=== PATIENT | female | born 1945 | race Caucasian/White ===

== ENCOUNTER → 2018-01-29 09:25 | Outpatient (CLI) | payer MEDICARE, OTHER, SELFPAY ==
[2018-01-29 12:38] LABS: Absolute Lymphocyte Count 1.58 X10^3/ul (0.83-4.51); Basophil# 0.04 X10^3/uL; Basophil% 1.3 % (0-1); Eosinophil# 0.19 X10^3/uL; Hematocrit 37.2 % (37-47); Hemoglobin 12.1 g/dl (12.0-15.0); Lymphocyte # 1.58 X10^3/ul (4.0); Mean Corp Hgb Conc 32.5 g/gl (32-36); Mean Corpuscular Hgb 30.9 pg (27.0-32.0); Mean Corpuscular Volume 94.9 fL (81-99); Mean Platelet Vol. 10.7 fl (6.2-12.0); Monocyte# 0.34 X10^3/uL; Monocyte% 10.8 % (0-10); Neutrophil % 31.6 % (47-70); Platelet Count 220 K/mm3 (150-450); RBC Distribution Width SD 43.9 fl (35.1-43.9); Red Blood Count 3.92 M/mm3 (4.2-5.4); White Blood Count 3.2 K/mm3 (4.4-11.0)
[2018-01-29 12:39] LABS: Differential Indicated SCAN CRITERIA MET; POSITIVE COUNT NO; POSITIVE DIFFERENTIAL YES; POSITIVE MORPHOLOGY NO
[2018-01-29 13:00] LABS: Anion Gap 5 (5-15); BUN 28 mg/dL (7-18); BUN/Creat Ratio 21.7 RATIO (10-20); Chloride 108 mmol/L (98-107); Creatinine, Serum 1.29 mg/dL (0.55-1.02); EST Glomerular Filtration Rate 43 mL/min (>60); Est Glom Filt Rate - Afr Amer 52 mL/min (>60); Glucose 93 mg/dL (74-106); Potassium 3.9 mmol/L (3.5-5.1); Sodium Level 142 mmol/L (136-145)
== END ==
PROVIDERS: Family Provider Family Medicine; PCP Family Medicine; Visit Provider Family Medicine
DX: I10 Essential (primary) hypertension (principal); R73.01 Impaired fasting glucose
CPT/HCPCS: 36415; 80048; 85025

== ENCOUNTER 2018-05-13 11:44 | Observation (INO) | payer MEDICARE, OTHER, SELFPAY ==
[2018-05-13] VITALS (7 sets, daily range): BP systolic 123–151; BP diastolic 64–90; PULSE 70–82; RESP 15–18; TEMP 36.8–37.2; O2SAT 98–99; BMI 27.3; BMI 27.4
--- NOTE | 2018-05-13 12:37 | CT_ITS ---
STUDY: CT BRAIN WITHOUT CONTRAST REASON FOR EXAM: Female, 73 years old. Vertigo. Anxiety. RADIATION DOSAGE (If Supplied By Facility): CTDIvol = ( 60.81 ) mGy, DLP = ( 1044.28 ) mGycm TECHNIQUE: Transaxial CT imaging of the brain was performed without administration of intravenous contrast material. Individualized dose optimization techniques were used for this CT. COMPARISON: None. FINDINGS: Normal soft tissue structures. Normal calvarium. Normal size ventricles and extra-axial spaces for the patient's age. Normal white matter tracts of the cerebral hemispheres. There are small punctate calcifications of the basal ganglia which are seen in the aging brain as a normal variant. Normal brainstem. Normal cerebellum. There is no intracranial hemorrhage. There are no findings of an acute ischemic infarction. Normal visualized paranasal sinuses. CT/Brain/Head without Contrast IMPRESSION: No acute abnormality is seen. Electronically Signed: Demond Muller MD at 13:33 EDT Tel [phone], Service support ,
[2018-05-13 12:49] LABS: Absolute Lymphocyte Count 1.34 X10^3/ul (0.83-4.51); Absolute Neutrophil Count 1.9 X10^3/uL (2.0-7.7); Basophil# 0.02 X10^3/uL; Basophil% 0.6 % (0-1); Eosinophil# 0.05 X10^3/uL; Eosinophils% 1.4 % (0-5); Hematocrit 38.4 % (37-47); Lymphocyte # 1.34 X10^3/ul (4.0); Lymphocyte % 37.4 % (19-41); Mean Corp Hgb Conc 33.9 g/gl (32-36); Mean Corpuscular Volume 91.4 fL (81-99); Mean Platelet Vol. 10.8 fl (6.2-12.0); Monocyte# 0.31 X10^3/uL; Monocyte% 8.7 % (0-10); Neutrophil # 1.86 X10^3/uL (2.7-7.7); Neutrophil % 51.9 % (47-70); Platelet Count 208 K/mm3 (150-450); RBC Distribution Width SD 39.6 fl (35.1-43.9); White Blood Count 3.6 K/mm3 (4.4-11.0)
[2018-05-13 12:51] LABS: POSITIVE COUNT NO; POSITIVE DIFFERENTIAL NO; POSITIVE MORPHOLOGY NO
[2018-05-13] MEDS: Metoclopramide 10 MG/2 ML Vial 5 MG IV (12:59)
[2018-05-13] MEDS: Ondansetron 4 MG/2 ML Vial IV (12:59)
[2018-05-13 13:04] LABS: Anion Gap 11 (5-15); BUN 17 mg/dL (7-18); BUN/Creat Ratio 13.7 RATIO (10-20); Calcium,Total 9.1 mg/dL (8.5-10.1); Chloride 108 mmol/L (98-107); Creatinine, Serum 1.24 mg/dL (0.55-1.02); EST Glomerular Filtration Rate 45 mL/min (>60); Est Glom Filt Rate - Afr Amer 54 mL/min (>60); Estimated Creatinine Clearance 28.16 ml/min; Glucose 150 mg/dL (74-106); Potassium 3.8 mmol/L (3.5-5.1); Sodium Level 143 mmol/L (136-145)
[2018-05-13 13:05] LABS: Bacteria 0 SEEN /hpf (None Seen); Mucous, Urine 0 SEEN /hpf (<or=2+); Red Blood Cells-Urine 0 SEEN /hpf (0-5); Squamous Epithelial Cells - UA 0 SEEN /hpf (5-10); White Blood Cells 0 SEEN /hpf (0-5)
[2018-05-13 13:07] LABS: Color, Urine Straw (Yellow); Glucose, Dipstick Normal (Normal); Ketone-Dipstick Negative (Negative); Leukocyte Esterase-Dipstick Negative /ul (Negative); Nitrite-Dipstick Negative (Negative); Occult Blood-Urine Negative /ul (Negative); Protein-Dipstick Negative (Negative); Urine Bilirubin Dipstick Negative (Negative); Urine Clarity Clear (Clear); Urine Urobilinogen Normal (Normal)
--- NOTE | 2018-05-13 14:17 | ED.VIS.GEN ---
History of Present Illness Chief Complaint: Dizziness Informant: Patient Onset: Today - 299, about 9-10 hrs [employer]EMPL[employer]MENT [employer]IST Context: Sudden Onset - while upright, after she was up out of bed Quality: off-balance Location: n/a Current Severity: - - mild-mod Maximum Severity: - - mild-mod Associated Symptoms: nausea Narrative: Her had this before. No ear pain or tinnitus or headache or vomiting. No focal neurologic symptoms peripherally. No confusion. No injury to her head. No recent falls.. Feels like she is going to, no lightheadedness or presyncopal episodes. No chest pain or palpitations. She states she usually takes melatonin every night but she stopped 2 nights ago, and could not sleep last night, took some Benadryl, which was why she was getting up out of bed at 3 in the morning, before she took the Benadryl she started having these symptoms. She took no other medications. Of note, patient has tympanic membrane perforation and occasional issues, but none now. - Past Medical History (1) Diabetes mellitus Status: Chronic (2) Meralgia paraesthetica Status: Chronic Past Medical History - Allergies and Home Meds Allergies/Adverse Reactions: Allergies azithromycin [From Zithromax] Allergy (Verified 05/13/18 12:06) Anaphylaxis Penicillins Allergy (Verified 05/13/18 12:06) Anaphylaxis Primary Care Physician: Otf Granado MD [Primary Care Provider] - Smoking Status: Never smoker Review of Systems All systems negative except as indicated Gastrointestinal: Reports: Nausea. Denies: Vomiting Neurological: Reports: - - dizziness. Denies: Headache, Weakness, Numbness Physical Exam Vital Signs/Narrative: Vital Signs Temp Pulse Resp BP Pulse Ox 05/13/18 11:45 98.3 F 78 15 151/90 H 99 Inital Vital Signs reviewed: Yes General: Well nourished, Well developed Head: Normocephalic, Atraumatic Eyes: Perrl, EOMI - horiz nystagmus bilat. ENT: Moist mucous membranes, No rhinorrhea, TM's clear - except for chronic-appearing perforation left TM; no discharge or erythema. nml EAC bilat. Neck: Supple, Nontender Cardiovascular: Regular rate, Regular rhythm, No murmurs Respiratory: No distress, CTA bilaterally, Chest nontender Abdomen: Soft, Nontender, Nondistended, Normal bowel sounds Back: Nontender, Normal Inspection Extremities: Nontender, No edema Skin: Normal color, No rash Neurological: Alert, Oriented x3, Cranial nerves II-XII grossly intact, Normal Strength, Normal Sensation, Normal DTR, - - normal FTN and HTS bilat Psychological: Normal affect Diagnostic/Tx/Re-eval Impressions Brain CT 05/13/18 12:37 IMPRESSION: No acute abnormality is seen. Electronically Signed: Demond Muller MD at 13:33 EDT Tel [phone], Service support , 05/13/18 12:37 Brain/Head without Contrast [CT] Stat Laboratory Results 05/13/18 05/13/18 05/13/18 Range/Units 12:05 12:05 12:54 WBC 3.6 L (4.4-11.0) K/mm3 RBC 4.20 (4.2-5.4) M/mm3 Hgb 13.0 (12.0-15.0) g/dl Hct 38.4 (37-47) % MCV 91.4 (81-99) fL MCH 31.0 (27.0-32.0) pg MCHC 33.9 (32-36) g/gl RDW 12.0 (11.6-14.6) % RDW Differential 39.6 (35.1-43.9) fl Plt Count 208 (150-450) K/mm3 MPV 10.8 (6.2-12.0) fl Immature Gran % (Auto) 0.000 (0.0-0.9) % Neut % (Auto) 51.9 (47-70) % Lymph % (Auto) 37.4 (19-41) % Edmonson % (Auto) 8.7 (0-10) % Eos % (Auto) 1.4 (0-5) % Baso % (Auto) 0.6 (0-1) % Absolute Neuts (auto) 1.9 L (2.0-7.7) X10^3/uL Absolute Lymphs (auto) 1.34 (0.83-4.51) X10^3/ul Total Counted Not Reportable Sodium 143 (136-145) mmol/L Potassium 3.8 (3.5-5.1) mmol/L Chloride 108 H (98-107) mmol/L Carbon Dioxide 24.0 (21.0-32.0) mmol/L Anion Gap 11 (5-15) BUN 17 (7-18) mg/dL Creatinine 1.24 H (0.55-1.02) mg/dL Estim Creat Clear Calc 28.16 ml/min Est GFR (MDRD) Af Amer 54 L (>60) mL/min Est GFR (MDRD) Non-Af 45 L (>60) mL/min BUN/Creatinine Ratio 13.7 (10-20) RATIO Glucose 150 H (74-106) mg/dL Calcium 9.1 (8.5-10.1) mg/dL Troponin I < 0.015 (<0.045) ng/mL Urine Color Straw (Yellow) Urine Clarity Clear (Clear) Urine pH 8.0 (5.0 - 8.0) Ur Specific Deweese 1.010 (1.002-1.030) Urine Protein Negative (Negative) mg/dl Urine Glucose (UA) Normal (Normal) mg/dl Urine Ketones Negative (Negative) mg/dl Urine Occult Blood Negative (Negative) /ul Urine Nitrite Negative (Negative) Urine Bilirubin Negative (Negative) mg/dL Urine Urobilinogen Normal (Normal) mg/dl Ur Leukocyte Esterase Negative (Negative) /ul Urine RBC 0 SEEN (0-5) /hpf Urine WBC 0 SEEN (0-5) /hpf Ur Squamous Epith Cells 0 SEEN (5-10) /hpf Urine Bacteria 0 SEEN (None Seen) /hpf Urine Mucus 0 SEEN (<or=2+) /hpf - Rhythm Strip Rhythm Strip: Sinus Rhythm Rate: 65 Ectopy: None - EKG Initial EKG Interpretation: Sinus Rhythm, No Acute Injury Pattern, - - normal ekg - Medical Decision Making Patient does have some horizontal nystagmus, no vertical or rotatory, but other than that, symptoms are concerning for possible central origin. Since I am not able to rule that out, we will admit her to the hospital for further workup. She does feel better after Reglan and Zofran. If MRI is negative, this may be related to her suddenly discontinuing melatonin, but that is not a classic symptom of that. ED Disposition - Plan for ED Patient: Disposition: Acute Care Hospital [facility] Chief Complaint: Dizziness Diagnosis: Vertigo
--- NOTE | 2018-05-13 15:07 | NURSING ---
CALLED JAC[facility] TO SEND.
--- NOTE | 2018-05-13 15:45 | HP.PCM_ITS ---
Problem List (1) Vertigo Status: Acute (2) Meralgia paraesthetica Status: Chronic (3) Diabetes mellitus Status: Chronic History of Present Illness Date of Admission: 05/13/18 Chief Complaint: Vertigo The patient is a 73 year old F with a h/o diet contolled DM2, HLD presents with vertigo after taking benadryl last night. She states that she was in her usual health yesterday except she could not fall asleep. She took one benadryl at midnight which usually helps and then she took another at 3 am. At around 5 this morning she started to feel dizzy/Unsteady. That has improved some since she has been in the ER. She has not had a reaction like this prior. She denies any blurry vision, weakness, numbness or tingling. She did not have any palpitations during this episode. No recent URI, tinnitus or hearing loss. 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 In the ER a CT head was normal as was her lab work, she did have an elevated BP. Past Medical History Past Medical History (Chronic Problems): Chronic Problems Meralgia paraesthetica (Chronic) Diabetes mellitus (Chronic) Allergies azithromycin [From Zithromax] Allergy (Verified 05/13/18 12:06) Anaphylaxis Penicillins Allergy (Verified 05/13/18 12:06) Anaphylaxis Home Medications: Ambulatory Orders Medication Instructions Recorded Fenofibrate Nanocrystallized 160 mg PO DAILY 05/13/18 [Triglide] Lorazepam [Ativan] 1 mg PO DAILY PRN 05/13/18 Melatonin/Pyridoxine HCl (B6) 3 mg PO QHS 05/13/18 [Melatonin 3 mg Tablet] Multivitamin [Daily Multiple 1 tab PO DAILY 05/13/18 Vitamin] Quinapril HCl [Accupril] 10 mg PO DAILY 05/13/18 Surgical History: - - Wrist fracture repair Lives: Spouse/ Significant Other Smoking Status: Never smoker Tobacco Use: Non-smoker Alcohol: None Drugs: None - *Family History Paternal History Items: Heart Disease, Stroke Review of Systems Constitutional: Denies: Chills, Fever, Weight Change Eyes: Denies: Blurred vision HEENT: Denies: Dysphasia, Head Aches, Sinus Congestion, Sinus Drainage Cardiovascular: Denies: Chest Pain, Palpitations Respiratory: Denies: Cough, Shortness of breath at rest, Sputum production Gastrointestinal: Denies: Abdominal Pain, Nausea, Vomiting Genitourinary: Denies: Dysuria, Frequency Musculoskeletal: Denies: Joint Pain, Joint Tenderness Skin: Denies: Rash, Wounds Neurological: Reports: Balance problems. Denies: Blurred vision, Slurred speech , Confusion, Focal weakness, Numbness, Tingling, Seizures Psychiatric: Denies: Anxiety, Depression Hematologic/ Lymphatic: Denies: Easy Bruising, Easy Bleeding VTE Information - Inpt Only VTE Present on Admission: No Patient Problems: Active and Suspected Problems Vertigo (Acute) - Physical Exam General: Alert, Oriented x3, Cooperative, No apparent distress HEENT: Atraumatic, PERRLA, EOMI, Normocephalic Oral: Moist Mucosa Neck: Supple, No JVD Lungs: Clear to auscultation, Normal air movement, No rhonchi, No wheeze, No rales Cardiovascular: Regular rate, Regular Rhythm, Normal S1, Normal S2, No murmurs Abdomen: Soft, Non Tender, Non-Distended, No Hepato-splenomegaly Extremities: No edema, Capillary Refill Less than 3 Seconds Skin: No rashes, No breakdown Neurological: Cranial nerves II-XII grossly intact, Deep Tendon Reflexes 2+/4 and Symmetrical, Motor Exam 5/5 strength throughout, Muscle tone normal, Sensory exam intact to light touch and pain, Coordination normal Psych/Mental Status: Normal Affect, Appropriate Vital Signs Temp Pulse Resp BP Pulse Ox 98.3 F 78 15 151/90 H 99 05/13/18 11:45 05/13/18 11:45 05/13/18 11:45 05/13/18 11:45 05/13/18 11:45 Assessment/Plan All Active Problems Vertigo (Acute) 1. Dizziness/Lightheadedness - This is likely secondary to the benadryl she took last night into this morning - She does have a h/o DM and a family h/o heart disease and stroke so I believe it is reasonable to start her onb a statin and aspirin 81 - Will allow her BP to stay elevated in case this is a stroke - Given the lack of tinnitus, pain, or recent h/o URI, menieres or vestibulitis or an acoustic neuroma are unlikely - Modified katie-halpike did not induce vertigo or nystagmus - Echo and MRI pending to r/o CVA - PT/OT 2. Diet controlled DM2/HLD/HTN - BG is 150 and her A1c was 6.6% - Will obtain lipids and A1c - Start statin and monitor glucose - She is on an JAMI-I DVT: Heparin Diet: Cardiac Code Visit Inpatient E&M: 56932 Init Hosp L3
[2018-05-13] MEDS: 0.9% Normal Saline 1,000 ML 100 ML IV (16:17)
[2018-05-13 16:29] LABS: Absolute Lymphocyte Count 2.06 X10^3/ul (0.83-4.51); Absolute Neutrophil Count 2.3 X10^3/uL (2.0-7.7); Basophil# 0.01 X10^3/uL; Basophil% 0.2 % (0-1); Eosinophil# 0.04 X10^3/uL; Eosinophils% 0.9 % (0-5); Hematocrit 39.2 % (37-47); Lymphocyte # 2.06 X10^3/ul (4.0); Lymphocyte % 43.9 % (19-41); Mean Corp Hgb Conc 33.2 g/gl (32-36); Mean Corpuscular Hgb 30.4 pg (27.0-32.0); Mean Corpuscular Volume 91.6 fL (81-99); Mean Platelet Vol. 10.2 fl (6.2-12.0); Monocyte% 6.4 % (0-10); Neutrophil # 2.28 X10^3/uL (2.7-7.7); Neutrophil % 48.6 % (47-70); Platelet Count 211 K/mm3 (150-450); RBC Distribution Width CV 12.5 % (11.6-14.6); RBC Distribution Width SD 41.6 fl (35.1-43.9); Red Blood Count 4.28 M/mm3 (4.2-5.4); White Blood Count 4.7 K/mm3 (4.4-11.0)
[2018-05-13 16:30] LABS: POSITIVE COUNT NO; POSITIVE DIFFERENTIAL NO; POSITIVE MORPHOLOGY NO
[2018-05-13 16:59] LABS: Cholesterol 204 mg/dL (200); High Density Lipoprotein 61 mg/dL; Triglycerides 167 mg/dL; Very Low Density Lipoprotein 33 mg/dL (5-40)
[2018-05-13] MEDS: MELATONIN 3 MG TABLET PO (21:44)
[2018-05-13] MEDS: Heparin Injection (Vial) 5,000 UNIT/ML VIAL 5000 UNIT SC (21:44)
[2018-05-13] MEDS: Atorvastatin Calcium 40 MG Tablet PO (21:44)
[2018-05-14] VITALS (8 sets, daily range): BP systolic 142–187; BP diastolic 72–83; PULSE 61–80; RESP 18; TEMP 36.4–36.9; O2SAT 95–100; BMI 27.4
[2018-05-14] MEDS: 0.9% Normal Saline 1,000 ML 100 ML IV (03:35)
[2018-05-14 06:20] LABS: Anion Gap 11 (5-15); BUN 17 mg/dL (7-18); Calcium,Total 8.4 mg/dL (8.5-10.1); Chloride 112 mmol/L (98-107); Creatinine, Serum 1.13 mg/dL (0.55-1.02); EST Glomerular Filtration Rate 50 mL/min (>60); Est Glom Filt Rate - Afr Amer 60 mL/min (>60); Glucose 98 mg/dL (74-106); Potassium 3.9 mmol/L (3.5-5.1); Sodium Level 147 mmol/L (136-145)
[2018-05-14] MEDS: Aspirin 81 MG TAB.CHEW PO (07:54)
[2018-05-14] MEDS: Multivitamins,Therapeutic Tablet 1 TABLET PO (07:54)
[2018-05-14] MEDS: Heparin Injection (Vial) 5,000 UNIT/ML VIAL 5000 UNIT SC (09:25)
[2018-05-14] MEDS: Lisinopril 10 MG Tablet PO (09:25)
--- NOTE | 2018-05-14 11:31 | PCM.DC ---
- Discharge Diagnoses Current Active Problems: Current Active and Chronic Problems Vertigo (Acute) Reason(s) for Visit for Discharge Instructions: drug induced vertigo You will use the following diet at home:: No restrictions, Calorie/Carbohydrate Controlled (specify 1200, 1400, etc) Discharge Activity: Return to Normal Activity, No Restrictions Allergies/Adverse Reactions: Allergies azithromycin [From Zithromax] Allergy (Verified 05/13/18 12:06) Anaphylaxis Penicillins Allergy (Verified 05/13/18 12:06) Anaphylaxis Medications to take at Discharge Lorazepam [Ativan] 1 mg PO DAILY PRN 05/13/18 Multivitamin [Daily Multiple Vitamin] 1 tab PO DAILY 05/13/18 Quinapril HCl [Accupril] 10 mg PO DAILY 05/13/18 Aspirin [Aspirin, Baby] 81 mg PO DAILY@0800 #30 tab.chew 05/14/18 Atorvastatin Calcium [Lipitor] 40 mg PO DAILY #30 tab 05/14/18 Melatonin 10 mg PO QHS #30 tab 05/14/18 The following prescriptions were given: Aspirin [Aspirin, Baby] 81 mg PO DAILY@0800 #30 tab.chew Atorvastatin Calcium [Lipitor] 40 mg PO DAILY #30 tab Melatonin 10 mg PO QHS #30 tab Please follow up with your Primary Care Physician in: 1-2 weeks Test Results: Test results from this visit will be discussed in further detail at your follow-up appointment, if applicable.
--- NOTE | 2018-05-14 11:33 | PCM.DC.SUM ---
Discharge Date and Diagnosis - Problem List Patient Problems: Active and Suspected Problems Vertigo (Acute) Date of Admission: 05/13/18 Date of Discharge: 05/14/18 - Primary Discharge Diagnosis Active and Suspected Problems Vertigo (Acute) - Secondary Discharge Diagnosis Chronic Problems Meralgia paraesthetica (Chronic) Diabetes mellitus (Chronic) Hospital Course and Treatment Imaging Results: negative MRI negative head CT Operations: None Procedures: None, 2-D Echocardiogram, Transthoracic echo - results pending Summary of Care Provided: The patient is a 73 year old F admitted on account of vertigo after taking two doses of Benadryl just a few hours apart in a bid to treat her severe insomnia. Presented to the ED and CT head was negative. Today had MRI of the brain done and this was negative for any acute stroke as well. Today symptoms have pretty much completely resolved and she is feeling better. Extensively counselled on indications and proper use of antihistamines. Also counselled and educated on sleep hygiene and other lifestyle modifications that may be helpful for her insomnia. She was prescribed melatonin at a higher dose of 10mg daily. Hopefully this helps. [] Discharge Activity: Return to Normal Activity, No Restrictions Home Medications: Medications to take at Discharge Lorazepam [Ativan] 1 mg PO DAILY PRN 05/13/18 Multivitamin [Daily Multiple Vitamin] 1 tab PO DAILY 05/13/18 Quinapril HCl [Accupril] 10 mg PO DAILY 05/13/18 Aspirin [Aspirin, Baby] 81 mg PO DAILY@0800 #30 tab.chew 05/14/18 Atorvastatin Calcium [Lipitor] 40 mg PO DAILY #30 tab 05/14/18 Melatonin 10 mg PO QHS #30 tab 05/14/18 Following Prescrptions Were Given to Patient: Aspirin [Aspirin, Baby] 81 mg PO DAILY@0800 #30 tab.chew Atorvastatin Calcium [Lipitor] 40 mg PO DAILY #30 tab Melatonin 10 mg PO QHS #30 tab Primary Care Physician: Otf Granado MD [Primary Care Provider] - Please follow up with your Primary Care Physician in: 1-2 weeks Medical Necessity - Tobacco Use Smoking Status: Never smoker Tobacco Use: Non-smoker Meaningful Use Info Meaningful Use Diagnoses (Choose all that apply): None applicable Code Visit OBSV E&M: 78930 Observation care discharge
== END 2018-05-14 11:32 | disposition home or self-care (01) ==
LOC: ED 14:34 → PCU 15:09
PROVIDERS: Admitting Provider Family Medicine; Emergency Provider Emergency Medicine; Family Provider Family Medicine; PCP Family Medicine; Visit Provider Internal Medicine
DX: R42 Dizziness and giddiness (principal); G57.10 Meralgia paresthetica, unspecified lower limb; E11.9 Type 2 diabetes mellitus without complications; Z79.899 Other long term (current) drug therapy; E78.5 Hyperlipidemia, unspecified; I10 Essential (primary) hypertension
CPT/HCPCS: 36415; 70450; 70551; 80048; 80061; 81001; 84484; 85025; 93005; 93306; 96361; 96372; 96374; 96375; 97802; 99218; 99284; J7030; J7040; A4216; G0378; J2405

== ENCOUNTER → 2019-03-16 09:22 | Outpatient (CLI) | payer MEDICARE, OTHER, SELFPAY ==
--- NOTE | 2019-03-16 09:31 | RAD_ITS ---
STUDY: X-RAY - LEFT FOOT CLINICAL: Female, 74 years old. Bilateral foot pain. No known injury. TECHNIQUE: 3 view(s) of the foot. COMPARISON: None. FINDINGS: Generalized osteopenia. There is a plantar calcaneal spur. Normal talus and tarsal bones. Mild arthrosis of the visualized subtalar, talonavicular, calcaneocuboid, tarsal and tarsometatarsal articulations. Normal metatarsi. Normal metatarsophalangeal joint of the great toe. Normal tibial and fibular sesamoid bones. Normal interphalangeal joint of the great toe. Normal phalanges of the great toe. Normal second through fifth metatarsophalangeal joints. There is slight irregularity about the head of the fifth proximal phalanx with mild narrowing of the proximal interphalangeal joint. This appears chronic. Otherwise normal interphalangeal joints and phalanges of the lesser toes. The soft tissue structures are unremarkable. RAD/Foot min 3 Views IMPRESSION: Generative changes left foot. There is no evidence for acute fracture or dislocation. Electronically Signed: Hayder Galeas DO at 19:29 EDT Tel [phone], Service support ,
== END ==
PROVIDERS: Family Provider Family Medicine; PCP Family Medicine; Referring Provider Family Medicine; Visit Provider Family Medicine
DX: M79.672 Pain in left foot (principal)
CPT/HCPCS: 73630

== ENCOUNTER → 2019-06-28 13:45 | Outpatient (CLI) | payer MEDICARE, OTHER, SELFPAY ==
[2018-05-14 08:02] VITALS: BMI 27.4
[2019-06-28 15:34] LABS: Absolute Neutrophil Count 1.5 X10^3/uL (2.0-7.7); Basophil# 0.02 X10^3/uL; Basophil% 0.6 % (0-1); Eosinophil# 0.11 X10^3/uL; Eosinophils% 3.4 % (0-5); Hemoglobin 10.9 g/dL (12.0-15.0); Lymphocyte % 37.6 % (19-41); Mean Corp Hgb Conc 31.1 g/dL (32-36); Mean Corpuscular Hgb 29.8 pg (27.0-32.0); Mean Corpuscular Volume 95.6 fL (81-99); Mean Platelet Vol. 10.6 fl (6.2-12.0); Monocyte# 0.36 X10^3/uL; Monocyte% 11.3 % (0-10); NRBC Flagged by Analyzer 0 % (0-5); Neutrophil # 1.49 X10^3/uL (2.7-7.7); Neutrophil % 46.8 % (47-70); Platelet Count 238 K/mm3 (150-450); RBC Distribution Width CV 13.7 % (11.6-14.6); RBC Distribution Width SD 48.6 fl (35.1-43.9); Red Blood Count 3.66 M/mm3 (4.2-5.4); White Blood Count 3.2 K/mm3 (4.4-11.0)
[2019-06-28 16:00] LABS: Anion Gap 6 (5-15); BUN 29 mg/dL (7-18); BUN/Creat Ratio 16.9 RATIO (10-20); Calcium,Total 8.9 mg/dL (8.5-10.1); Chloride 109 mmol/L (98-107); Creatinine, Serum 1.72 mg/dL (0.55-1.02); EST Glomerular Filtration Rate 31 mL/min (>60); Est Glom Filt Rate - Afr Amer 37 mL/min (>60); Glucose 141 mg/dL (74-106); Magnesium 2.2 mg/dL (1.6-2.6); Potassium 4.4 mmol/L (3.5-5.1); Sodium Level 143 mmol/L (136-145); Thyroid Stim Hormone (TSH) 1.34 uIU/mL (0.358-3.74)
[2019-06-29 11:37] LABS: Ferritin 41 ng/mL (8-252); Iron 71 ug/dL (50-170)
== END ==
PROVIDERS: Family Provider Family Medicine; PCP Family Medicine; Visit Provider Family Medicine
DX: I10 Essential (primary) hypertension (principal); R73.01 Impaired fasting glucose; E78.5 Hyperlipidemia, unspecified; R25.2 Cramp and spasm; N17.9 Acute kidney failure, unspecified
CPT/HCPCS: 36415; 80048; 82728; 83036; 83540; 83735; 84443; 85025

== ENCOUNTER → 2019-07-07 15:14 | Outpatient (CLI) | payer MEDICARE, OTHER, SELFPAY ==
[2018-05-14 08:02] VITALS: BMI 27.4
[2019-07-07 17:12] LABS: Absolute Lymphocyte Count 1.41 X10^3/uL (0.83-4.51); Absolute Neutrophil Count 1.6 X10^3/uL (2.0-7.7); Basophil# 0.02 X10^3/uL; Basophil% 0.6 % (0-1); Eosinophil# 0.07 X10^3/uL; Hematocrit 35.4 % (37-47); Hemoglobin 11.1 g/dL (12.0-15.0); Lymphocyte # 1.41 X10^3/ul (4.0); Lymphocyte % 41.1 % (19-41); Mean Corp Hgb Conc 31.4 g/dL (32-36); Mean Corpuscular Hgb 30.1 pg (27.0-32.0); Mean Corpuscular Volume 95.9 fL (81-99); Monocyte% 8.7 % (0-10); NRBC Flagged by Analyzer 0 % (0-5); Neutrophil # 1.62 X10^3/uL (2.7-7.7); Neutrophil % 47.3 % (47-70); Platelet Count 222 K/mm3 (150-450); RBC Distribution Width CV 13.8 % (11.6-14.6); RBC Distribution Width SD 49.1 fl (35.1-43.9); Red Blood Count 3.69 M/mm3 (4.2-5.4); White Blood Count 3.4 K/mm3 (4.4-11.0)
== END ==
PROVIDERS: Family Provider Family Medicine; PCP Family Medicine; Visit Provider Family Medicine
DX: I10 Essential (primary) hypertension (principal)
CPT/HCPCS: 36415; 85025

== ENCOUNTER 2019-07-08 15:46 | Outpatient (RCR) | payer MEDICARE, OTHER, SELFPAY ==
[2018-05-14 08:02] VITALS: BMI 27.4
--- NOTE | 2019-07-08 16:57 | HP.PTEVAL ---
Patient's Visit Information MAGDY LOZANO is a 74 year old F referred to Physical Therapy by Otf Granado MD with a diagnosis of . Date of Evaluation: Physical Therapist: Latesha Lancaster PT, Cert MDT - Anticipated Interventions Thank you for the opportunity to evaluate your patient. For Medicare and Medicare HMO plans, please review the plan of care and approve it. It will need to be FAXED BACK to us at [phone] for Medicare purposes. For Medicare only, by signing this I certify the plan of care. Please let me know if there are questions or concerns regarding this plan of care. Physician Signature: Date:
--- NOTE | 2019-07-08 16:58 | HP.PTEVAL_ITS ---
Patient's Visit Information MAGDY LOZANO is a 74 year old F referred to Physical Therapy by Otf Granado MD with a diagnosis of LEFT SIDED SCIATICA. Date of Evaluation: 07/08/19 Physical Therapist: Latesha Lancaster, PT, Cert MDT - Visit Plan Frequency: 2-3x /Week Duration: 4-6 Weeks Plan: AQUATIC THERAPY FOR PAIN RELEIF, POSTURE CORRECTION/STRENGTHENING, INSTRUCTION IN APPROPRIATE BODY MECHANICS AND ACTIVITY MODIFICATIONS. DLS STARTING WITH A NEUTRAL SPINE PROGRESSING ROM TOLERATED. IAN LE ROM, STRETCHING AND STRENGTHENING. HEP INSTRUCTION. - Subjective Findings: Work/Leisure: RETIRED. Disability: NO. Present symptoms: LEFT LOW BACK PAIN, LEFT THIGH, LEFT LEG AND FOOT PAIN. LEFT LE GETS STIFF TOO. SOME CHRONIC LEFT KNEE PAIN MONY BEHIND KNEE SINCE TKR ABOUT A YEAR AGO. DR. TORRES CHECKED IT IN NOVEMBER AND SAID IT IS OK. Present since: ON AND OFF FOR ABOUT A YEAR. WORSENED OVER ABOUT THE LAST 3 MONTHS. Pain Scale: WORST 6/10, LEAST 1/10. Currently: /10. Commenced as a result of: NO APPARENT REASON. Symptoms at onset: LEFT BACK. Worse: WALKING UP STAIRS, INITIATING GAIT THEN BETTER WITH DISTANCE LONG NOT TOO FAR. Better: HEAT. Disturbed sleep: YES. Previous history/Previous treatment: UNREMARKABLE. NO BACK SURGERY. NO JOY'S. NO PT EXCEPT MAYBE ONCE - DIDN'T HELP. NO CHIROPRACTOR. Coughing/sneezing/straining: NEGATIVE. Gait: NORMAL. DISTANCE LIMITED. Difficulty initiating urinatin: NO. Accidents: NO. Unexplained weight loss: NO. Imaging: BACK X-RAY BY DR. TORRES - DDD. PMH: HTN, NIDDM, HIGH CHOL. Recent major surgery: LEFT TKR AUG 2018. RIGHT TKR 2004 - Objective Sitting/Standing Posture: POOR. Lordosis: REDUCED. Lateral shift: NO. Relevant shift: N/A. Active Correction of posture: BETTER. Other Obse rvations: INDEP GAIT AND TRANSFERS. Motor deficit: RIGHT LE STRENGTH GROSSLY 5/5 WITH MMT'ING EXCEPT HIP 4/5. LLE: HIP 3+/5, KNEE EXT 4-/5, KNEE FLEX 4-/5, ANKLE 5/5. Sensory deficit: DECREASED LEFT THIGH AND KNEE LIGHT TOUCH SENSATION COMPARED TO RIGHT. ROM deficit: MILD GASTROC SOLEUS AND HS TIGHTNESS IAN LEFT HS > RIGHT. Reflexes: NT. Dural Signs: POSITIVE LLE. Lumbar mvmt loss: flex - NIL. ext - SHASHI. R SG - MOD. L SG - SHASHI - INCREASES LEFT BACK AND LE SX'S. Core strength: POOR. Palpation: TENDERNESS WITH PALPATION OF LEFT LOW BACK AND ILIAC CREST REGIONS.PATIENT DENIES ANY FALLS. - Goals Goal 1:: DECREASE C/O LOW BACK AND LEFT LE SX'S. Goal Time Frame: 4-6 Weeks Goal 2:: IMPROVE PERSONAL CARE, LIFTING, WALKING, SITTING, STANDING, SLEEP, TRAVEL AND HOMEMAKING FUNCTION Goal Time Frame: 4-6 Weeks Goal 3:: INSTRUCT IN PROPHYLAXIS. Goal Time Frame: 4-6 Weeks - Rehabilitation Potential Rehabilitation Potential: Fair - Anticipated Interventions Patient/Client Instruction: Educate patient on: Condition, Plan of Care, Risk Factors, Benefits of Fitness Program For the Purpose of:: To improve self management Therapeutic Exercise to Include: Strength training, Body mechanics, Postural training, Flexibilty training, In an aquatic setting, Dynamic Lumbar Stabilization For the Purpose of:: To decrease pain, To increase ROM, To improve muscle performance and motor function, To increase tolerance to activity/condition/position, To improve ability of physical actions for home/community/work/leisure, To improve gait and locomotor functions Thank you for the opportunity to evaluate your patient. For Medicare and Medicare HMO plans, please review the plan of care and approve it. It will need to be FAXED BACK to us at [phone] for Medicare purposes. For Medicare only, by signing this I certify the plan of care. Please let me know if there are questions or concerns regarding this plan of care. Physician Signature: Date:
--- NOTE | 2019-08-16 13:41 | HP.PTDCNRP_ITS ---
HP - Discharge Summary (1) - Patient Information MAGDY LOZANO was seen in my office for initial evaluation on 07/08/19. The following Plan of Care was established for this patient: Initial Frequency: 2-3x /Week Initial Duration: 4-6 Weeks - Anticipated Interventions Patient/Client Instruction: Educate patient on: Condition, Plan of Care, Risk Factors, Benefits of Fitness Program For the Purpose of:: To improve self management Therapeutic Exercise to Include: Strength training, Body mechanics, Postural training, Flexibilty training, In an aquatic setting, Dynamic Lumbar Stabiliza tion For the Purpose of:: To decrease pain, To increase ROM, To improve muscle performance and motor function, To increase tolerance to activity/condition/position, To improve ability of physical actions for home/community/work/leisure, To improve gait and locomotor functions This patient was last seen in our office . Pertinent comments regarding their Physical therapy will appear below: This patient has not returned to Physical Therapy and is appropriate to return to MD for further follow-up as needed. At this point I will be discontinuing this patient from physical therapy. I would be happy to see this patient again in the future if found appropriate by the physician. Thank you! Latesha Lancaster, PT, Cert MDT
== END 2019-07-08 19:00 | disposition home or self-care (01) ==
LOC: PT 15:46
PROVIDERS: Family Provider Family Medicine; PCP Family Medicine; Referring Provider Family Medicine; Visit Provider Family Medicine
DX: M54.32 Sciatica, left side (principal)
CPT/HCPCS: 97113; 97162; 97530

== ENCOUNTER → 2019-07-27 15:48 | Outpatient (CLI) | payer MEDICARE, OTHER, SELFPAY ==
[2018-05-14 08:02] VITALS: BMI 27.4
[2019-07-27 17:26] LABS: Microalbumin,Random Urine 14.4 mg/L (NO RANGE EST.); Microalbumin:Creatinine Ratio 10.1 mg/g CRE (<30 mg/g CRE)
== END ==
PROVIDERS: Family Provider Family Medicine; PCP Family Medicine; Visit Provider Internal Medicine Nephrology
DX: E11.22 Type 2 diabetes mellitus with diabetic chronic kidney disease (principal)
CPT/HCPCS: 82043; 82570

== ENCOUNTER 2021-05-08 19:20 | Emergency (ER) | payer MEDICARE, OTHER, SELFPAY ==
[2021-05-08 19:21] VITALS: BP 179/92; PULSE 87; RESP 19; TEMP 36.9; O2SAT 95; BMI 31.6
--- NOTE | 2021-05-08 20:23 | EKG12_ITS ---
Test Reason : CP Blood Pressure : / mmHG Vent. Rate : 079 BPM Atrial Rate : 079 BPM P-R Int : 136 ms QRS Dur : 080 ms QT Int : 374 ms P-R-T Axes : 021 -02 028 degrees QTc Int : 428 ms Normal sinus rhythm Nonspecific ST abnormality Abnormal ECG Confirmed by NAKIA MANLEY, SIMÓN ([id number]), managing editor LAUREN DE LUNA ([id number]) on 05/13/2021 10:40:58 AM Referred By: TONE Confirmed By:SIMÓN YEE MD
--- NOTE | 2021-05-08 20:23 | ED.VIS.CHEST ---
HPI History of Present Illness Chief Complaint: Chest Pain Informant: patient and EMS Onset/Context/Timing Onset: Hours (3, prior to evaluation) Activity at onset: gradual, onset and light activity Timing: Intermittent (One episode which was continuous 1 present) and Lasts (1.5 hours) Quality: Positive for Burning Location: Substernal (Lower chest, no radiation) Current Severity: Gone Maximum Severity: Moderate Worsened By: Nothing; Not Worsened By Breathing Relieved By: - (Time. Resolved on its own the colon getting to the hospital. She denies taking any medications, just some milk) Associated Symptoms: Negative for Nausea, Vomiting, Diaphoresis, Dyspnea, Cough, Lightheadedness and Palpitations Narrative Narrative: Patient presents with chest discomfort that felt like acid reflux but worse than usual and her blood pressure was 190. She states upon arrival to the hospital the discomfort went away without specific treatment. She had a stress test long ago that was negative no history of heart disease. She does not take anything for reflux but gets it periodically. CVD Risk Factors: Negative for Hypertension, Diabetes, Hypercholesterolemia, Family History 1' </=55 and Smoking PE Risk Factors: Negative for Recent Travel/Surgery, Recent Immobilization, Prior DVT or PE, Cancer and OCP + Smoking + >/=35 PFSH [facility] [place] Medical History (Updated 05/08/21 @ 21:[address] Juan Tracey MD) Diabetes mellitus Meralgia paraesthetica Stage III chronic kidney disease Vertigo Home Medications quinapril [Accupril] 10 mg PO DAILY 05/13/18 [History Last Taken 05/12/18] cholecalciferol (vitamin D3) [Vitamin D3] 1,000 unit PO DAILY 05/08/21 [History Last Taken Unknown] coenzyme Q10 [CoQ-10] 30 mg PO DAILY 05/08/21 [History Last Taken Unknown] pantoprazole 40 mg PO DAILY #30 tab 05/08/21 [Rx Last Taken Unknown] vit C,D-Bq-hdayf-lutein-zeaxan [PreserVision AREDS-2] 1 tab PO BID 05/08/21 [History Last Taken Unknown] Allergy/AdvReac Type Severity Reaction Status Date / Time azithromycin [From Zithromax] Allergy Anaphylaxis Verified 05/08/21 19:27 cephalexin [From Keflex] Allergy Anaphylaxis Verified 05/08/21 19:27 Penicillins Allergy Anaphylaxis Verified 05/08/21 19:27 Surgical History History of bladder suspension procedure History of mandibular surgery History of total knee replacement (TKR) Social History Smoking Status: Never smoker ROS ROS ED Constitutional Constitutional ED: Denies chills or fever(s) Eyes Eyes: Denies change in vision or diplopia ENT ENT ED: Denies rhinorrhea or sore throat Cardiovascular Cardiovascular: Reports as per HPI and chest pain; Denies palpitations Respiratory/Chest Respiratory/Chest: Denies cough or dyspnea Gastrointestinal Gastrointestinal: Denies abdominal pain, diarrhea, nausea or vomiting Genitourinary Genitourinary ED: Denies dysuria or hematuria Musculoskeletal Musculoskeletal: Denies back pain or neck pain Integumentary Denies abscess or rash Neurologic Neurologic: Denies headache(s), paresthesias or weakness Psychiatric Psychiatric: Denies anxiety or suicidal thoughts EXAM Physical Exam Const Vital Signs: 05/08/21 19:21 05/08/21 19:32 05/08/21 20:39 Temperature 98.5 F Temperature Source Oral Pulse Rate 87 72 Respiratory Rate 19 H 18 Respiratory Pattern Normal Blood Pressure 179/92 H 146/76 H Blood Pressure Mean 121 99 Pulse Ox 95 94 Oxygen Delivery Method Room Air Room Air Positive well nourished and well developed General Appearance ED: well developed and NAD HEENT Reports moist mucous membranes normocephalic and atraumatic Eyes PERRL and EOMs intact bilaterally Neck full ROM and supple Resp normal respiratory effort and clear to auscultation bilaterally Cardio regular rate, regular rhythm and no murmurs GI non-distended GI Narrative: Mild epigastric tenderness, otherwise benign Auscultation: normoactive bowel sounds Palpation: soft; Negative for guarding or rebound tenderness present Back/Spine no CVA tenderness General Back: other FROM Extremity normal to inspection General Extremety ED: Negative for edema, pulses abnormal or tenderness General Extremity: Negative for edema or pulses abnormal Neuro oriented x3, CN's II-XII intact bilaterally and no sensory deficits noted Sensorium / Orientation: awake and alert Motor Exam: strength 5/5 throughout Skin no rashes or lesions noted and no wounds Heart Score History: Slightly/Non-Suspicious ECG: Normal Age: >/= 65 years Risk Factors: 1 or 2 Risk Factors Troponin: </= Normal Limit Score: 3 MDM MDM MDM Narrative Medical decision making narrative: Reviewed patient's history, she did have a negative stress test November 2016. Her EKG is normal here, she did not have any recurrent chest discomfort, and her troponin is negative. Do not think she needs further studies at this time, she wants to go home and does not want to be admitted. I will put her on Protonix and advised to follow-up with her doctor. She is comfortable with that plan. Lab Data Attestation: I reviewed the patient's lab results. Labs: Laboratory Results - last 24 hr 05/08/21 05/08/21 19:00 19:00 WBC 5.6 RBC 4.35 Hgb 13.5 Hct 41.7 MCV 95.9 MCH 31.0 MCHC 32.4 RDW Std Deviation 45.7 H RDW Coeff of Jah 12.7 Plt Count 227 MPV 10.4 Immature Gran % (Auto) 0.400 Neut % (Auto) 40.6 L Lymph % (Auto) 45.5 H Daw[place] % (Auto) 9.7 Eos % (Auto) 2.9 Baso % (Auto) 0.9 Absolute Neuts (auto) 2.3 Absolute Lymphs (auto) 2.53 Sodium 140 Potassium 3.8 Chloride 106 Carbon Dioxide 30.0 Anion Gap 4 L BUN 25 H Creatinine 1.15 H Estim Creat Clear Calc 28.96 Est GFR (MDRD) Af Amer 59 L Est GFR (MDRD) Non-Af 49 L BUN/Creatinine Ratio 21.7 H Glucose 126 H Calcium 9.9 Troponin I High Sens 7 Radiography Chest X-Ray - ED: 1 View, Read by ED Physician and No Acute Disease EKG Initial EKG: Attestation: I personally reviewed and interpreted this EKG as follows: Interpretation: Sinus Rhythm and No Acute Injury Pattern Comments: Normal EKG Prior EKG tracings: available for review Prior: Unchanged Discharge Plan Triage Chief Complaint: Chest Pain ED Provider: Juan Tracey Dx/Rx/DC Orders Clinical Impression: Chest pain, unspecified Instructions: ED Chest Pain, Uncertain Cause Prescriptions: New pantoprazole 40 mg tablet,delayed release (DR/EC) 40 mg PO DAILY Qty: 30 RF: 0 No Action quinapril [Accupril] 10 MG tablet 10 mg PO DAILY RF: 0 coenzyme Q10 [CoQ-10] 30 mg Capsule 30 mg PO DAILY RF: 0 cholecalciferol (vitamin D3) [Vitamin D3] 25 mcg (1,000 unit) Tablet 1,000 unit PO DAILY RF: 0 PreserVision AREDS-2 250-90-40-1 mg Capsule 1 tab PO BID RF: 0 Primary Care Provider: Farhat Henry Referrals: Farhat Henry DO [Primary Care Provider] - (Call for appointment to be seen within the next week or so) Disposition Disposition: Home, Self Care
[2021-05-08 20:39] VITALS: BP 146/76; PULSE 72; RESP 18; O2SAT 94
--- NOTE | 2021-05-08 20:54 | RAD_ITS ---
STUDY: X-RAY CHEST REASON FOR EXAM: Female, 76 years old. chest pain TECHNIQUE: Single frontal view of the chest. COMPARISON: 07/28/2016. FINDINGS: The lungs are clear and expanded. There is no demonstrated pleural abnormality. Normal size heart. Normal mediastinum and ramsey. Normal visualized pulmonary arteries. Normal visualized aortic arch and descending thoracic aorta. Normal visualized thoracic spine. Normal visualized ribs, clavicles, and shoulders. There is no demonstrated abnormality of the visualized soft tissue structures of the upper abdomen. RAD/Chest 1 View (Portable) IMPRESSION: Normal x-ray examination of the chest. Electronically Signed: Hussein Briceno MD at 21:33 EDT , Service support ,
[2021-05-08 21:04] LABS: Hematocrit 41.7 % (37-47); Hemoglobin 13.5 g/dL (12.0-15.0); Mean Corp Hgb Conc 32.4 g/dL (32-36); Mean Corpuscular Volume 95.9 fL (81-99); RBC Distribution Width CV 12.7 % (11.6-14.6); RBC Distribution Width SD 45.7 fl (35.1-43.9); Red Blood Count 4.35 M/mm3 (4.2-5.4); White Blood Count 5.6 K/mm3 (4.4-11.0)
[2021-05-08 21:05] LABS: Basophil% 0.9 % (0-1); Eosinophils% 2.9 % (0-5); Lymphocyte % 45.5 % (19-41); Mean Platelet Vol. 10.4 fl (6.2-12.0); Monocyte% 9.7 % (0-10); Neutrophil # 2.26 X10^3/uL (2.7-7.7); Neutrophil % 40.6 % (47-70); Platelet Count 227 K/mm3 (150-450)
[2021-05-08 21:06] LABS: Absolute Lymphocyte Count 2.53 X10^3/uL (0.83-4.51); Absolute Neutrophil Count 2.3 X10^3/uL (2.0-7.7); Eosinophil# 0.16 X10^3/uL; Lymphocyte # 2.53 X10^3/ul (0.83-4.51); Monocyte# 0.54 X10^3/uL
[2021-05-08 21:07] LABS: Basophil# 0.05 X10^3/uL
[2021-05-08 21:25] LABS: Anion Gap 4 (5-15); BUN 25 mg/dL (7-18); BUN/Creat Ratio 21.7 RATIO (10-20); Calcium,Total 9.9 mg/dL (8.5-10.1); Chloride 106 mmol/L (98-107); Creatinine, Serum 1.15 mg/dL (0.55-1.02); EST Glomerular Filtration Rate 49 mL/min (>60); Est Glom Filt Rate - Afr Amer 59 mL/min (>60); Estimated Creatinine Clearance 28.96 ml/min; Glucose 126 mg/dL (74-106); Potassium 3.8 mmol/L (3.5-5.1); Sodium Level 140 mmol/L (136-145); Troponin-I HS 7 pg/mL (3.0-54.0)
[2021-05-08 22:11] VITALS: BP 147/78; PULSE 79; RESP 15; O2SAT 98
[2021-05-08] MEDS: Pantoprazole Sodium 40 MG Tablet PO (22:11)
== END 2021-05-08 22:12 | disposition home or self-care (01) ==
PROVIDERS: Emergency Provider Emergency Medicine; PCP Student in an Organized Health Care Education/Training Program
DX: R07.9 Chest pain, unspecified (principal); N18.30 Chronic kidney disease, stage 3 unspecified; E11.22 Type 2 diabetes mellitus with diabetic chronic kidney disease
CPT/HCPCS: 71045; 80048; 84484; 85025; 93005; 99285

== ENCOUNTER 2021-07-14 21:23 | Emergency (ER) | payer MEDICARE, OTHER, SELFPAY ==
[2021-07-14 21:24] VITALS: BP 160/105; PULSE 99; RESP 16; TEMP 36.6; O2SAT 96; BMI 25.2
[2021-07-14 21:42] VITALS: BP 176/91; PULSE 99; RESP 16; TEMP 36.6; O2SAT 96
--- NOTE | 2021-07-14 21:54 | EKG12_ITS ---
Test Reason : CP Blood Pressure : / mmHG Vent. Rate : 090 BPM Atrial Rate : 090 BPM P-R Int : 138 ms QRS Dur : 082 ms QT Int : 332 ms P-R-T Axes : 030 -04 023 degrees QTc Int : 406 ms Normal sinus rhythm Left ventricular hypertrophy Nonspecific ST abnormality Abnormal ECG Confirmed by NAKIA MANLEY, SIMÓN ([id number]), book editor LAUREN DE LUNA ([id number]) on 07/16/2021 9:46:32 AM Referred By: MARTHA Confirmed By:SIMÓN YEE MD
--- NOTE | 2021-07-14 22:00 | RAD_ITS ---
INDICATION: pain EXAMINATION/TECHNIQUE: X-RAY - XR Chest 1 View COMPARISON: 05/08/2021. FINDINGS: The lungs are clear. The cardiomediastinal silhouette is unremarkable. No pleural effusion or pneumothorax. Degenerative changes of the thoracic spine. RAD/Chest 1 View (Portable) IMPRESSION: No acute radiographic abnormalities. Electronically Signed: Gautam Bolaños MD at 22:32 EDT Tel , Service support ,
[2021-07-14 22:13] LABS: Absolute Lymphocyte Count 0.91 X10^3/uL (0.83-4.51); Absolute Neutrophil Count 2.6 X10^3/uL (2.0-7.7); Basophil# 0.02 X10^3/uL; Basophil% 0.5 % (0-1); Eosinophil# 0.06 X10^3/uL; Eosinophils% 1.4 % (0-5); Hematocrit 41.6 % (37-47); Hemoglobin 13.7 g/dL (12.0-15.0); Lymphocyte # 0.91 X10^3/ul (0.83-4.51); Lymphocyte % 21.7 % (19-41); Mean Corp Hgb Conc 32.9 g/dL (32-36); Mean Corpuscular Hgb 31.1 pg (27.0-32.0); Mean Corpuscular Volume 94.5 fL (81-99); Mean Platelet Vol. 10.1 fl (6.2-12.0); Monocyte# 0.58 X10^3/uL; Monocyte% 13.8 % (0-10); NRBC Flagged by Analyzer 0 % (0-5); Neutrophil # 2.61 X10^3/uL (2.7-7.7); Neutrophil % 62.4 % (47-70); Platelet Count 165 K/mm3 (150-450); RBC Distribution Width CV 12.2 % (11.6-14.6); RBC Distribution Width SD 42.7 fl (35.1-43.9); White Blood Count 4.2 K/mm3 (4.4-11.0)
[2021-07-14 22:31] LABS: AST(SGOT) 16 U/L (15-37); Alanine Aminotransfer ALT/SGPT 27 U/L (13-56); Albumin, Serum 3.5 g/dL (3.2-5.0); Alkaline Phosphatase 70 U/L (45-117); Anion Gap 8 (5-15); BUN 17 mg/dL (7-18); BUN/Creat Ratio 14.7 RATIO (10-20); Bilirubin, Direct 0.17 mg/dL (0.00-0.30); Calcium,Total 9.2 mg/dL (8.5-10.1); Chloride 104 mmol/L (98-107); Creatinine, Serum 1.16 mg/dL (0.55-1.02); EST Glomerular Filtration Rate 48 mL/min (>60); Est Glom Filt Rate - Afr Amer 58 mL/min (>60); Estimated Creatinine Clearance 35.97 ml/min; Globulin 4.2 g/dL (2.2-4.2); Glucose 150 mg/dL (74-106); Lipase 472 U/L (73-393); Potassium 3.6 mmol/L (3.5-5.1); Protein, Total 7.7 g/dL (6.4-8.2); Sodium Level 138 mmol/L (136-145); Troponin-I HS 7 pg/mL (3.0-54.0)
[2021-07-14] MEDS: Mag Hydrox/Al Hydrox/Simeth 30 ML UDC PO (22:31)
[2021-07-14] MEDS: Ondansetron 4 MG/2 ML Vial IV (23:30)
[2021-07-14] MEDS: Morphine 4 MG/ML Syringe IV (23:30)
[2021-07-14 23:35] VITALS: BP 181/95; PULSE 95; RESP 15; O2SAT 94
--- NOTE | 2021-07-14 23:57 | EX.ED.DYSGE1 ---
HPI History of Present Illness Chief Complaint: Chest Pain Informant: patient Onset/Context/Timing Onset: Today Context: Gradual Onset Current Severity: Mild Maximum Severity: Moderate Narrative Narrative: Patient presents secondary to chest and epigastric pain. Yesterday she received the Covid booster shot. She states has been laying in bed for the almost 24 hours with body aches and subjective fevers. She only ate some cereal this morning stating that she did not feel hungry. Now she feels like she has horrible heartburn and is burping frequently. Patient denies known cardiac history. [facility] Medical History Diabetes mellitus Meralgia paraesthetica Stage III chronic kidney disease Vertigo Home Medications quinapril [Accupril] 10 mg PO DAILY 05/13/18 [History Last Taken 05/12/18] cholecalciferol (vitamin D3) [Vitamin D3] 1,000 unit PO DAILY 05/08/21 [History Last Taken Unknown] coenzyme Q10 [CoQ-10] 30 mg PO DAILY 05/08/21 [History Last Taken Unknown] vit C,N-Cw-ngztk-lutein-zeaxan [PreserVision AREDS-2] 1 tab PO BID 05/08/21 [History Last Taken Unknown] omeprazole magnesium [Prilosec] 20 mg PO DAILY #28 ea 07/15/21 [Rx Last Taken Unknown] Allergy/AdvReac Type Severity Reaction Status Date / Time azithromycin [From Zithromax] Allergy Anaphylaxis Verified 05/08/21 19:27 cephalexin [From Keflex] Allergy Anaphylaxis Verified 05/08/21 19:27 Penicillins Allergy Anaphylaxis Verified 05/08/21 19:27 Surgical History History of bladder suspension procedure History of mandibular surgery History of total knee replacement (TKR) Social History Smoking Status: Never smoker ROS ROS ED Constitutional Constitutional ED: Denies chills or fever(s) Eyes Eyes: Denies change in vision ENT ENT ED: Denies sore throat Cardiovascular Cardiovascular: Reports chest pain Respiratory/Chest Respiratory/Chest: Denies cough or dyspnea Gastrointestinal Gastrointestinal: Reports abdominal pain; Denies diarrhea, nausea or vomiting Genitourinary Genitourinary ED: Denies dysuria Musculoskeletal Musculoskeletal: Denies back pain Integumentary Denies rash Neurologic Neurologic: Reports weakness; Denies headache(s) Allergic/Immunologic Allergic/Immunologic ED: Denies urticaria EXAM Physical Exam Const Vital Signs: 07/14/21 21:24 07/14/21 21:42 07/14/21 23:35 Temperature 97.8 F 97.8 F Temperature Source Temporal Temporal Pulse Rate 99 99 95 Respiratory Rate 16 16 15 Respiratory Effort Normal Respiratory Pattern Normal Blood Pressure 160/105 H 176/91 H 181/95 H Blood Pressure Mean 123 119 123 Pulse Ox 96 96 94 Oxygen Delivery Method Room Air Room Air Room Air Positive well nourished and well developed General Appearance ED: well developed Eyes PERRL and EOMs intact bilaterally Neck supple Chest Wall inspection of chest normal and palpation of chest normal Resp normal respiratory effort and clear to auscultation bilaterally Cardio regular rate and regular rhythm GI Palpation: soft and tender epigastric Extremity normal to inspection Neuro oriented x3 Sensorium / Orientation: alert Psych mental status grossly normal Skin no rashes or lesions noted MDM MDM MDM Narrative Medical decision making narrative: EKG, chest x-ray, lab work obtained. Patient initially given GI cocktail and a dose of IV Protonix. Lab Data Attestation: I reviewed the patient's lab results. Labs: Laboratory Results - last 24 hr 07/14/21 07/14/21 21:45 21:45 WBC 4.2 L RBC 4.40 Hgb 13.7 Hct 41.6 MCV 94.5 MCH 31.1 MCHC 32.9 RDW Std Deviation 42.7 RDW Coeff of Jah 12.2 Plt Count 165 MPV 10.1 Immature Gran % (Auto) 0.200 Neut % (Auto) 62.4 Lymph % (Auto) 21.7 [place] % (Auto) 13.8 H Eos % (Auto) 1.4 Baso % (Auto) 0.5 Absolute Neuts (auto) 2.6 Absolute Lymphs (auto) 0.91 Nucleated RBC % 0 Sodium 138 Potassium 3.6 Chloride 104 Carbon Dioxide 26.0 Anion Gap 8 BUN 17 Creatinine 1.16 H Estim Creat Clear Calc 35.97 Est GFR (MDRD) Af Amer 58 L Est GFR (MDRD) Non-Af 48 L BUN/Creatinine Ratio 14.7 Glucose 150 H Calcium 9.2 Total Bilirubin 0.60 Direct Bilirubin 0.17 AST 16 ALT 27 Alkaline Phosphatase 70 Troponin I High Sens 7 Total Protein 7.7 Albumin 3.5 Globulin 4.2 Lipase 472 H Radiography Chest X-Ray - ED: 1 View, 2 View and Chronic Changes Diagnostic Testing: Clinical Impression(s) from Imaging Studies Chest X-Ray 07/14/21 22:00 IMPRESSION: No acute radiographic abnormalities. Electronically Signed: Gautam Bolaños MD at 22:32 EDT Tel , Service support , EKG Initial EKG: Attestation: I personally reviewed and interpreted this EKG as follows: Interpretation: Sinus Rhythm (Sinus at 90 with no acute ischemia.) Treatment and Re-Evaluation Comments:: On repeat evaluation patient reports continued pain. Blood pressure is elevated secondary to pain. She is given dose of morphine and Zofran. Lab work reviewed with her. White count is low. Chemistry studies unremarkable. Lipase is 472. On review of prior records lipase has been checked twice in the past it is always elevated about this number. It is not meet criteria for acute pancreatitis. Chest x-ray is unremarkable. EKG reveals no ischemia. Troponin is negative with greater than 6 hours of pain. At this time patient's pain is significantly improved. She is able to get up and ambulate to the restroom and back without difficulty. She is comfortable discharge to home and continue to monitor her symptoms. I will write her for a 2-week course of Prilosec. Return instructions are provided. Discharge Plan Triage Chief Complaint: Chest Pain ED Provider: Rosita Augustine Dx/Rx/DC Orders Clinical Impression: Abdominal pain, epigastric Instructions: ED Epigastric Pain Uncertain Cause Prescriptions: New Prilosec 10 mg susp,delayed release for recon 20 mg PO DAILY Qty: 28 RF: 0 No Action quinapril [Accupril] 10 MG tablet 10 mg PO DAILY RF: 0 coenzyme Q10 [CoQ-10] 30 mg Capsule 30 mg PO DAILY RF: 0 cholecalciferol (vitamin D3) [Vitamin D3] 25 mcg (1,000 unit) Tablet 1,000 unit PO DAILY RF: 0 PreserVision AREDS-2 250-90-40-1 mg Capsule 1 tab PO BID RF: 0 Primary Care Provider: Farhat Henry Referrals: Farhat Henry DO [Primary Care Provider] - 3-5 Days if not improving Disposition Disposition: Home, Self Care
[2021-07-15 00:42] VITALS: BP 181/85; PULSE 76; RESP 18; O2SAT 97
== END 2021-07-15 00:42 | disposition home or self-care (01) ==
PROVIDERS: Emergency Provider Emergency Medicine; PCP Student in an Organized Health Care Education/Training Program
DX: R10.13 Epigastric pain (principal); R07.9 Chest pain, unspecified; N18.30 Chronic kidney disease, stage 3 unspecified; E11.22 Type 2 diabetes mellitus with diabetic chronic kidney disease
CPT/HCPCS: 71045; 80048; 80076; 83690; 84484; 85025; 93005; 99285; A4216; J2405

== ENCOUNTER 2022-02-07 22:54 | Emergency (ER) | payer MEDICARE, OTHER, SELFPAY ==
[2022-02-07 22:55] VITALS: BP 139/89; PULSE 82; RESP 18; TEMP 36.8; O2SAT 95; BMI 32.1
--- NOTE | 2022-02-07 23:05 | EDS_ITS ---
HPI History of Present Illness Chief Complaint: Hyperglycemia Narrative Narrative: 76-year-old female presenting with hyperglycemia. She states her blood sugar was about 350 at home. Currently has diet-controlled diabetes and states she eats salads, fish, and generally low-carb diet. This week she was working in the [employer] and come across [employer]. She currently has poison guillermina dermatitis which is actually improving after 2 days of a Medrol Dosepak, but her blood sugars have been elevated. The patient states that tonight she had a very mild headache and called the emergency room to see if she was allowed to take Tylenol and they told her she could take Tylenol but if her blood sugars continue to go up she should come to the emergency room. Since her blood sugars did go up to 350 she arrived here. She took Tylenol prior to arrival her headache is improving. She states that her poison guillermina dermatitis is actually improved significantly and she is not very itchy. Her rash is drying up. [facility] Medical History Diabetes mellitus Meralgia paraesthetica Stage III chronic kidney disease Vertigo Home Medications quinapril [Accupril] 10 mg PO DAILY 05/13/18 [History Last Taken 05/12/18] cholecalciferol (vitamin D3) [Vitamin D3] 1,000 unit PO DAILY 05/08/21 [History Last Taken Unknown] coenzyme Q10 [CoQ-10] 30 mg PO DAILY 05/08/21 [History Last Taken Unknown] vit C,Q-Ik-xemyq-lutein-zeaxan [PreserVision AREDS-2] 1 tab PO BID 05/08/21 [History Last Taken Unknown] omeprazole magnesium [Prilosec] 20 mg PO DAILY #28 ea 07/15/21 [Rx Last Taken Unknown] Allergy/AdvReac Type Severity Reaction Status Date / Time azithromycin [From Zithromax] Allergy Anaphylaxis Verified 02/07/22 22:57 cephalexin [From Keflex] Allergy Anaphylaxis Verified 02/07/22 22:57 Penicillins Allergy Anaphylaxis Verified 02/07/22 22:57 Surgical History History of bladder suspension procedure History of mandibular surgery History of total knee replacement (TKR) Social History Smoking Status: Never smoker ROS ROS ED Constitutional Constitutional ED: Denies chills or fever(s) Eyes Eyes: Denies blurry vision or diplopia ENT ENT ED: Denies rhinorrhea or sore throat Cardiovascular Cardiovascular: Denies chest pain or palpitations Respiratory/Chest Respiratory/Chest: Denies cough or dyspnea Gastrointestinal Gastrointestinal: Denies abdominal pain, nausea or vomiting Genitourinary Genitourinary ED: Denies dysuria or hematuria Musculoskeletal Musculoskeletal: Denies arthralgias or myalgias Integumentary Reports rash Neurologic Neurologic: Reports headache(s); Denies paresthesias or weakness EXAM Physical Exam Const Vital Signs: 02/07/22 22:55 Temperature 98.3 F Temperature Source Oral Pulse Rate 82 Respiratory Rate 18 Blood Pressure 139/89 H Blood Pressure Mean 105 Pulse Ox 95 Oxygen Delivery Method Room Air Positive well nourished General Appearance ED: NAD HEENT Reports moist mucous membranes Negative for trauma Eyes PERRL and EOMs intact bilaterally Chest Wall inspection of chest normal and palpation of chest normal Resp normal respiratory effort and clear to auscultation bilaterally Cardio regular rate and regular rhythm Neuro oriented x3 and CN's II-XII intact bilaterally Sensorium / Orientation: alert Skin Skin Narrative: Faint areas of linear streaks of erythema on the bilateral upper extremities. There is some in the axilla and on the left upper and right upper chest wall. There are no vesicles noted. Minimally pruritic. No tenderness to palpation. No cellulitic change. MDM MDM MDM Narrative Medical decision making narrative: Patient presenting with hyperglycemia. She states her blood sugar was 350 at home but is now down to 292 in the emergency room. She took Tylenol prior to arrival and states her headache is improving. Patient states that her diabetes is diet controlled and typically she does not have a problem with her blood sugars but after 2 days of the Medrol Dosepak her blood sugars have come under control. She has no medication for this. Patient states that she does typically keep a low-carb diet. She has not had anything out of the ordinary. On examination she does have some areas of erythema on her extremities and in the axilla/upper chest wall bilaterally. He do not have vesi cles and are not weeping however the patient states that it did have this presentation before she started the steroids. This has dramatically improved. She describes minimal itching currently. Patient will be given a liter of IV fluids. BMP shows that her renal function is about at baseline. Electrolytes are normal. Blood sugar is 310 on her BMP however there is no anion gap. I will check her blood sugar again after her IV fluids. Repeat blood sugar 222. She was reevaluated at 1140 and feels well. I believe the patient will be stable for discharge home after this. Patient will discontinue her steroids and use Benadryl and calamine lotion as needed. Impression: 1. Headache 2. Hyperglycemia 3. Medication side effect Lab Data Attestation: I reviewed the patient's lab results. Labs: Laboratory Results - last 24 hr 02/07/22 02/07/22 23:00 23:02 Sodium 136 Potassium 4.6 Chloride 103 Carbon Dioxide 27.0 Anion Gap 6 BUN 28 H Creatinine 1.27 H Estim Creat Clear Calc 26.22 Est GFR (MDRD) Af Amer 52 L Est GFR (MDRD) Non-Af 43 L BUN/Creatinine Ratio 22.0 H Glucose 310 H Calcium 8.9 POC Glucose 292 H Discharge Plan Triage Chief Complaint: Hyperglycemia Other Complaint: Headache ED Provider: Alejandro Rolle Dx/Rx/DC Orders Instructions: ED Diabetic Hyperglycemia, ED Drug Reaction, Other Prescriptions: No Action quinapril [Accupril] 10 MG tablet 10 mg PO DAILY RF: 0 coenzyme Q10 [CoQ-10] 30 mg Capsule 30 mg PO DAILY RF: 0 cholecalciferol (vitamin D3) [Vitamin D3] 25 mcg (1,000 unit) Tablet 1,000 unit PO DAILY RF: 0 PreserVision AREDS-2 250-90-40-1 mg Capsule 1 tab PO BID RF: 0 Prilosec 10 mg susp,delayed release for recon 20 mg PO DAILY Qty: 28 RF: 0 Primary Care Provider: Farhat Henry Referrals: Farhat Henry DO [Primary Care Provider] - Disposition Disposition: Home, Self Care
[2022-02-07 23:06] LABS: Bedside Glucose 292 mg/dL (74-106)
[2022-02-07] MEDS: 0.9% Normal Saline 1,000 ML 999 ML IV (23:08)
[2022-02-07 23:27] LABS: Anion Gap 6 (5-15); BUN 28 mg/dL (7-18); Calcium,Total 8.9 mg/dL (8.5-10.1); Chloride 103 mmol/L (98-107); Creatinine, Serum 1.27 mg/dL (0.55-1.02); EST Glomerular Filtration Rate 43 mL/min (>60); Est Glom Filt Rate - Afr Amer 52 mL/min (>60); Estimated Creatinine Clearance 26.22 ml/min; Glucose 310 mg/dL (74-106); Potassium 4.6 mmol/L (3.5-5.1); Sodium Level 136 mmol/L (136-145)
[2022-02-08 00:15] LABS: Bedside Glucose 227 mg/dL (74-106)
== END 2022-02-08 00:21 | disposition home or self-care (01) ==
PROVIDERS: Emergency Provider Student in an Organized Health Care Education/Training Program; PCP Student in an Organized Health Care Education/Training Program; Visit Provider Student in an Organized Health Care Education/Training Program
DX: E11.65 Type 2 diabetes mellitus with hyperglycemia (principal); E11.22 Type 2 diabetes mellitus with diabetic chronic kidney disease; N18.30 Chronic kidney disease, stage 3 unspecified; R51.9 Headache, unspecified; T50.905A Adverse effect of unspecified drugs, medicaments and biological substances, initial encounter
CPT/HCPCS: 80048; 82962; 96360; 99284; J7030; A4216

== ENCOUNTER 2023-07-22 21:31 | Emergency (ER) | payer MEDICARE, OTHER, SELFPAY ==
[2023-07-22 21:33] VITALS: BP 154/89; PULSE 102; RESP 18; TEMP 36.7; O2SAT 99; BMI 30.7
--- NOTE | 2023-07-22 22:42 | EDS_ITS ---
HPI History of Present Illness Chief Complaint: Hyperglycemia Informant: patient Narrative Narrative: Patient states she is a type II diabetic that is diet controlled and on no diabetes medications, she checks her blood sugar every morning and every night. She usually is in the 115 range. Tonight she was feeling a little shaky and she checked it and it was in the 250 range which is what brought her to the ER. It was checked in triage prior to my evaluation, and she is 177. She is asymptomatic now. She states she has chronic urinary frequency because I have chronic kidney disease and there is no difference there. She denies any recent illness, cough, congestion, fevers, GI symptoms. She states the last thing she ate was about 4 hours ago and it was a corn beef sandwich and a couple of pickles. She did not have any sugary drinks with this or anything after that. She did not eat lunch today. [facility] Medical History Diabetes mellitus Meralgia paraesthetica Stage III chronic kidney disease Vertigo Home Medications quinapril 10 mg tablet (Accupril) 10 mg PO DAILY blood pressure 05/13/18 [History Last Taken 05/12/18] cholecalciferol (vitamin D3) 25 mcg (1,000 unit) tablet (Vitamin D3) 1,000 unit PO DAILY 05/08/21 [History Last Taken Unknown] coenzyme Q10 30 mg capsule (CoQ-10) 30 mg PO DAILY 05/08/21 [History Last Taken Unknown] vit C 250 mg-vit E 90 mg-zinc 40 mg-copper 1 [id number] capsule (PreserVision AREDS-2) 1 tab PO BID 05/08/21 [History Last Taken Unknown] Allergy/AdvReac Type Severity Reaction Status Date / Time azithromycin [From Zithromax] Allergy Anaphylaxis Verified 07/22/23 21:35 cephalexin [From Keflex] Allergy Anaphylaxis Verified 07/22/23 21:35 Penicillins Allergy Anaphylaxis Verified 07/22/23 21:35 Surgical History History of bladder suspension procedure History of mandibular surgery History of total knee replacement (TKR) Social History Smoking Status: Never smoker ROS ROS ED Constitutional Constitutional ED: Reports other Details: [place] shaky earlier, currently resolved ; Denies chills or fever(s) Eyes Eyes: Denies change in vision or diplopia ENT ENT ED: Denies rhinorrhea or sore throat Cardiovascular Cardiovascular: Denies chest pain or palpitations Respiratory/Chest Respiratory/Chest: Denies cough or dyspnea Gastrointestinal Gastrointestinal: Denies abdominal pain, diarrhea, nausea or vomiting Genitourinary Genitourinary ED: Reports urinary frequency; Denies dysuria or hematuria Musculoskeletal Musculoskeletal: Denies back pain or neck pain Integumentary Denies abscess or rash Neurologic Neurologic: Denies headache(s), paresthesias or weakness Psychiatric Psychiatric: Denies anxiety or suicidal thoughts EXAM Physical Exam Const Vital Signs: 07/22/23 21:33 07/22/23 22:25 Temperature 98.1 F Temperature Source Temporal Pulse Rate 102 H Respiratory Rate 18 Respiratory Effort Normal Non-Labored Respiratory Pattern Normal Blood Pressure 154/89 H Blood Pressure Mean 110 Pulse Ox 99 Oxygen Delivery Method Room Air Positive well nourished and well developed General Appearance ED: well developed and NAD HEENT Reports moist mucous membranes normocephalic and atraumatic Eyes PERRL and EOMs intact bilaterally Neck full ROM and supple Resp normal respiratory effort and clear to auscultation bilaterally Cardio regular rate, regular rhythm and no murmurs GI non-tender and non-distended Auscultation: normoactive bowel sounds Palpation: soft Back/Spine no CVA tenderness General Back: other FROM Extremity normal to inspection General Extremety ED: Negative for edema, pulses abnormal or tenderness General Extremity: Negative for edema or pulses abnormal Neuro oriented x3, CN's II-XII intact bilaterally and no sensory deficits noted Sensorium / Orientation: awake and alert Motor Exam: strength 5/5 throughout Skin no rashes or lesions noted and no wounds MDM MDM MDM Narrative Medical decision making narrative: Since she has a history of kidney disease, that it would be reasonable to recheck and make sure that she does not have significant MINA/renal failure. Her creatinine is little higher than the 1 she had several months ago, but this is not necessarily acute and it is not very high, she has been higher than this in the past. Her blood counts are good. She has chronic urinary frequency, no other acute urinary symptoms but undetermined if the frequency is related to infection so I thought reasonable to check a urinalysis at the same time, while we were keeping an eye on her blood sugar. Her urinalysis is normal and does not show glycosuria, nor infection. On reevaluation of her blood sugar is 113. She is asymptomatic. I am comfortable letting her go home and follow-up closely as an outpatient with her doctor she is as well. Lab Data Attestation: I reviewed the patient's lab results. Labs: Laboratory Results - last 24 hr 07/22/23 07/22/23 07/23/23 22:06 22:23 00:01 WBC 5.1 RBC 4.13 L Hgb 12.9 Hct 40.4 MCV 97.8 MCH 31.2 MCHC 31.9 L RDW Std Deviation 45.1 H RDW Coeff of Jah 12.7 Plt Count 225 MPV 10.2 Immature Gran % (Auto) 0.200 Neut % (Auto) 39.9 L Lymph % (Auto) 47.[address] [place] % (Auto) 9.3 Eos % (Auto) 2.4 Baso % (Auto) 0.8 Absolute Neuts (auto) 2.0 Absolute Lymphs (auto) 2.41 Nucleated RBC % 0 Sodium 142 Potassium 4.1 Chloride 110 H Carbon Dioxide 29.0 Anion Gap 3 L BUN 24 H Creatinine 1.44 H Estim Creat Clear Calc 22.38 Est GFR (MDRD) Af Amer 45 L Est GFR (MDRD) Non-Af 37 L BUN/Creatinine Ratio 16.7 Glucose 206 H Calcium 8.8 Urine Color Urine Clarity Urine pH Ur Specific [place] Urine Protein Urine Glucose (UA) Urine Ketones Urine Occult Blood Urine Nitrite Urine Bilirubin Urine Urobilinogen Ur Leukocyte Esterase POC Glucose 177 H 113 H 07/23/23 00:25 WBC RBC Hgb Hct MCV MCH MCHC RDW Std Deviation RDW Coeff of Jah Plt Count MPV Immature Gran % (Auto) Neut % (Auto) Lymph % (Auto) [place] % (Auto) Eos % (Auto) Baso % (Auto) Absolute Neuts (auto) Absolute Lymphs (auto) Nucleated RBC % Sodium Potassium Chloride Carbon Dioxide Anion Gap BUN Creatinine Estim Creat Clear Calc Est GFR (MDRD) Af Amer Est GFR (MDRD) Non-Af BUN/Creatinine Ratio Glucose Calcium Urine Color Yellow Urine Clarity Clear Urine pH 8.0 Ur Specific [place] 1.010 Urine Protein Negative Urine Glucose (UA) Normal Urine Ketones Negative Urine Occult Blood Negative Urine Nitrite Negative Urine Bilirubin Negative Urine Urobilinogen Normal Ur Leukocyte Esterase 25 H POC Glucose Discharge Plan Triage Chief Complaint: Hyperglycemia ED Provider: Juan Tracey Dx/Rx/DC Orders Clinical Impression: Hyperglycemia due to type 2 diabetes mellitus, Chronic kidney disease (CKD) Instructions: ED Diabetic Hyperglycemia Prescriptions: No Action quinapril [Accupril] 10 MG tablet 10 mg PO DAILY coenzyme Q10 [CoQ-10] 30 mg Capsule 30 mg PO DAILY cholecalciferol (vitamin D3) [Vitamin D3] 25 mcg (1,000 unit) Tablet 1,000 unit PO DAILY PreserVision AREDS-2 250-90-40-1 mg Capsule 1 tab PO BID Primary Care Provider: Farhat Henry Referrals: Farhat Henry DO [Primary Care Provider] - 3-5 Days if not improving Disposition Disposition: Home, Self Care
[2023-07-22 22:43] LABS: Bedside Glucose 177 mg/dL (74-106)
[2023-07-22 22:53] LABS: Absolute Lymphocyte Count 2.41 X10^3/uL (0.83-4.51); Basophil# 0.04 X10^3/uL; Basophil% 0.8 % (0-1); Eosinophil# 0.12 X10^3/uL; Eosinophils% 2.4 % (0-5); Hematocrit 40.4 % (37-47); Hemoglobin 12.9 g/dL (12.0-15.0); Lymphocyte # 2.41 X10^3/ul (0.83-4.51); Lymphocyte % 47.4 % (19-41); Mean Corp Hgb Conc 31.9 g/dL (32-36); Mean Corpuscular Hgb 31.2 pg (27.0-32.0); Mean Corpuscular Volume 97.8 fL (81-99); Mean Platelet Vol. 10.2 fl (6.2-12.0); Monocyte# 0.47 X10^3/uL; Monocyte% 9.3 % (0-10); NRBC Flagged by Analyzer 0 % (0-5); Neutrophil # 2.03 X10^3/uL (2.7-7.7); Neutrophil % 39.9 % (47-70); Platelet Count 225 K/mm3 (150-450); RBC Distribution Width CV 12.7 % (11.6-14.6); RBC Distribution Width SD 45.1 fl (35.1-43.9); Red Blood Count 4.13 M/mm3 (4.2-5.4); White Blood Count 5.1 K/mm3 (4.4-11.0)
[2023-07-22 23:07] LABS: Anion Gap 3 (5-15); BUN 24 mg/dL (7-18); BUN/Creat Ratio 16.7 RATIO (10-20); Calcium,Total 8.8 mg/dL (8.5-10.1); Chloride 110 mmol/L (98-107); Creatinine, Serum 1.44 mg/dL (0.55-1.02); EST Glomerular Filtration Rate 37 mL/min (>60); Est Glom Filt Rate - Afr Amer 45 mL/min (>60); Estimated Creatinine Clearance 22.38 ml/min; Glucose 206 mg/dL (74-106); Potassium 4.1 mmol/L (3.5-5.1); Sodium Level 142 mmol/L (136-145)
[2023-07-23 00:19] LABS: Bedside Glucose 113 mg/dL (74-106)
[2023-07-23 00:36] LABS: Bacteria 0 SEEN /hpf (None Seen); Mucous, Urine 0 SEEN /hpf (<or=2+)
[2023-07-23 00:38] LABS: Color, Urine Yellow (Yellow); Glucose, Dipstick Normal (Normal); Ketone-Dipstick Negative (Negative); Leukocyte Esterase-Dipstick 25 /ul (Negative); Nitrite-Dipstick Negative (Negative); Occult Blood-Urine Negative /ul (Negative); Protein-Dipstick Negative (Negative); Urine Bilirubin Dipstick Negative (Negative); Urine Clarity Clear (Clear); Urine Urobilinogen Normal (Normal)
[2023-07-23 00:46] LABS: Red Blood Cells-Urine 0-5 SEEN /hpf (0-5); Squamous Epithelial Cells - UA 0-5 SEEN /hpf (5-10); White Blood Cells 0-5 SEEN /hpf (0-5)
== END 2023-07-23 00:52 | disposition home or self-care (01) ==
PROVIDERS: Emergency Provider Emergency Medicine; PCP Student in an Organized Health Care Education/Training Program; Visit Provider Emergency Medicine
DX: E11.65 Type 2 diabetes mellitus with hyperglycemia (principal); E11.22 Type 2 diabetes mellitus with diabetic chronic kidney disease; N18.30 Chronic kidney disease, stage 3 unspecified; Z96.659 Presence of unspecified artificial knee joint
CPT/HCPCS: 80048; 81001; 82962; 85025; 99283; A4216

== ENCOUNTER 2023-09-16 09:51 | Outpatient (RCR) | payer MEDICARE, OTHER, SELFPAY | END 2023-09-16 19:00 | disposition home or self-care (01) | LOC: PT 09:51 | PROVIDERS: PCP Student in an Organized Health Care Education/Training Program; Referring Provider Student in an Organized Health Care Education/Training Program; Visit Provider Student in an Organized Health Care Education/Training Program | DX: M25.551 Pain in right hip (principal); M79.18 Myalgia, other site ==

== ENCOUNTER 2023-11-10 09:48 | Emergency (ER) | payer MEDICARE, OTHER, SELFPAY ==
[2023-11-10 09:49] VITALS: BP 197/91; PULSE 70; RESP 18; TEMP 36; O2SAT 98; BMI 30.7
--- NOTE | 2023-11-10 10:05 | EKG12_ITS ---
Test Reason : GENERAL Blood Pressure : / mmHG Vent. Rate : 061 BPM Atrial Rate : 061 BPM P-R Int : 128 ms QRS Dur : 076 ms QT Int : 400 ms P-R-T Axes : -06 -03 020 degrees QTc Int : 402 ms Normal sinus rhythm Normal ECG Confirmed by CHEMO MANLEY, KATHIA ([id number]), script editor RANJAN NUNES ([id number]) on 11/16/2023 10:08:20 AM Referred By: Confirmed By:SHAD MCLAIN MD
--- NOTE | 2023-11-10 10:06 | EX.ED.DYSGE1 ---
HPI History of Present Illness Chief Complaint: Hypertension Detail of Chief Complaint: High blood pressure Informant: patient Narrative Narrative: Patient presents to the emergency department complaint of elevated blood pressure this morning. Patient states that she tries to take her blood pressure every day. Normally she takes lisinopril 10 mg daily. She states that when she first woke up she had an pain in her left arm and thought maybe she slept wrong. She subsequently currently took her blood pressure and noted that the systolic was 185. She does not remember the diastolic. Patient also describes some faint discomfort in her chest that she thinks is anxiety possibly. Patient has subsequently taken her lisinopril. She denies dyspnea. Denies recent illness. Denies urinary symptoms other than she urinates frequently which is not unusual for her. Patient tells me that normally her blood pressure is in the 120 systolic range. The discomfort in her left arm is now resolved and she states he got better after walking around. [facility] Medical History Diabetes mellitus Meralgia paraesthetica Stage III chronic kidney disease Vertigo Home Medications cholecalciferol (vitamin D3) 25 mcg (1,000 unit) tablet (Vitamin D3) 1,000 unit PO DAILY 05/08/21 [History Last Taken Unknown] coenzyme Q10 30 mg capsule (CoQ-10) 30 mg PO DAILY 05/08/21 [History Last Taken Unknown] vit C 250 mg-vit E 90 mg-zinc 40 mg-copper 1 [id number] capsule (PreserVision AREDS-2) 1 tab PO BID 05/08/21 [History Last Taken Unknown] lisinopril 10 mg tablet 10 mg PO DAILY 11/10/23 [History Last Taken Unknown] lorazepam 0.5 mg tablet 0.5 mg PO DAILY PRN anxiety 11/10/23 [History Last Taken Unknown] triamcinolone acetonide 0.025 % topical cream 1 applic topical DAILY PRN rash 11/10/23 [History Last Taken Unknown] Allergy/AdvReac Type Severity Reaction Status Date / Time azithromycin [From Zithromax] Allergy Anaphylaxis Verified 11/10/23 09:50 cephalexin [From Keflex] Allergy Anaphylaxis Verified 11/10/23 09:50 Penicillins Allergy Anaphylaxis Verified 11/10/23 09:50 Surgical History History of bladder suspension procedure History of mandibular surgery History of total knee replacement (TKR) Social History Smoking Status: Never smoker ROS ROS ED ROS Narrative Hypertension Review of Systems ROS Unobtainable: other Constitutional Constitutional ED: Reports lethargy; Denies chills, fever(s), sweats or weight loss Eyes Eyes: Denies blurry vision, change in vision or diplopia ENT ENT ED: Denies rhinorrhea or sore throat Cardiovascular Cardiovascular: Reports chest pain; Denies orthopnea or racing heartbeat Respiratory/Chest Respiratory/Chest: Denies cough, dyspnea, dyspnea on exertion, orthopnea or sputum Gastrointestinal Gastrointestinal: Denies abdominal pain, diarrhea, nausea or vomiting Genitourinary Genitourinary ED: Denies dysuria, hematuria or urinary frequency Musculoskeletal Musculoskeletal: Denies arthralgias, back pain, myalgias or neck pain Integumentary Denies abscess, Abrasions or rash Neurologic Neurologic: Denies headache(s) or weakness Psychiatric Psychiatric: Denies anxiety, depression or suicidal thoughts Endocrine Endocrinology: Denies polydipsia, polyphagia or polyuria Hematologic/Lymphatic Hematologic/Lymphatic: Denies easy bleeding, easy bruising or lymphadenopathy Allergic/Immunologic Allergic/Immunologic ED: Denies mouth swelling, tongue swelling or urticaria EXAM Physical Exam Const Vital Signs: 11/10/23 09:49 11/10/23 11:11 11/10/23 12:24 Temperature 96.8 F L Temperature Source Temporal Pulse Rate 70 82 Respiratory Rate 18 16 Respiratory Effort Normal Respiratory Pattern Normal Blood Pressure 197/91 H 193/84 H Blood Pressure Mean 126 120 Pulse Ox 98 97 Oxygen Delivery Method Room Air Room Air 11/10/23 13:44 Temperature 97.4 F L Temperature Source Pulse Rate 87 Respiratory Rate 16 Respiratory Effort Respiratory Pattern Blood Pressure 146/74 H Blood Pressure Mean 98 Pulse Ox 97 Oxygen Delivery Method Positive well nourished and well developed General Appearance ED: well developed and NAD HEENT Reports TM's clear and moist mucous membranes normocephalic and atraumatic; Negative for trauma or tenderness Tympanic Membrane ED: Yes TM's clear Eyes PERRL and EOMs intact bilaterally General Eye ED: Negative for pale conjunctiva or scleral icterus Neck no lymphadenopathy, supple and no JVD General: Negative for tenderness Chest Wall inspection of chest normal and palpation of chest normal Chest: Negative for tenderness Resp normal respiratory effort and clear to auscultation bilaterally Effort and Inspection: Negative for respiratory distress or pain with movement Auscultation: Negative for rhonchi, wheezes or diminished lung sounds Cardio regular rate, regular rhythm, S1 normal heart sound, S2 normal heart sound and no murmurs Peripheral Pulses: pulses 2+ throughout GI normal to inspection, nondistended, normoactive bowel sounds, soft to palpation, non-tender, non-distended and no masses Back/Spine no CVA tenderness and no thoracic nor lumbar tenderness Extremity normal to inspection General Extremety ED: Negative for edema General Extremity: Negative for edema Neuro oriented x3, CN's II-XII intact bilaterally, no sensory deficits noted and gait normal Sensorium / Orientation: awake, alert, oriented to person, oriented to place and oriented to time Motor Exam: strength 5/5 throughout and strength abnormal Psych mental status grossly normal Skin no rashes or lesions noted and no wounds MDM MDM MDM Narrative Medical decision making narrative: Patient presents to the emergency room with complaint of hypertension. She does have history of hypertension. I did obtain an EKG on arrival that showed a sinus rhythm with a rate of 61 bpm with no acute ST segment changes. CBC with differential was unremarkable. Chemistries unremarkable. Urinalysis was negative for infection. Her blood pressure ranged from the 180s to 200s systolic. After having a discussion with her she relates that she is having some increased stressors at home and that her late and her anniversaries are coming up. Today she had a vision of being in the same spot in the house where he had initially fallen when he got sick and then went down and that triggered some memories today that may have upset her. She does take as needed Ativan. I did give her a milligram of Ativan here and blood pressure went to 151 systolic. She is feeling improved. I also discussed her case with her niece on the phone who called in and wanted to have an update. We discussed increasing her lisinopril however I am unable to get a hold of her primary care physician. Also discussed just following her blood pressure over the next 5 to 7 days and following up with her primary care physician which is what she would prefer to do. I did tell her that she needs to return if elevated blood pressures with chest pain or shortness of breath or severe headache or if condition should worsen anyway. She can also double up on her lisinopril and go to 20 mg a day. Lab Data Attestation: I reviewed the patient's lab results. Labs: Laboratory Results - last 24 hr 11/10/23 11/10/23 10:25 10:50 WBC 3.6 L RBC 4.07 L Hgb 12.7 Hct 38.4 MCV 94.3 MCH 31.2 MCHC 33.1 RDW Std Deviation 44.1 H RDW Coeff of Jah 12.8 Plt Count 198 MPV 9.5 Sodium 140 Potassium 4.0 Chloride 109 H Carbon Dioxide 25.0 Anion Gap 6 BUN 18 Creatinine 1.09 H Estim Creat Clear Calc 36.31 Est GFR (MDRD) Af Amer 62 Est GFR (MDRD) Non-Af 51 L BUN/Creatinine Ratio 16.5 Glucose 106 Calcium 9.2 Troponin I High Sens 8 Urine Color Straw Urine Clarity Clear Urine pH 7.0 Ur Specific [place] 1.010 Urine Protein Negative Urine Glucose (UA) Normal Urine Ketones Negative Urine Occult Blood Negative Urine Nitrite Negative Urine Bilirubin Negative Urine Urobilinogen Normal Ur Leukocyte Esterase 100 H Urine RBC 0 SEEN Urine WBC 0-5 SEEN Ur Squamous Epith Cells 0-5 SEEN Urine Bacteria 0 SEEN Urine Mucus 0 SEEN EKG Initial EKG: Attestation: I personally reviewed and interpreted this EKG as follows: Comments: Sinus rhythm with rate of 61 bpm with no acute ST segment changes Discharge Plan Triage Chief Complaint: Hypertension ED Provider: Melita Leslie Dx/Rx/DC Orders Clinical Impression: Anxiety, Hypertension Instructions: ED Anxiety Reaction, ED Hypertension, Established Prescriptions: No Action coenzyme Q10 [CoQ-10] 30 mg Capsule 30 mg PO DAILY cholecalciferol (vitamin D3) [Vitamin D3] 25 mcg (1,000 unit) Tablet 1,000 unit PO DAILY PreserVision AREDS-2 250-90-40-1 mg Capsule 1 tab PO BID lisinopril 10 mg tablet 10 mg PO DAILY Patient Comments: Take 1 tablet by mouth once daily. triamcinolone acetonide 0.025 % cream 1 applic TOPICAL DAILY PRN (Reason: rash) Patient Comments: Apply to affected area two times a day. As needed for rash lorazepam 0.5 mg tablet 0.5 mg PO DAILY PRN (Reason: anxiety) Patient Comments: Take 1 tablet by mouth once daily as needed for up to 90 days. Primary Care Provider: Farhat Henry Referrals: Farhat Henry DO [Primary Care Provider] - 5-7 Days Disposition Disposition: Home, Self Care Discharge Date/Time: 11/10/23 13:45
[2023-11-10 10:32] LABS: Hematocrit 38.4 % (37-47); Hemoglobin 12.7 g/dL (12.0-15.0); Mean Corp Hgb Conc 33.1 g/dL (32-36); Mean Corpuscular Hgb 31.2 pg (27.0-32.0); Mean Corpuscular Volume 94.3 fL (81-99); Mean Platelet Vol. 9.5 fl (6.2-12.0); Platelet Count 198 K/mm3 (150-450); RBC Distribution Width CV 12.8 % (11.6-14.6); RBC Distribution Width SD 44.1 fl (35.1-43.9); Red Blood Count 4.07 M/mm3 (4.2-5.4); White Blood Count 3.6 K/mm3 (4.4-11.0)
[2023-11-10 10:52] LABS: Anion Gap 6 (5-15); BUN 18 mg/dL (7-18); BUN/Creat Ratio 16.5 RATIO (10-20); Calcium,Total 9.2 mg/dL (8.5-10.1); Chloride 109 mmol/L (98-107); Creatinine, Serum 1.09 mg/dL (0.55-1.02); EST Glomerular Filtration Rate 51 mL/min (>60); Est Glom Filt Rate - Afr Amer 62 mL/min (>60); Estimated Creatinine Clearance 36.31 ml/min; Glucose 106 mg/dL (74-106); Sodium Level 140 mmol/L (136-145); Troponin-I HS 8 pg/mL (3.0-54.0)
[2023-11-10 11:05] LABS: Bacteria 0 SEEN /hpf (None Seen); Mucous, Urine 0 SEEN /hpf (<or=2+); Red Blood Cells-Urine 0 SEEN /hpf (0-5)
[2023-11-10 11:08] LABS: Color, Urine Straw (Yellow); Glucose, Dipstick Normal (Normal); Ketone-Dipstick Negative (Negative); Leukocyte Esterase-Dipstick 100 /ul (Negative); Nitrite-Dipstick Negative (Negative); Occult Blood-Urine Negative /ul (Negative); Protein-Dipstick Negative (Negative); Urine Bilirubin Dipstick Negative (Negative); Urine Clarity Clear (Clear); Urine Urobilinogen Normal (Normal)
[2023-11-10 11:24] LABS: Squamous Epithelial Cells - UA 0-5 SEEN /hpf (5-10); White Blood Cells 0-5 SEEN /hpf (0-5)
[2023-11-10 12:24] VITALS: BP 193/84; PULSE 82; RESP 16; O2SAT 97
[2023-11-10] MEDS: Lorazepam 2 MG/ML WCH Syringe 1 MG IV (12:41)
--- NOTE | 2023-11-10 13:37 | NURSING ---
[id number] DR BATES PAGED [id number] CALLED OFFICE, SHE TOOK INFO AND WAS GOING TO TELL DR BATES [id number] CALLED OFFICE, PAGED DR BATES
[2023-11-10 13:44] VITALS: BP 146/74; PULSE 87; RESP 16; TEMP 36.3; O2SAT 97
== END 2023-11-10 13:45 | disposition home or self-care (01) ==
PROVIDERS: Emergency Provider Emergency Medicine; PCP Student in an Organized Health Care Education/Training Program; Visit Provider Emergency Medicine
DX: N18.30 Chronic kidney disease, stage 3 unspecified (principal); E11.22 Type 2 diabetes mellitus with diabetic chronic kidney disease; F41.9 Anxiety disorder, unspecified; I12.9 Hypertensive chronic kidney disease with stage 1 through stage 4 chronic kidney disease, or unspecified chronic kidney disease; Z79.899 Other long term (current) drug therapy; Z96.659 Presence of unspecified artificial knee joint
CPT/HCPCS: 80048; 81001; 84484; 85027; 93005; 99283; A4216

== ENCOUNTER 2023-11-22 15:08 | Emergency (ER) | payer MEDICARE, OTHER, SELFPAY ==
[2023-11-22 15:10] VITALS: BP 137/73; PULSE 81; RESP 18; TEMP 36.1; O2SAT 96
--- NOTE | 2023-11-22 15:34 | CT_ITS ---
STUDY: CT BRAIN WITHOUT CONTRAST REASON FOR EXAM: Female, 78 years old. headache, htn RADIATION DOSAGE (If Supplied By Facility): CTDIvol = ( 44.99 ) mGy, DLP = ( 745.49 ) mGycm TECHNIQUE: Transaxial CT imaging of the brain was performed without administration of intravenous contrast material. Individualized dose optimization techniques were used for this CT. COMPARISON: No relevant priors. FINDINGS: Normal soft tissue structures. Normal calvarium. 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 Normal basal ganglia and thalami. Normal brainstem. Normal cerebellum. Partial empty sella deformity likely of no significance There is no intracranial hemorrhage. There are no findings of an acute ischemic infarction. Normal visualized paranasal sinuses. Postsurgical changes of the orbits No significant change since prior exam CT/Brain/Head without Contrast IMPRESSION: Mild atrophy and periventricular white matter ischemic change. No acute bleed. If concern for acute infarct MRI recommended Electronically Signed: Sunny Quintero MD at 16:30 EDT ,
--- OUTSIDE RECORDS SUMMARY | 2023-11-22 15:34 | XMS RPT_ITS | CCD ---
Author Name Unknown Address [id number] [place] [address] Organization [facility] Care Team Providers Care Assistant Boiler Operator Name Role Phone Regan, Ai Brenkusova Unavailable Unava ilable Regan, Ai Brenkusova Unavailable Unava ilable UNKNOWN, PCP Unavailable Unavailable Riley Michael Unavailable Unavailab le Regan, Ai Brenkusova Unavailable Unava ilable Regan, Ai Brenkusova Unavailable Unava ilable Riley Michael Unavailable Unavailab le Regan, Ai Brenkusova Unavailable Unava ilable Regan, Ai Brenkusova Unavailable Unava ilable Riley Michael Unavailable Unavailab le Farhat Henry DO Primary Care Provider Farhat Henry DO Primary Care Provider Farhat Henry DO Primary Care Provider FARHAT HENRY Primary Care Unavailable POLI YEH Attending Unavailable FARHAT HENRY Primary Care Unavailable REYES BAÑUELOS Attending Unavailable BAHMAN MENDEZ Attending Unavailable FARHAT HENRY Primary Care Unavailable CHRISTINA LATIF Attending Unavailable FARHAT HENRY Primary Care Unavailable FARHAT HENRY Primary Care Unavailable FARHAT HENRY Attending Unavailable FARHAT HENRY Primary Care Unavailable SAMEER ANDRADE Attending Unavailable FARHAT HENRY Primary Care Unavailable FARHAT HENRY Referring Unavailable FARHAT HENRY Primary Care Unavailable FARHAT HENRY Attending Unavailable CONNIE JOSUE Attending Unavailable FARHAT HENRY Primary Care Unavailable FARHAT HENRY Primary Care Unavailable OPAL PENG Attending Unavailab le HENRY, FARHAT L Primary Care Unavailable LUPE, SAMEER M Referring Unavailable HENRY, FARHAT L Primary Care Unavailable EPNG CAGE Attending Unavailable LUPE, SAMEER M Referring Unavailable HENRY, FARHAT L Primary Care Unavailable FAUZIA, PENG Attending Unavailable HENRY, FARHAT L Primary Care Unavailable LUPE, SAMEER M Referring Unavailable FAUZIA, PENG Attending Unavailable HENRY, FARHAT L Primary Care Unavailable HENRY, FARHAT L Referring Unavailable HENRY, FARHAT L Primary Care Unavailable HENRY, FARHAT L Attending Unavailable FAUZIA, PENG Attending Unavailable HENRY, FARHAT L Primary Care Unavailable LUPE, SAMEER M Referring Unavailable LUPE, SAMEER M Referring Unavailable FAUZIA, PENG Attending Unavailable HENRY, FARHAT L Primary Care Unavailable HENRY, FARHAT L Primary Care Unavailable LUPE, SAMEER M Referring Unavailable FAUZIA, PENG Attending Unavailable HENRY, FARHAT L Primary Care Unavailable FAUZIA, PENG Attending Unavailable LUPE, SAMEER M Referring Unavailable HENRY, FARHAT L Primary Care Unavailable FAUZIA, PENG Attending Unavailable LUPE, SAMEER M Referring Unavailable HENRY, FARHAT L Primary Care Unavailable DOMINIC HARKINS Attending Unavailable CONNIE JOSUE Attending Unavailable HENRY, FARHAT L Primary Care Unavailable HENRY, FARHAT L Primary Care Unavailable NOA VARGHESE Attending Unavailable HENRY, FARHAT L Primary Care Unavailable HENRY, FARHAT L Primary Care Unavailable HENRY, FARHAT L Referring Unavailable HENRY, FARHAT L Primary Care Unavailable HENRY, FARHAT L Attending Unavailable HENRY, FARHAT L Primary Care Unavailable EM FIGUEROA Attending Unavailable HENRY, FARHAT L Primary Care Unavailable OPAL PENG Referring Unavailab le HENRY, FARHAT L Primary Care Unavailable Allergies Allergy Classification Reported Allergen(s) Allergy Type Date of Onset Reaction(s) Facility (20 sources) atorvastatin; Translations: [ATORVASTATIN] Drug Allergy 10-31-19 20 Myalgia [facility] Work Phone: (20 sources) Azithromycin; Translations: [AZITHROMYCIN] Drug Allergy 09-03-[address] [place] [address] Work Phone: (20 sources) Cefaclor; Translations: [CEFACLOR] Drug Allergy 09-03-20 05 [facility] Work Phone: (20 sources) Cephalexin; Translations: [CEPHALEXIN] Drug Allergy 09-03-20 05 [facility] Work Phone: (20 sources) Ciprofloxacin Drug Allergy 03-27-20 06 [facility] Work Phone: (11 sources) Penicillins; Translations: [PENICILLINS] Propensity to adverse reactions 09-03-20 05 [facility] Work Phone: (20 sources) Sulfamethoxazole / Trimethoprim; Translations: [SULFAMETHOXAZOLE-TR IMETHOPRIM] Drug Allergy 01-07-20 16 [facility] Work Phone: (20 sources) Propoxyphene N-Acetaminophen; Translations: [PROPOXYPHENE N-ACETAMINOPHEN] Propensity to adverse reactions 09-03-20 05 GI Upset [facility] Work Phone: (20 sources) Penicillins Propensity to adverse reactions 09-03-20 05 [facility] Work Phone: (3 sources) OTHER; Translations: [OTHER] Propensity to adverse reactions (disorder) 03-27-20 06 [facility] Other [facility] (8 sources) Ciprofloxacin; Translations: [CIPROFLOXACIN] Drug Allergy 11-06-19 24 [facility] Work Phone: Medications Current Medications Medication Drug Class(es) Dates Sig (Normalized) Sig (Original) ALPRAZolam 0.5 mg disintegrating oral tablet (6 sources) Benzodiazepine Start: 11-06-2023 End: 12-04-2023 ALPRAZolam 0.5 mg dissolvable tablet Indications: Anxiety due to invasive procedure Bring to office for procedure. Do not take until instructed by clinical staff 2 tablet 0 11/06/2023 12/04/2023 Active Completed/Discontinued Medications Medication Drug Class(es) Dates Sig (Normalized) Sig (Original) ascorbic acid 113 mg / beta carotene 7160 mg / cuprous oxide 0.4 mg / dl-alpha tocopheryl acetate 100 unt / zinc oxide 17.4 mg oral tablet (20 sources) Vitamin C take 2 tablets by [facility] once daily vit A,C,V-Nknb-Oetvhi (PRESERVISION AREDS) 2,148 mcg-113 mg-45 mg-17.4mg tab Take 2 tablets by mouth once daily. 0 Active Problems Active Problems Problem Classification Problem Date Documented Date Episodic/Chronic Anxiety disorders (20 sources) Anxiety; Translations: [Other specified anxiety disorders] Onset: 2 Chronic Chronic kidney disease (20 sources) Chronic kidney disease stage 3A ; Translations: [Stage 3a chronic kidney disease (HCC)] Onset: 9 Chronic Chronic kidney disease (1 source) Chronic kidney disease; Translations: [Stage 3a chronic kidney disease (HCC)] Onset: 1 Coronary atherosclerosis and other heart disease (1 source) Coronary atherosclerosis and other heart disease Onset: 7 Diabetes mellitus with complications (20 sources) Type 2 diabetes mellitus; Translations: [Type 2 diabetes mellitus with diabetic chronic kidney disease] Onset: 3 05-20-2023 Chronic Diabetes mellitus without complication (20 sources) Type 2 diabetes mellitus without complication; Translations: [Type 2 diabetes mellitus without complications] Onset: 0 Chronic Diabetes mellitus without complication (2 sources) Diabetes mellitus without complication; Translations: [Type 2 diabetes mellitus with stage 3a chronic kidney disease, without long-term current use of insulin (HCC)] Onset: 7 Disorders of lipid metabolism (20 sources) Pure hypercholesterolemia; Translations: [Pure hypercholesterolemia, unspecified] Onset: 5 Chronic Esophageal disorders (1 source) Esophageal disorders Onset: 7 Essential hypertension (20 sources) Essential hypertension; Translations: [Essential (primary) hypertension] Onset: 9 05-28-2021 Chronic Essential hypertension (1 source) Essential hypertension Onset: 7 Hypertension with complications and secondary hypertension (20 sources) Hypertensive renal disease; Translations: [Hypertensive chronic kidney disease with stage 1 through stage 4 chronic kidney disease, or unspecified chronic kidney disease] Onset: 1 05-17-2021 Chronic Immunizations and screening for infectious disease (5 sources) Patient encounter status; Translations: [Encounter for screening for other viral diseases] Episodic Nutritional deficiencies (20 sources) Vitamin D deficiency; Translations: [Vitamin D deficiency, unspecified] Onset: 3 Chronic Other aftercare (1 source) Encounter for follow-up examination after completed treatment for conditions other than malignant neoplasm; Translations: [Encounter for follow-up examination after completed treatment for conditions other than malignant neoplasm] Onset: 4 Episodic Other connective tissue disease (1 source) Increased muscle tone; Translations: [Other specified disorders of muscle] 08-12-2023 Episodic Other connective tissue disease (1 source) Other specified disorders of muscle; Translations: [Muscle tightness] Onset: 3 Episodic Other connective tissue disease (2 sources) Myalgia, other site; Translations: [Gluteal pain] Onset: 3 Episodic Other diseases of kidney and ureters (13 sources) Hyperparathyroidism due to renal insufficiency; Translations: [Secondary hyperparathyroidism of renal origin] Onset: 3 08-22-2023 Chronic Other diseases of kidney and ureters (1 source) Secondary hyperparathyroidism of renal origin; Translations: [Secondary renal hyperparathyroidism (HCC)] Onset: 3 Chronic Other gastrointestinal disorders (1 source) Constipation; Translations: [Constipation, unspecified] Episodic Other gastrointestinal disorders (1 source) Acute constipation; Translations: [Constipation, unspecified] Episodic Other inflammatory condition of skin (20 sources) Psoriasis; Translations: [Other psoriasis] 09-04-2005 Chronic Other nervous system disorders (1 source) Other disturbances of skin sensation; Translations: [Decreased sensation of foot] Onset: 4 Episodic Other non-traumatic joint disorders (20 sources) Arthropathy of multiple joints; Translations: [Arthropathy, unspecified] Onset: 0 12-28-2019 Chronic Other non-traumatic joint disorders (1 source) Chronic pain of left upper limb; Translations: [Pain in left shoulder] Episodic Other non-traumatic joint disorders (1 source) Pain in right hip joint; Translations: [Pain in right hip] 08-22-2023 Episodic Other non-traumatic joint disorders (1 source) Pain in right hip; Translations: [Right hip pain] Onset: 3 Episodic Other skin disorders (1 source) Papule of skin; Translations: [Other skin changes] Episodic Residual codes; unclassified (1 source) Pain; Translations: [Pain, unspecified] 07-27-2023 Episodic Spondylosis; intervertebral disc disorders; other back problems (20 sources) Disorder of lumbar disc; 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, lumbar region] Onset: 2 Chronic Unclassified (3 sources) Dysphagia, unspecified / R13.10(ICD-10) Onset: 7 Unclassified (1 source) Allergy status to penicillin / Z88.0(ICD-10) Onset: 7 Urinary tract infections (1 source) Acute cystitis; Translations: [Acute cystitis with hematuria] Episodic Past or Other Problems Problem Classification Problem Date Documented Da te Episodic/Chronic Allergic reactions (7 sources) Contact dermatitis due to poison jayna; Translations: [Allergic contact dermatitis due to plants, except food] Onset: 02-04-2023 Episodic Cardiac dysrhythmias (20 sources) Palpitations; Translations: [Palpitations] Onset: 01-29-2022 Episodic Chronic obstructive pulmonary disease and bronchiectasis (2 sources) Bronchitis; Translations: [Bronchitis, not specified as acute or chronic] Onset: 05-07-2023 05-07-2023 Episodic Hemorrhoids (20 sources) Internal hemorrhoids; Translations: [Other hemorrhoids] Onset: 11-12-2005 11-12-2005 Episodic Other and unspecified benign neoplasm (20 sources) Benign neoplasm of colon; Translations: [Benign neoplasm of colon, unspecified] Onset: 11-12-2005 11-12-2005 Episodic Other and unspecified benign neoplasm (20 sources) History of polyp of colon; Translations: [Personal history of colonic polyps] Onset: 11-09-2009 11-09-2009 Episodic Other connective tissue disease (20 sources) Cramp in lower limb; Translations: [Cramp and spasm] Onset: 12-28-2019 12-28-2019 Episodic Other connective tissue disease (20 sources) Muscle pain; Translations: [Myalgia, unspecified site] Onset: 12-10-2022 Episodic Other connective tissue disease (20 sources) Pain in buttock; Translations: [Myalgia, other site] Onset: 01-22-2023 Episodic Other connective tissue disease (1 source) Myalgia, unspecified site; Translations: [Myalgia] Onset: 12-10-2022 Episodic Other gastrointestinal disorders (1 source) Dysphagia, unspecified; Translations: [Dysphagia, unspecified] Onset: 06-16-2017 Episodic Other gastrointestinal disorders (20 sources) Chronic constipation; Translations: [Other constipation] Onset: 07-16-2022 07-16-2022 Episodic Other lower respiratory disease (20 sources) Dyspnea; Translations: [Shortness of breath] Onset: 01-29-2022 Episodic Spondylosis; intervertebral disc disorders; other back problems (20 sources) Acute back pain with sciatica; Translations: [Lumbago with sciatica, left side] Onset: 01-29-2022 Episodic Results Test Name Value Interpretation Reference Range Facil ity Vital Signs Date Time Vital Sign Value Performing Clinician Faci lity 11-18-2023 15:12-0500 Body temperature 97 [degF] Farhat Henry DO Work Phone: [facility] 11-18-2023 15:12-0500 Body weight 70.76 kg Farhat Henry DO Work Phone: [facility] 11-18-2023 15:12-0500 Diastolic blood pressure 80 mm[Hg] Farhat Henry DO Work Phone: [facility] 11-18-2023 15:12-0500 Heart rate 80 /min Farhat Henry DO Work Phone: [facility] 11-18-2023 15:12-0500 Respiratory rate 16 /min Farhat Henry DO Work Phone: [facility] 11-18-2023 15:12-0500 Systolic blood pressure 138 mm[Hg] Farhat Henry DO Work Phone: [facility] 11-06-2023 14:41-0500 Heart rate 75 /min Christina Prebish DIGITAL IMAGING TECHNICIAN.NEWSPAPER VENDOR Work Phone: [facility] 11-06-2023 14:41-0500 Respiratory rate 16 /min Christina Prebish DIGITAL IMAGING TECHNICIAN.NEWSPAPER VENDOR Work Phone: [facility] 11-06-2023 14:41-0500 SaO2% (BldA) [Mass fraction] 98 % Christina Prebish DIGITAL IMAGING TECHNICIAN.NEWSPAPER VENDOR Work Phone: [facility] 11-05-2023 10:12-0500 Heart rate 72 /min Bahman Mendez MD Work Phone: [facility] 11-05-2023 10:12-0500 Respiratory rate 16 /min Bahman Mendez MD Work Phone: [facility] 11-05-2023 10:12-0500 SaO2% (BldA) [Mass fraction] 97 % Bahman Mendez MD Work Phone: [facility] 08-21-2023 14:37-0500 Body temperature 99 [degF] Farhat Henry DO Work Phone: [facility] 08-21-2023 14:37-0500 Body weight 70.31 kg Farhat Henry DO Work Phone: [facility] 08-21-2023 14:37-0500 Diastolic blood pressure 80 mm[Hg] Farhat Henry DO Work Phone: [facility] 08-21-2023 14:37-0500 Heart rate 76 /min Farhat Henry DO Work Phone: [facility] 08-21-2023 14:37-0500 Respiratory rate 20 /min Farhat Henry DO Work Phone: [facility] 08-21-2023 14:37-0500 Systolic blood pressure 120 mm[Hg] Farhat Henry DO Work Phone: [facility] 05-20-2023 14:58-0400 Body temperature 97.7 [degF] Farhat Henry DO Work Phone: [facility] 05-20-2023 14:58-0400 Body weight 69.4 kg Farhat Henry DO Work Phone: [facility] 05-20-2023 14:58-0400 Diastolic blood pressure 80 mm[Hg] Farhat Henry DO Work Phone: [facility] 05-20-2023 14:58-0400 Heart rate 64 /min Farhat Henry DO Work Phone: [facility] 05-20-2023 14:58-0400 Respiratory rate 16 /min Farhat Henry DO Work Phone: [facility] 05-20-2023 14:58-0400 Systolic blood pressure 120 mm[Hg] Farhat Henry DO Work Phone: [facility] 05-07-2023 15:30-0400 Body temperature 98.6 [degF] Dominic Harkins APRN.NEWSPAPER VENDOR Work Phone: [facility] 05-07-2023 15:30-0400 Body weight 69.85 kg Dominic Harkins APRN.NEWSPAPER VENDOR Work Phone: [facility] 05-07-2023 15:30-0400 Diastolic blood pressure 72 mm[Hg] Dominic Harkins DIGITAL IMAGING TECHNICIAN.NEWSPAPER VENDOR Work Phone: [facility] 05-07-2023 15:30-0400 Heart rate 90 /min Dominic Harkins APRN.NEWSPAPER VENDOR Work Phone: [facility] 05-07-2023 15:30-0400 Respiratory rate 16 /min Dominic Harkins APRN.NEWSPAPER VENDOR Work Phone: [facility] 05-07-2023 15:30-0400 SaO2% (BldA) [Mass fraction] 98 % Dominic Harkins APRN.NEWSPAPER VENDOR Work Phone: [facility] 05-07-2023 15:30-0400 Systolic blood pressure 118 mm[Hg] Dominic Harkins APRN.NEWSPAPER VENDOR Work Phone: [facility] 02-09-2023 08:15-0400 Body temperature 98.2 [degF] Armida Slabaugh PA-C Work Phone: [facility] 02-09-2023 08:15-0400 Diastolic blood pressure 80 mm[Hg] Armida Slabaugh PA-C Work Phone: [facility] 02-09-2023 08:15-0400 Heart rate 68 /min Armida Slabaugh PA-C Work Phone: [facility] 02-09-2023 08:15-0400 Respiratory rate 16 /min Armida Slabaugh PA-C Work Phone: [facility] 02-09-2023 08:15-0400 SaO2% (BldA) [Mass fraction] 98 % Armida Wade PA-C Work Phone: [facility] 02-09-2023 08:15-0400 Systolic blood pressure 126 mm[Hg] Armida Wade PA-C Work Phone: [facility] 01-28-2023 12:22-0400 Diastolic blood pressure 88 mm[Hg] Gilberto Hernandez MD Work Phone: [facility] 01-28-2023 12:22-0400 Systolic blood pressure 152 mm[Hg] Gilberto Hernandez MD Work Phone: [facility] 01-28-2023 11:50-0400 Body temperature 97.7 [degF] Gilberto Hernandez MD Work Phone: [facility] 01-28-2023 11:50-0400 Body weight 70.49 kg Gilberto Hernandez MD Work Phone: [facility] 01-28-2023 11:50-0400 Heart rate 72 /min Gilberto Hernandez MD Work Phone: [facility] 01-28-2023 11:50-0400 Respiratory rate 21 /min Gilberto Hernandez MD Work Phone: [facility] 01-28-2023 11:50-0400 SaO2% (BldA) [Mass fraction] 99 % Gilberto Hernandez MD Work Phone: [facility] 01-09-2023 13:37-0400 Body height 152.4 cm Sameer Andrade DO Work Phone: [facility] 01-09-2023 13:37-0400 Body weight 70.31 kg Sameer Andrade DO Work Phone: [facility] 01-09-2023 13:37-0400 Respiratory rate 16 /min Sameer Davisry DO Work Phone: [facility] 12-10-2022 12:12-0400 Body temperature 97.11 [degF] Farhat Henry DO Work Phone: [facility] 12-10-2022 12:12-0400 Body weight 69.4 kg Farhat Henry DO Work Phone: [facility] 12-10-2022 12:12-0400 Diastolic blood pressure 80 mm[Hg] Farhat Henry DO Work Phone: [facility] 12-10-2022 12:12-0400 Heart rate 64 /min Farhat Henry DO Work Phone: [facility] 12-10-2022 12:12-0400 Respiratory rate 16 /min Farhat Henry DO Work Phone: [facility] 12-10-2022 12:12-0400 Systolic blood pressure 120 mm[Hg] Farhat Henry DO Work Phone: [facility] 09-16-2022 13:31-0500 Body weight 68.49 kg Dominic Harkins DIGITAL IMAGING TECHNICIAN.NEWSPAPER VENDOR Work Phone: [facility] 09-16-2022 13:31-0500 Diastolic blood pressure 76 mm[Hg] Dominic Harkins DIGITAL IMAGING TECHNICIAN.NEWSPAPER VENDOR Work Phone: [facility] 09-16-2022 13:31-0500 Heart rate 93 /min Dominic Jenna DIGITAL IMAGING TECHNICIAN.NEWSPAPER VENDOR Work Phone: [facility] 09-16-2022 13:31-0500 Respiratory rate 16 /min Dominic Pattioble DIGITAL IMAGING TECHNICIAN.NEWSPAPER VENDOR Work Phone: [facility] 09-16-2022 13:31-0500 Systolic blood pressure 130 mm[Hg] Dominic Harkins DIGITAL IMAGING TECHNICIAN.NEWSPAPER VENDOR Work Phone: [facility] 09-15-2022 15:46-0500 Body temperature 97.9 [degF] Shannon Stark DIGITAL IMAGING TECHNICIAN.NEWSPAPER VENDOR Work Phone: [facility] 09-15-2022 15:46-0500 Body weight 68.95 kg Shannon Stark DIGITAL IMAGING TECHNICIAN.NEWSPAPER VENDOR Work Phone: [facility] 09-15-2022 15:46-0500 Diastolic blood pressure 84 mm[Hg] Shannon Stark DIGITAL IMAGING TECHNICIAN.NEWSPAPER VENDOR Work Phone: [facility] 09-15-2022 15:46-0500 Heart rate 110 /min Shannon Stark DIGITAL IMAGING TECHNICIAN.NEWSPAPER VENDOR Work Phone: [facility] 09-15-2022 15:46-0500 Respiratory rate 16 /min Shannon Stark DIGITAL IMAGING TECHNICIAN.NEWSPAPER VENDOR Work Phone: [facility] 09-15-2022 15:46-0500 SaO2% (BldA) [Mass fraction] 96 % Shannon Stark DIGITAL IMAGING TECHNICIAN.NEWSPAPER VENDOR Work Phone: [facility] 09-15-2022 15:46-0500 Systolic blood pressure 136 mm[Hg] Shannon Stark DIGITAL IMAGING TECHNICIAN.NEWSPAPER VENDOR Work Phone: [facility] 07-16-2022 16:16-0400 Body temperature 97.81 [degF] Farhat Henry DO Work Phone: [facility] 07-16-2022 16:16-0400 Body weight 69.85 kg Farhat Henry DO Work Phone: [facility] 07-16-2022 16:16-0400 Diastolic blood pressure 80 mm[Hg] Farhat Henry DO Work Phone: [facility] 07-16-2022 16:16-0400 Heart rate 80 /min Farhat Henry DO Work Phone: [facility] 07-16-2022 16:16-0400 Respiratory rate 16 /min Farhat Henry DO Work Phone: [facility] 07-16-2022 16:16-0400 Systolic blood pressure 130 mm[Hg] Farhat Henry DO Work Phone: [facility] 07-11-2022 14:25-0400 Body weight 69.58 kg Noa Silvia DIGITAL IMAGING TECHNICIAN.NEWSPAPER VENDOR Work Phone: [facility] 07-11-2022 14:25-0400 Diastolic blood pressure 78 mm[Hg] Noa Silvia DIGITAL IMAGING TECHNICIAN.NEWSPAPER VENDOR Work Phone: [facility] 07-11-2022 14:25-0400 Heart rate 72 /min Noa Silvia DIGITAL IMAGING TECHNICIAN.NEWSPAPER VENDOR Work Phone: [facility] 07-11-2022 14:25-0400 Respiratory rate 16 /min Noabrittany Olmsteadman DIGITAL IMAGING TECHNICIAN.NEWSPAPER VENDOR Work Phone: [facility] 07-11-2022 14:25-0400 SaO2% (BldA) [Mass fraction] 97 % Noabrittany Olmsteadman DIGITAL IMAGING TECHNICIAN.NEWSPAPER VENDOR Work Phone: [facility] 07-11-2022 14:25-0400 Systolic blood pressure 138 mm[Hg] Noa Silvia DIGITAL IMAGING TECHNICIAN.NEWSPAPER VENDOR Work Phone: [facility] 06-21-2022 10:20-0400 Body weight 69.85 kg Opal Peng MD Work Phone: [facility] 06-21-2022 10:20-0400 Diastolic blood pressure 72 mm[Hg] Opal Peng MD Work Phone: [facility] 06-21-2022 10:20-0400 Heart rate 73 /min Opal Peng MD Work Phone: [facility] 06-21-2022 10:20-0400 Respiratory rate 16 /min Opal Peng MD Work Phone: [facility] 06-21-2022 10:20-0400 SaO2% (BldA) [Mass fraction] 95 % Opal Peng MD Work Phone: [facility] 06-21-2022 10:20-0400 Systolic blood pressure 126 mm[Hg] Opal Peng MD Work Phone: [facility] 01-29-2022 13:13-0400 Body temperature 97 [degF] Farhat Henry DO Work Phone: [facility] 01-29-2022 13:13-0400 Body weight 72.12 kg Farhat Henry DO Work Phone: [facility] 01-29-2022 13:13-0400 Diastolic blood pressure 80 mm[Hg] Farhat Henry DO Work Phone: [facility] 01-29-2022 13:13-0400 Heart rate 64 /min Farhat Henry DO Work Phone: [facility] 01-29-2022 13:13-0400 Respiratory rate 16 /min Farhat Henry DO Work Phone: [facility] 01-29-2022 13:13-0400 Systolic blood pressure 124 mm[Hg] Farhat Henry DO Work Phone: [facility] Encounters Encounter Date Encounter Type Care Provider Facility Start: 11-18-2023 ambulatory FARHAT Bonilla ALVARADOHENRY Facil ity:[facility] Start: 11-18-2023 End: 11-18-2023 Patient encounter procedure Farhat Alvaradorison DO Work Phone: [facility] Procedures Date Procedure Procedure Detail Performing Clinician Start: 07-11-2022 INFLUENZA SEASONAL QUADRIVALENT HIGH DOSE AGE 65+ Dora Sutherland DIGITAL IMAGING TECHNICIAN.NEWSPAPER VENDOR Work Phone: Start: 01-26-2022 Adult depression scr eening assessment Farhat Henry DO Work Phone: Start: 01-12-2021 Adult depression scr eening assessment Farhat Henry DO Work Phone: Start: 06-16-2017 Anesth, upper gi visualize Ai Regan Start: 06-16-2017 Egd transoral biopsy single/multiple Ai Regan Plan of Treatment Date Care Activity Detail Author Start: 06-18-2025 Urine microalbumin profile [facility] Start: 11-17-2024 Annual PCP Team Chronic Disease Visit Annual PCP Team Chronic Disease Visit [facility] Start: 10-22-2024 Annual PCP Team Chronic Disease Visit Annual PCP Team Chronic Disease Visit [facility] Start: 10-22-2024 BP Controlled (<130/80) BP Controlled (<130/80) [facility] Start: 09-23-2024 Glaucoma screening Dilated Retinal Exam [facility] Start: 08-21-2024 Annual PCP Team Chronic Disease Visit Annual PCP Team Chronic Disease Visit [facility] Start: 08-13-2024 Complete blood count Hemoglobin/Hematocrit [facility] Start: 08-13-2024 Creatinine measurement Serum Creatinine [facility] Start: 08-13-2024 Hemoglobin/Hematocrit Hemoglobin/Hematocrit [facility] Start: 08-13-2024 Hepatitis B screening Urine Albumin:Creatinine Ratio [facility] Start: 08-13-2024 Hepatitis B surface antibody level LDL Cholesterol [facility] Start: 08-13-2024 Serum Creatinine Serum Creatinine [facility] Start: 05-20-2024 3 comp foot exam completed DIABETIC FOOT EXAM [facility] Start: 05-20-2024 ANNUAL PCP TEAM CHRONIC DISEASE VISIT ANNUAL PCP TEAM CHRONIC DISEASE VISIT [facility] Start: 05-20-2024 BP CONTROLLED (<130/80) BP CONTROLLED (<130/80) [facility] Start: 05-20-2024 Diabetic foot examination Diabetic Foot Exam [facility] Start: 05-07-2024 ANNUAL PCP TEAM CHRONIC DISEASE VISIT ANNUAL PCP TEAM CHRONIC DISEASE VISIT [facility] Start: 05-07-2024 BP CONTROLLED (<130/80) BP CONTROLLED (<130/80) [facility] Start: 03-18-2024 ANNUAL PCP TEAM CHRONIC DISEASE VISIT ANNUAL PCP TEAM CHRONIC DISEASE VISIT [facility] Start: 03-18-2024 BP CONTROLLED (<130/80) BP CONTROLLED (<130/80) [facility] Start: 02-21-2024 End: 05-22-2024 25-hydroxyvitamin D3 [Mass/volume] in Serum or Plasma VITAMIN D 25 HYDROXY Lab Routine Vitamin D deficiency Expected: 02/21/2024, Expires: 05/22/2024 [facility] Work Phone: Immunizations Immunization Date Immunization Notes Care Provider Fa cili 09-13-2023 zoster vaccine recombinant Christina Kyle ABELN.NEWSPAPER VENDOR Work Phone: [facility] 08-28-2023 respiratory syncytia l virus (RSV) vaccine, adjuvanted (AREXVY) Christina Latif APRN.NEWSPAPER VENDOR Work Phone: [facility] 07-30-2023 influenza (HD-IIV4) vaccine, age 65+ yr, high dose, quadrivalent, PF (FLUZONE HIGH-DOSE) Christina Kyle DIGITAL IMAGING TECHNICIAN.NEWSPAPER VENDOR Work Phone: [facility] 05-26-2023 zoster vaccine recombinant Christina Kyle DIGITAL IMAGING TECHNICIAN.NEWSPAPER VENDOR Work Phone: [facility] 05-20-2023 zoster RZV vaccine, PF, (SHINGRIX, PF,) 50 mcg/0.5 mL injection Farhat Henry DO Work Phone: [facility] Work Phone: Payers Date Payer Category Payer Medicare [id number] 2020 Unknown [employer] SUPPLEMENT [id number] 2020-Present [phone] [id number] [employer] [address] Indemnity [id number] 2020 Unknown [employer]IC[employer] SUPPLEMENT [id number] 2020-Present [phone] [address] [place] [address] Indemnity [id number] 2008 Medicare MEDICARE MEDICAR E A AND B [id number] 2008-Present [phone] [place] [address] Medicare [id number] 2008 Medicare MEDICARE MEDICAR E A AND B [id number] 2008-Present [phone] [place] [address] Medicare [id number] 2008 Medicare [id number] Medicare [id number] Social History Date Type Detail Facility Start: 03-03-2014 End: 06-21-2022 Tobacco smoking status NHIS Ex-smoker [facility] Work Phone: End: 01-24-1971 History of tobacco use Current smoker [facility] Work Phone: End: 01-24-1971 History of tobacco use Cigarette Smoker [facility] Work Phone: Start: 08-02-2021 End: 11-17-2023 Alcohol intake Current drinker of alcohol (finding) [facility] Start: 05-19-2021 End: 12-08-2022 History SDOH Alcohol Frequency 1 [facility] Start: 05-19-2021 End: 12-08-2022 History SDOH Social Connections Phone 5 [facility] Start: 05-19-2021 End: 12-08-2022 History SDOH Social Connections Get Together 2 [facility] Start: 05-19-2021 End: 12-08-2022 History SDOH Social Connections Living 98 [facility] Start: 05-19-2021 End: 12-08-2022 History SDOH Stress 3 [facility] Start: 05-19-2021 End: 12-08-2022 History SDOH Financial 4 [facility] Start: 08-08-2019 Education 12 [facility] Start: 01-24-2010 End: 06-21-2022 Tobacco Comment Pt smoked one pack a week x 4 years [facility] Start: 1945 Sex Assigned At Not on file [facility] Start: 11-24-2021 End: 07-21-2022 Exposure to SARS-CoV-2 (event) Not sure [facility] Work Phone: Start: 01-19-2022 End: 01-29-2022 Exposure to SARS-CoV-2 (event) Yes [facility] Work Phone: Start: 03-03-2014 End: 06-21-2022 Tobacco use and exposure Smokeless tobacco non-user [facility] Start: 12-07-2022 End: 01-22-2023 [facility] Start: 12-07-2022 End: 01-22-2023 Social connection and isolation panel [facility] Do you belong to any clubs or organizations such as restoration groups, unions, fraternal or athletic groups, or school groups? No [facility] How often do you att end meetings of the clubs or organizations you belong to? Patient refused [facility] Are you now , , , , never or living with a partner? Refused [facility] How often to you hav e a drink containing alcohol? Monthly or less [facility] How many standard dr inks containing alcohol do you have on a typical day? 1 or 2 [facility] How often do you hav e 6 or more drinks on 1 occasion? Never [facility] How hard is it for y ou to pay for the very basics like food, housing, medical care, and heating Not very hard [facility] Do you feel stress - tense, restless, nervous, or anxious, or unable to sleep at night because your mind is troubled all the time - these days [OSQ] Only a little [facility] (I/We) worried wheth er (my/our) food would run out before (I/we) got money to buy more. Never true [facility] Medical Equipment Procedure Code Equipment Code Equipment Origin al Text Equipment Identifier Dates Start: 10-26-2021 Clinical Notes 07-16-2020 to 11-19-2023 Note Date & Type Note Facility documented as of this encounter (statuses as of 11/19/2023) [facility]03-06-2024 Miscellaneous Notes* Telephone Encounter - Farhat Henry DO - 11/18/2023 8:45 PM EST The following approved medication requests have been transmitted electronically. Requested Prescriptions Signed Prescriptions Disp Refills lisinopril (ZESTRIL) 5 mg tablet 180 tablet 1 Sig: Take 1 tablet by mouth two times a day. Take with 10 mg tablet to total 15 mg PO twice a day Authorizing Provider: FARHAT HENRY lisinopril (ZESTRIL) 10 mg tablet 180 tablet 1 Sig: Take 1 tablet by mouth two times a day. Authorizing Provider: FARHAT HENRY DO * Telephone Encounter - Elio Kidd LPN - 11/18/2023 5:53 PM EST Pharmacy asking for clarification of sig. 2 rx(s) for lisinopril sent to pharmacy today- [id number] with instructions to take by mouth two times a day. Take with 10mg tablet to total 15mg twice aday. AND lisinopril 10mg take 2 tablets two times a day. What is the correct dosing for lisinopril? Please send new rx to pharmacy with correct sig. Elio Kidd LPN documented in this encounterFair[facility] Center03-[facility]24 NoteHNO ID: [id number] Author: FARHAT HENRY, DO Service: ? Author Type: Physician Type: Progress Notes Filed: 11/18/2023 22:34 Note Text: Was seen by Dr. Andrea luke on 11/05 for an opinion regarding injection for spinal arthritis. After that, on 11/10/23 her BLOOD PRESSURE started to elevate and feels she was stressed out after this visit. Was seen by Dr. Horacio luke in the past CC: Vivi Werner is a 78 year old female who presents to the office for EMERGENCY DEPARTMENT follow up HPI: Patient contacted office yesterday due to concerns for High BP at home. She was seen by Em HAMILTON as below She was in ER last week due to High BP. Her lisinopril was increased to 20mg. Patient has been monitoring BP at home. Has still been around 140-150s/80-90 the past couple days. She was told to follow up with PCP in the office when she came in today Currently She brings BLOOD PRESSURE readings into the office today with most readings 140-150s/80-90s by her records. She also did bring in her OMRON upper arm automatic bp cuff to have assessed in our office to make sure this is accurate. She is completely asymptomatic with her slightly elevated BLOOD PRESSURE but this isn't her normal readings. She is taking lisinopril 10 mg AM and 10 mg PM at this time x 1 week. She is willing to have adjustments of medication. She does admit to stress and being emotional- lost her 8 years ago and his anniversary is coming up / at this time and causes her to miss him as well. She denies depressed mood Chronic low back pain, Was seen by Dr. Andrea luke on 11/05 for an opinion regarding injection for spinal arthritis. After that, on 11/10/23 her BLOOD PRESSURE started to elevate and feels she was stressed out after this visit. Was seen by Dr. Horacio luke in the past and feels that she would like a second opinion. Was told by Dr Mendez per patient that she would have to have the lumbar injections without sedation and she isn't willing to do this. PAST MEDICAL HISTORY Diagnosis Date Advance care planning 01/29/2022 rich Rosa Benign neoplasm of colon 11/12/2005 Bulging lumbar disc Diabetes (HCC) Diverticulosis of colon (without mention of hemorrhage) Internal hemorrhoids without mention of complication 11/12/2005 Other disorder of muscle, ligament, and fascia left leg Other psoriasis Personal history of colonic polyps Pure hypercholesterolemia Sciatica Spinal stenosis of lumbar region Unspecified essential hypertension PAST SURGICAL HISTORY Procedure Laterality Date ARTHROSCOPY KNEE DIAGNOSTIC W/WO SYNOVIAL BX SPX 2002 Arthroscopy, knee, right ARTHRP KNE CONDYLEANDPLATU MEDIALANDLAT COMPARTMENTS 12-18-04 Knee replacement, total right COLONOSCOPY 12/2014 COLONOSCOPY FLX DX W/COLLJ SPEC WHEN PFRMD 01/01/10 COLSC FLX W/RMVL OF TUMOR POLYP LESION SNARE TQ 11/12/05 EGD 2017 EGD at [facility]- negative, stopped omeprazole PAST SURGICAL HISTORY OF 1994 BLADDER SUSPENSION PAST SURGICAL HISTORY OF 1991 JAW SURGERY PAST SURGICAL HISTORY OF carpal tunnel, bilateral Current Outpatient Medications Medication Sig ALPRAZolam 0.5 mg dissolvable tablet Bring to office for procedure. Do not take until instructed by clinical staff blood sugar diagnostic (BLOOD GLUCOSE TEST) test strip Test blood sugar(s) 2 times daily. Dx: Type 2 DM - Controlled E11.9 Insulin: No Lancets lancets Test blood sugar(s) 2 times daily. Dx: Type 2 DM - Controlled E11.9 Insulin: No betamethasone dipropionate (DIPROSONE) 0.05 % cream Apply to affected area twice daily as needed. Use 2 weeks on, 1 week off. Not for face, armpits, or groin Cholecalciferol, Vitamin D3, 50 mcg (2,000 unit) cap Take 1 capsule by mouth once daily. vit A,C,C-Fuxv-Qyxmyk (PRESERVISION AREDS) 2,148 mcg-113 mg-45 mg-17.4mg tab Take 2 tablets by mouth once daily. blood sugar diagnostic (ONETOUCH ULTRA TEST) test strip TEST BLOOD SUGAR 2 (TWO) TIMES DAILY LORazepam (ATIVAN) 0.5 mg Take 1 tablet by mouth two times a day as needed (anxiety) for up to 30 days. lisinopril (ZESTRIL) 5 mg tablet Take 1 tablet by mouth two times a day. Take with 10 mg tablet to total 15 mg PO twice a day lisinopril (ZESTRIL) 10 mg tablet Take 1 tablet by mouth two times a day. triamcinolone (KENALOG) 0.025 % cream Apply to affected area two times a day. As needed for rash No current facility-administered medications for this visit. Facility-Administered Medications Ordered in Other Visits Medication Dose Route Frequency lidocaine (PF) 10 mg/mL (1 %) 1-2 mg injection (XYLOCAINE) 0.1-0.2 mL INTRADERMAL PRN NaCl 0.9% iv infusion 30 mL/hr INTRAVENOUS CONTINUOUS ALLERGIES Allergen Reactions Bactrim [Sulfametho* Hives Ceclor [Cefaclor] Hives Ciprofloxacin Hives Darvocet-N 100 [Pro* GI Upset Keflex [Cephalexin] Lipitor [Atorvastat* Myalgia Leg cramps/discomfort Penicillins Zithromax [Azithrom* (more content not included)...[facility] 11-18-2023 Instructions* Patient Instructions* Farhat Henry DO - 11/18/2023 4:03 PM EST Pain management Dr. Sorto [address] [place], [place] [id number] documented in this encounterFair[facility] Center03-[facility]24 History of Present illness Narrative* Farhat Henry DO - 11/18/2023 3:55 PM EST Was seen by Dr. Andrea luke on 11/05 for an opinion regarding injection for spinal arthritis. After that, on 11/10/23 her BLOOD PRESSURE started to elevate and feels she was stressed out after this visit. Was seen by Dr. Horacio luke in the past CC: Vivi Werner is a 78 year old female who presents to the office for EMERGENCY DEPARTMENT follow up HPI: Patient contacted office yesterday due to concerns for High BP at home. She was seen by Em HAMILTON as below She was in ER last week due to High BP. Her lisinopril was increased to 20mg. Patient has been monitoring BP at home. Has still been around 140-150s/80-90 the past couple days. She was told to follow up with PCP in the office when she came in today Currently She brings BLOOD PRESSURE readings into the office today with most readings 140-150s/80-90s by her records. She also did bring in her OMRON upper arm automatic bp cuff to have assessed in our office to make sure this is accurate. She is completely asymptomatic with her slightly elevated BLOOD PRESSURE but this isn't her normal readings. She is taking lisinopril 10 mg AM and 10 mg PM at this time x 1 week. She is willing to have adjustments of medication. She does admit to stress and being emotional- lost her 8 years ago and his anniversary is coming up / at this time and causes her to miss him as well. She denies depressed mood Chronic low back pain, Was seen by Dr. Andrea luke on 11/05 for an opinion regarding injection forspinal arthritis. After that, on 11/10/23 her BLOOD PRESSURE started to elevate and feels she was stressed out after this visit. Was seen by Dr. Horacio luke in the past and feels that she would like a second opinion. Was told by Dr Mendez per patient that she would have to have the lumbar injections without sedation and she isn't willing to do this. PAST MEDICAL HISTORY Diagnosis Date Advance care planning 01/29/2022 daughter Shelley Benign neoplasm of colon 11/12/2005 Bulging lumbar disc Diabetes (HCC) Diverticulosis of colon (without mention of hemorrhage) Internal hemorrhoids without mention of complication 11/12/2005 Other disorder of muscle, ligament, and fascia left leg Other psoriasis Personal history of colonic polyps Pure hypercholesterolemia Sciatica Spinal stenosis of lumbar region Unspecified essential hypertension PAST SURGICAL HISTORY Procedure Laterality Date ARTHROSCOPY KNEE DIAGNOSTIC W/WO SYNOVIAL BX SPX 2002 Arthroscopy, knee, right ARTHRP KNE CONDYLE&PLATU MEDIAL&LAT COMPARTMENTS 12-18-04 Knee replacement, total right COLONOSCOPY 12/2014 COLONOSCOPY FLX DX W/COLLJ SPEC WHEN PFRMD 01/01/10 COLSC FLX W/RMVL OF TUMOR POLYP LESION SNARE TQ 11/12/05 EGD 2017 EGD at [facility]- negative, stopped omeprazole PAST SURGICAL HISTORY OF 1994 BLADDER SUSPENSION PAST SURGICAL HISTORY OF 1991 JAW SURGERY PAST SURGICAL HISTORY OF carpal tunnel, bilateral Current Outpatient Medications Medication Sig ALPRAZolam 0.5 mg dissolvable tablet Bring to office for procedure. Do not take until instructed byclinical staff blood sugar diagnostic (BLOOD GLUCOSE TEST) test strip Test blood sugar(s) 2 times daily. Dx: Type 2 DM - Controlled E11.9 Insulin: No Lancets lancets Test blood sugar(s) 2 times daily. Dx: Type 2 DM - Controlled E11.9 Insulin: No betamethasone dipropionate (DIPROSONE) 0.05 % cream Apply to affected area twice daily as needed. Use 2 weeks on, 1 week off. Not for face, armpits, or groin Cholecalciferol, Vitamin D3, 50 mcg (2,000 unit) cap Take 1 capsule by mouth once daily. vit A,C,M-Gleg-Leqveb (PRESERVISION AREDS) 2,148 mcg-113 mg-45 mg-17.4mg tab Take 2 tablets by mouth once daily. blood sugar diagnostic (ONETOUCH ULTRA TEST) test strip TEST BLOOD SUGAR 2 (TWO) TIMES DAILY LORazepam (ATIVAN) 0.5 mg Take 1 tablet by mouth two times a day as needed (anxiety) for up to 30 days. lisinopril (ZESTRIL) 5 mg tablet Take 1 tablet by mouth two times a day. Take with 10 mg tablet to total 15 mg PO twice a day lisinopril (ZESTRIL) 10 mg tablet Take 1 tablet by mouth two times a day. triamcinolone (KENALOG) 0.025 % cream Apply to affected area two times a day. As needed for rash No current facility-administered medications for this visit. Facility-Administered Medications Ordered in Other Visits Medication Dose Route Frequency lidocaine (PF) 10 mg/mL (1 %) 1-2 mg injection (XYLOCAINE) 0.1-0.2 mL INTRADERMAL PRN NaCl 0.9% iv infusion 30 mL/hr INTRAVENOUS CONTINUOUS ALLERGIES Allergen Reactions Bactrim [Sulfametho* Hives Ceclor [Cefaclor] Hives Ciprofloxacin Hives Darvocet-N 100 [Pro* GI Upset Keflex [Cephalexin] Lipitor [Atorvastat* Myalgia Leg cramps/discomfort Penicillins Zithromax [Azithrom* Social History Tobacco Use Smoking status: Former Years: 4 Types: Cigarettes Quit date: 01/24/1971 Years since quittin.8 Smokeless tobacco: Never Tobacco comments: Pt smoked one pack a week x 4 years Vaping Use Vaping Use: Never used Substance Use Topics Alcohol use: Yes Comment: Occassional Drug use: No ROS: See HPI PE: BP 138/80 Pulse 80 Temp (Src) 97 (Right Tympanic) Resp 16 Wt 156 lb (70.8kg) Gen: A&OX3, NAD, tearful in office today, appears fatigued HEENT: PERRLA, EOMs intact b/l, nares without drainage, pharynx without erythema, exudate, lesions,or drainage. Uvula midline. MMM, wearing glasses Neck: No LAD, no thyromegaly, no meningismus. CV: RRR, no murmur Lungs: CTA b/l, no wheezing Skin: No rashes, lesions, or wounds on exposed skin. Reduced lumbar ROM PDMP website checked and validated. All prescriptions have been APPROPRIATELY filled. No suspiciousactivity was identified. 11/18/2023 by Farhat Henry DO ASSESSMENT/PLAN: 1. Hypertension, essential - ICD9: 401.9, ICD10: I10 (primary diagnosis) - Uncontrolled - Increase lisinopril to 15 mg AM and PM, f/u with labs in 2 weeks and with Matrix Inspector at end of the month. - Recommend home blood pressure monitoring, to bring results to next visit - Encouraged sodium restriction, DASH or Mediterranean diet - Recommend regular aerobic exercise - LISINOPRIL 5 MG TABLET - LISINOPRIL 10 MG TABLET - COMP METABOLIC PANEL - CBC + DIFF 2. Spinal stenosis of lumbar region with neurogenic claudication - ICD9: 724.03, ICD10: M48.062 Chronic symptoms, she is wanting 2nd opinion and wants sedation for procedure. - CONSULT TO PAIN MGT 3. Lumbosacral neuritis - ICD9: 724.4, ICD10: M54.17 - CONSULT TO PAIN MGT 4. Chronic bilateral low back pain with left-sided sciatica - ICD9: 724.2, 724.3, 338.29, ICD10: M54.42, G89.29 - CONSULT TO PAIN MGT 5. Situational anxiety - ICD9: 300.09, ICD10: F41.8 rx prn use. Has a lot of stressors currently which is contributing to elevated BP - LORAZEPAM 0.5 MG TABLET 6. Secondary renal hyperparathyroidism (HCC) - ICD9: 588.81, ICD10: N25.81 7. Type 2 diabetes mellitus with stage 3a chronic kidney disease, without long- term current use of insulin (HCC) - ICD9: 250.40, 585.3, ICD10: E11.22, N18.31 - Controlled - Continue current medications - Blood glucose monitoring on a once daily schedule - Counseled on healthy diet and regular exercise - eGFR: 52 Stable - Counseled on avoiding NSAIDs, adequate hydration - Counseled on low sodium diet - recheck labs in 2-3 weeks after increasing BLOOD PRESSURE medication- labs ordered. 8. Stage 3a chronic kidney disease (HCC) - ICD9: 585.3, ICD10: N18.31 - eGFR: 52 Stable - Counseled on avoiding NSAIDs, adequate hydration - Counseled on low sodium diet - recheck labs in 2-3 weeks after increasing BLOOD PRESSURE medication- labs ordered. Farhta Henry DO Return if no improvement. Follow up with Farhat Henry DO. To ER if develops chest pain, shortness of breath. Discussed risks, benefits, alternatives, and potential side effects of medications. Patient/Guardian expressed understanding and agreed with the plan. See patient instructions. Farhat Henry DO [address] [place] [address] documented in this encounterFair[facility] History of Past illness Narrative* Problem Noted Date Diagnosed Date Resolved Date Type 2 diabetes mellitus wit h stage 3a chronic kidney disease, without long-term current use of insulin 07/16/2020 05/17/2021 Unspecified essential hypertension 07/12/2020 documented as of this encounter (statuses as of 11/18/2023) [facility]03-05-2024 NoteHNO ID: [id number] Author: EM FIGUEROA PA-C Service: ? Author Type: Physician Picking Tech Type: Progress Notes Filed: 11/17/2023 11:40 Note Text: Chief Complaint Patient presents with: Hypertension: Blood pressure has been running high HPI Vivi Werner is a 78 year old female who presents here today for Above Complaints.. Patient contacted office today due to concerns for High BP at home. She was in ER last week due to High BP. Her lisinopril was increased to 20mg. Patient has been monitoring BP at home. Has still been around 140-150s/80-90 the past couple days. Past medical history, appointments, medications, allergies reviewed. Previous Medical History PAST MEDICAL HISTORY Diagnosis Date Advance care planning 01/29/2022 daughter Shelley Benign neoplasm of colon 11/12/2005 Bulging lumbar disc Diabetes (HCC) Diverticulosis of colon (without mention of hemorrhage) Internal hemorrhoids without mention of complication 11/12/2005 Other disorder of muscle, ligament, and fascia left leg Other psoriasis Personal history of colonic polyps Pure hypercholesterolemia Sciatica Spinal stenosis of lumbar region Unspecified essential hypertension Previous Surgical History PAST SURGICAL HISTORY Procedure Laterality Date ARTHROSCOPY KNEE DIAGNOSTIC W/WO SYNOVIAL BX SPX 2002 Arthroscopy, knee, right ARTHRP KNE CONDYLEANDPLATU MEDIALANDLAT COMPARTMENTS -02-16 Knee replacement, total right COLONOSCOPY 12/2014 COLONOSCOPY FLX DX W/COLLJ SPEC WHEN PFRMD 01/01/10 COLSC FLX W/RMVL OF TUMOR POLYP LESION SNARE TQ 11/12/05 EGD 2017 EGD at [facility]- negative, stopped omeprazole PAST SURGICAL HISTORY OF 1994 BLADDER SUSPENSION PAST SURGICAL HISTORY OF 1991 JAW SURGERY PAST SURGICAL HISTORY OF carpal tunnel, bilateral Family History FAMILY HISTORY Problem Relation Age of Onset Diabetes Father Patient Allergies ALLERGIES Allergen Reactions Bactrim [Sulfametho* Hives Ceclor [Cefaclor] Hives Ciprofloxacin Hives Darvocet-N 100 [Pro* GI Upset Keflex [Cephalexin] Lipitor [Atorvastat* Myalgia Leg cramps/discomfort Penicillins Zithromax [Azithrom* Current Medications Current Outpatient Medications on File Prior to Visit Medication Sig ALPRAZolam 0.5 mg dissolvable tablet Bring to office for procedure. Do not take until instructed by clinical staff lisinopril (ZESTRIL) 10 mg tablet Take 1 tablet by mouth once daily. blood sugar diagnostic (BLOOD GLUCOSE TEST) test strip Test blood sugar(s) 2 times daily. Dx: Type 2 DM - Controlled E11.9 Insulin: No Lancets lancets Test blood sugar(s) 2 times daily. Dx: Type 2 DM - Controlled E11.9 Insulin: No triamcinolone (KENALOG) 0.025 % cream Apply to affected area two times a day. As needed for rash betamethasone dipropionate (DIPROSONE) 0.05 % cream Apply to affected area twice daily as needed. Use 2 weeks on, 1 week off. Not for face, armpits, or groin Cholecalciferol, Vitamin D3, 50 mcg (2,000 unit) cap Take 1 capsule by mouth once daily. vit A,C,Y-Dnvb-Wlhgiu (PRESERVISION AREDS) 2,148 mcg-113 mg-45 mg-17.4mg tab Take 2 tablets by mouth once daily. blood sugar diagnostic (ONETOUCH ULTRA TEST) test strip TEST BLOOD SUGAR 2 (TWO) TIMES DAILY Current Facility-Administered Medications on File Prior to Visit Medication lidocaine (PF) 10 mg/mL (1 %) 1-2 mg injection (XYLOCAINE) NaCl 0.9% iv infusion Social History Social History Tobacco Use Smoking status: Former Years: 4 Types: Cigarettes Quit date: 01/24/1971 Years since quittin.8 Smokeless tobacco: Never Tobacco comments: Pt smoked one pack a week x 4 years Vaping Use Vaping Use: Never used Substance Use Topics Alcohol use: Yes Comment: Occassional Drug use: No Review of Symptoms REVIEW OF SYSTEMS See hpi EXAM: BP 128/71 (BP Site: Left Arm, BP Position: Sitting, BP Cuff Size: Regular Adult) Pulse 88 Temp 36.7 ?C (98 ?F) Resp 18 Wt 69.9 kg (154 lb) BMI 30.08 kg/m? General Appearance: Well appearing, alert, in no acute distress, well-hydrated, well nourished.. Lungs: Lungs clear to auscultation. No wheezing, rhonchi, rales.. Heart: RRR without murmur, gallop, or rubs. No ectopy. Health Maintenance List Bone Density Screening Never done Depression Assessment due on 09/14/2023 Dilated Retinal Exam due on 10/10/2023 HbA1C due on 02/11/2024 Diabetic Foot Exam due on 05/20/2024 Urine Albumin:Creatinine Ratio due on 08/13/2024 LDL Cholesterol due on 08/13/2024 Serum Creatinine due on 08/13/2024 Hemoglobin/Hematocrit due on 08/13/2024 Annual PCP Team Chronic Disease Visit due on 10/22/2024 BP Controlled (<130/80) due on 10/22/2024 DTaP,Tdap,Td Vaccine(2 - Td or Tdap) due on 06/18/2025 Influenza Vaccine Completed RSV Vaccine Completed Shingrix Vaccine Completed Covid-19 Vaccine Completed Pneumococcal Vaccine: 65+ Completed Colorectal Cancer Screening Discontinued Ad (more content not included)...[facility]03-04-2024 Miscellaneous Notes* Telephone Encounter - Latisha Valladares - 11/16/2023 3:02 PM EST I spoke with Allyssa, and she is rescheduled for the soonest available appointment and also added to the waiting list. Latisha Valladares [facility] History of Past illness Narrative* Problem Noted Date Diagnosed Date Resolved Date Type 2 diabetes mellitus wit h stage 3a chronic kidney disease, without long-term current use of insulin 07/16/2020 05/17/2021 Unspecified essential hypertension 07/12/2020 documented as of this encounter (statuses as of 11/16/2023) [facility]02-28-[facility] Miscellaneous Notes* Telephone Encounter - Antoinette Castaneda LPN - 11/11/2023 9:18 AM EST Pt. informed Appt. made. She will keep track of Bp's and let us know how she is doing. * Telephone Encounter - Farhat Henry DO - 11/11/2023 8:56 AM EST Please inform patient that I reviewed her EMERGENCY DEPARTMENT records and that I agree with need to increase her lisinopril to 20 mg a day and see her in the office next wed on 11/17 at 320 pm or 11/19 at 320 pm if this appt slot is still available. Farhat Henry DO * Telephone Encounter - Antoinette Vergara LPN - 11/11/2023 8:55 AM EST ER notes on your desk to review. * Telephone Encounter - Farhat Henry DO - 11/10/2023 5:32 PM EST Please get lab results for me to review. I tried to call EMERGENCY DEPARTMENT back and not able to get ahold of the doc to speak to at that time. I can review these labs and she can be made an EMERGENCY DEPARTMENT follow up with a provider to further review Farhat Henry DO * Telephone Encounter - Marlene Rasheed LPN - 11/10/2023 2:00 PM EST A 2nd call was received Latha from ED asking for pcp to call back. Provider's nurse aware & message also put on provider's desk stating Dr Leslie would like her to call him. This nurse asked Latha if there was a message I could pass along to pcp, was told just that Dr Leslie wanted to speak her regarding lab results. Marlene Rasheed LPN * Telephone Encounter - Marlene Rasheed LPN - 11/10/2023 1:52 PM EST Latha from [facility] ER states pt is in the ED & they have lab results, Dr Leslie asking for pcp to call him regarding these results. Please call [phone] Marlene Rasheed LPN documented in this encounter[facility]02-[facility]-2024 NoteHNO ID: [id number] Author: CHRISTINA LATIF APRN.NEWSPAPER VENDOR Service: ? Author Type: Nurse Practitioner Type: Progress Notes Filed: 11/08/2023 14:32 Note Text: [facility] Today's Date: 11/06/2023 Name: Vivi Werner : 1945 Purpose: New Patient Consultation Chief complaint: Decreased sensation of foot, Lumbosacral neuritis, Spinal stenosis of lumbar region with neurogenic claudication Referring Clinician: Noa Varghese APRN.NEWSPAPER VENDOR Pertinent Past Medical History: Myalgia, Lumbosacral neuritis, HTN, CKD stage 3a, DM type 2, Arthritis, multiple joint involvement, Bulging lumbar disc, LBP with left-sided sciatica, Spinal stenosis of lumbar region, Pertinent Past Surgeries: TKR (Right), Bilateral carpal tunnel Interval History: Overall pain and functional disability since last visit: Unchanged New Complaints since last visit: No Patient came in today with questions regarding the injections that were ordered yesterday. Patient states that she wanted to understand why she was having another epidural injection when she had [address] Andrade. Patient stating that she continues to have pain after that injection states that that only worked for 2 weeks. Patient states that she is afraid of needles and she is not sure if that is why the doctor did not go right to the RFA. Patient is here to discuss the injection as she is concerned about what she signed up to do. Current Pain Medications:NONE Neuropathics: NSAIDS: Muscle Relaxants: Topicals: Other Prescription or OTC Pain Medications: Opioids (when applicable): No question data found. Anti-depressants or Mood-Stabilizers: None Anti-Coagulants: None Therapies Attended (Current or Most Recent): PT, MT - ongoing, 2 courses since last summer; current course is active [facility] 11/05/2023 Questionnaire GREENLIGHT Completed Date 11/05/2023 Questionnaire Opiod Risk Tool Completed Date 11/05/2023 Comments 0 No question data found. (All drug screens are appropriate unless indicated otherwise) Notable Events During Course of Treatment: 10/30/2023 - Initial HPI (Obtained by Bahman Mendez M.D.). DURATION AND ONSET: The pain complaint has been present for approximately 1 year. The pain had a gradual onset. The mechanism of injury is unknown. Pain gradually worsening over time. RED FLAG SYMPTOMS: denies red flags. PAIN DESCRIPTION: Timing: Constant Character: Aching, Sharp Primary Location: axial low back Radiation: left > right posterior thigh and calves Exacerbating factors: Standing, Walking Relieving factors: Sitting, Heat Interferes with: physical activity Treatment History: PAIN PROCEDURES: DATE PROCEDURE IMPROVEMENT 07/21/2022 TFESI Lt. S1 (Sameer Andrade, DO) MEDICATIONS Taken TO DATE (for the chief complaint(s)): Neuropathics: Neurontin (Gabapentin) NSAIDS: Mobic (Meloxicam), Relafen (Nabumetone) - holding due to kidney disease Muscle Relaxants: None Topicals: Voltaren (Gel) Other Prescription or OTC Pain Medications: Tylenol; Ativan Opioids: Tramadol Data Reviewed Today: Allergies: ALLERGIES Allergen Reactions Bactrim [Sulfametho* Hives Ceclor [Cefaclor] Hives Ciprofloxacin Hives Darvocet-N 100 [Pro* GI Upset Keflex [Cephalexin] Lipitor [Atorvastat* Myalgia Leg cramps/discomfort Penicillins Zithromax [Azithrom* Social History Tobacco Use Smoking status: Former Years: 4 Types: Cigarettes Quit date: 01/24/1971 Years since quittin.8 Smokeless tobacco: Never Tobacco comments: Pt smoked one pack a week x 4 years Vaping Use Vaping Use: Never used Substance Use Topics Alcohol use: Yes Comment: Occassional Drug use: No INTAKE PAIN ASSESSMENT 10/30/2023 11/06/2023 Are you having pain associated with your visit today? Yes, Provider notified Yes, Provider notified Pain Scales Verbal (Numeric Rating or Visual Analog Scale) Verbal (Numeric Rating or Visual Analog Scale) Pain Level 9 8 Pain Location Back-Lower Back-Lower Description Aching;Sore;Sharp;Stabbing Sharp;Sore Duration Amount of Time - - Duration Units Years Years Frequency Continuous Continuous Intervention/Comfort measure Reposition;Relaxation;Positioning Reposition;Relaxation;Positioning Comments - - Pain Assessment - - Compliance: PDMP website checked and validated on 11/06/2023 by Christina Latif APRN.NEWSPAPER VENDOR All prescriptions have been APPROPRIATELY filled. No suspicious activity was identified. Lorazepam 0.5mg, #90, 4-5 times per year (most recently 05/2023) [facility] 11/05/2023 Questionnaire GREENLIGHT Completed Date (more content not included)...[facility] 11-06-2023 NoteHNO ID: [id number] Author: MARLENE TORRES MA Service: ? Author Type: Bottom Bleacher Type: Progress Notes Filed: 11/08/2023 14:32 Note Text: Review of Systems Constitutional: Negative for activity change, chills, fever and unexpected weight change. Gastrointestinal: Negative for bowel retention or incontinence Genitourinary: Negative for difficulty urinating. Negative for bladder retention or incontinence Musculoskeletal: Positive for arthralgias, back pain, gait problem and myalgias. Negative for joint swelling, neck pain and neck stiffness. Neurological: Positive for weakness. Negative for numbness and headaches. Psychiatric/Behavioral: Negative for dysphoric mood, sleep disturbance and suicidal ideas. The patient is not nervous/anxious.[facility] 11-06-2023 History of Present illness Narrative* Christina Latif APRN.CNP - 11/06/2023 2:45 PM EST Images from the original note were not included. [facility] Today's Date: 11/06/2023 Name: Vivi Werner : 1945 Purpose: New Patient Consultation Chief complaint: Decreased sensation of foot, Lumbosacral neuritis, Spinal stenosis of lumbar region with neurogenic claudication Referring Clinician: Noa Varghese APRN.NEWSPAPER VENDOR Pertinent Past Medical History: Myalgia, Lumbosacral neuritis, HTN, CKD stage 3a, DM type 2, Arthritis, multiple joint involvement, Bulging lumbar disc, LBP with left-sided sciatica, Spinal stenosis of lumbar region, Pertinent Past Surgeries: TKR (Right), Bilateral carpal tunnel Interv al History: Overall pain and functional disability since last visit: Unchanged New Complaints since last visit: No Patient came in today with questions regarding the injections that were ordered yesterday. Patient states that she wanted to understand why she was having another epidural injection when she had [address] Andrade. Patient stating that she continues to have pain after that injection states that that only worked for 2 weeks. Patient states that she is afraid of needles and she is not sure if that is why the doctor did not go right to the RFA. Patient is here to discuss the injection as she is concerned about what she signed up to do. Current Pain Medications:NONE Neuropathics: NSAIDS: Muscle Relaxants: Topicals: Other Prescription or OTC Pain Medications: Opioids (when applicable): No question data found. Anti-depressants or Mood-Stabilizers: None Anti-Coagulants: None Therapies Attended (Current or Most Recent): PT, MT - ongoing, 2 courses since last summer; current course is active [facility] 11/05/2023 Questionnaire GREENLIGHT Completed Date 11/05/2023 Questionnaire Opiod Risk Tool Completed Date 11/05/2023 Comments 0 No question data found. (All drug screens are appropriate unless indicated otherwise) Notabl e Events During Course of Treatment: 10/30/2023 - Initial HPI (Obtained by Bahman Mendez M.D.). DURATION AND ONSET: The pain complaint has been present for approximately 1 year. The pain had a gradual onset. The mechanism of injury is unknown. Pain gradually worsening over time. RED FLAG SYMPTOMS: denies red flags. PAIN DESCRIPTION: Timing: Constant Character: Aching, Sharp Primary Location: axial low back Radiation: left > right posterior thigh and calves Exacerbating factors: Standing, Walking Relieving factors: Sitting, Heat Interferes with: physical activity Treatment History: PAIN PROCEDURES: DATE PROCEDURE IMPROVEMENT 07/21/2022 TFESI Lt. S1 (Sameer Andrade, DO) MEDICATIONS Taken TO DATE (for the chief complaint(s)): Neuropathics: Neurontin (Gabapentin) NSAIDS: Mobic (Meloxicam), Relafen (Nabumetone) - holding due to kidney disease Muscle Relaxants: None Topicals: Voltaren (Gel) Other Prescription or OTC Pain Medications: Tylenol; Ativan Opioids: Tramadol Data Reviewed Today: Allergies: ALLERGIES Allergen Reactions Bactrim [Sulfametho* Hives Ceclor [Cefaclor] Hives Ciprofloxacin Hives Darvocet-N 100 [Pro* GI Upset Keflex [Cephalexin] Lipitor [Atorvastat* Myalgia Leg cramps/discomfort Penicillins Zithromax [Azithrom* Social History Tobacco Use Smoking status: Former Years: 4 Types: Cigarettes Quit date: 01/24/1971 Years since quittin.8 Smokeless tobacco: Never Tobacco comments: Pt smoked one pack a week x 4 years Vaping Use Vaping Use: Never used Substance Use Topics Alcohol use: Yes Comment: Occassional Drug use: No INTAKE PAIN ASSESSMENT 10/30/2023 11/06/2023 Are you having pain associated with your visit today? Yes, Provider notified Yes, Provider notified Pain Scales Verbal (Numeric Rating or Visual Analog Scale) Verbal (Numeric Rating or Visual Analog Scale) Pain Level 9 8 Pain Location Back-Lower Back-Lower Description Aching;Sore;Sharp;Stabbing Sharp;Sore Duration Amount of Time - - Duration Units Years Years Frequency Continuous Continuous Intervention/Comfort measure Reposition;Relaxation;Positioning Reposition;Relaxation;Positioning Comments - - Pain Assessment - - Compliance: PDMP website checked and validated on 11/06/2023 by Christina Latif APRN.NEWSPAPER VENDOR All prescriptions have been APPROPRIATELY filled. No suspicious activity was identified. Lorazepam 0.5mg, #90, 4-5 times per year (most recently 05/2023) [facility] 11/05/2023 Questionnaire GREENLIGHT Completed Date 11/05/2023 Questionnaire Opiod Risk Tool Completed Date 11/05/2023 Comments 0 (All drug screens are appropriate unless indicated otherwise) Risk Assessment: SILVIA-7: SILVIA - 7 SCORES 11/05/2023 SILVIA-7 Score 0 (0-4) minimal anxiety, (5-9) mild anxiety, (10-14) moderate anxiety, (15-21) severe anxiety PHQ-9: PHQ-9 06/30/2022 01/08/2023 11/05/2023 Score 1 2 0 (0-4) minimal depression, (5-9) mild depression, (10-14) moderate depression, (15-19) moderately severe depression, (20-27) severe depression Opioid Risk Tool: Family History of Substance Abuse: 0 - No Personal History of Substance Abuse: 0 - No Age between 16-45: 0 - No History of Pre-Adolescence Sexual Abuse: 0 - No Psychological Disease: 0 - No Risk Total: 0 Total Score Risk Category: Low Risk 0-3 (0-3, low risk or no risk; 4-7, moderate risk, 8+, high risk) Diagnostic Studies: Relevant Imaging: MRI Spine Report MRI LUMBAR SPINE WO IVCON Collected: 05/07/2022 (Final result) Narrative: PERFORMED AT [facility] [place] [place] Information: Patient complains of pain in back and legs post on 2 years. Study Technique: MRI lumbar spine was performed with Sagittal T1, T2 and STIR images. Axial T1 and T2 images were obtained. Comparisons: None. Findings: For purposes of numbering lumbar vertebral bodies on this study the most inferior normal diameter disc space will be considered L5-S1. No transitional vertebral body segments. Plain film radiographs would be required to confirm nomenclature used in this report, particularly prior to any spine intervention. Vertebral body height: Hemangioma at L5 vertebra. Disc height and Disc signal: Disc space narrowing at L2-3 and L3-4. Disc desiccation at all levels. Alignment: Mild anterior listhesis of L4 over L5 vertebra. Straightening is noted. Bone marrow signal: Modic endplate changes at L3 and L4 vertebra. Conus medullaris:Ends at L1-2, no abnormal finding seen. Paraspinal soft tissues: Paraspinal muscle atrophy is seen. Other findings: No evidence of any focal lesion noted. Axial Imaging: L1-2: Circumferential bulge with 3 mm broad based posterior protrusion is seen indenting the thecal sac. There is severe bilateral neural foraminal and central canal stenosis with minimum AP diameter of the canal measuring 6 mm. Facet joint arthropathy and ligamentum flavum hypertrophy is noted. L2-3: Circumferential bulge with 4 mm broad based posterior protrusion and cranial migration is seen compressing the thecal sac. High T2 signal in the posterocentral high intensity zone of the disc. There is severe bilateral neural foraminal and central canal stenosis with minimum AP diameter of the canal measuring 8 mm. Facet joint arthropathy and ligamentum flavum hypertrophy is noted. L3-4: Circumferential bulge with 2 mm broad based posterior protrusion is seen indenting the thecal sac. There is severe bilateral neural foraminal and central canal stenosis with minimum AP diameter of the canal measuring 8.2 mm. Facet joint arthropathy and ligamentum flavum hypertrophy is noted. L4-5: Circumferential bulge with 2.5 mm broad based posterior protrusion is seen indenting the thecal sac. There is severe bilateral neural foraminal and central canal stenosis with minimum AP diameter of the canal measuring 8.3 mm. Facet joint arthropathy and ligamentum flavum hypertrophy is noted. L5-S1: Circumferential bulge with 2.8 mm broad based posterior protrusion is seen indenting the thecal sac. There is severe bilateral neural foraminal and central canal stenosis with minimum AP diameter of the canal measuring 7.4 mm. Facet joint arthropathy and ligamentum flavum hypertrophy is noted. Impressions: 1. Circumferential bulge with broad based posterior herniation at L1-2, L3-4, L4-5 and L5-S1 causing severe bilateral neural foraminal and central canal stenosis. 2. Circumferential bulge with broad based posterior herniation and cranial migration an acute annular tear at L2-3 causing severe bilateral neural foraminal and central canal stenosis. 0513 X-ray lumbar 03/2023 FINDINGS: There are five [id number] lumbar vertebrae. No acute fracture seen. There is grade 1 L4 on L5 anterolisthesis. Left-sided curvature/levoscoliosis is noted. There is generalized disc space narrowing involving L1-L5 levels. At least moderate osteophyte formation is present, with facet arthrosis IMPRESSION: Lumbar spine degenerative changes with multilevel disc space narrowing. MRI Lumbar 04/2022 Electrodiagnostic Study (EMG): 10/22/2023 - Not obtained as of 10/30/2023 Recent Labs: Creatinine Date Value Ref Range Status 08/13/2023 1.08 (H) 0.58 - 0.96 mg/dL Final No results found for: EGFR Glucose, Point of Care Date Value Ref Range Status 07/21/2022 115 (A) 74 - 99 mg/dL Final Comment: Location:[facility], [address] [place] [address], [facility] The Accu-Chek Inform II glucose meter has not been approved for testing on patients receiving intensive medical intervention or therapy and results from this point of care glucose test should not be used for patient management decisions in these cases. Inaccurate results may also occur from other interfering factors, such as N-acetylcysteine (blood concentrations of greater than 5mg/dL), galactose, extremes of hematocrit (<10 or >65), or high doses of ascorbic acid (vitamin C) greater than 3mg/dL. Consider alternate testing mechanisms (e.g. core lab, blood gas instrument) in the above situations. Current Medications, Past Medical History, Past Surgical History, Family History, Social History and Review of Systems: On today's date, noted above, I have confirmed and edited as necessary, the PFSH and ROS obtained by others. Physical Exam: 11/06/23 1441 Pulse: 75 Resp: 16 SpO2: 98% Physical Exam Vitals reviewed. Constitutional: General: She is not in acute distress. Appearance: She is not ill-appearing. HENT: Head: Normocephalic and atraumatic. Eyes: Conjunctiva/sclera: Conjunctivae normal. Cardiovascular: Pulses: Normal pulses. Pulmonary: Effort: Pulmonary effort is normal. No respiratory distress. Musculoskeletal: Lumbar back: Spasms and tenderness present. Positive right straight leg raise test and positive left straight leg raise test. Comments: Positive facet loading bilaterally. Skin: General: Skin is warm and dry. Neurological: Mental Status: She is alert and oriented to person, place, and time. Psychiatric: Mood and Affect: Mood and affect normal. Behavior: Behavior normal. Behavior is cooperative. IMPRESSION: 78 year old female presents with complaint(s) Low back pain with radicular pain at times. Patient is really here with questions regarding the injection. I reviewed the difference between the JOY and RFA including the medial branch nerve blocks series prior to the RFA. Patient is complaining of some radicular symptoms. Will attempt with to see if we can help her with both her axial andradicular symptoms within the JOY first and if no relief may consider doing an medial branch nerve block series. Patient is aware that nothing will make her 100% pain-free and this injection is beingdone in a different location than her original injection was done at Dr. Andrade's office. Patient is also aware that if this does not help with the low back we can consider the medial branch nerve blocks for her low back pain. Patient is aware of all that is indicated in order to do theseinjections. Patient states understanding and wants to proceed with the JOY as ordered. I had this conversation with the daughter on speaker phone as the patient and the daughter had questions regarding the injection. 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 Do not take until instructed by clinical staff Tylenol 1000mg TID PRN - continue Interventional Procedures: (Pt was scheduled 11/05/2023) Epidural Steroid Injection - Interlaminar Approach (ILESI) under fluoroscopic guidance LEFT-BIAS atL5-S1 Customer Development Representative Needed: Epidural - YES Anticoagulants: None Relevant Allergies: None Additional Info: None Studies: None Functional [facility]: Physical Therapy Consultation (Land-Based) - continued Referrals: No additional considerations at present Follow-up: 2 months Depending on response to the above plan, consider: MBB/RFA - discussed today, she will consider Compliance and Clinic Policies Reviewed and/or Discussed Today: None Attribution: In addition to reviewing the information noted above, some elements copied from my most recent clinical note(s), including the physical exam (completed in entirety today), and the impression and plan sections, have been updated where appropriate. All reflect current medical decision making from today's date. Christina Latif APRN.[facility] [place] * Marlene Torres MA - 11/06/2023 2:40 PM EST Review of Systems Constitutional: Negative for activity change, chills, fever and unexpected weight change. Gastrointestinal: Negative for bowel retention or incontinence Genitourinary: Negative for difficulty urinating. Negative for bladder retention or incontinence Musculoskeletal: Positive for arthralgias, back pain, gait problem and myalgias. Negative for jointswelling, neck pain and neck stiffness. Neurological: Positive for weakness. Negative for numbness and headaches. Psychiatric/Behavioral: Negative for dysphoric mood, sleep disturbance and suicidal ideas. The patient is not nervous/anxious. [facility] NoteHNO ID: [id number] Author: MARLENE TORRES MA Service: ? Author Type: Bottom Bleacher Type: Progress Notes Filed: 11/05/2023 10:48 Note Text: Review of Systems Constitutional: Negative for activity change, chills, fever and unexpected weight change. Gastrointestinal: Negative for bowel retention or incontinence Genitourinary: Negative for difficulty urinating. Negative for bladder retention or incontinence Musculoskeletal: Positive for arthralgias, back pain, gait problem, joint swelling and myalgias. Negative for neck pain and neck stiffness. Neurological: Positive for weakness and numbness. Negative for headaches. Psychiatric/Behavioral: Negative for dysphoric mood, sleep disturbance and suicidal ideas. The patient is not nervous/anxious.[facility] 11-05-2023 Miscellaneous Notes* Telephone Encounter - Elise Witt - 11/05/2023 10:53 AM EST Procedure(s) being scheduled: 1.Are you diabetic Yes. Please list the current medications being prescribed diet controlled. 2. Are you on any blood thinners? No If yes, does it require a hold? No If yes, was approval letter sent? No 3. Are you taking any aspirin? No 4. Are you currently taking any antibiotics? No If yes, is it prophylactic or for treatment of an infection? N/A 5. Do you have any allergies to latex? Yes 6. Do you have any allergies to seafood or shellfish? No 7. Do you have any allergies to x-ray dye? No 8. Did the physician instruct you to take any medication prior to your procedure? No 9. Does this procedure require a food mobile driver? Yes If yes, has patient been notified that a food mobile driver is needed and must be present at check in? Yes 10. Were the pre-procedure instructions explained and provided to the patient? Yes 11. Do you have a pacemaker? No 12. Do you have an internal stimulator of any kind? No If yes, please bring the remote with you to your procedure visit. 13. Have you received the COVID-19 Vaccine? No. If yes, date(s) received: N/A (Patient should not receive a procedure including steroids 14 days prior to their first dose of theCOVID vaccine. They should not receive any procedure containing steroids in the time frame between their 1st and 2nd doses of the COVID vaccine. They should not receive a procedure containing steroids 14 days after their 2nd dose of the COVID vaccine.) Elise Witt [facility] Miscellaneous Notes* Telephone Encounter - Chon Heard Ma - 11/05/2023 10:07 AM EST Patient notified, verbalized understanding. * Telephone Encounter - Farhat Henry DO - 11/05/2023 9:39 AM EST Please inform patient that her arterial flow of her legs with her TUYET/PVR testing is normal Farhat Henry DO documented in this encounterFair[facility]02-22-2024 History of Present illness Narrative* Marlene Torres MA - 11/05/2023 9:54 AM EST Review of Systems Constitutional: Negative for activity change, chills, fever and unexpected weight change. Gastrointestinal: Negative for bowel retention or incontinence Genitourinary: Negative for difficulty urinating. Negative for bladder retention or incontinence Musculoskeletal: Positive for arthralgias, back pain, gait problem, joint swelling and myalgias. Negative for neck pain and neck stiffness. Neurological: Positive for weakness and numbness. Negative for headaches. Psychiatric/Behavioral: Negative for dysphoric mood, sleep disturbance and suicidal ideas. The patient is not nervous/anxious. * Bahman Mendez MD - 10/30/2023 1:42 PM EST Images from the original note were not included. [facility] Today's Date: 11/05/2023 Name: Vivi Werner : 1945 Purpose: New Patient Consultation Chief complaint: Decreased sensation of foot, Lumbosacral neuritis, Spinal stenosis of lumbar region with neurogenic claudication Referring Clinician: Noa Varghese APRN.NEWSPAPER VENDOR Pertinent Past Medical History: Myalgia, Lumbosacral neuritis, HTN, CKD stage 3a, DM type 2, Arthritis, multiple joint involvement, Bulging lumbar disc, LBP with left-sided sciatica, Spinal stenosis of lumbar region, Pertinent Past Surgeries: TKR (Right), Bilateral carpal tunnel History of Present Illness (HPI): 10/30/2023 - Initial HPI (Obtained by Bahman Mendez M.D.). DURATION AND ONSET: The pain complaint has been present for approximately 1 year. The pain had a gradual onset. The mechanism of injury is unknown. Pain gradually worsening over time. RED FLAG SYMPTOMS: denies red flags. PAIN DESCRIPTION: Timing: Constant Character: Aching, Sharp Primary Location: axial low back Radiation: left > right posterior thigh and calves Exacerbating factors: Standing, Walking Relieving factors: Sitting, Heat Interferes with: physical activity Current Pain Medications:NONE Neuropathics: NSAIDS: Muscle Relaxants: Topicals: Other Prescription or OTC Pain Medications: Opioids (when applicable): Greenlight Questionnaire GREENLIGHT Completed Date 11/05/2023 Opioid Risk Tool Opiod Risk Tool Date Completed 11/05/2023 Comments 0 SILVIA-7 Anxiety Score 0 Completed Date 11/05/2023 PHQ9P Score 0 Completed Date 11/05/2023 Anti-depressants or Mood-Stabilizers: None Anti-Coagulants: None Therapies Attended (Current or Most Recent): PT, MT - ongoing, 2 courses since last summer; current course is active Treatment History: PAIN PROCEDURES: DATE PROCEDURE IMPROVEMENT 07/21/2022 TFESI Lt. S1 (Sameer Andrade, DO) MEDICATIONS Taken TO DATE (for the chief complaint(s)): Neuropathics: Neurontin (Gabapentin) NSAIDS: Mobic (Meloxicam), Relafen (Nabumetone) - holding due to kidney disease Muscle Relaxants: None Topicals: Voltaren (Gel) Other Prescription or OTC Pain Medications: Tylenol; Ativan Opioids: Tramadol Data Reviewed Today: Allergies: ALLERGIES Allergen Reactions Bactrim [Sulfametho* Hives Ceclor [Cefaclor] Hives Cipro [Other] Hives Darvocet-N 100 [Pro* GI Upset Keflex [Cephalexin] Lipitor [Atorvastat* Myalgia Leg cramps/discomfort Penicillins Zithromax [Azithrom* Social History Tobacco Use Smoking status: Former Years: 4 Types: Cigarettes Quit date: 01/24/1971 Years since quittin.8 Smokeless tobacco: Never Tobacco comments: Pt smoked one pack a week x 4 years Vaping Use Vaping Use: Never used Substance Use Topics Alcohol use: Yes Comment: Occassional Drug use: No INTAKE PAIN ASSESSMENT 10/22/2023 10/30/2023 Are you having pain associated with your visit today? Yes, Provider notified Yes, Provider notified Pain Scales Verbal (Numeric Rating or Visual Analog Scale) Verbal (Numeric Rating or Visual Analog Scale) Pain Level 5 9 Pain Location Leg-Right Back-Lower Description Sharp;Aching;Tingling;Numbness Aching;Sore;Sharp;Stabbing Duration Amount of Time - - Duration Units Months Years Frequency Continuous Continuous Intervention/Comfort measure - Reposition;Relaxation;Positioning Comments - - Pain Assessment - - Compliance: PDMP website checked and validated on 11/05/2023 by Bahman Mendez MD All prescriptions have been APPROPRIATELY filled. No suspicious activity was identified. Lorazepam 0.5mg, #90, 4-5 times per year (most recently 05/2023) [facility] 11/05/2023 Questionnaire GREENLIGHT Completed Date 11/05/2023 Questionnaire Opiod Risk Tool Completed Date 11/05/2023 Comments 0 (All drug screens are appropriate unless indicated otherwise) Risk Assessment: SILVIA-7: SILVIA - 7 SCORES 11/05/2023 SILVIA-7 Score 0 (0-4) minimal anxiety, (5-9) mild anxiety, (10-14) moderate anxiety, (15-21) severe anxiety PHQ-9: PHQ-9 06/30/2022 01/08/2023 11/05/2023 Score 1 2 0 (0-4) minimal depression, (5-9) mild depression, (10-14) moderate depression, (15-19) moderately severe depression, (20-27) severe depression Opioid Risk Tool: Family History of Substance Abuse: 0 - No Personal History of Substance Abuse: 0 - No Age between 16-45: 0 - No History of Pre-Adolescence Sexual Abuse: 0 - No Psychological Disease: 0 - No Risk Total: 0 Total Score Risk Category: Low Risk 0-3 (0-3, low risk or no risk; 4-7, moderate risk, 8+, high risk) Diagnostic Studies: Relevant Imaging: MRI Spine Report MRI LUMBAR SPINE WO IVCON Collected: 05/07/2022 (Final result) Narrative: PERFORMED AT [facility] LOCATION[place] [place]: Patient complains of pain in back and legs post on 2 years. Study Technique: MRI lumbar spine was performed with Sagittal T1, T2 and STIR images. Axial T1 and T2 images were obtained. Comparisons: None. Findings: For purposes of numbering lumbar vertebral bodies on this study the most inferior normal diameter disc space will be considered L5-S1. No transitional vertebral body segments. Plain film radiographs would be required to confirm nomenclature used in this report, particularly prior to any spine intervention. Vertebral body height: Hemangioma at L5 vertebra. Disc height and Disc signal: Disc space narrowing at L2-3 and L3-4. Disc desiccation at all levels. Alignment: Mild anterior listhesis of L4 over L5 vertebra. Straightening is noted. Bone marrow signal: Modic endplate changes at L3 and L4 vertebra. Conus medullaris:Ends at L1-2, no abnormal finding seen. Paraspinal soft tissues: Paraspinal muscle atrophy is seen. Other findings: No evidence of any focal lesion noted. Axial Imaging: L1-2: Circumferential bulge with 3 mm broad based posterior protrusion is seen indenting the thecal sac. There is severe bilateral neural foraminal and central canal stenosis with minimum AP diameter of the canal measuring 6 mm. Facet joint arthropathy and ligamentum flavum hypertrophy is noted. L2-3: Circumferential bulge with 4 mm broad based posterior protrusion and cranial migration is seen compressing the thecal sac. High T2 signal in the posterocentral high intensity zone of the disc. There is severe bilateral neural foraminal and central canal stenosis with minimum AP diameter of the canal measuring 8 mm. Facet joint arthropathy and ligamentum flavum hypertrophy is noted. L3-4: Circumferential bulge with 2 mm broad based posterior protrusion is seen indenting the thecal sac. There is severe bilateral neural foraminal and central canal stenosis with minimum AP diameter of the canal measuring 8.2 mm. Facet joint arthropathy and ligamentum flavum hypertrophy is noted. L4-5: Circumferential bulge with 2.5 mm broad based posterior protrusion is seen indenting the thecal sac. There is severe bilateral neural foraminal and central canal stenosis with minimum AP diameter of the canal measuring 8.3 mm. Facet joint arthropathy and ligamentum flavum hypertrophy is noted. L5-S1: Circumferential bulge with 2.8 mm broad based posterior protrusion is seen indenting the thecal sac. There is severe bilateral neural foraminal and central canal stenosis with minimum AP diameter of the canal measuring 7.4 mm. Facet joint arthropathy and ligamentum flavum hypertrophy is noted. Impressions: 1. Circumferential bulge with broad based posterior herniation at L1-2, L3-4, L4-5 and L5-S1 causing severe bilateral neural foraminal and central canal stenosis. 2. Circumferential bulge with broad based posterior herniation and cranial migration an acute annular tear at L2-3 causing severe bilateral neural foraminal and central canal stenosis. 0513 X-ray lumbar 03/2023 FINDINGS: There are five [id number] lumbar vertebrae. No acute fracture seen. There is grade 1 L4 on L5 anterolisthesis. Left-sided curvature/levoscoliosis is noted. There is generalized disc space narrowing involving L1-L5 levels. At least moderate osteophyte formation is present, with facet arthrosis IMPRESSION: Lumbar spine degenerative changes with multilevel disc space narrowing. MRI Lumbar 04/2022 Electrodiagnostic Study (EMG): 10/22/2023 - Not obtained as of 10/30/2023 Recent Labs: Creatinine Date Value Ref Range Status 08/13/2023 1.08 (H) 0.58 - 0.96 mg/dL Final No results found for: EGFR Glucose, Point of Care Date Value Ref Range Status 07/21/2022 115 (A) 74 - 99 mg/dL Final Comment: Location:[facility], [address] [place] [address], [id number] The Accu-Chek Inform II glucose meter has not been approved for testing on patients receiving intensive medical intervention or therapy and results from this point of care glucose test should not be used for patient management decisions in these cases. Inaccurate results may also occur from other interfering factors, such as N-acetylcysteine (blood concentrations of greater than 5mg/dL), galactose, extremes of hematocrit (<10 or >65), or high doses of ascorbic acid (vitamin C) greater than 3mg/dL. Consider alternate testing mechanisms (e.g. core lab, blood gas instrument) in the above situations. Current Medications, Past Medical History, Past Surgical History, Family History, Social History and Review of Systems: On today's date, noted above, I have confirmed and edited as necessary, the PFSH and ROS obtained by others. Physical Exam: 11/05/23 1012 Pulse: 72 Resp: 16 SpO2: 97% Neuro-Lower: Neural Tension Signs: Negative slump in Bilateral lower limbs Sensation: intact to light touch in the L2-S2 Bilateral lower limb dermatomes Muscle Tone: Normal and symmetric throughout without clonus Strength: Iliopsoas (L2): 5 Left, 5 Right Quadriceps (L3) 5 Left, 5 Right Anterior Tibialis (L4): 5 Left, 5 Right Extensor Hallucis Longus (L5): 5 Left, 5 Right Gastrocnemius (S1): 5 Left, 5 Right Reflexes: Normal 2+ and symmetric Patellar, Achilles Musculoskeletal-Lower: Inspection: Symmetric without atrophy Palpation: Lumbar Paraspinal Tenderness: Concordant on Bilateral side(s) Paraspinal Spasms: None PSIS Tenderness: Concordant on Bilateral side(s) Greater Trochanter Tenderness: None on Bilateral side(s) Spine Range of Motion: Flexion: Decreased 25% Without end range pain Extension: Decreased 50% With end range pain Combination extension and rotation pain: Concordant Hip Range of Motion: Right Hip: Internal Rotation: Normal; Pain at end range: None External Rotation: Normal; Pain at end range: None Left Hip: Internal Rotation: Normal; Pain at end range: None External Rotation: Normal; Pain at end range: None Sacroiliac Maneuvers: Deferred IMPRESSION: 78 year old female presents with complaint(s) of axial low back pain, facet-mediated, with central canal stenosis at L4-5. She has been through PT several times, without meaningful improvement. She would prefer to minimize medications. Diagnoses: (M47.816) Lumbar spondylosis (primary encounter diagnosis) (M48.061) Spinal stenosis, lumbar region, without neurogenic claudication (M54.16) Lumbar radiculopathy PLAN: Vivi Werner would benefit from the following to reach personal goals for decreasing pain, improving function and work participation, and/or improving quality of life: Medications: Requested Prescriptions No prescriptions requested or ordered in this encounter Tylenol 1000mg TID PRN - continue Interventional Procedures: Epidural Steroid Injection - Interlaminar Approach (ILESI) under fluoroscopic guidance LEFT-BIAS atL5-S1 Customer Development Representative Needed: Epidural - YES Anticoagulants: None Relevant Allergies: None Additional Info: None Studies: None Functional [facility]: Physical Therapy Consultation (Land-Based) - continued Referrals: No additional considerations at present Follow-up: 2 months Depending on response to the above plan, consider: [facility] - discussed today, she will consider Compliance and Clinic Policies Reviewed and/or Discussed Today: None Attribution: In addition to reviewing the information noted above, some elements copied from my most recent clinical note(s), including the physical exam (completed in entirety today), and the impression and plan sections, have been updated where appropriate. All reflect current medical decision making from today's date. Bahman Mendez MD Pain Management [facility] documented in this encounterFairfield [facility] Center02-[facility]24 NoteHNO ID: [id number] Author: BAHMAN MENDEZ MD Service: ? Author Type: Physician Type: Progress Notes Filed: 11/05/2023 10:48 Note Text: [facility] Today's Date: 11/05/2023 Name: Vivi Werner : 1945 Purpose: New Patient Consultation Chief complaint: Decreased sensation of foot, Lumbosacral neuritis, Spinal stenosis of lumbar region with neurogenic claudication Referring Clinician: Noa Varghese APRN.NEWSPAPER VENDOR Pertinent Past Medical History: Myalgia, Lumbosacral neuritis, HTN, CKD stage 3a, DM type 2, Arthritis, multiple joint involvement, Bulging lumbar disc, LBP with left-sided sciatica, Spinal stenosis of lumbar region, Pertinent Past Surgeries: TKR (Right), Bilateral carpal tunnel History of Present Illness (HPI): 10/30/2023 - Initial HPI (Obtained by Bahman Mendez M.D.). DURATION AND ONSET: The pain complaint has been present for approximately 1 year. The pain had a gradual onset. The mechanism of injury is unknown. Pain gradually worsening over time. RED FLAG SYMPTOMS: denies red flags. PAIN DESCRIPTION: Timing: Constant Character: Aching, Sharp Primary Location: axial low back Radiation: left > right posterior thigh and calves Exacerbating factors: Standing, Walking Relieving factors: Sitting, Heat Interferes with: physical activity Current Pain Medications:NONE Neuropathics: NSAIDS: Muscle Relaxants: Topicals: Other Prescription or OTC Pain Medications: Opioids (when applicable): Greenlight Questionnaire GREENLIGHT Completed Date 11/05/2023 Opioid Risk Tool Opiod Risk Tool Date Completed 11/05/2023 Comments 0 SILVIA-7 Anxiety Score 0 Completed Date 11/05/2023 PHQ9P Score 0 Completed Date 11/05/2023 Anti-depressants or Mood-Stabilizers: None Anti-Coagulants: None Therapies Attended (Current or Most Recent): PT, MT - ongoing, 2 courses since last summer; current course is active Treatment History: PAIN PROCEDURES: DATE PROCEDURE IMPROVEMENT 07/21/2022 TFESI Lt. S1 (Sameer Andrade, ) MEDICATIONS Taken TO DATE (for the chief complaint(s)): Neuropathics: Neurontin (Gabapentin) NSAIDS: Mobic (Meloxicam), Relafen (Nabumetone) - holding due to kidney disease Muscle Relaxants: None Topicals: Voltaren (Gel) Other Prescription or OTC Pain Medications: Tylenol; Ativan Opioids: Tramadol Data Reviewed Today: Allergies: ALLERGIES Allergen Reactions Bactrim [Sulfametho* Hives Ceclor [Cefaclor] Hives Cipro [Other] Hives Darvocet-N 100 [Pro* GI Upset Keflex [Cephalexin] Lipitor [Atorvastat* Myalgia Leg cramps/discomfort Penicillins Zithromax [Azithrom* Social History Tobacco Use Smoking status: Former Years: 4 Types: Cigarettes Quit date: 01/24/1971 Years since quittin.8 Smokeless tobacco: Never Tobacco comments: Pt smoked one pack a week x 4 years Vaping Use Vaping Use: Never used Substance Use Topics Alcohol use: Yes Comment: Occassional Drug use: No INTAKE PAIN ASSESSMENT 10/22/2023 10/30/2023 Are you having pain associated with your visit today? Yes, Provider notified Yes, Provider notified Pain Scales Verbal (Numeric Rating or Visual Analog Scale) Verbal (Numeric Rating or Visual Analog Scale) Pain Level 5 9 Pain Location Leg-Right Back-Lower Description Sharp;Aching;Tingling;Numbness Aching;Sore;Sharp;Stabbing Duration Amount of Time - - Duration Units Months Years Frequency Continuous Continuous Intervention/Comfort measure - Reposition;Relaxation;Positioning Comments - - Pain Assessment - - Compliance: PDMP website checked and validated on 11/05/2023 by Bahman Mendez MD All prescriptions have been APPROPRIATELY filled. No suspicious activity was identified. Lorazepam 0.5mg, #90, 4-5 times per year (most recently 05/2023) [facility] 11/05/2023 Questionnaire GREENLIGHT Completed Date 11/05/2023 Questionnaire Opiod Risk Tool Completed Date 11/05/2023 Comments 0 (All drug screens are appropriate unless indicated otherwise) Risk Assessment: SILVIA-7: SILVIA - 7 SCORES 11/05/2023 SILVIA-7 Score 0 (0-4) minimal anxiety, (5-9) mild anxiety, (10-14) moderate anxiety, (15-21) severe anxiety PHQ-9: PHQ-9 06/30/2022 01/08/2023 11/05/2023 Score 1 2 0 (0-4) minimal depression, (5-9) mild depression, (10-14) moderate depression, (15-19) moderately severe depression, (20-27) severe depression Opioid Risk Tool: Family History of Substance Abuse: 0 - No Personal History of Substance Abuse: 0 - No Age between 16-45: 0 - No History of Pre-Adolescence Sexual Abuse: 0 - No Psychological Disease: 0 - No Risk Total: 0 Total Score Risk Category: Low Risk 0-3 (0-3, low risk or no risk; 4-7, moderate risk, 8+, high risk) Diagnostic Stud (more content not included)...[facility] 10-26-2023 History of Past illness Narrative* Problem Noted Date Diagnosed Date Resolved Date Type 2 diabetes mellitus wit h stage 3a chronic kidney disease, without long-term current use of insulin 07/16/2020 05/17/2021 Unspecified essential hypertension 07/12/2020 documented as of this encounter (statuses as of 10/26/2023) [facility] NoteHNO ID: [id number] Author: NOA VARGHESE APRN.NEWSPAPER VENDOR Service: ? Author Type: Nurse Practitioner Type: Progress Notes Filed: 10/22/2023 15:25 Note Text: Chief Complaint Patient presents with: Sciatica: Right leg numbness and tingling pt is having trouble walking HPI Vivi Werner is a 78 year old female who presents here today for Above Complaints. Currently: Chronic pain to right leg with numbness and tingling. Takes Tylenol every 6 hours for this, and does help taking about 90% of her pain. For the past week has had bilateral sciatica. Has seen pain management and saw Dr. Andrade and was told he couldn't treat her anymore because she is so old. About a week ago was driving and had terrible pain over the top of her foot and numbness and tingling in her toes. Had to get out of the car and walk around, this didn't help much. Past medical history, appointments, medications, allergies reviewed. Previous Medical History PAST MEDICAL HISTORY Diagnosis Date Advance care planning 01/29/2022 daughter Shelley Benign neoplasm of colon 11/12/2005 Bulging lumbar disc Diabetes (HCC) Diverticulosis of colon (without mention of hemorrhage) Internal hemorrhoids without mention of complication 11/12/2005 Other disorder of muscle, ligament, and fascia left leg Other psoriasis Personal history of colonic polyps Pure hypercholesterolemia Sciatica Spinal stenosis of lumbar region Unspecified essential hypertension Previous Surgical History PAST SURGICAL HISTORY Procedure Laterality Date ARTHROSCOPY KNEE DIAGNOSTIC W/WO SYNOVIAL BX SPX 2002 Arthroscopy, knee, right ARTHRP KNE CONDYLEANDPLATU MEDIALANDLAT COMPARTMENTS 12-18-04 Knee replacement, total right COLONOSCOPY 12/2014 COLONOSCOPY FLX DX W/COLLJ SPEC WHEN PFRMD 01/01/10 COLSC FLX W/RMVL OF TUMOR POLYP LESION SNARE TQ 11/12/05 EGD 2017 EGD at [facility]- negative, stopped omeprazole PAST SURGICAL HISTORY OF 1994 BLADDER SUSPENSION PAST SURGICAL HISTORY OF 1991 JAW SURGERY PAST SURGICAL HISTORY OF carpal tunnel, bilateral Family History FAMILY HISTORY Problem Relation Age of Onset Diabetes Father Patient Allergies ALLERGIES Allergen Reactions Bactrim [Sulfametho* Hives Ceclor [Cefaclor] Hives Cipro [Other] Hives Darvocet-N 100 [Pro* GI Upset Keflex [Cephalexin] Lipitor [Atorvastat* Myalgia Leg cramps/discomfort Penicillins Zithromax [Azithrom* Current Medications Current Outpatient Medications on File Prior to Visit Medication Sig lisinopril (ZESTRIL) 10 mg tablet Take 1 tablet by mouth once daily. blood sugar diagnostic (BLOOD GLUCOSE TEST) test strip Test blood sugar(s) 2 times daily. Dx: Type 2 DM - Controlled E11.9 Insulin: No Lancets lancets Test blood sugar(s) 2 times daily. Dx: Type 2 DM - Controlled E11.9 Insulin: No triamcinolone (KENALOG) 0.025 % cream Apply to affected area two times a day. As needed for rash betamethasone dipropionate (DIPROSONE) 0.05 % cream Apply to affected area twice daily as needed. Use 2 weeks on, 1 week off. Not for face, armpits, or groin Cholecalciferol, Vitamin D3, 50 mcg (2,000 unit) cap Take 1 capsule by mouth once daily. vit A,C,Y-Ytxu-Fpzvhz (PRESERVISION AREDS) 2,148 mcg-113 mg-45 mg-17.4mg tab Take 2 tablets by mouth once daily. blood sugar diagnostic (ONETOUCH ULTRA TEST) test strip TEST BLOOD SUGAR 2 (TWO) TIMES DAILY Current Facility-Administered Medications on File Prior to Visit Medication lidocaine (PF) 10 mg/mL (1 %) 1-2 mg injection (XYLOCAINE) NaCl 0.9% iv infusion Social History Social History Tobacco Use Smoking status: Former Years: 4 Types: Cigarettes Quit date: 01/24/1971 Years since quittin.7 Smokeless tobacco: Never Tobacco comments: Pt smoked one pack a week x 4 years Substance Use Topics Alcohol use: Yes Comment: Occassional Drug use: No Review of Symptoms REVIEW OF SYSTEMS Previous records, office notes EXAM: BP 120/78 (BP Site: Left Arm, BP Position: Sitting, BP Cuff Size: Regular Adult) Pulse 73 Resp 16 Wt 68.5 kg (151 lb) BMI 29.49 kg/m? General Appearance: Well appearing, alert, in no acute distress, well-hydrated, well nourished.. Lungs: Lungs clear to auscultation. No wheezing, rhonchi, rales.. Heart: RRR without murmur, gallop, or rubs. No ectopy. Peripheral Pulses: Normal. Neurologic: significantly decreased sensation to bilateral planar surfaces of her feet. Psychiatric: pleasant, cooperative. Health Maintenance List Bone Density Screening Never done Depression Assessment due on 09/14/2023 Dilated Retinal Exam due on 10/10/2023 HbA1C due on 02/11/2024 Diabetic Foot Exam due on 05/20/2024 BP Controlled (<130/80) due on 05/20/2024 Urine Albumin:Creatinine Ratio due on 08/13/2024 LDL Cholesterol due on 08/13/2024 Serum Creatinine due on 08/13/2024 Hemoglobin/Hematocrit due on 08/13/2024 Annual PCP Team Chronic Disease Visit (more content not included)...[facility]01-10-2024 NoteHNO ID: [id number] Author: REYES BAÑUELOS DC Service: ? Author Type: Chiropractor Type: Progress Notes Filed: 09/23/2023 13:11 Note Text: Patient arrived early, but when presented with [facility] for Chiropractic Services she declined to proceed with evaluation and treatment. Patient declined patient financial support contact information as offered and proceeded directly to the Ombudsman's office. Reyes Bañuelos DC September 23, 2023 1:00 PMTri[id number] History of Past illness Narrative* Problem Noted Date Diagnosed Date Resolved Date Type 2 diabetes mellitus wit h stage 3a chronic kidney disease, without long-term current use of insulin 07/16/2020 05/17/2021 Unspecified essential hypertension 07/12/2020 documented as of this encounter (statuses as of 08/22/2023) [facility]12-08-2023 NoteHNO ID: [id number] Author: Farhat Henry, DO Service: ? Author Type: Physician Type: Progress Notes Filed: 08/22/2023 7:10 AM Note Text: Patient presents with: F/U 3 Month HPI: Vivi Werner is a 78 year old female who presents to the office today for review of health conditions. Concerns today: Right upper thigh/leg pain, struggling with feeling of aching and stiffness. Use of heating pad with some benefit. Got a medical massage Poli LMT and going to see Reyes Bañuelos chiropractor upcoming. Right low back / buttock discomfort that she has been experiencing - has had right lumbar injection in the past. Has recently seen Orthopedics Dr. Arrington for opinion recently- had MRI in [place] and had follow up with specialist- has a trochanteric muscle tear- has therapy set up at [facility] to start end of next week. She denies any falls or injuries. No fevers or chills. Does feel like she can still complete her ADLs and IADLs Avoids NSAIDs due to CKD stage 3 Glucose (mg/dL) Date Value 08/13/2023 109 05/22/2021 111 Potassium (mmol/L) Date Value 08/13/2023 4.5 05/22/2021 4.3 Sodium (mmol/L) Date Value 08/13/2023 142 05/22/2021 140 Chloride (mmol/L) Date Value 08/13/2023 106 05/22/2021 105 CO2 (mmol/L) Date Value 08/13/2023 26 05/22/2021 25 Creatinine (mg/dL) Date Value 08/13/2023 1.08 05/22/2021 1.17 BUN (mg/dL) Date Value 08/13/2023 20 05/22/2021 19 Anion Gap (mmol/L) Date Value 08/13/2023 10 05/22/2021 10 Calcium (mg/dL) Date Value 05/22/2021 10.0 Calcium, Total (mg/dL) Date Value 08/13/2023 9.6 Protein, Total (g/dL) Date Value 08/13/2023 7.1 05/22/2021 7.1 Albumin (g/dL) Date Value 08/13/2023 4.2 05/22/2021 4.3 Bilirubin, Total (mg/dL) Date Value 08/13/2023 0.5 05/22/2021 0.5 Alkaline Phosphatase (U/L) Date Value 08/13/2023 48 05/22/2021 65 AST (U/L) Date Value 08/13/2023 21 05/22/2021 20 ALT (U/L) Date Value 08/13/2023 19 05/22/2021 19 Ms. Werner has past history of diabetes. Since our last visit she denies excessive thirst or increased frequency of urination, chest pain or dyspnea , new or unusual visual symptoms, and low sugar/hypoglycemic reactions. Depression- no. Follows a diabetic diet some of the time. She is compliant with medication(s) and is tolerating med(s) without any side effects. She reports checking her glucose on a once a day schedule with sugars in the <150 range. Patient's last HgA1C was Hemoglobin A1C (%) Date Value 08/13/2023 6.5 01/15/2023 6.4 05/22/2021 6.6 01/10/2021 6.4 ) Last Ophthalmology exam was within the past 12 months Ms. Werner reports history of hyperlipidemia. Current therapy includes diet and exercise. Denies side effects of muscle weakness or achiness. Her most recent lipid panels are reviewed. Cholesterol, Total (mg/dL) Date Value 08/13/2023 261 05/22/2021 282 HDL Cholesterol (mg/dL) Date Value 08/13/2023 60 05/22/2021 60 LDL Cholesterol (mg/dL) Date Value 08/13/2023 167 05/22/2021 194 Triglyceride (mg/dL) Date Value 08/13/2023 170 05/22/2021 142 Ms. Werner indicates a history of hypertension and states that she is feeling well and denies any symptoms referable to elevated blood pressure. Specifically denies headache, chest pain, palpitations, dyspnea, and peripheral edema. Patient denies any side effects of her medication(s) and is compliant with their regimen. Last 3 Encounter BP Readings: Date: BP: 08/21/2023 120/80 05/20/2023 120/80 05/07/2023 118/72 She watches her diet for sodium, low fat and low cholesterol some of the time. She does not check BP's generally. Vivi gets minimal exercise. PAST MEDICAL HISTORY Diagnosis Date Advance care planning 01/29/2022 daughter Shelley Benign neoplasm of colon 11/12/2005 Bulging lumbar disc Diabetes (HCC) Diverticulosis of colon (without mention of hemorrhage) Internal hemorrhoids without mention of complication 11/12/2005 Other disorder of muscle, ligament, and fascia left leg Other psoriasis Personal history of colonic polyps Pure hypercholesterolemia Sciatica Spinal stenosis of lumbar region Unspecified essential hypertension PAST SURGICAL HISTORY Procedure Laterality Date ARTHROSCOPY KNEE DIAGNOSTIC W/WO SYNOVIAL BX SPX 2002 Arthroscopy, knee, right ARTHRP KNE CONDYLEANDPLATU MEDIALANDLAT COMPARTMENTS 12-18-04 Knee replacement, total right COLONOSCOPY 12/2014 COLONOSCOPY FLX DX W/COLLJ SPEC WHEN PFRMD 01/01/10 COLSC FLX W/RMVL OF TUMOR POLYP LESION SNARE TQ 11/12/05 EGD 2017 EGD at [facility]- negative, stopped omeprazole PAST SURGICAL HISTORY OF 1994 BLADDER SUSPENSION PAST SURGICAL HISTORY OF 1991 JAW SURGERY PAST SURGICAL HISTORY OF carpal tunnel, bilateral Social History Tobacco Use Smoking status: Former Years: 4 Types: Cigarettes Quit date: 01/24/1971 Years since quittin.6 (more content not included)...[facility]12-08-2023 Instructions * Patient Instructions* Farhat Henry DO - 08/21/2023 3:11 PM EST Okay to dose RSV vaccine 08/29 or after documented in this encounterFairfield [facility] Center12-08-2023 History of Present illness Narrative* Farhat Henry DO - 08/21/2023 2:55 PM EST Patient presents with: F/U 3 Month HPI: Vivi Werner is a 78 year old female who presents to the office today for review of health conditions. Concerns today: Right upper thigh/leg pain, struggling with feeling of aching and stiffness. Use of heating pad with some benefit. Got a medical massage Poli LMT and going to see Reyes Bañuelos chiropractor upcoming.Right low back / buttock discomfort that she has been experiencing - has had right lumbar injectionin the past. Has recently seen Orthopedics Dr. Arrington for opinion recently- had MRI in [place] and had follow up with specialist- has a trochanteric muscle tear- has [facility] to[facility] end of next week. She denies any falls or injuries. No fevers or chills. Does feel like she can still complete her ADLs and IADLs Avoids NSAIDs due to CKD stage 3 Glucose (mg/dL) Date Value 08/13/2023 109 05/22/2021 111 Potassium (mmol/L) Date Value 08/13/2023 4.5 05/22/2021 4.3 Sodium (mmol/L) Date Value 08/13/2023 142 05/22/2021 140 Chloride (mmol/L) Date Value 08/13/2023 106 05/22/2021 105 CO2 (mmol/L) Date Value 08/13/2023 26 05/22/2021 25 Creatinine (mg/dL) Date Value 08/13/2023 1.08 05/22/2021 1.17 BUN (mg/dL) Date Value 08/13/2023 20 05/22/2021 19 Anion Gap (mmol/L) Date Value 08/13/2023 10 05/22/2021 10 Calcium (mg/dL) Date Value 05/22/2021 10.0 Calcium, Total (mg/dL) Date Value 08/13/2023 9.6 Protein, Total (g/dL) Date Value 08/13/2023 7.1 05/22/2021 7.1 Albumin (g/dL) Date Value 08/13/2023 4.2 05/22/2021 4.3 Bilirubin, Total (mg/dL) Date Value 08/13/2023 0.5 05/22/2021 0.5 Alkaline Phosphatase (U/L) Date Value 08/13/2023 48 05/22/2021 65 AST (U/L) Date Value 08/13/2023 21 05/22/2021 20 ALT (U/L) Date Value 08/13/2023 19 05/22/2021 19 Ms. Werner has past history of diabetes. Since our last visit she denies excessive thirst or increased frequency of urination, chest pain or dyspnea , new or unusual visual symptoms, and low sugar/hypoglycemic reactions. Depression- no. Follows a diabetic diet some of the time. She is compliant with medication(s) and is tolerating med(s) without any side effects. She reports checking her glucose on a once a day schedule with sugars in the <150 range. Patient's last HgA1C was Hemoglobin A1C (%) Date Value 08/13/2023 6.5 01/15/2023 6.4 05/22/2021 6.6 01/10/2021 6.4 ) Last Ophthalmology exam was within the past 12 months Ms. Werner reports history of hyperlipidemia. Current therapy includes diet and exercise. Denies side effects of muscle weakness or achiness. Her most recent lipid panels are reviewed. Cholesterol, Total (mg/dL) Date Value 08/13/2023 261 05/22/2021 282 HDL Cholesterol (mg/dL) Date Value 08/13/2023 60 05/22/2021 60 LDL Cholesterol (mg/dL) Date Value 08/13/2023 167 05/22/2021 194 Triglyceride (mg/dL) Date Value 08/13/2023 170 05/22/2021 142 Ms. Werner indicates a history of hypertension and states that she is feeling well and denies any symptoms referable to elevated blood pressure. Specifically denies headache, chest pain, palpitations, dyspnea, and peripheral edema. Patient denies any side effects of her medication(s) and is compliant with their regimen. Last 3 Encounter BP Readings: Date: BP: 08/21/2023 120/80 05/20/2023 120/80 05/07/2023 118/72 She watches her diet for sodium, low fat and low cholesterol some of the time. She does not check BP's generally. Vivi gets minimal exercise. PAST MEDICAL HISTORY Diagnosis Date Advance care planning 01/29/2022 daughter Shelley Benign neoplasm of colon 11/12/2005 Bulging lumbar disc Diabetes (HCC) Diverticulosis of colon (without mention of hemorrhage) Internal hemorrhoids without mention of complication 11/12/2005 Other disorder of muscle, ligament, and fascia left leg Other psoriasis Personal history of colonic polyps Pure hypercholesterolemia Sciatica Spinal stenosis of lumbar region Unspecified essential hypertension PAST SURGICAL HISTORY Procedure Laterality Date ARTHROSCOPY KNEE DIAGNOSTIC W/WO SYNOVIAL BX SPX 2003 Arthroscopy, knee, right ARTHRP KNE CONDYLE&PLATU MEDIAL&LAT COMPARTMENTS 12-18-04 Knee replacement, total right COLONOSCOPY 12/2014 COLONOSCOPY FLX DX W/COLLJ SPEC WHEN PFRMD 01/01/10 COLSC FLX W/RMVL OF TUMOR POLYP LESION SNARE TQ 11/12/05 EGD 2017 EGD at [facility]- negative, stopped omeprazole PAST SURGICAL HISTORY OF 1994 BLADDER SUSPENSION PAST SURGICAL HISTORY OF 1991 JAW SURGERY PAST SURGICAL HISTORY OF carpal tunnel, bilateral Social History Tobacco Use Smoking status: Former Years: 4 Types: Cigarettes Quit date: 01/24/1971 Years since quittin.6 Smokeless tobacco: Never Tobacco comments: Pt smoked one pack a week x 4 years Substance Use Topics Alcohol use: Yes Comment: Occassional Drug use: No FAMILY HISTORY Problem Relation Age of Onset Diabetes Father Allergies: ALLERGIES Allergen Reactions Bactrim [Sulfametho* Hives Ceclor [Cefaclor] Hives Cipro [Other] Hives Darvocet-N 100 [Pro* GI Upset Keflex [Cephalexin] Lipitor [Atorvastat* Myalgia Leg cramps/discomfort Penicillins Zithromax [Azithrom* Current Meds: blood sugar diagnostic (BLOOD GLUCOSE TEST) test strip^Test blood sugar(s) 2 times daily. Dx: Type 2 DM - Controlled E11.9 Insulin: No^Disp: 50 Strip^Rfl: 11 Lancets lancets^Test blood sugar(s) 2 times daily. Dx: Type 2 DM - Controlled E11.9 Insulin: No^Disp: 100 Each^Rfl: 11 lisinopril (ZESTRIL) 10 mg tablet^Take 1 tablet by mouth once daily.^Disp: 90 tablet^Rfl: 0 betamethasone dipropionate (DIPROSONE) 0.05 % cream^Apply to affected area twice daily as needed. Use 2 weeks on, 1 week off. Not for face, armpits, or groin^Disp: 60 g^Rfl: 1 Cholecalciferol, Vitamin D3, 50 mcg (2,000 unit) cap^Take 1 capsule by mouth once daily.^Disp: ^Rfl: vit A,C,T-Kxuf-Qwlyif (PRESERVISION AREDS) 2,148 mcg-113 mg-45 mg-17.4mg tab^Take 2 tablets by mouth once daily.^Disp: ^Rfl: blood sugar diagnostic (ONETOUCH ULTRA TEST) test strip^TEST BLOOD SUGAR 2 (TWO) TIMES DAILY^Disp: 200 Strip^Rfl: 3 triamcinolone (KENALOG) 0.025 % cream^Apply to affected area two times a day. As needed for rash^Disp: 60 g^Rfl: 1 Review of Systems: The remainder of the review of systems is negative. PE: 08/21/23 1437 BP: 120/80 Pulse: 76 Resp: 20 Temp: 37.2 C (99 F) TempSrc: Left Tympanic Weight: 70.3 kg (155 lb) Gen: A&O, NAD, non-toxic appearing, Pleasant, cooperative HEENT: NT/AC, wearing glasses, PERRLA, EOMs intact b/l, nares clear and patent b/l, pharynx withouterythema, exudate or lesions. Uvula midline. MMM Neck: supple, No cervical LAD, no thyromegaly, no carotid bruits CV: RRR, normal S1 and S2, no murmurs, no gallops, no rubs, Pulses 2+ and symmetric in UE and LE b/l Lungs: normal respiratory effort, CTA b/l, no wheezing or rhonchi or rales Abd: soft, NT, ND, +BS, no hepatosplenomegaly MS: FROM all 4 extremities Neuro: CN II-XII intact b/l, gait is stable yet slightly slowed Skin: warm, dry, intact, No rashes or lesions on exposed skin. Foot exam: Monofilament wnl on right and left feet. No edema, normal pulses ASSESSMENT/PLAN: 1. Controlled type 2 diabetes mellitus without complication, without long-term current use of insulin (HCC) - ICD9: 250.00, ICD10: E11.9 (primary diagnosis) - Controlled - Continue current medications - Blood glucose monitoring on a once daily schedule - Counseled on healthy diet and regular exercise - Discussed need for and benefit of weight loss. BMI 30.27 kg/(m^2) 2. Right hip pain - ICD9: 719.45, ICD10: M25.551 F/u with Orthopedics and PHYSICAL THERAPY as scheduled. - CONSULT TO PHYSICAL THERAPY 3. Gluteal pain - ICD9: 729.1, ICD10: M79.18 F/u with Orthopedics and PHYSICAL THERAPY as scheduled. - CONSULT TO PHYSICAL THERAPY 4. Secondary renal hyperparathyroidism (HCC) - ICD9: 588.81, ICD10: N25.81 Stable, secondary to CKD 5. Pure hypercholesterolemia - ICD9: 272.0, ICD10: E78.00 Stable, she isn't interested in statin therapy 6. Spinal stenosis of lumbar region with neurogenic claudication - ICD9: 724.03, ICD10: M48.062 F/u with Orthopedics and PHYSICAL THERAPY as scheduled. 7. Hypertension, essential - ICD9: 401.9, ICD10: I10 - Controlled - Continue current medications - Recommend home blood pressure monitoring, to bring results to next visit - Encouraged sodium restriction, DASH or Mediterranean diet - Recommend regular aerobic exercise - Discussed need for and benefit of weight loss. BMI 30.27 kg/(m^2) 8. Vitamin D deficiency - ICD9: 268.9, ICD10: E55.9 Continue supplement 9. Dyslipidemia - ICD9: 272.4, ICD10: E78.5 - Uncontrolled - Improving control - Counseled on healthy diet and regular exercise 10. Stage 3a chronic kidney disease (HCC) - ICD9: 585.3, ICD10: N18.31 - eGFR: 52 Stable - Counseled on avoiding NSAIDs, adequate hydration - Counseled on low sodium diet Farhat Henry DO To ER if develops chest pain, shortness of breath, or severe worsening of symptoms. Discussed risks, benefits, alternatives, and potential side effects of medications. Patient expressed understanding and agreed with the plan. Farhat Henry DO [address] [place] [address] documented in this encounterFairfield Medical Center11-29-2023 NoteHNO ID: [id number] Author: Poli Yeh LMT Service: ? Author Type: Therapist Type: Progress Notes Filed: 08/12/2023 2:50 PM Note Text: Summary: manual therapy C/o sciatica pain R>L sided. Tightness in low back/hips, sciatica symptoms down IAN back of legs. Back and LE focus today. Kneading and myofascial release thoracic-sacrolumbar region, with circular friction along SI and glute attachments. R>L restriction along paraspinals/QL/multfifdi and slightly swollen. Increased tissue mobility post no complications. Reviewed fig 4 stretch seated and supine, thoracic rotation sidelying for [facility]11-29-2023 Instructions* Patient Instructions* Poli Yeh LMT - 08/12/2023 3:03 PM EST Images from the original note were not included. Doing daily FIG 4 stretch seated and laying on back With a strap around thigh for support to pull to chest Do x3 each side hold 15-10sec Rotation stretch laying on side Do x10 each side, hold 20-30seconds Hamstring stretch standing (Keep leg straight toe pointed up, gentle lean forward) X3 each leg hold 30 sec documented in this encounterFairfield Medical Center11-29-2023 History of Present illness Narrative* Poli Yeh LMT - 08/12/2023 1:38 PM ESTSummary: manual therapy C/o sciatica pain R>L sided. Tightness in low back/hips, sciatica symptoms down IAN back of legs. Back and LE focus today. Kneading and myofascial release thoracic-sacrolumbar region, with circularfriction along SI and glute attachments. R>L restriction along paraspinals/QL/multfifdi and slightly swollen. Increased tissue mobility post no complications. Reviewed fig 4 stretch seated and supine, thoracic rotation sidelying for [facility] documented in this encounterFairfield Medical Center11-29-2023 History of Past illness Narrative* Problem Noted Date Diagnosed Date Resolved Date Type 2 diabetes mellitus wit h stage 3a chronic kidney disease, without long-term current use of insulin 07/16/2020 05/17/2021 Unspecified essential hypertension 07/12/2020 documented as of this encounter (statuses as of 08/13/2023) [facility] of Past illness Narrative* Problem Noted Date Diagnosed Date Resolved Date Type 2 diabetes mellitus wit h stage 3a chronic kidney disease, without long-term current use of insulin 07/16/2020 05/17/2021 Unspecified essential hypertension 07/12/2020 documented as of this encounter (statuses as of 08/13/2023) [facility] Miscellaneous Notes* Telephone Encounter - Erika Parkinson Ma - 08/11/2023 7:38 AM EST Patient aware consult can be placed during office visit, did submit outside referral Erika Parkinson Ma documented in this encounterFairfield Medical Center11-28-2023 History of Past illness Narrative* Problem Noted Date Diagnosed Date Resolved Date Type 2 diabetes mellitus wit h stage 3a chronic kidney disease, without long-term current use of insulin 07/16/2020 05/17/2021 Unspecified essential hypertension 07/12/2020 documented as of this encounter (statuses as of 08/11/2023) [facility] Miscellaneous Notes* Telephone Encounter - Kenisha García RN - 07/30/2023 9:52 AM EST TC patient, left detailed message on identified voice mail with provider recommendations. Advised patient to call back with any questions. Kenisha García RN * Telephone Encounter - Farhat Henry DO - 07/29/2023 10:12 PM EST Yes would recommend both the covid 19 vaccine and RSV vaccine, to be given at least 2 weeks apart Farhat Henry DO * Telephone Encounter - Erica Davidson LPN - 07/29/2023 10:07 AM EST Patient calling, would like to know if PCP would recommend her to get a covid booster. Please advise. documented in this encounterFairfield Medical Center11-16-2023 History of Past illness Narrative* Problem Noted Date Diagnosed Date Resolved Date Type 2 diabetes mellitus wit h stage 3a chronic kidney disease, without long-term current use of insulin 07/16/2020 05/17/2021 Unspecified essential hypertension 07/12/2020 documented as of this encounter (statuses as of 07/30/2023) [facility] Miscellaneous Notes* Telephone Encounter - Cleopatra Morrison LPN - 07/28/2023 9:40 AM EST Faxed order for Glucose Monitor to [facility]. Cleopatra Morrison LPN * Telephone Encounter - Farhat Henry DO - 07/27/2023 4:48 PM EST The following approved medication requests have been transmitted electronically. Requested Prescriptions Signed Prescriptions Disp Refills blood sugar diagnostic (BLOOD GLUCOSE TEST) test strip 50 Strip 11 Sig: Test blood sugar(s) 2 times daily. Dx: Type 2 DM - Controlled E11.9 Insulin: No Authorizing Provider: FARHAT HENRY Lancets lancets 100 Each 11 Sig: Test blood sugar(s) 2 times daily. Dx: Type 2 DM - Controlled E11.9 Insulin: No Authorizing Provider: FARHAT HENRY DO * Telephone Encounter - Cleopatra Morrison LPN - 07/27/2023 12:03 PM EST Pt called and her meter is not work properly. Requesting a new meter, test strips and lancets to [facility]ent to [facility]. CALLI: 05/20/23 NOV: 08-21-23 Cleopatra Morrison LPN documented in this encounterFairfield Medical Center11-14-2023 History of Past illness Narrative* Problem Noted Date Diagnosed Date Resolved Date Type 2 diabetes mellitus wit h stage 3a chronic kidney disease, without long-term current use of insulin 07/16/2020 05/17/2021 Unspecified essential hypertension 07/12/2020 documented as of this encounter (statuses as of 07/28/2023) [facility] NoteHNO ID: [id number] Author: Brianne Vidales DO Service: ? Author Type: Physician Type: Progress Notes Filed: 07/27/2023 11:22 AM Note Text: Patient double booked at my 1:00PM slot tomorrow - needs rescheduled. I did not OK this to double book. Brianne Vidales, [facility]11-13-2023 History of Present illness Narrative* Brianne Vidales DO - 07/27/2023 11:21 AM EST Patient double booked at my 1:00PM slot tomorrow - needs rescheduled. I did not OK this to double book. Brianne Vidales DO documented in this encounterFairfield Medical Center11-13-2023 History of Past illness Narrative* Problem Noted Date Diagnosed Date Resolved Date Type 2 diabetes mellitus wit h stage 3a chronic kidney disease, without long-term current use of insulin 07/16/2020 05/17/2021 Unspecified essential hypertension 07/12/2020 documented as of this encounter (statuses as of 07/27/2023) [facility] of Past illness Narrative* Problem Noted Date Diagnosed Date Resolved Date Type 2 diabetes mellitus wit h stage 3a chronic kidney disease, without long-term current use of insulin 07/16/2020 05/17/2021 Unspecified essential hypertension 07/12/2020 documented as of this encounter (statuses as of 07/22/2023) [facility] NoteHNO ID: [id number] Author: Peng Cage PT Service: ? Author Type: Physical Therapist Type: Progress Notes Filed: 06/18/2023 11:49 AM Note Text: 06/18/2023 [facility] PHYSICAL THERAPY DISCONTINUANCE OF CARE Plan of Care Period: Start of Care Date: 01/22/23 Last Visit Date: 05/07/2023 Therapy Program: The following is a summary of the interventions provided for this episode of care; Therapeutic exercise and Manual therapy Assessment: The following is the goal status: Goals updated 05/01/2023 Goals for Episode of Care: created on 01/22/23 through 03/05/23 [place] in home exercise program. - Met Perform sitting without pain. - MET Increased strength of R ER to 5/5 via MMT for improved piriformis strength and decreased pain - Progressing, will continue Improve flexibility of the R piriformis for decreased pain- Progressing, will continue Pt will demo AROM of L spine without symptoms in 8 weeks or less - Progressing, will continue Pt will demo normal flexibility of the quadriceps and hip flexors bilat to decrease compression of facet joints and reduce pain in 4 weeks or less (NEW) Patient Goals: Get rid of the pain Based on the most recent progress report, patient was progressing as expected toward functional goals based on home exercise program compliance, pain levels, and documented subjective information on progress. Reason for Discontinuation of Care: Patient has not returned to therapy or scheduled additional follow-up appointments. Peng Cage, [facility]09-07-2023 Miscellaneous Notes* Telephone Encounter - Cleopatra Morrison LPN - 05/21/2023 8:02 AM EDT Spoke with pt and information listed below given. Pt verbalizes understanding. Cleopatra Morrison LPN * Telephone Encounter - Farhat Henry DO - 05/20/2023 7:56 PM EDT Please call patient and let her know that she can use the Voltaren 1% topical on up to 3-4 joints, a pea or dime sized amount rubbed into the joint, up to 2-3 times a day as needed for pain Farhat Henry DO * Telephone Encounter - Cleopatra Morrison LPN - 05/20/2023 4:10 PM EDT Pt calling and was just seen in the office. She looked at her after visit summary and it did not mention the Voltaren you talked about to her. Asking what she should get and how to use it. Please advise pt. Okay to send a [employer] message to her. Cleopatra Morrison LPN documented [facility] History of Past illness Narrative* Problem Noted Date Diagnosed Date Resolved Date Type 2 diabetes mellitus wit h stage 3a chronic kidney disease, without long-term current use of insulin 07/16/2020 05/17/2021 Unspecified essential hypertension 07/12/2020 documented as of this encounter (statuses as of 05/21/2023) [facility]09[facility] History of Past illness Narrative* Problem Noted Date Diagnosed Date Resolved Date Type 2 diabetes mellitus wit h stage 3a chronic kidney disease, without long-term current use of insulin 07/16/2020 05/17/2021 Unspecified essential hypertension 07/12/2020 documented as of this encounter (statuses as of 05/21/2023) [facility] NoteHNO ID: [id number] Author: Farhat Henry, DO Service: ? Author Type: Physician Type: Progress Notes Filed: 05/20/2023 10:10 PM Note Text: Patient presents with: Follow Up HPI: Vivi Werner is a 78 year old female who presents to the office today for review of health conditions. Concerns today: Overall she is doing well Chronic low back pain, DJD and scoliosis present lumbar spine. Was seen by PHYSICAL THERAPY but doesn't feel that the exercises were beneficial. She has gotten better tennis shoes and already feels this has been helpful for her low back pain and has gotten a donut shaped cushion to sit on with benefit as well. Denies any injuries. Trying to modify how she works to stay active. Ms. Werner has past history of diabetes. Since our last visit she denies excessive thirst or increased frequency of urination, chest pain or dyspnea , new or unusual visual symptoms, and low sugar/hypoglycemic reactions. Depression- no. Follows a diabetic diet most of the time. She is compliant with medication(s) and is tolerating med(s) without any side effects. She reports checking her glucose on a once a day schedule with sugars in the <120 range. Patient's last HgA1C was Hemoglobin A1C (%) Date Value 01/15/2023 6.4 07/15/2022 6.2 05/22/2021 6.6 01/10/2021 6.4 ) Last Ophthalmology exam was within the past 12 months Ms. Werner reports history of hyperlipidemia. Current therapy includes ezetimibe (Zetia) 10 mg. Denies side effects of muscle weakness or achiness. Her most recent lipid panels are reviewed. Cholesterol, Total (mg/dL) Date Value 01/15/2023 293 05/22/2021 282 HDL Cholesterol (mg/dL) Date Value 01/15/2023 59 05/22/2021 60 LDL Cholesterol (mg/dL) Date Value 01/15/2023 194 05/22/2021 194 Triglyceride (mg/dL) Date Value 01/15/2023 201 05/22/2021 142 Ms. Werner indicates a history of hypertension and states that she is feeling well and denies any symptoms referable to elevated blood pressure. Specifically denies headache, chest pain, palpitations, dyspnea, and peripheral edema. Patient denies any side effects of her medication(s) and is compliant with their regimen. Last 3 Encounter BP Readings: Date: BP: 05/20/2023 120/80 05/07/2023 118/72 03/18/2023 122/68 She watches her diet for sodium, low fat and low cholesterol most of the time. She does not check BP's generally. Vivi gets minimal exercise. PAST MEDICAL HISTORY Diagnosis Date Advance care planning 01/29/2022 rich Rosa Benign neoplasm of colon 11/12/2005 Bulging lumbar disc Diabetes (HCC) Diverticulosis of colon (without mention of hemorrhage) Internal hemorrhoids without mention of complication 11/12/2005 Other disorder of muscle, ligament, and fascia left leg Other psoriasis Personal history of colonic polyps Pure hypercholesterolemia Sciatica Spinal stenosis of lumbar region Unspecified essential hypertension PAST SURGICAL HISTORY Procedure Laterality Date ARTHROSCOPY KNEE DIAGNOSTIC W/WO SYNOVIAL BX SPX 2002 Arthroscopy, knee, right ARTHRP KNE CONDYLEANDPLATU MEDIALANDLAT COMPARTMENTS 12-18-04 Knee replacement, total right COLONOSCOPY 12/2014 COLONOSCOPY FLX DX W/COLLJ SPEC WHEN PFRMD 01/01/10 COLSC FLX W/RMVL OF TUMOR POLYP LESION SNARE TQ 11/12/05 EGD 2017 EGD at [facility]- negative, stopped omeprazole PAST SURGICAL HISTORY OF 1994 BLADDER SUSPENSION PAST SURGICAL HISTORY OF 1991 JAW SURGERY PAST SURGICAL HISTORY OF carpal tunnel, bilateral Social History Tobacco Use Smoking status: Former Years: 4 Types: Cigarettes Quit date: 01/24/1971 Years since quittin.3 Smokeless tobacco: Never Tobacco comments: Pt smoked one pack a week x 4 years Substance Use Topics Alcohol use: Yes Comment: Occassional Drug use: No FAMILY HISTORY Problem Relation Age of Onset Diabetes Father Allergies: ALLERGIES Allergen Reactions Bactrim [Sulfametho* Hives Ceclor [Cefaclor] Hives Cipro [Other] Hives Darvocet-N 100 [Pro* GI Upset Keflex [Cephalexin] Lipitor [Atorvastat* Myalgia Leg cramps/discomfort Penicillins Zithromax [Azithrom* Current Meds: betamethasone dipropionate (DIPROSONE) 0.05 % creamApply to affected area twice daily as needed. Use 2 weeks on, 1 week off. Not for face, armpits, or groinDisp: 60 gRfl: 1 Cholecalciferol, Vitamin D3, 50 mcg (2,000 unit) capTake 1 capsule by mouth once daily.Disp: Rfl: vit A,C,X-Tkre-Yenwuf (PRESERVISION AREDS) 2,148 mcg-113 mg-45 mg-17.4mg tabTake 2 tablets by mouth once daily.Disp: Rfl: blood sugar diagnostic (ONETOUCH ULTRA TEST) test stripTEST BLOOD SUGAR 2 (TWO) TIMES DAILYDisp: 200 StripRfl: 3 lisinopril (ZESTRIL) 10 mg tabletTake 1 tablet by mouth once daily.Disp: 90 tabletRfl: 0 triamcinolone acetonide (KENALOG) 0.1 % creamApply 1 application to affected area twice daily for 14 days. Apply to affected area. Location:area unde (more content not included)...[facility] 05-20-2023 History of Present illness Narrative* Farhat Henry, - 05/20/2023 10:04 PM EDT Patient presents with: Follow Up HPI: Vivi Werner is a 78 year old female who presents to the office today for review of health conditions. Concerns today: Overall she is doing well Chronic low back pain, DJD and scoliosis present lumbar spine. Was seen by PHYSICAL THERAPY but doesn't feel that the exercises were beneficial. She has gotten better tennis shoes and already feels this has been helpful for her low back pain and has gotten a donut shaped cushion to sit on with benefit as well. Denies any injuries. Trying to modify how she works to stay active. Ms. Werner has past history of diabetes. Since our last visit she denies excessive thirst or increased frequency of urination, chest pain or dyspnea , new or unusual visual symptoms, and low sugar/hypoglycemic reactions. Depression- no. Follows a diabetic diet most of the time. She is compliant with medication(s) and is tolerating med(s) without any side effects. She reports checking her glucose on a once a day schedule with sugars in the <120 range. Patient's last HgA1C was Hemoglobin A1C (%) Date Value 01/15/2023 6.4 07/15/2022 6.2 05/22/2021 6.6 01/10/2021 6.4 ) Last Ophthalmology exam was within the past 12 months Ms. Werner reports history of hyperlipidemia. Current therapy includes ezetimibe (Zetia) 10 mg. Denies side effects of muscle weakness or achiness. Her most recent lipid panels are reviewed. Cholesterol, Total (mg/dL) Date Value 01/15/2023 293 05/22/2021 282 HDL Cholesterol (mg/dL) Date Value 01/15/2023 59 05/22/2021 60 LDL Cholesterol (mg/dL) Date Value 01/15/2023 194 05/22/2021 194 Triglyceride (mg/dL) Date Value 01/15/2023 201 05/22/2021 142 Ms. Werner indicates a history of hypertension and states that she is feeling well and denies any symptoms referable to elevated blood pressure. Specifically denies headache, chest pain, palpitations, dyspnea, and peripheral edema. Patient denies any side effects of her medication(s) and is compliant with their regimen. Last 3 Encounter BP Readings: Date: BP: 05/20/2023 120/80 05/07/2023 118/72 03/18/2023 122/68 She watches her diet for sodium, low fat and low cholesterol most of the time. She does not check BP's generally. Vivi gets minimal exercise. PAST MEDICAL HISTORY Diagnosis Date Advance care planning 01/29/2022 rich Rosa Benign neoplasm of colon 11/12/2005 Bulging lumbar disc Diabetes (HCC) Diverticulosis of colon (without mention of hemorrhage) Internal hemorrhoids without mention of complication 11/12/2005 Other disorder of muscle, ligament, and fascia left leg Other psoriasis Personal history of colonic polyps Pure hypercholesterolemia Sciatica Spinal stenosis of lumbar region Unspecified essential hypertension PAST SURGICAL HISTORY Procedure Laterality Date ARTHROSCOPY KNEE DIAGNOSTIC W/WO SYNOVIAL BX SPX 2002 Arthroscopy, knee, right ARTHRP KNE CONDYLE&PLATU MEDIAL&LAT COMPARTMENTS 12-18-04 Knee replacement, total right COLONOSCOPY 12/2014 COLONOSCOPY FLX DX W/COLLJ SPEC WHEN PFRMD 01/01/10 COLSC FLX W/RMVL OF TUMOR POLYP LESION SNARE TQ 11/12/05 EGD 2017 EGD at [facility]- negative, stopped omeprazole PAST SURGICAL HISTORY OF 1994 BLADDER SUSPENSION PAST SURGICAL HISTORY OF 1991 JAW SURGERY PAST SURGICAL HISTORY OF carpal tunnel, bilateral Social History Tobacco Use Smoking status: Former Years: 4 Types: Cigarettes Quit date: 01/24/1971 Years since quittin.3 Smokeless tobacco: Never Tobacco comments: Pt smoked one pack a week x 4 years Substance Use Topics Alcohol use: Yes Comment: Occassional Drug use: No FAMILY HISTORY Problem Relation Age of Onset Diabetes Father Allergies: ALLERGIES Allergen Reactions Bactrim [Sulfametho* Hives Ceclor [Cefaclor] Hives Cipro [Other] Hives Darvocet-N 100 [Pro* GI Upset Keflex [Cephalexin] Lipitor [Atorvastat* Myalgia Leg cramps/discomfort Penicillins Zithromax [Azithrom* Current Meds: betamethasone dipropionate (DIPROSONE) 0.05 % cream^Apply to affected area twice daily as needed. Use 2 weeks on, 1 week off. Not for face, armpits, or groin^Disp: 60 g^Rfl: 1 Cholecalciferol, Vitamin D3, 50 mcg (2,000 unit) cap^Take 1 capsule by mouth once daily.^Disp: ^Rfl: vit A,C,D-Okxr-Ucrvpo (PRESERVISION AREDS) 2,148 mcg-113 mg-45 mg-17.4mg tab^Take 2 tablets by mouth once daily.^Disp: ^Rfl: blood sugar diagnostic (VortalTOUCH ULTRA TEST) test strip^TEST BLOOD SUGAR 2 (TWO) TIMES DAILY^Disp: 200 Strip^Rfl: 3 lisinopril (ZESTRIL) 10 mg tablet^Take 1 tablet by mouth once daily.^Disp: 90 tablet^Rfl: 0 triamcinolone acetonide (KENALOG) 0.1 % cream^Apply 1 application to affected area twice daily for 14 days. Apply to affected area. Location:area under breasts^Disp: 15 g^Rfl: 0 LORazepam (ATIVAN) 0.5 mg^Take 1 tablet by mouth once daily as needed for up to 30 days.^Disp: 30 tablet^Rfl: 2 zoster RZV vaccine, PF, (SHINGRIX, PF,) 50 mcg/0.5 mL injection^Inject 0.5 mL intramuscularly one time only for 1 dose. Repeat 2nd dose in 2-6 months.^Disp: 1 Each^Rfl: 1 ezetimibe (ZETIA) 10 mg tablet^Take 1 tablet by mouth once daily.^Disp: 30 tablet^Rfl: 5 Review of Systems: The remainder of the review of systems is negative. PE: 05/20/23 1458 BP: 120/80 Pulse: 64 Resp: 16 Temp: 36.5 C (97.7 F) TempSrc: Right Tympanic Weight: 69.4 kg (153 lb) Gen: A&O, NAD, non-toxic appearing, Pleasant, cooperative HEENT: NT/AC, wearing glasses, PERRLA, EOMs intact b/l, nares clear and patent b/l, pharynx withouterythema, exudate or lesions. Uvula midline. MMM, EACs without erythema or debris. TMs pearly dobbs with intact landmarks b/l. Neck: supple, No cervical LAD, no thyromegaly, no carotid bruits CV: RRR, normal S1 and S2, no murmurs, no gallops, no rubs, Pulses 2+ and symmetric in UE and LE b/l Lungs: normal respiratory effort, CTA b/l, no wheezing or rhonchi or rales Abd: soft, NT, ND, +BS, no hepatosplenomegaly MS: arthritis changes in her ankles, feet, spine, hips Neuro: CN II-XII intact b/l, strength 5/5 b/l UE and LE, DTRs 2/4 UE and LE, sensation intact. Gait is stable Skin: warm, dry, intact, No rashes or lesions on exposed skin. Foot exam: Monofilament wnl on right and left feet. She is not currently interested in bone density testing She is going to consider shingles vaccine, rx printed for her to obtain at the pharmacy ASSESSMENT/PLAN: 1. Hypertension, essential - ICD9: 401.9, ICD10: I10 (primary diagnosis) - Controlled - Continue current medications - Recommend home blood pressure monitoring, to bring results to next visit - Encouraged sodium restriction, DASH or Mediterranean diet - Recommend regular aerobic exercise 2. Contact dermatitis due to plant - ICD9: 692.6, ICD10: L25.5 - discussed skin care of rash - follow up if symptoms persist or worsen. - TRIAMCINOLONE ACETONIDE 0.1 % TOPICAL CREAM 3. Situational anxiety - ICD9: 300.09, ICD10: F41.8 rx refilled, stable. - LORAZEPAM 0.5 MG TABLET 4. Need for shingles vaccine - ICD9: V04.89, ICD10: Z23 - SHINGRIX (PF) 50 MCG/0.5 ML INTRAMUSCULAR SUSPENSION, KIT 5. Type 2 diabetes mellitus with stage 3a chronic kidney disease, without long- term current use of insulin (HCC) - ICD9: 250.40, 585.3, ICD10: E11.22, N18.31 - Controlled - Blood glucose monitoring on a once daily schedule - Counseled on healthy diet and regular exercise - Discussed diabetic education issues of diabetes complications and monitoring required - eGFR: 54 Stable - Counseled on avoiding NSAIDs, adequate hydration - Counseled on low sodium diet 6. Spinal stenosis of lumbar region with neurogenic claudication - ICD9: 724.03, ICD10: M48.062 Stable, continue stretches and exercises at home. She isn't interested in injections in spine at this time. 7. Pure hypercholesterolemia - ICD9: 272.0, ICD10: E78.00 - stable Farhat Henry DO Recheck labs in 3 months and prn To ER if develops chest pain, shortness of breath, or severe worsening of symptoms. Discussed risks, benefits, alternatives, and potential side effects of medications. Patient expressed understanding and agreed with the plan. Farhat Henry DO [address] [place] [address] documented in this encounterFair[facility]23 NoteHNO ID: [id number] Author: Dominic Harkins APRN.NEWSP[employer]ER V[employer]OR Service: ? Author Type: Nurse Practitioner Type: Progress Notes Filed: 05/07/2023 3:37 PM Note Text: Chief Complaint Patient presents with: Chest Congestion: X 3 weeks HPI Vivi Werner is a 78 year old female who presents here today for Above Complaints.. Patient presents for congestion x3 weeks. Patient reports originally she was watching a friends cats and thought it was allergies however the nonproductive cough has continued. Patient reports small amount of nasal congestion. Past medical history, appointments, medications, allergies reviewed. Previous Medical History PAST MEDICAL HISTORY Diagnosis Date Advance care planning 01/29/2022 daughter Shelley Benign neoplasm of colon 11/12/2005 Bulging lumbar disc Diabetes (HCC) Diverticulosis of colon (without mention of hemorrhage) Internal hemorrhoids without mention of complication 11/12/2005 Other disorder of muscle, ligament, and fascia left leg Other psoriasis Personal history of colonic polyps Pure hypercholesterolemia Sciatica Spinal stenosis of lumbar region Unspecified essential hypertension Previous Surgical History PAST SURGICAL HISTORY Procedure Laterality Date ARTHROSCOPY KNEE DIAGNOSTIC W/WO SYNOVIAL BX SPX 2002 Arthroscopy, knee, right ARTHRP KNE CONDYLEANDPLATU MEDIALANDLAT COMPARTMENTS 4--05 Knee replacement, total right COLONOSCOPY 12/2014 COLONOSCOPY FLX DX W/COLLJ SPEC WHEN PFRMD 01/01/10 COLSC FLX W/RMVL OF TUMOR POLYP LESION SNARE TQ 11/12/05 EGD 2017 EGD at [facility]- negative, stopped omeprazole PAST SURGICAL HISTORY OF 1994 BLADDER SUSPENSION PAST SURGICAL HISTORY OF 1991 JAW SURGERY PAST SURGICAL HISTORY OF carpal tunnel, bilateral Family History FAMILY HISTORY Problem Relation Age of Onset Diabetes Father Patient Allergies ALLERGIES Allergen Reactions Bactrim [Sulfametho* Hives Ceclor [Cefaclor] Hives Cipro [Other] Hives Darvocet-N 100 [Pro* GI Upset Keflex [Cephalexin] Lipitor [Atorvastat* Myalgia Leg cramps/discomfort Penicillins Zithromax [Azithrom* Current Medications Current Outpatient Medications on File Prior to Visit Medication Sig betamethasone dipropionate (DIPROSONE) 0.05 % cream Apply to affected area twice daily as needed. Use 2 weeks on, 1 week off. Not for face, armpits, or groin ezetimibe (ZETIA) 10 mg tablet Take 1 tablet by mouth once daily. lisinopril (ZESTRIL) 10 mg tablet Take 1 tablet by mouth once daily. Cholecalciferol, Vitamin D3, 50 mcg (2,000 unit) cap Take 1 capsule by mouth once daily. vit A,C,R-Qhrl-Bxhubu (PRESERVISION AREDS) 2,148 mcg-113 mg-45 mg-17.4mg tab Take 2 tablets by mouth once daily. blood sugar diagnostic (VortalTOUCH ULTRA TEST) test strip TEST BLOOD SUGAR 2 (TWO) TIMES DAILY Current Facility-Administered Medications on File Prior to Visit Medication lidocaine (PF) 10 mg/mL (1 %) 1-2 mg injection (XYLOCAINE) NaCl 0.9% iv infusion Social History Social History Tobacco Use Smoking status: Former Years: 4 Types: Cigarettes Quit date: 01/24/1971 Years since quittin.3 Smokeless tobacco: Never Tobacco comments: Pt smoked one pack a week x 4 years Substance Use Topics Alcohol use: Yes Comment: Occassional Drug use: No Review of Symptoms REVIEW OF SYSTEMS SEE HPI EXAM: BP 118/72 Pulse 90 Temp 37 ?C (98.6 ?F) Resp 16 Wt 69.9 kg (154 lb) SpO2 98% BMI 30.08 kg/m? General Appearance: Well appearing, alert, in no acute distress, well-hydrated, well nourished.. Lungs: Lungs clear to auscultation. No wheezing, rhonchi, rales.. Heart: RRR without murmur, gallop, or rubs. No ectopy. Health Maintenance List SHINGRIX VACCINE(1 of 2) Never done BONE DENSITY Never done COVID-19 VACCINE(5 - Moderna series) due on 02/25/2022 DIABETIC FOOT EXAM due on 01/29/2023 INFLUENZA(1) due on 05/15/2023 URINE ALBUMIN:CREATININE RATIO due on 07/15/2023 HBA1C due on 07/18/2023 DILATED RETINAL EXAM due on 10/10/2023 LDL CHOLESTEROL due on 01/16/2024 SERUM CREATININE due on 01/16/2024 HEMOGLOBIN/HEMATOCRIT due on 01/16/2024 ANNUAL PCP TEAM CHRONIC DISEASE VISIT due on 03/18/2024 BP CONTROLLED (<130/80) due on 03/18/2024 DTAP,TDAP,TD(2 - Td or Tdap) due on 06/18/2025 DEPRESSION ASSESSMENT Completed PNEUMOCOCCAL: 65+ Completed COLORECTAL CANCER SCREENING Discontinued ADVANCE DIRECTIVE DISCUSSION Discontinued ASSESSMENT/PLAN: 1. Bronchitis - ICD9: 490, ICD10: J40 - PREDNISONE 20 MG TABLET Dmoinic Harkins APRN.[facility]08-24-2023 History of Present illness Narrative* Dominic Harkins APRN.NEWSPAPER VENDOR - 05/07/2023 3:33 PM EDT Chief Complaint Patient presents with: Chest Congestion: X 3 weeks HPI Vivi Werner is a 78 year old female who presents here today for Above Complaints.. Patient presents for congestion x3 weeks. Patient reports originally she was watching a friends cats and thought it was allergies however the nonproductive cough has continued. Patient reports small amount of nasal congestion. Past medical history, appointments, medications, allergies reviewed. Previous Medical History PAST MEDICAL HISTORY Diagnosis Date Advance care planning 01/29/2022 daughter Shelley Benign neoplasm of colon 11/12/2005 Bulging lumbar disc Diabetes (HCC) Diverticulosis of colon (without mention of hemorrhage) Internal hemorrhoids without mention of complication 11/12/2005 Other disorder of muscle, ligament, and fascia left leg Other psoriasis Personal history of colonic polyps Pure hypercholesterolemia Sciatica Spinal stenosis of lumbar region Unspecified essential hypertension Previous Surgical History PAST SURGICAL HISTORY Procedure Laterality Date ARTHROSCOPY KNEE DIAGNOSTIC W/WO SYNOVIAL BX SPX 2002 Arthroscopy, knee, right ARTHRP KNE CONDYLE&PLATU MEDIAL&LAT COMPARTMENTS 12-18-04 Knee replacement, total right COLONOSCOPY 12/2014 COLONOSCOPY FLX DX W/COLLJ SPEC WHEN PFRMD 4/20/10 COLSC FLX W/RMVL OF TUMOR POLYP LESION SNARE TQ 11/12/05 EGD 2017 EGD at [facility]- negative, stopped omeprazole PAST SURGICAL HISTORY OF 1994 BLADDER SUSPENSION PAST SURGICAL HISTORY OF 1991 JAW SURGERY PAST SURGICAL HISTORY OF carpal tunnel, bilateral Family History FAMILY HISTORY Problem Relation Age of Onset Diabetes Father Patient Allergies ALLERGIES Allergen Reactions Bactrim [Sulfametho* Hives Ceclor [Cefaclor] Hives Cipro [Other] Hives Darvocet-N 100 [Pro* GI Upset Keflex [Cephalexin] Lipitor [Atorvastat* Myalgia Leg cramps/discomfort Penicillins Zithromax [Azithrom* Current Medications Current Outpatient Medications on File Prior to Visit Medication Sig betamethasone dipropionate (DIPROSONE) 0.05 % cream Apply to affected area twice daily as needed. Use 2 weeks on, 1 week off. Not for face, armpits, or groin ezetimibe (ZETIA) 10 mg tablet Take 1 tablet by mouth once daily. lisinopril (ZESTRIL) 10 mg tablet Take 1 tablet by mouth once daily. Cholecalciferol, Vitamin D3, 50 mcg (2,000 unit) cap Take 1 capsule by mouth once daily. vit A,C,Z-Skho-Ehdxlq (PRESERVISION AREDS) 2,148 mcg-113 mg-45 mg-17.4mg tab Take 2 tablets by mouth once daily. blood sugar diagnostic (VortalTOUCH ULTRA TEST) test strip TEST BLOOD SUGAR 2 (TWO) TIMES DAILY Current Facility-Administered Medications on File Prior to Visit Medication lidocaine (PF) 10 mg/mL (1 %) 1-2 mg injection (XYLOCAINE) NaCl 0.9% iv infusion Social History Social History Tobacco Use Smoking status: Former Years: 4 Types: Cigarettes Quit date: 01/24/1971 Years since quittin.3 Smokeless tobacco: Never Tobacco comments: Pt smoked one pack a week x 4 years Substance Use Topics Alcohol use: Yes Comment: Occassional Drug use: No Review of Symptoms REVIEW OF SYSTEMS SEE HPI EXAM: BP 118/72 Pulse 90 Temp 37 C (98.6 F) Resp 16 Wt 69.9 kg (154 lb) SpO2 98% BMI 30.08 kg/m General Appearance: Well appearing, alert, in no acute distress, well-hydrated, well nourished.. Lungs: Lungs clear to auscultation. No wheezing, rhonchi, rales.. Heart: RRR without murmur, gallop, or rubs. No ectopy. Health Maintenance List SHINGRIX VACCINE(1 of 2) Never done BONE DENSITY Never done COVID-19 VACCINE(5 - Moderna series) due on 02/25/2022 DIABETIC FOOT EXAM due on 01/29/2023 INFLUENZA(1) due on 05/15/2023 URINE ALBUMIN:CREATININE RATIO due on 07/15/2023 HBA1C due on 07/18/2023 DILATED RETINAL EXAM due on 10/10/2023 LDL CHOLESTEROL due on 01/16/2024 SERUM CREATININE due on 01/16/2024 HEMOGLOBIN/HEMATOCRIT due on 01/16/2024 ANNUAL PCP TEAM CHRONIC DISEASE VISIT due on 03/18/2024 BP CONTROLLED (<130/80) due on 03/18/2024 DTAP,TDAP,TD(2 - Td or Tdap) due on 06/18/2025 DEPRESSION ASSESSMENT Completed PNEUMOCOCCAL: 65+ Completed COLORECTAL CANCER SCREENING Discontinued ADVANCE DIRECTIVE DISCUSSION Discontinued ASSESSMENT/PLAN: 1. Bronchitis - ICD9: 490, ICD10: J40 - PREDNISONE 20 MG TABLET Dominic Harkins APRN.NEWSPAPER VENDOR documented in this encounterFairfield [facility] Center08-24-2023 NoteHNO ID: [id number] Author: Peng Cage PT Service: ? Author Type: Physical Therapist Type: Progress Notes Filed: 05/07/2023 11:59 AM Note Text: Episode Visit Count: 8 Therapist That Will Accept/Oversee The Plan Of Care: Peng Cage Start of Care Date: 01/22/23 Onset Date: 10/25/22 Plan of Care Certification Date: 05/01/23 Next Certification Due Date: 06/05/23 Patient Identified by Name and Date of : Yes REHABILITATION AND SPORTS THERAPY PHYSICAL THERAPY TREATMENT NOTE ASSESSMENT: Vivi Werner tolerated the session with no issues. She demonstrated good tolerance to all MT techniques performed this session. The patient will continue to benefit from ongoing skilled physical therapy to progress toward set goals. PLAN FOR NEXT VISIT: D/C if pt follows up SUBJECTIVE: The pain only happens once in awhile. Feeling better, but dealing with some kind of infection around the head or neck Pain: Pain Pain Location: Buttocks - Right OBJECTIVE MEASURES WITH LEVEL OF FUNCTION: Taught bands at the thoracic paraspinals TREATMENT: Manual Therapy: 1: Gentle lumbar distraction and stretching of paraspinals with forearms in prone 2: Active release of hip ER in prone 3: SBostringing paraspinals 4: Prone quad stretch 2 x 30 sec each leg Skilled Intervention: Manual skills to improve joint mobility, ROM, and decrease pain. Utilized anatomy knowledge of the therapist, and assessment of patient's response to intervention. Billing Manual TherapyTreatment Minutes: 28 Total Treatment Time Minutes (timed/untimed): 28 Session Start Time : 1127 Session Stop Time : 1155 Peng Cage [facility]08-24-2023 History of Present illness Narrative* Peng Cage, PT - 05/07/2023 11:26 AM EDT Episode Visit Count: 8 Therapist That Will Accept/Oversee The Plan Of Care: Peng Cage Start of Care Date: 01/22/23 Onset Date: 10/25/22 Plan of Care Certification Date: 05/01/23 Next Certification Due Date: 06/05/23 Patient Identified by Name and Date of : Yes REHABILITATION AND SPORTS THERAPY PHYSICAL THERAPY TREATMENT NOTE ASSESSMENT: Vivi Botello Annabelladaniele tolerated the session with no issues. She demonstrated good tolerance to all MT techniques performed this session. The patient will continue to benefit from ongoing skilled physical therapy to progress toward set goals. PLAN FOR NEXT VISIT: D/C if pt follows up SUBJECTIVE: The pain only happens once in awhile. Feeling better, but dealing with some kind of infection around the head or neck Pain: Pain Pain Location: Buttocks - Right OBJECTIVE MEASURES WITH LEVEL OF FUNCTION: Taught bands at the thoracic paraspinals TREATMENT: Manual Therapy: 1: Gentle lumbar distraction and stretching of paraspinals with forearms in prone 2: Active release of hip ER in prone 3: SBostringing paraspinals 4: Prone quad stretch 2 x 30 sec each leg Skilled Intervention: Manual skills to improve joint mobility, ROM, and decrease pain. Utilized anatomy knowledge of the therapist, and assessment of patient's response to intervention. Billing Manual TherapyTreatment Minutes: 28 Total Treatment Time Minutes (timed/untimed): 28 Session Start Time : 1127 Session Stop Time : 1155 Peng Cage [facility] History of Past illness Narrative* Problem Noted Date Diagnosed Date Resolved Date Type 2 diabetes mellitus wit h stage 3a chronic kidney disease, without long-term current use of insulin 07/16/2020 05/17/2021 Unspecified essential hypertension 07/12/2020 documented as of this encounter (statuses as of 05/07/2023) [facility]08-24[facility] History of Past illness Narrative* Problem Noted Date Diagnosed Date Resolved Date Type 2 diabetes mellitus wit h stage 3a chronic kidney disease, without long-term current use of insulin 07/16/2020 05/17/2021 Unspecified essential hypertension 07/12/2020 documented as of this encounter (statuses as of 05/08/2023) [facility]08-18-[facility]23 NoteHNO ID: [id number] Author: Peng Cage PT Service: ? Author Type: Physical Therapist Type: Progress Notes Filed: 05/01/2023 12:55 PM Note Text: Episode Visit Count: 7 Therapist That Will Accept/Oversee The Plan Of Care: Peng Cage Start of Care Date: 01/22/23 Onset Date: 10/25/22 Plan of Care Certification Date: 05/01/23 Next Certification Due Date: 06/05/23 Patient Identified by Name and Date of : Yes REHABILITATION AND SPORTS THERAPY PHYSICAL THERAPY PROGRESS REPORT PLAN OF CARE UPDATE: Assessment: Vivi Werner demonstrates difficulty with standing and walking and improvements in overall pain intesnity and frequency. She has progressed toward goals. Patient continues to present with impairments in flexibility, independence in exercise, and symptom management that interfere with standing, walking . Current prognosis is Good due to: current objective clinical presentation . Most pertinent finding is TTP of R facet and SIJ. Tight hip flexors and quadriceps She will benefit from continued skilled therapy services to meet the updated goals for this plan of care as noted below. Goals updated 05/01/2023 Goals for Episode of Care: created on 01/22/23 through 03/05/23 [facility] in home exercise program. - Met Perform sitting without pain. - MET Increased strength of R ER to 5/5 via MMT for improved piriformis strength and decreased pain - Progressing, will continue Improve flexibility of the R piriformis for decreased pain- Progressing, will continue Pt will demo AROM of L spine without symptoms in 8 weeks or less - Progressing, will continue Pt will demo normal flexibility of the quadriceps and hip flexors bilat to decrease compression of facet joints and reduce pain in 4 weeks or less (NEW) Patient Goals: Get rid of the pain Patient Goals: Get rid of the pain Planned Interventions, Frequency, and Duration: 1x/week, 4 weeks Total Number of Visits Planned: 4 Patient to be seen for Therapeutic exercise (30918), Neuromuscular re-education (97517), Manual therapy (08996), Therapeutic activities (11997), Self-correction management (31484), Patient/Family/Caregiver Education PLAN FOR NEXT VISIT: Assess reaction to the HEP. January trial lumbar traction. Classification Low Back Pain Subgroup Classification: Spinal mobilization subgroup: recommended visits 6. Spinal Mobilization Subgroup Classification based on: facet like pain, endrange pain SUBJECTIVE: Still has pain on the R buttock and now it feels like the tailbone is pushing. Bought donut seat which helps. [place] the pain when walking on the R side. The R side is 80% improved so far. No more pain on the L side. Patient Goals: Get rid of the pain Functional Limitations: standing, walking Prior Level of Function: Independent without limitations Intake Information: Prescription present Previous Treatment: Ice , Heat Falls Interview: Fall without injury in the last year Pain: Pain Pain Level: 0 Pain Location: Buttocks - Right Post Treatment Pain Post Treatment Pain Location: Low Back/Lumbar Spine - Right PROMIS Scales Higher is Better 01/20/2023 01/08/2023 06/30/2022 Phys Func - Score - 43 (mild dysfunction) 43 (mild dysfunction) Phys Func - Percentile - 24 % 24 % Self-Eff Symptom - Score 55 (Average) - - Self-Eff Symptom - Percentile 69 % - - T-scores: mean of general population = 50. 5 points is clinically meaningfully difference Percentiles provide an indication of how the patient's score ranks in relation to the general population. Higher percentile rankings indicate better function/quality of life. 50th percentile is the average of the general population and indicates half of respondents had a worse score. OBJECTIVE MEASURES WITH LEVEL OF FUNCTION: Lumbar Spine AROM Lumbar Flexion: Normal (Pulling near R SIJ) Lumbar Extension: Normal (More of a stretch) Lumbar R Side-Bend: Normal, Increased pain Lumbar L Side-Bend: Minimal limitation Lumbar R Rotation: End range pain, Normal Lumbar L Rotation: Normal LE AROM R LE AROM: WNL L LE AROM: WNL LE Flexibility Flexibility: Quadriceps Flexibility, Hip Flexor Flexibility R Hip Flexor Flexibility: Tight L Hip Flexor Flexibility: Very tight R Quadriceps Flexibility: Very tight L Quadriceps Flexibility: Very tight Spine Joint Mobility Spine Joint Mobility : Lumbar/Thoracic Joint Mobility - L2: WNL Joint Mobility - L3: WNL Joint Mobility - L4: Hypomobile Joint Mobility - L5: Hypomobile (Familiar pain with R UPA) LE Strength R LE Strength: Grossly 5/5 L LE Strength: Grossly 5/5 Gait Gait Observation: WNL Foot structure is neutral bilat TREATMENT: Therapeutic Exercise: 1: All objective measures taken this session 2: Supine hip flexor stretch off table 2 x 30 sec each leg 3: Prone quad stretch with strap 2 x 30 sec each leg Skilled Intervention: Patient was educated in proper exercise techniq (more content not included)...[facility]08-18-2023 History of Present illness Narrative* Peng Cage, PT - 05/01/2023 10:59 AM EDT Episode Visit Count: 7 Therapist That Will Accept/Oversee The Plan Of Care: Peng Cage Start of Care Date: 01/22/23 Onset Date: 10/25/22 Plan of Care Certification Date: 05/01/23 Next Certification Due Date: 06/05/23 Patient Identified by Name and Date of : Yes REHABILITATION AND SPORTS THERAPY PHYSICAL THERAPY PROGRESS REPORT PLAN OF CARE UPDATE: Assessment: Vivi Werner demonstrates difficulty with standing and walking and improvements in overall pain intesnity and frequency. She has progressed toward goals. Patient continues to present with impairments in flexibility, independence in exercise, and symptom management that interfere with standing, walking . Current prognosis is Good due to: current objective clinical presentation . Most pertinent finding is TTP of R facet and SIJ. Tight hip flexors and quadriceps She will benefit from continued skilled therapy services to meet the updated goals for this plan of care as noted below. Goals updated 05/01/2023 Goals for Episode of Care: created on 01/22/23 through 03/05/23 [place] in home exercise program. - Met Perform sitting without pain. - MET Increased strength of R ER to 5/5 via MMT for improved piriformis strength and decreased pain - Progressing, will continue Improve flexibility of the R piriformis for decreased pain- Progressing, will continue Pt will demo AROM of L spine without symptoms in 8 weeks or less - Progressing, will continue Pt will demo normal flexibility of the quadriceps and hip flexors bilat to decrease compression of facet joints and reduce pain in 4 weeks or less (NEW) Patient Goals: Get rid of the pain Patient Goals: Get rid of the pain Planned Interventions, Frequency, and Duration: 1x/week, 4 weeks Total Number of Visits Planned: 4 Patient to be seen for Therapeutic exercise (74283), Neuromuscular re-education (25783), Manual therapy (19208), Therapeutic activities (53364), Self-correction management (95908), Patient/Family/Caregiver Education PLAN FOR NEXT VISIT: Assess reaction to the HEP. May trial lumbar traction. Classification Low Back Pain Subgroup Classification: Spinal mobilization subgroup: recommended visits 6. Spinal Mobilization Subgroup Classification based on: facet like pain, endrange pain SUBJECTIVE: Still has pain on the R buttock and now it feels like the tailbone is pushing. Bought donut seat which helps. [place] the pain when walking on the R side. The R side is 80% improved so far. No more pain on the L side. Patient Goals: Get rid of the pain Functional Limitations: standing, walking Prior Level of Function: Independent without limitations Intake Information: Prescription present Previous Treatment: Ice , Heat Falls Interview: Fall without injury in the last year Pain: Pain Pain Level: 0 Pain Location: Buttocks - Right Post Treatment Pain Post Treatment Pain Location: Low Back/Lumbar Spine - Right PROMIS Scales Higher is Better 01/20/2023 01/08/2023 06/30/2022 Phys Func - Score - 43 (mild dysfunction) 43 (mild dysfunction) Phys Func - Percentile - 24 % 24 % Self-Eff Symptom - Score 55 (Average) - - Self-Eff Symptom - Percentile 69 % - - T-scores: mean of general population = 50. 5 points is clinically meaningfully difference Percentiles provide an indication of how the patient's score ranks in relation to the general population. Higher percentile rankings indicate better function/quality of life. 50th percentile is the average of the general population and indicates half of respondents had a worse score. OBJECTIVE MEASURES WITH LEVEL OF FUNCTION: Lumbar Spine AROM Lumbar Flexion: Normal (Pulling near R SIJ) Lumbar Extension: Normal (More of a stretch) Lumbar R Side-Bend: Normal, Increased pain Lumbar L Side-Bend: Minimal limitation Lumbar R Rotation: End range pain, Normal Lumbar L Rotation: Normal LE AROM R LE AROM: WNL L LE AROM: WNL LE Flexibility Flexibility: Quadriceps Flexibility, Hip Flexor Flexibility R Hip Flexor Flexibility: Tight L Hip Flexor Flexibility: Very tight R Quadriceps Flexibility: Very tight L Quadriceps Flexibility: Very tight Spine Joint Mobility Spine Joint Mobility : Lumbar/Thoracic Joint Mobility - L2: WNL Joint Mobility - L3: WNL Joint Mobility - L4: Hypomobile Joint Mobility - L5: Hypomobile (Familiar pain with R UPA) LE Strength R LE Strength: Grossly 5/5 L LE Strength: Grossly 5/5 Gait Gait Observation: WNL Foot structure is neutral bilat TREATMENT: Therapeutic Exercise: 1: All objective measures taken this session 2: Supine hip flexor stretch off table 2 x 30 sec each leg 3: Prone quad stretch with strap 2 x 30 sec each leg Skilled Intervention: Patient was educated in proper exercise technique and purpose for exercises. Provided written instruction for home exercise program to facilitate proper performance and compliance. Correct performance of therapeutic exercises was facilitated with verbal and visual cuing. Billing Therapeutic Exercise Treatment Minutes: 41 Total Treatment Time Minutes (timed/untimed): 41 Session Start Time : 1059 Session Stop Time : 1140 Peng Cage PT [facility] History of Past illness Narrative* Problem Noted Date Diagnosed Date Resolved Date Type 2 diabetes mellitus wit h stage 3a chronic kidney disease, without long-term current use of insulin 07/16/2020 05/17/2021 Unspecified essential hypertension 07/12/2020 documented as of this encounter (statuses as of 05/01/2023) [facility]08-[facility] History of Past illness Narrative* Problem Noted Date Diagnosed Date Resolved Date Type 2 diabetes mellitus wit h stage 3a chronic kidney disease, without long-term current use of insulin 07/16/2020 05/17/2021 Unspecified essential hypertension 07/12/2020 documented as of this encounter (statuses as of 04/17/2023) [facility]08-03[facility] Miscellaneous Notes* Telephone Encounter - Erika Parkinson Ma - 04/16/2023 2:11 PM EDT Spoke to patient and went over multiple mychart messages patient is angry because she can never getin with pcp and seeing multiple other doctors and getting all different information. Patient advised appointment 08/05 pcp wrote on after visit summary no more than 4000 mg daily and should have beentold that was changed to 3000 mg. Patient frustrated because she is a patient of pcp and not patient job to know she can not take 4000 mg daily anymore. Advised no openings with pcp anytime soon booking months out which is why scheduled to see Noa. Erika Parkinson Ma documented in this encounter[facility]08-[facility]-2023 Miscellaneous Notes* Telephone Encounter - Celeste Reinoso - 04/16/2023 9:56 AM EDT Patient added to the waitlist Celeste * Telephone Encounter - Sofia Varner RN - 04/16/2023 9:10 AM EDT Patient calling back in to request to be added to Dr. Henry's wait list, if possible. Pt currently has appt with [employer] [employer] [facility] Noa for 04/29 but would like to be seen by Dr. Henry sooner if an opening becomes available. Thank you. * Telephone Encounter - Linda Varner LPN - 04/16/2023 8:53 AM EDT Phoned patient and went over notes below from Dr Henry with understanding. Scheduled appt with [employer] PR[employer] ARTIST for 04/29/2023 to discuss pain medication for back pain. * Telephone Encounter - Farhat Henry DO - 04/15/2023 8:43 PM EDT Please inform Vivi that she can take only up to 1000 mg of tylenol every 8 hours, max daily dose of 3000 mg a day. Farhat Henry DO * Telephone Encounter - Sofia Varner RN - 04/15/2023 4:43 PM EDT Patient calling and states she saw provider Dr. Andrade of [facility] for her back discomfort. Reports she received one shot from provider and then he informed patient that there was nothingmore he could do for her due to her age . Patient states she searched on the Internet and found that taking acetaminophen in higher doses, such as 650 mg-two tabs every 8 hours (or 1300mg every 8 hours) could be helpful for discomfort. Patient asking Dr. Henry if she feels this would be okay to take? Please advise patient. Thank you. documented in this encounterFair[facility] Center08-[facility]23 History of Past illness Narrative* Problem Noted Date Diagnosed Date Resolved Date Type 2 diabetes mellitus wit h stage 3a chronic kidney disease, without long-term current use of insulin 07/16/2020 05/17/2021 Unspecified essential hypertension 07/12/2020 documented as of this encounter (statuses as of 04/16/2023) [facility] History of Past illness Narrative* Problem Noted Date Diagnosed Date Resolved Date Type 2 diabetes mellitus wit h stage 3a chronic kidney disease, without long-term current use of insulin 07/16/2020 05/17/2021 Unspecified essential hypertension 07/12/2020 documented as of this encounter (statuses as of 04/16/2023) [facility] NotePatient Outreach (NETNAV) ANNABELLAVIVI GRUBER ([id number]) 1945 F Date Time Provider Department 04/06/23 ZOEY FLORES During your visit today, we recorded the following information about you: Zoey Flores MA 04/06/2023 2:09 PM Signed POPULATION HEALTH NAVIGATION OUTREACH Action/FYI mychart message sent Patient wants Mychart message sent instead of a call. ANNUAL MEDICARE WELLNESS EXAM Patient Identified by Name and : NO Outreach Outcome/Action MyChart message sent Did you use a PCP flex slot to schedule this appointment? N/A Reason for Outreach Care Gap or Scheduling/Wellness visits Payer: Payor: MEDICARE / Plan: MEDICARE A AND B / Product Type: Medicare / Care Gap Reviewed:: Annual Wellness visit Reminder: Reminder note to check Health Maintenance for items below Health Maintenance items due: SHINGRIX VACCINE(1 of 2) Never done BONE DENSITY Never done COVID-19 VACCINE(5 - Moderna series) due on 02/25/2022 DIABETIC FOOT EXAM due on 01/29/2023 Navigation Signature: Zoey Flores MA April 06, 2023 9:53 AM Allergies As of Date: 04/06/2023 Noted Allergy Reaction BACTRIM (SULFAMETHOXAZOLE-TRIMETH*01/07/2016 4 - Hives CECLOR (CEFACLOR) 09/03/2005 4 - Hives cipro [Other] 03/27/2006 4 - Hives DARVOCET-N 100 (PROPOXYPHENE N-AC*09/03/2005 8 - GI Upset KEFLEX (CEPHALEXIN) 09/03/2005 LIPITOR (ATORVASTATIN) 10/31/2019 17 - Myalgia Comments: Leg cramps/discomfort PENICILLINS 09/03/2005 ZITHROMAX (AZITHROMYCIN) 09/03/2005 Date Reviewed: 03/18/2023 Reviewed by: Patsy Eldrideg LPN - Fully Assessed Reason for Visit: Population Health Navigation Outreach [3910] Cmt: ACO RAMONA PCSA Prescriptions as of 04/06/2023 - betamethasone dipropionate (DIPROSONE) 0.05 % cream Apply to affected area twice daily as needed. Use 2 weeks on, 1 week off. Not for face, armpits, or groin - ezetimibe (ZETIA) 10 mg tablet Take 1 tablet by mouth once daily. - lisinopril (ZESTRIL) 10 mg tablet Take 1 tablet by mouth once daily. - Cholecalciferol, Vitamin D3, 50 mcg (2,000 unit) cap Take 1 capsule by mouth once daily. - vit A,C,H-Vtfq-Klwljk (PRESERVISION AREDS) 2,148 mcg-113 mg-45 mg-17.4mg tab Take 2 tablets by mouth once daily. - blood sugar diagnostic ([employer] ULTRA TEST) test strip TEST BLOOD SUGAR 2 (TWO) TIMES DAILY Facility-Administered Medications as of 04/06/2023 - lidocaine (PF) 10 mg/mL (1 %) 1-2 mg injection (XYLOCAINE) - NaCl 0.9% iv infusion - perflutren lipid microspheres 1.3 mL in NaCl (PF) 0.9% 10 mL injection (DEFINITY) - sodium chloride 0.9 % (flush) 10 mL (BD POSIFLUSH) Meds Comments as of 02/07/2022: 02/07/22 Patient no longer taking the hydroxyzine. Carol Hutton RN Problem List As Of Date 04/06/2023 Noted Resolved Unspecified essential hypertension [I10] 07/12/2020 PURE HYPERCHOLESTEROLEM [E78.00] OTHER PSORIASIS [L40.8] BENIGN NEOPLASM LG BOWEL [D12.6] 11/12/2005 INT HEMORRHOID W/O COMPL [K64.8] 11/12/2005 Personal History of Colonic Polyps [Z86.010] 11/09/2009 Stage 3a chronic kidney disease (HCC) [N18.31] 08/16/2019 Hypertension, essential [I10] 08/16/2019 Arthritis, multiple joint involvement [M12.9] 12/28/2019 Type 2 diabetes mellitus without complication, *12/28/2019 Leg cramping [R25.2] 12/28/2019 Type 2 diabetes mellitus with stage 3a chronic *07/16/2020 05/17/2021 Hypertensive kidney disease with stage 3a chron*05/17/2021 Chronic bilateral low back pain with left-sided*01/29/2022 Palpitations [R00.2] 01/29/2022 SOB (shortness of breath) [R06.02] 01/29/2022 Situational anxiety [F41.8] 01/29/2022 Bulging lumbar disc [M51.36] 06/21/2022 Spinal stenosis of lumbar region [M48.061] 06/21/2022 Chronic constipation [K59.09] 07/16/2022 Myalgia [M79.10] 12/10/2022 Vitamin D deficiency [E55.9] 12/10/2022 Lumbosacral neuritis [M54.17] 01/22/2023 Degeneration of lumbar or lumbosacral intervert*01/22/2023 Right buttock pain [M79.18] 01/22/2023 Encounter Status:Closed by ZOEY FLORES on 04/06/23[facility]07-24-2023 NoteHNO ID: [id number] Author: Zoey Flores MA Service: ? Author Type: Bottom Bleacher Type: Progress Notes Filed: 04/06/2023 2:09 PM Note Text: POPULATION HEALTH NAVIGATION OUTREACH Action/I mychart message sent Patient wants Mychart message sent instead of a call. ANNUAL MEDICARE WELLNESS EXAM Patient Identified by Name and : NO Outreach Outcome/Action MyChart message sent Did you use a PCP flex slot to schedule this appointment? N/A Reason for Outreach Care Gap or Scheduling/Wellness visits Payer: Payor: MEDICARE / Plan: MEDICARE A AND B / Product Type: Medicare / Care Gap Reviewed:: Annual Wellness visit Reminder: Reminder note to check Health Maintenance for items below Health Maintenance items due: SHINGRIX VACCINE(1 of 2) Never done BONE DENSITY Never done COVID-19 VACCINE(5 - Moderna series) due on 02/25/2022 DIABETIC FOOT EXAM due on 01/29/2023 Navigation Signature: Zoey Flores MA April 06, 2023 9:53 [facility]07-15-2023 History of Past illness Narrative* Problem Noted Date Diagnosed Date Resolved Date Type 2 diabetes mellitus wit h stage 3a chronic kidney disease, without long-term current use of insulin 07/16/2020 05/17/2021 Unspecified essential hypertension 07/12/2020 documented as of this encounter (statuses as of 03/28/2023) [facility] NoteHNO ID: [id number] Author: Peng Cage PT Service: ? Author Type: Physical Therapist Type: Progress Notes Filed: 03/23/2023 3:26 PM Note Text: Episode Visit Count: 6 Therapist That Will Accept/Oversee The Plan Of Care: Peng Cage Start of Care Date: 01/22/23 Onset Date: 10/25/22 Plan of Care Certification Date: 03/23/23 Next Certification Due Date: 04/27/23 Patient Identified by Name and Date of : Yes REHABILITATION AND SPORTS THERAPY PHYSICAL THERAPY PROGRESS REPORT PLAN OF CARE UPDATE: Assessment: Vivi Werner demonstrates difficulty with back and left leg pain with standing and walking. She has new goals added to address new neural issues . Patient continues to present with impairments in independence in exercise, overall function, and strength that interfere with standing, walking . Current prognosis is Good due to: current objective clinical presentation . Less pain into the LLE in supine when core is braced during L hip flexion and so core strengthening may be beneficial. She will benefit from continued skilled therapy services to meet the updated goals for this plan of care as noted below. Goals updated 03/23/2023 Goals for Episode of Care: created on 01/22/23 through 03/05/23 [facility] in home exercise program. - Met Perform sitting without pain. - MET Increased strength of R ER to 5/5 via MMT for improved piriformis strength and decreased pain - Progressing, will continue Improve flexibility of the R piriformis for decreased pain- Progressing, will continue Pt will demo AROM of L spine without symptoms in 8 weeks or less (NEW) Patient Goals: Get rid of the pain Patient Goals: Get rid of the pain Planned Interventions, Frequency, and Duration: 1x/week, 4 weeks Total Number of Visits Planned: 4 Patient to be seen for Therapeutic exercise (38344), Neuromuscular re-education (62905), Manual therapy (05776), Therapeutic activities (55810), Self-correction management (63225), Patient/Family/Caregiver Education PLAN FOR NEXT VISIT: Assess reaction to the HEP. May trial lumbar traction. Classification Low Back Pain Subgroup Classification: Specific exercise subgroup: recommended visits 8. Specific Exercies Subgroup Classification based on: peripheralization SUBJECTIVE: Patient Reason for Visit: Now the Left side is worse. The R side only sometimes. Notice this newer pain 1 week ago. Lost balance and just had a pain in the back and then felt weak. Walking creates pain and so does standing. The pain shoots down the L leg but stays above the knee. Patient Goals: Get rid of the pain Functional Limitations: standing, walking Prior Level of Function: Independent without limitations Intake Information: Prescription present Previous Treatment: Ice , Heat Falls Interview: Fall without injury in the last year Pain: Pain Pain Level: 7 Pain Location: Buttocks - Right Post Treatment Pain Post Treatment Pain Level: 5 Post Treatment Pain Location: Buttocks - Right PROMIS Scales Higher is Better 01/20/2023 01/08/2023 06/30/2022 Phys Func - Score - 43 (mild dysfunction) 43 (mild dysfunction) Phys Func - Percentile - 24 % 24 % Self-Eff Symptom - Score 55 (Average) - - Self-Eff Symptom - Percentile 69 % - - T-scores: mean of general population = 50. 5 points is clinically meaningfully difference Percentiles provide an indication of how the patient's score ranks in relation to the general population. Higher percentile rankings indicate better function/quality of life. 50th percentile is the average of the general population and indicates half of respondents had a worse score. OBJECTIVE MEASURES WITH LEVEL OF FUNCTION: Lumbar Spine AROM Lumbar Flexion: Normal Lumbar Extension: Minimal limitation, Increased pain Lumbar R Side-Bend: Normal Lumbar L Side-Bend: Minimal limitation Lumbar R Rotation: Normal Lumbar L Rotation: Normal LE AROM R LE AROM: WNL L LE AROM: WNL LE Strength L Hip Flexion (L2): 4/5 (Pain in the leg) L lumbar paraspinals are very sensitive to touch Gait Gait Observation: WNL TREATMENT: Therapeutic Exercise: 1: All objective measures taken this session 2: SKTC 2 x 10 3: Hooklying core bracing with alt marches 2 x 10 (an sometimes get pain shooting down LLE) 4: Discussed anatomy of the spine. Discussed how the HEP will provide increased space for the nerves. Skilled Intervention: Patient was educated in proper exercise technique and purpose for exercises. Correct performance of therapeutic exercises was facilitated with verbal and visual cuing. Billing Therapeutic Exercise Treatment Minutes: 42 Total Treatment Time Minutes (timed/untimed): 42 Peng Cage [facility]07-10-2023 History of Present illness Narrative* Peng Cage, PT - 03/23/2023 2:27 PM EDT Episode Visit Count: 6 Therapist That Will Accept/Oversee The Plan Of Care: Peng Cage Start of Care Date: 01/22/23 Onset Date: 10/25/22 Plan of Care Certification Date: 03/23/23 Next Certification Due Date: 04/27/23 Patient Identified by Name and Date of : Yes REHABILITATION AND SPORTS THERAPY PHYSICAL THERAPY PROGRESS REPORT PLAN OF CARE UPDATE: Assessment: Vivi Werner demonstrates difficulty with back and left leg pain with standing and walking. She has new goals added to address new neural issues . Patient continues to present with impairments in independence in exercise, overall function, and strength that interfere with standing, walking . Current prognosis is Good due to: current objective clinical presentation . Less pain into the LLE in supine when core is braced during L hip flexion and so core strengthening may be beneficial. She will benefit from continued skilled therapy services to meet the updated goals for this plan of care as noted below. Goals updated 03/23/2023 Goals for Episode of Care: created on 01/22/23 through 03/05/23 [facility] in home exercise program. - Met Perform sitting without pain. - MET Increased strength of R ER to 5/5 via MMT for improved piriformis strength and decreased pain - Progressing, will continue Improve flexibility of the R piriformis for decreased pain- Progressing, will continue Pt will demo AROM of L spine without symptoms in 8 weeks or less (NEW) Patient Goals: Get rid of the pain Patient Goals: Get rid of the pain Planned Interventions, Frequency, and Duration: 1x/week, 4 weeks Total Number of Visits Planned: 4 Patient to be seen for Therapeutic exercise (51564), Neuromuscular re-education (89947), Manual therapy (56087), Therapeutic activities (09153), Self-correction management (40583), Patient/Family/Caregiver Education PLAN FOR NEXT VISIT: Assess reaction to the HEP. May trial lumbar traction. Classification Low Back Pain Subgroup Classification: Specific exercise subgroup: recommended visits 8. Specific Exercies Subgroup Classification based on: peripheralization SUBJECTIVE: Patient Reason for Visit: Now the Left side is worse. The R side only sometimes. Noticethis newer pain 1 week ago. Lost balance and just had a pain in the back and then felt weak. Walking creates pain and so does standing. The pain shoots down the L leg but stays above the knee. Patient Goals: Get rid of the pain Functional Limitations: standing, walking Prior Level of Function: Independent without limitations Intake Information: Prescription present Previous Treatment: Ice , Heat Falls Interview: Fall without injury in the last year Pain: Pain Pain Level: 7 Pain Location: Buttocks - Right Post Treatment Pain Post Treatment Pain Level: 5 Post Treatment Pain Location: Buttocks - Right PROMIS Scales Higher is Better 01/20/2023 01/08/2023 06/30/2022 Phys Func - Score - 43 (mild dysfunction) 43 (mild dysfunction) Phys Func - Percentile - 24 % 24 % Self-Eff Symptom - Score 55 (Average) - - Self-Eff Symptom - Percentile 69 % - - T-scores: mean of general population = 50. 5 points is clinically meaningfully difference Percentiles provide an indication of how the patient's score ranks in relation to the general population. Higher percentile rankings indicate better function/quality of life. 50th percentile is the average of the general population and indicates half of respondents had a worse score. OBJECTIVE MEASURES WITH LEVEL OF FUNCTION: Lumbar Spine AROM Lumbar Flexion: Normal Lumbar Extension: Minimal limitation, Increased pain Lumbar R Side-Bend: Normal Lumbar L Side-Bend: Minimal limitation Lumbar R Rotation: Normal Lumbar L Rotation: Normal LE AROM R LE AROM: WNL L LE AROM: WNL LE Strength L Hip Flexion (L2): 4/5 (Pain in the leg) L lumbar paraspinals are very sensitive to touch Gait Gait Observation: WNL TREATMENT: Therapeutic Exercise: 1: All objective measures taken this session 2: SKTC 2 x 10 3: Hooklying core bracing with alt marches 2 x 10 (an sometimes get pain shooting down LLE) 4: Discussed anatomy of the spine. Discussed how the HEP will provide increased space for the nerves. Skilled Intervention: Patient was educated in proper exercise technique and purpose for exercises. Correct performance of therapeutic exercises was facilitated with verbal and visual cuing. Billing Therapeutic Exercise Treatment Minutes: 42 Total Treatment Time Minutes (timed/untimed): 42 Peng Cage PT [facility] Miscellaneous Notes* Telephone Encounter - Ayan Jensen RN - 03/20/2023 2:44 PM EDT Patient returned call and given provider's message below with verbalized understanding. * Telephone Encounter - RAE Ngo - 03/20/2023 12:01 PM EDT TC to patient with no answer. Left VM to return call to office. RAE Ngo * Telephone Encounter - RAE Ngo - 03/20/2023 11:56 AM EDT ----- Message from Opal Peng MD sent at 03/20/2023 9:34 AM EDT ----- Xray of the lower back shows moderate arthritis changes with degenerative disc disease. No fracturenoted. Recommend patient f/u with pain management as discussed in office for chronic pain. documented [facility] History of Past illness Narrative* Problem Noted Date Resolved Date Type 2 diabetes mellitus wit h stage 3a chronic kidney disease, without long-term current use of insulin 07/16/202011/2020 Unspecified essential hypertension 07/12/2020 documented as of this encounter (statuses as of 03/20/2023) [facility] NoteHNO ID: [id number] Author: RT Opal(R) Service: Nuclear Medicine Author Type: Technologist Type: Progress Notes Filed: 03/18/2023 3:20 PM Note Text: Radiology Service Progress Note PATIENT NAME: Vivi Werner DATE OF SERVICE: March 18, 2023 TIME: 3:12 PM PATIENT IDENTITY VERIFICATION COMPLETED USING TWO (2) IDENTIFIERS: Name and Date of confirmed by patient verbally. FALL SCREENING: Has the patient had 2 falls in the last year or 1 fall with injury or currently using an Ambulatory Assistive Device (Walker, Cane, Wheelchair, Crutches, etc.)? No PATIENT GENDER DATA: Female. status: : No status: NO. PATIENT RELEVANT IMPLANT DATA REVIEWED: Not Applicable RADIOLOGY DEPARTMENT: General X-ray: Exam(s) Completed: Spine X-Ray(s): Lumbar AP / LAT / L5-S1 PERIPHERAL IV DATA: Not applicable SIGNED BY: Rachael Waite RT(R) March 18, 2023 3:12 [facility]07-05-2023 NoteHNO ID: [id number] Author: Opal Peng MD Service: ? Author Type: Physician Type: Progress Notes Filed: 03/18/2023 3:03 PM Note Text: Chief Complaint Patient presents with: Numbness: And tingling to bilateral lower extremities x2-3 weeks. At times legs have been giving out on patient. When sitting patient does have discomfort at times in her tailbone. HPI Vivi Werner is a 78 year old female with PMH lumbar spinal stenosis and bulging disc who presents here today for Above Complaints. Accompanied today by her daughter. Patient states that over the last 2-3 weeks she has noticed that if she sits for prolonged period of time her legs will feel numb or weak. Seems like this is worse in the afternoon/evening. Gets aching pain from her thighs to her feet with ambulation in the afternoon/evening. Also notes numbness and tingling from mid thigh down to her toes bilaterally. Treating with ice and tylenol which does improve her pain. Denies fall/injury, loss of bowel/bladder control, saddle anesthesia. Treated at PT over the last month or so for difficulty with hip weakness and pain when transitioning from sitting to standing after prolonged periods of sitting. Has f/u appointment later this month. Doing home exercises as directed. Following up with Dr. Andrade for history of spinal stenosis with last injection in July. Not seeing ortho spine at this time. She states that she would not do surgery for her herniated disc. Reviewed MRI from April 2022 Circumferential bulge with broad based posterior herniation at L1-2, L3-4, L4-5, L5-S1 causing sever bilateral neural foraminal and central canal stenosis. Circumferential bulge with broad based posterior herniation and cranial migration and an accute annual lily at L2-3 causing sever bilateral neural foraminal central canal stenosis. Past medical history, appointments, medications, allergies reviewed. Previous Medical History PAST MEDICAL HISTORY Diagnosis Date Advance care planning 01/29/2022 daughter Shelley Benign neoplasm of colon 11/12/2005 Bulging lumbar disc Diabetes (HCC) Diverticulosis of colon (without mention of hemorrhage) Internal hemorrhoids without mention of complication 11/12/2005 Other disorder of muscle, ligament, and fascia left leg Other psoriasis Personal history of colonic polyps Pure hypercholesterolemia Sciatica Spinal stenosis of lumbar region Unspecified essential hypertension Previous Surgical History PAST SURGICAL HISTORY Procedure Laterality Date ARTHROSCOPY KNEE DIAGNOSTIC W/WO SYNOVIAL BX SPX 2002 Arthroscopy, knee, right ARTHRP KNE CONDYLEANDPLATU MEDIALANDLAT COMPARTMENTS 12-18-04 Knee replacement, total right COLONOSCOPY 12/2014 COLONOSCOPY FLX DX W/COLLJ SPEC WHEN PFRMD 01/01/10 COLSC FLX W/RMVL OF TUMOR POLYP LESION SNARE TQ 11/12/05 EGD 2017 EGD at [facility]- negative, stopped omeprazole PAST SURGICAL HISTORY OF 1994 BLADDER SUSPENSION PAST SURGICAL HISTORY OF 1991 JAW SURGERY PAST SURGICAL HISTORY OF carpal tunnel, bilateral Family History FAMILY HISTORY Problem Relation Age of Onset Diabetes Father Patient Allergies ALLERGIES Allergen Reactions Bactrim [Sulfametho* Hives Ceclor [Cefaclor] Hives Cipro [Other] Hives Darvocet-N 100 [Pro* GI Upset Keflex [Cephalexin] Lipitor [Atorvastat* Myalgia Leg cramps/discomfort Penicillins Zithromax [Azithrom* Current Medications Current Outpatient Medications on File Prior to Visit Medication Sig betamethasone dipropionate (DIPROSONE) 0.05 % cream Apply to affected area twice daily as needed. Use 2 weeks on, 1 week off. Not for face, armpits, or groin ezetimibe (ZETIA) 10 mg tablet Take 1 tablet by mouth once daily. lisinopril (ZESTRIL) 10 mg tablet Take 1 tablet by mouth once daily. Cholecalciferol, Vitamin D3, 50 mcg (2,000 unit) cap Take 1 capsule by mouth once daily. vit A,C,P-Wvpr-Ajjofh (PRESERVISION AREDS) 2,148 mcg-113 mg-45 mg-17.4mg tab Take 2 tablets by mouth once daily. blood sugar diagnostic (VortalTOUCH ULTRA TEST) test strip TEST BLOOD SUGAR 2 (TWO) TIMES DAILY Current Facility-Administered Medications on File Prior to Visit Medication lidocaine (PF) 10 mg/mL (1 %) 1-2 mg injection (XYLOCAINE) NaCl 0.9% iv infusion perflutren lipid microspheres 1.3 mL in NaCl (PF) 0.9% 10 mL injection (DEFINITY) sodium chloride 0.9 % (flush) 10 mL (BD POSIFLUSH) Social History Social History Tobacco Use Smoking status: Former Years: 4.00 Types: Cigarettes Quit date: 01/24/1971 Years since quittin.1 Smokeless tobacco: Never Tobacco comments: Pt smoked one pack a week x 4 years Substance Use Topics Alcohol use: Yes Comment: Occassional Drug use: No Review of Symptoms REVIEW OF SYSTEMS See HPI EXAM: BP 122/68 Pulse 74 Temp 36.8 ?C (98.2 ?F) Resp 16 Wt 70.5 kg (155 lb 6.4 oz) SpO2 96% BMI 30.35 kg/m? General Appeara (more content not included)...[facility] 03-18-2023 Miscellaneous Notes* Telephone Encounter - Opal Peng MD - 03/18/2023 11:46 AM EDT Reviewed. * Telephone Encounter - Kristyn Driscoll RN - 03/18/2023 10:57 AM EDT Protocol recommends see PCP within 24 hours. Care plan reviewed with patient. Patient voices understanding. Advised patient that if symptoms get worse to be evaluated in ER. Appt at 220 pm today withDr. Peng. Instructed to be sure pt has someone drive her. Reason for Disposition Numbness in a leg or foot (i.e., loss of sensation) Answer Assessment - Initial Assessment Questions 1. ONSET: 2-3 weeks ago, but is worsening. 2. LOCATION: States having numbness and tingling off and on in both legs from buttocks to bottom offeet. By around 3 pm everyday, she starts to get a constant pain in both legs and intermittent shooting pains down both legs. 3. PAIN: MILD (1-3): doesn't interfere with normal activities - MODERATE (4-7): interferes with normal activities (e.g., work or school) or awakens from sleep, limping - SEVERE (8-10): excruciating pain, unable to do any normal activities, unable to walk Pt currently is not having pain, but when the pain occurs it will be a 6/10. She states that she gets slight relief with either heat/cold and Tylenol use. When she has the numbness/tingling and feelslegs are weaker, she loses her balance. 4. WORK OR EXERCISE: State had a back injection in Jul [address] Andrade and has recently had PT due to sciatica pain which was mainly only in her buttocks. She states she can mow yard and seed cone picker sticks with no pain. 5. CAUSE: Pt is unsure what could be causing the pain. 6. OTHER SYMPTOMS: Denies chest pain, back pain, breathing difficulty, swelling, rash, fever, redness or blueness of extremities or feet. Denies any bowel or bladder issues or loss of control. 7. : N/A postmenopausal Protocols used: Leg [id number] documented [facility] History of Past illness Narrative* Problem Noted Date Resolved Date Type 2 diabetes mellitus wit h stage 3a chronic kidney disease, without long-term current use of insulin 07/16/202011/2020 Unspecified essential hypertension 07/12/2020 documented as of this encounter (statuses as of 03/18/2023) [facility] NoteHNO ID: [id number] Author: Shannon Stark APRN.MAKENZIE Service: ? Author Type: Nurse Practitioner Type: Progress Notes Filed: 03/09/2023 10:53 AM Note Text: Exam completed during down time. Please see scanned document.[facility]06[facility] History of Present illness Narrative* Shannonrodri Stark APRN.CNP - 03/09/2023 10:51 AM EDT Exam completed during down time. Please see scanned document. documented in this encounterFair[facility]06-[facility]23 History of Past illness Narrative* Problem Noted Date Resolved Date Type 2 diabetes mellitus wit h stage 3a chronic kidney disease, without long-term current use of insulin 07/16/202011/2020 Unspecified essential hypertension 07/12/2020 documented as of this encounter (statuses as of 03/09/2023) [facility] Miscellaneous Notes* Telephone Encounter - Belinda Rios APRN.CNP - 02/27/2023 12:41 PM EDT The following approved medication requests have been transmitted electronically. Requested Prescriptions Pending Prescriptions Disp Refills triamcinolone acetonide (KENALOG) 0.1 % cream 15 g 0 Sig: Apply 1 application to affected area twice daily for 14 days. Apply to affected area. Location:area under breasts Belinda Rios APRN.MAKENZIE * Telephone Encounter - Linda Varner LPN - 02/27/2023 12:35 PM EDT Patient has been identified by name and date of : Patient phones for refill(s): Requested Prescriptions Pending Prescriptions Disp Refills triamcinolone acetonide (KENALOG) 0.1 % cream 15 g 0 Sig: Apply 1 application to affected area twice daily for 14 days. Apply to affected area. Location:area under breasts Date of last office visit in primary care: 12/10/2022, no future appt scheduled Last 2 Encounter Wt Readings: Date: Wt: 02/04/2023 69.9 kg (154 lb) 01/28/2023 70.4 kg (155 lb 3.2 oz) Previous labs/tests for medication: Not applicable Please advise. Thank you. Linda Varner LPN Patient said she keeps getting rash under breasts after working out in the yard. documented in this [facility]06-[facility]-2023 Miscellaneous Notes* Telephone Encounter - Tomeka Arguelles RN - 02/26/2023 11:53 AM EDT Patient returns call and provider message reviewed. Patient verbalizes understanding. Tomeka Arguelles RN * Telephone Encounter - Edita Martinez Ma - 02/26/2023 11:29 AM EDT Called and left message on patients voicemail to return call to the office and ask to speak with a FM triage nurse. Edita Martinez Ma * Telephone Encounter - Wallace Laura MD - 02/26/2023 10:35 AM EDT She may just stop the Zetia, no need to taper Wallace Laura MD * Telephone Encounter - Cleopatra Morrison LPN - 02/26/2023 8:42 AM EDT Pt called to advise she has been on Zetia a little less than a month and now she can hardly walk her muscles in her legs are so painful. Pt wants is going to stop the Zetia and needs to know if she can just stop it or does she need to go off gradually. Pt had no problem walking before she started this. Please advise pt. Okay to leave a detailed message. Pt aware her provider is out of the office and this is being sent to the doctor store product demonstrator. Cleopatra Morrison LPN documented in this encounterFair[facility]06-[facility]-2023 History of Past illness Narrative* Problem Noted Date Resolved Date Type 2 diabetes mellitus wit h stage 3a chronic kidney disease, without long-term current use of insulin 07/16/202011/2020 Unspecified essential hypertension 07/12/2020 documented as of this encounter (statuses as of 02/26/2023) [facility] NoteHNO ID: [id number] Author: Peng Cage PT Service: ? Author Type: Physical Therapist Type: Progress Notes Filed: 02/19/2023 5:05 PM Note Text: Episode Visit Count: 5 Therapist That Will Accept/Oversee The Plan Of Care: Peng Cage Start of Care Date: 01/22/23 Onset Date: 10/25/22 Plan of Care Certification Date: 02/19/23 Next Certification Due Date: 03/26/23 Patient Identified by Name and Date of : Yes REHABILITATION AND SPORTS THERAPY PHYSICAL THERAPY PROGRESS REPORT PLAN OF CARE UPDATE: Assessment: Vivi Werner demonstrates difficulty with hip weakness and pain when transitioning from sitting to standing after prolonged periods of sitting still and improvements in and overall hip strength and sitting. She has progressed toward goals. Patient continues to present with impairments in independence in exercise and strength that interfere with sitting . Current prognosis is Good due to: current objective clinical presentation . She will benefit from continued skilled therapy services to meet the updated goals for this plan of care as noted below. Goals updated 02/19/2023 Goals for Episode of Care: created on 01/22/23 through 03/05/23 [facility] in home exercise program. - Met Perform sitting without pain. - MET Increased strength of R ER to 5/5 via MMT for improved piriformis strength and decreased pain - Progressing, will continue Improve flexibility of the R piriformis for decreased pain- Progressing, will continue Patient Goals: Get rid of the pain Patient Goals: Get rid of the pain Planned Interventions, Frequency, and Duration: 1x/month, One month Total Number of Visits Planned: 1 Patient to be seen for Therapeutic exercise (14216), Neuromuscular re-education (41924), Manual therapy (87420), Therapeutic activities (17009), Self-correction management (27648), Patient/Family/Caregiver Education PLAN FOR NEXT VISIT: Check up in 1 month to advance exercises as tolerated SUBJECTIVE: Patient Reason for Visit: Pt feels 75-80% overall improvement. Better with sitting. Some pain with transition from sitting to standing when sitting for prolonged periods of time. Doing the exercises 3 times a week. Patient Goals: Get rid of the pain Functional Limitations: sitting Prior Level of Function: Independent without limitations Intake Information: Prescription present Previous Treatment: Ice , Heat Falls Interview: Fall without injury in the last year Pain: Pain Pain Location: Buttocks - Right PROMIS Scales Higher is Better 01/20/2023 01/08/2023 06/30/2022 Phys Func - Score - 43 (mild dysfunction) 43 (mild dysfunction) Phys Func - Percentile - 24 % 24 % Self-Eff Symptom - Score 55 (Average) - - Self-Eff Symptom - Percentile 69 % - - T-scores: mean of general population = 50. 5 points is clinically meaningfully difference Percentiles provide an indication of how the patient's score ranks in relation to the general population. Higher percentile rankings indicate better function/quality of life. 50th percentile is the average of the general population and indicates half of respondents had a worse score. OBJECTIVE MEASURES WITH LEVEL OF FUNCTION: Lumbar Spine AROM Lumbar Flexion: Normal Lumbar Extension: Normal Lumbar R Side-Bend: Normal Lumbar L Side-Bend: Normal Lumbar R Rotation: Normal Lumbar L Rotation: Normal LE AROM Tested?: Yes LE AROM R LE AROM: WNL L LE AROM: WNL LE Flexibility Flexibility: Hamstring Flexibility R Hamstring Flexibility: WNL L Hamstring Flexibility: WNL R Piriformis Flexibility: Mild tightness L Piriformis Flexibility: WNL LE Strength R Hip Flexion (L2): 4+/5 R Hip ABduction: 4/5 R Hip External Rotation: 5/5 R Knee Extension (L3): 5/5 R Knee Flexion: 5/5 L Hip ABduction: 4/5 TREATMENT: Therapeutic Exercise: 1: All objective measures taken 2: Sidelying clamshell BTB 3 x 8-10 reps 3: Sidestepping GTB 12 feet x 3 x 2 sets Skilled Intervention: Patient was educated in proper exercise technique and purpose for exercises. Correct performance of therapeutic exercises was facilitated with verbal and visual cuing. Billing Therapeutic Exercise Treatment Minutes: 38 Total Treatment Time Minutes (timed/untimed): 38 Peng Cage [facility]05-30-2023 NoteHNO ID: [id number] Author: Peng Cage PT Service: ? Author Type: Physical Therapist Type: Progress Notes Filed: 2023 4:30 PM Note Text: Episode Visit Count: 4 Therapist That Will Accept/Oversee The Plan Of Care: Peng Cage Start of Care Date: 01/22/23 Onset Date: 10/25/22 Plan of Care Certification Date: 01/22/23 Next Certification Due Date: 02/26/23 Patient Identified by Name and Date of : Yes REHABILITATION AND SPORTS THERAPY PHYSICAL THERAPY TREATMENT NOTE ASSESSMENT: Vivi Werner tolerated the session with expected muscle soreness. She demonstrated difficulty with fatigue of the hip abd muscles. The patient will continue to benefit from ongoing skilled physical therapy to progress toward set goals. PLAN FOR NEXT VISIT: POC update SUBJECTIVE: Patient Reason for Visit: Sometimes she will get the pain (only a couple times) on the other side. Not enough to make it irritating. Pt feels she is about 50% improved so far. Pain: Pain Pain Location: Buttocks - Right OBJECTIVE MEASURES WITH LEVEL OF FUNCTION: Good form with side-stepping TREATMENT: Therapeutic Exercise: 1: Supine bridge 2 x 12 reps with strap 2: Supine SLR 2 x 12 reps 3: Side-stepping pink TB to fatigue x 3 sets 4: Sidelying clam GTB 2 x 12 reps each side 5: TA bracing in hooklying with alt marches x 5 Skilled Intervention: Patient was educated in proper exercise technique and purpose for exercises. Provided written instruction for home exercise program to facilitate proper performance and compliance. Correct performance of therapeutic exercises was facilitated with verbal cuing. Billing Therapeutic Exercise Treatment Minutes: 39 Total Treatment Time Minutes (timed/untimed): 39 Peng Cage, [facility]05-29-2023 NoteHNO ID: [id number] Author: Armida Wade PA-C Service: ? Author Type: Physician Picking Tech Type: Progress Notes Filed: 02/09/2023 8:31 AM Note Text: 02/09/2023 Patient presents with: Rash: X 8 days SUBJECTIVE: This is a 77 year old with DM II that is here today for ongoing poison jayna x 8 days. Was seen here 5 days ago treatment of poison jayna on the leg and abdomen, and due to DM II status, she as given Medrol pack. She is not getting more sites, but the previous sites are just still so itchy, it keeps me up at night. She would like her Betamethasone ointment changed to a cream. No other sick symptoms. No other URI symptoms. Denies fever, chills, wheezing or SOB. Patient denies shortness of breath, increased WOB, or chest pain. Pain on scale of 0-10 with 0 being no pain and 10 being greatest pain: 0 Nothing makes the symptoms better. Nothing makes them worse. Self-treatment:. See HPI Barriers to learning: none. Reviewed meds, OTCs, herbals or supplements. Reviewed allergies, medications, social history, and past medical history. PAST MEDICAL HISTORY Diagnosis Date Advance care planning 01/29/2022 daughter Shelley Benign neoplasm of colon 11/12/2005 Bulging lumbar disc Diabetes (HCC) Diverticulosis of colon (without mention of hemorrhage) Internal hemorrhoids without mention of complication 11/12/2005 Other disorder of muscle, ligament, and fascia left leg Other psoriasis Personal history of colonic polyps Pure hypercholesterolemia Sciatica Spinal stenosis of lumbar region Unspecified essential hypertension ALLERGIES Bactrim [Sulfamethoxazole-Trimethoprim], Ceclor [Cefaclor], Cipro [Other], Darvocet-N 100 [Propoxyphene N-Acetaminophen], Keflex [Cephalexin], Lipitor [Atorvastatin], Penicillins, and Zithromax [Azithromycin] MEDICATIONS Current Outpatient Medications Medication Sig ezetimibe (ZETIA) 10 mg tablet Take 1 tablet by mouth once daily. lisinopril (ZESTRIL) 10 mg tablet Take 1 tablet by mouth once daily. LORazepam (ATIVAN) 0.5 mg Take 1 tablet by mouth once daily as needed for up to 90 days. Cholecalciferol, Vitamin D3, 50 mcg (2,000 unit) cap Take 1 capsule by mouth once daily. vit A,C,M-Pzaa-Kptwbr (PRESERVISION AREDS) 2,148 mcg-113 mg-45 mg-17.4mg tab Take 2 tablets by mouth once daily. blood sugar diagnostic ([employer] ULTRA TEST) test strip TEST BLOOD SUGAR 2 (TWO) TIMES DAILY methylPREDNISolone (MEDROL, JONNY,) 4 mg Dose-Pack Follow dosing instructions, take with food. betamethasone dipropionate 0.05 % ointment Apply to more acute /severe or resistant psoriasis and/or eczematous dermatitis and then after clears adequately, try to taper to either bland emollient cream(eg. Cetaphil cream, Eucerin cream, etc.) or Rx Triamcinalone ointment as directed/tolerated Current Facility-Administered Medications Medication Dose Route Frequency perflutren lipid microspheres 1.3 mL in NaCl (PF) 0.9% 10 mL injection (DEFINITY) INTRAVENOUS DIRECTED PRN sodium chloride 0.9 % (flush) 10 mL (BD POSIFLUSH) 10 mL INTRAVENOUS DIRECTED PRN Facility-Administered Medications Ordered in Other Visits Medication Dose Route Frequency lidocaine (PF) 10 mg/mL (1 %) 1-2 mg injection (XYLOCAINE) 0.1-0.2 mL INTRADERMAL PRN NaCl 0.9% iv infusion 30 mL/hr INTRAVENOUS CONTINUOUS Medications and allergies reviewed by this provider. SOCIAL HISTORY Social History Tobacco Use Smoking status: Former Years: 4.00 Types: Cigarettes Quit date: 01/24/1971 Years since quittin.0 Smokeless tobacco: Never Tobacco comments: Pt smoked one pack a week x 4 years Substance Use Topics Alcohol use: Yes Comment: Occassional Drug use: No REVIEW OF SYSTEMS Review of Systems ROS: constitutional-neg, heent-neg, heart-neg, respiratory-neg, skin-rash; poison jayna, lymph-neg, - All systems neg except as noted above in HPI. OBJECTIVE: BP 126/80 Pulse 68 Temp 36.8 ?C (98.2 ?F) (Tympanic) Resp 16 SpO2 98% . Vital signs reviewed by this provider. Physical Exam Vitals reviewed. Constitutional: General: She is not in acute distress. Appearance: Normal appearance. She is well-developed and normal weight. She is not ill-appearing, toxic-appearing or diaphoretic. HENT: Head: Normocephalic and atraumatic. Musculoskeletal: Legs: Skin: General: Skin is warm. Capillary Refill: Capillary refill takes less than 2 seconds. Neurological: General: No focal deficit present. Mental Status: She is alert and oriented to person, place, and time. Psychiatric: Behavior: Behavior is cooperative. ASSESSMENT/PLAN: 1. Poison jayna dermatitis - ICD9: 692.6, ICD10: L23.7 - BETAMETHASONE DIPROPIONATE 0.05 % TOPICAL CREAM - Continue Claritin in Am - Can use Benadryl low dose at bedtime May use OTC benadryl as needed for itching Keep rash clean and dry. Allow to dry out. Do not scratch Monitor for signs of infection- more re (more content not included)...[facility]05-29-2023 Instructions* Patient Instructions* Armida Wade PA-C - 02/09/2023 8:26 AM EDT ASSESSMENT/PLAN: 1. Poison jayna dermatitis - - BETAMETHASONE DIPROPIONATE 0.05 % TOPICAL CREAM - Continue Claritin in Am - Can use Benadryl low dose at bedtime May use OTC benadryl as needed for itching Keep rash clean and dry. Allow to dry out. Do not scratch Monitor for signs of infection- more red, swollen, painful, hot, red streaking, fever, etc- seek further medical evaluation. Call PCP if symptoms worsen or no better. If symptoms worsen, or new symptoms develop go to ER. If you have worsening of breathing or breathing changes- go to ER. If you have persistent fever unrelieved by Tylenol/Motrin- go to the ER. Follow up as needed. Barriers to learning: none. The patient verbalizes understanding and is in agreement with plan of care. Armida Wade PA-C [facility] History of Present illness Narrative* Armida Wade PA-C - 02/09/2023 8:15 AM EDT Images from the original note were not included. 02/09/2023 Patient presents with: Rash: X 8 days SUBJECTIVE: This is a 77 year old with DM II that is here today for ongoing poison jayna x 8 days. Was seen here 5 days ago treatment of poison jayna on the leg and abdomen, and due to DM II status, she as given Medrol pack. She is not getting more sites, but the previous sites are just still so itchy, it keeps me up at night. She would like her Betamethasone ointment changed to a cream. No other sick symptoms. No other URI symptoms. Denies fever, chills, wheezing or SOB. Patient denies shortness of breath, increased WOB, or chest pain. Pain on scale of 0-10 with 0 being no pain and 10 being greatest pain: 0 Nothing makes the symptoms better. Nothing makes them worse. Self-treatment:. See HPI Barriers to learning: none. Reviewed meds, OTCs, herbals or supplements. Reviewed allergies, medications, social history, and past medical history. PAST MEDICAL HISTORY Diagnosis Date Advance care planning 01/29/2022 daughter Shelley Benign neoplasm of colon 11/12/2005 Bulging lumbar disc Diabetes (HCC) Diverticulosis of colon (without mention of hemorrhage) Internal hemorrhoids without mention of complication 11/12/2005 Other disorder of muscle, ligament, and fascia left leg Other psoriasis Personal history of colonic polyps Pure hypercholesterolemia Sciatica Spinal stenosis of lumbar region Unspecified essential hypertension ALLERGIES Bactrim [Sulfamethoxazole-Trimethoprim], Ceclor [Cefaclor], Cipro [Other], Darvocet-N 100[Propoxyphene N-Acetaminophen], Keflex [Cephalexin], Lipitor [Atorvastatin], Penicillins, and Zithromax [Azithromycin] MEDICATIONS Current Outpatient Medications Medication Sig ezetimibe (ZETIA) 10 mg tablet Take 1 tablet by mouth once daily. lisinopril (ZESTRIL) 10 mg tablet Take 1 tablet by mouth once daily. LORazepam (ATIVAN) 0.5 mg Take 1 tablet by mouth once daily as needed for up to 90 days. Cholecalciferol, Vitamin D3, 50 mcg (2,000 unit) cap Take 1 capsule by mouth once daily. vit A,C,K-Unvm-Wgvcnp (PRESERVISION AREDS) 2,148 mcg-113 mg-45 mg-17.4mg tab Take 2 tablets by mouth once daily. blood sugar diagnostic ([employer] ULTRA TEST) test strip TEST BLOOD SUGAR 2 (TWO) TIMES DAILY methylPREDNISolone (MEDROL, JONNY,) 4 mg Dose-Pack Follow dosing instructions, take with food. betamethasone dipropionate 0.05 % ointment Apply to more acute /severe or resistant psoriasis and/or eczematous dermatitis and then after clears adequately, try to taper to either bland emollient cream(eg. Cetaphil cream, Eucerin cream, etc.) or Rx Triamcinalone ointment as directed/tolerated Current Facility-Administered Medications Medication Dose Route Frequency perflutren lipid microspheres 1.3 mL in NaCl (PF) 0.9% 10 mL injection (DEFINITY) INTRAVENOUS DIRECTED PRN sodium chloride 0.9 % (flush) 10 mL (BD POSIFLUSH) 10 mL INTRAVENOUS DIRECTED PRN Facility-Administered Medications Ordered in Other Visits Medication Dose Route Frequency lidocaine (PF) 10 mg/mL (1 %) 1-2 mg injection (XYLOCAINE) 0.1-0.2 mL INTRADERMAL PRN NaCl 0.9% iv infusion 30 mL/hr INTRAVENOUS CONTINUOUS Medications and allergies reviewed by this provider. SOCIAL HISTORY Social History Tobacco Use Smoking status: Former Years: 4.00 Types: Cigarettes Quit date: 01/24/1971 Years since quittin.0 Smokeless tobacco: Never Tobacco comments: Pt smoked one pack a week x 4 years Substance Use Topics Alcohol use: Yes Comment: Occassional Drug use: No REVIEW OF SYSTEMS Review of Systems ROS: constitutional-neg, heent-neg, heart-neg, respiratory-neg, skin-rash; poison jayna, lymph-neg, -All systems neg except as noted above in HPI. OBJECTIVE: BP 126/80 Pulse 68 Temp 36.8 C (98.2 F) (Tympanic) Resp 16 SpO2 98% . Vital signs reviewed by this provider. Physical Exam Vitals reviewed. Constitutional: General: She is not in acute distress. Appearance: Normal appearance. She is well-developed and normal weight. She is not ill-appearing, toxic-appearing or diaphoretic. HENT: Head: Normocephalic and atraumatic. Musculoskeletal: Legs: Skin: General: Skin is warm. Capillary Refill: Capillary refill takes less than 2 seconds. Neurological: General: No focal deficit present. Mental Status: She is alert and oriented to person, place, and time. Psychiatric: Behavior: Behavior is cooperative. ASSESSMENT/PLAN: 1. Poison jayna dermatitis - ICD9: 692.6, ICD10: L23.7 - BETAMETHASONE DIPROPIONATE 0.05 % TOPICAL CREAM - Continue Claritin in Am - Can use Benadryl low dose at bedtime May use OTC benadryl as needed for itching Keep rash clean and dry. Allow to dry out. Do not scratch Monitor for signs of infection- more red, swollen, painful, hot, red streaking, fever, etc- seek further medical evaluation. Call PCP if symptoms worsen or no better. If symptoms worsen, or new symptoms develop go to ER. If you have worsening of breathing or breathing changes- go to ER. If you have persistent fever unrelieved by Tylenol/Motrin- go to the ER. Follow up as needed. Barriers to learning: none. The patient verbalizes understanding and is in agreement with plan of care. Armida Wade PA-C Medical Decision Making: Problems: Low: Acute, uncomplicated illness or injury Risk: Low: Low risk from testing/treatment Moderate: Drug management Medical Decision Making Level: 3 - Low I spent a total of 20 minutes on the date of the service which included preparing to see the patient, [id number] patient care, completing clinical documentation, performing a medically appropriate examination, counseling and educating the patient/family/caregiver, and ordering medications, tests,or procedures. [facility]23 NoteHNO ID: [id number] Author: Peng Cage PT Service: ? Author Type: Physical Therapist Type: Progress Notes Filed: 02/05/2023 6:24 PM Note Text: Episode Visit Count: 3 Therapist That Will Accept/Oversee The Plan Of Care: Peng Cage Start of Care Date: 01/22/23 Onset Date: 10/25/22 Plan of Care Certification Date: 01/22/23 Next Certification Due Date: 02/26/23 Patient Identified by Name and Date of : Yes REHABILITATION AND SPORTS THERAPY PHYSICAL THERAPY TREATMENT NOTE ASSESSMENT: Vivi Werner tolerated the session with no issues. She demonstrated good tolerance to all therapeutic exercises. The patient will continue to benefit from ongoing skilled physical therapy to progress toward set goals. PLAN FOR NEXT VISIT: Continue with hip strengthening adding increased weight SUBJECTIVE: Patient Reason for Visit: Feeling better. The pain is not as frequent. Pain: Pain Pain Level: 0 Pain Location: Buttocks - Right OBJECTIVE MEASURES WITH LEVEL OF FUNCTION: Corrected form with clamshells with tactile and VC's TREATMENT: Therapeutic Exercise: 1: Hooklying bridge with strap 2 x 10 reps 2: Supine SLR strap assist 2 x 10 reps 3: Sidelying clam GTB 2 x 10 reps 4: Side-stepping pink TB to fatigue x 2 rounds moving L and R Skilled Intervention: Patient was educated in proper exercise technique and purpose for exercises. Provided written instruction for home exercise program to facilitate proper performance and compliance. Correct performance of therapeutic exercises was facilitated with verbal and visual cuing. Billing Therapeutic Exercise Treatment Minutes: 38 Total Treatment Time Minutes (timed/untimed): 38 Peng Cage [facility]05-24-2023 NoteHNO ID: [id number] Author: Connie Josue APRN.NEWSPAPER VENDOR Service: ? Author Type: Nurse Practitioner Type: Progress Notes Filed: 02/04/2023 12:37 PM Note Text: 02/04/2023 Patient presents with: Rash: Poison jayna x1 week SUBJECTIVE: This is a 77 year old that is here today for Above Complaints.. Has had poison for the last week. Using [place] and Betamethasone cream without much relief. Reports still has new areas. PAST MEDICAL HISTORY Diagnosis Date Advance care planning 01/29/2022 daughter Shelley Benign neoplasm of colon 11/12/2005 Bulging lumbar disc Diabetes (HCC) Diverticulosis of colon (without mention of hemorrhage) Internal hemorrhoids without mention of complication 11/12/2005 Other disorder of muscle, ligament, and fascia left leg Other psoriasis Personal history of colonic polyps Pure hypercholesterolemia Sciatica Spinal stenosis of lumbar region Unspecified essential hypertension ALLERGIES Bactrim [Sulfamethoxazole-Trimethoprim], Ceclor [Cefaclor], Cipro [Other], Darvocet-N 100 [Propoxyphene N-Acetaminophen], Keflex [Cephalexin], Lipitor [Atorvastatin], Penicillins, and Zithromax [Azithromycin] MEDICATIONS Current Outpatient Medications Medication Sig betamethasone dipropionate 0.05 % ointment Apply to more acute /severe or resistant psoriasis and/or eczematous dermatitis and then after clears adequately, try to taper to either bland emollient cream(eg. Cetaphil cream, Eucerin cream, etc.) or Rx Triamcinalone ointment as directed/tolerated ezetimibe (ZETIA) 10 mg tablet Take 1 tablet by mouth once daily. lisinopril (ZESTRIL) 10 mg tablet Take 1 tablet by mouth once daily. LORazepam (ATIVAN) 0.5 mg Take 1 tablet by mouth once daily as needed for up to 90 days. Cholecalciferol, Vitamin D3, 50 mcg (2,000 unit) cap Take 1 capsule by mouth once daily. vit A,C,C-Eplg-Aliuut (PRESERVISION AREDS) 2,148 mcg-113 mg-45 mg-17.4mg tab Take 2 tablets by mouth once daily. blood sugar diagnostic ([employer] ULTRA TEST) test strip TEST BLOOD SUGAR 2 (TWO) TIMES DAILY Current Facility-Administered Medications Medication Dose Route Frequency perflutren lipid microspheres 1.3 mL in NaCl (PF) 0.9% 10 mL injection (DEFINITY) INTRAVENOUS DIRECTED PRN sodium chloride 0.9 % (flush) 10 mL (BD POSIFLUSH) 10 mL INTRAVENOUS DIRECTED PRN Facility-Administered Medications Ordered in Other Visits Medication Dose Route Frequency lidocaine (PF) 10 mg/mL (1 %) 1-2 mg injection (XYLOCAINE) 0.1-0.2 mL INTRADERMAL PRN NaCl 0.9% iv infusion 30 mL/hr INTRAVENOUS CONTINUOUS Medications and allergies reviewed by this provider. SOCIAL HISTORY Social History Tobacco Use Smoking status: Former Years: 4.00 Types: Cigarettes Quit date: 01/24/1971 Years since quittin.0 Smokeless tobacco: Never Tobacco comments: Pt smoked one pack a week x 4 years Substance Use Topics Alcohol use: Yes Comment: Occassional Drug use: No REVIEW OF SYSTEMS All other reviewed and negative other than HPI. OBJECTIVE: BP 122/70 Pulse 79 Resp 18 Wt 69.9 kg (154 lb) SpO2 96% BMI 30.08 kg/m? . Vital signs reviewed by this provider. APPEARANCE Well appearing, alert, in no acute distress, well-hydrated, well nourished. SKIN patch of papules to left an right lower leg, abdomen and right and left arms. No active drainage, surrounding erythema or excessive warmth SHINGRIX VACCINE(1 of 2) Never done BONE DENSITY Never done COVID-19 VACCINE(5 - Booster for Moderna series) due on 02/25/2022 DIABETIC FOOT EXAM due on 01/29/2023 URINE ALBUMIN:CREATININE RATIO due on 07/15/2023 HBA1C due on 07/18/2023 DILATED RETINAL EXAM due on 10/10/2023 LDL CHOLESTEROL due on 01/16/2024 SERUM CREATININE due on 01/16/2024 HEMOGLOBIN/HEMATOCRIT due on 01/16/2024 ANNUAL PCP TEAM CHRONIC DISEASE VISIT due on 02/05/2024 BP CONTROLLED (<130/80) due on 02/05/2024 DTAP,TDAP,TD(2 - Td or Tdap) due on 06/18/2025 INFLUENZA Completed DEPRESSION ASSESSMENT Completed PNEUMOCOCCAL: 65+ Completed ADVANCE DIRECTIVE DISCUSSION Discontinued ASSESSMENT/PLAN: 1. Poison jayna - ICD9: 692.6, ICD10: L23.7 (primary diagnosis) - Oral Steriod tx -Medrol dose pack - Anti itch therapy of Calomine lotion, Oatmeal baths, and Oral Benydryl recommended prn - discussed skin care of rash - follow up if symptoms persist or worsen. - METHYLPREDNISOLONE 4 MG TABLETS IN A DOSE PACK - follow-up if fails to improve Connie Josue APRN.NEWSPAPER VENDOR Prescription instructions reviewed with patient as applicable. Patient advised if symptoms do not improve or if symptoms worsen sooner, to contact their primary care physician. Potential red flag symptoms discussed with the patient. Reviewed appropriate action plan to take if red flag symptoms occur. Patient agreeable to treatment plan. I spent a total of 20 minutes on the date of the service which included preparing to see the patient, [id number] (more content not included)... [facility]05-17-2023 NoteHNO ID: [id number] Author: Connie Josue APRN.NEWSPAPER VENDOR Service: ? Author Type: Nurse Practitioner Type: Progress Notes Filed: 01/28/2023 1:39 PM Note Text: 01/28/2023 Patient presents with: Blood Pressure: Had an elevated BP at express care today SUBJECTIVE: This is a 77 year old that is here today for Above Complaints. Seen in Urgent Care today and BP noted to be elevated. Patient here for recheck. Patient reports she was worried about it since it is never elevated. She does take lisinopril 10 mg daily but normally takes later in the day as and has not had it today. Denies visual a changes, headaches, slurred speech, facial drooping, extremity numbness/tingling/weakness, SOB, dyspnea or chest pain PAST MEDICAL HISTORY Diagnosis Date Advance care planning 01/29/2022 daughter Shelley Benign neoplasm of colon 11/12/2005 Bulging lumbar disc Diabetes (HCC) Diverticulosis of colon (without mention of hemorrhage) Internal hemorrhoids without mention of complication 11/12/2005 Other disorder of muscle, ligament, and fascia left leg Other psoriasis Personal history of colonic polyps Pure hypercholesterolemia Sciatica Spinal stenosis of lumbar region Unspecified essential hypertension ALLERGIES Bactrim [Sulfamethoxazole-Trimethoprim], Ceclor [Cefaclor], Cipro [Other], Darvocet-N 100 [Propoxyphene N-Acetaminophen], Keflex [Cephalexin], Lipitor [Atorvastatin], Penicillins, and Zithromax [Azithromycin] MEDICATIONS Current Outpatient Medications Medication Sig lisinopril (ZESTRIL) 10 mg tablet Take 1 tablet by mouth once daily. LORazepam (ATIVAN) 0.5 mg Take 1 tablet by mouth once daily as needed for up to 90 days. Cholecalciferol, Vitamin D3, 50 mcg (2,000 unit) cap Take 1 capsule by mouth once daily. vit A,C,A-Tudk-Ciorze (PRESERVISION AREDS) 2,148 mcg-113 mg-45 mg-17.4mg tab Take 2 tablets by mouth once daily. blood sugar diagnostic (VortalTOUCH ULTRA TEST) test strip TEST BLOOD SUGAR 2 (TWO) TIMES DAILY Current Facility-Administered Medications Medication Dose Route Frequency perflutren lipid microspheres 1.3 mL in NaCl (PF) 0.9% 10 mL injection (DEFINITY) INTRAVENOUS DIRECTED PRN sodium chloride 0.9 % (flush) 10 mL (BD POSIFLUSH) 10 mL INTRAVENOUS DIRECTED PRN Facility-Administered Medications Ordered in Other Visits Medication Dose Route Frequency lidocaine (PF) 10 mg/mL (1 %) 1-2 mg injection (XYLOCAINE) 0.1-0.2 mL INTRADERMAL PRN NaCl 0.9% iv infusion 30 mL/hr INTRAVENOUS CONTINUOUS Medications and allergies reviewed by this provider. SOCIAL HISTORY Social History Tobacco Use Smoking status: Former Years: 4.00 Types: Cigarettes Quit date: 01/24/1971 Years since quittin.0 Smokeless tobacco: Never Tobacco comments: Pt smoked one pack a week x 4 years Substance Use Topics Alcohol use: Yes Comment: Occassional Drug use: No REVIEW OF SYSTEMS All other reviewed and negative other than HPI. OBJECTIVE: BP 127/73 Pulse 70 Resp 18 Wt 70.4 kg (155 lb 3.2 oz) SpO2 95% BMI 30.31 kg/m? . Vital signs reviewed by this provider. APPEARANCE Well appearing, alert, in no acute distress, well-hydrated, well nourished. SHINGRIX VACCINE(1 of 2) Never done BONE DENSITY Never done COVID-19 VACCINE(5 - Booster for Moderna series) due on 02/25/2022 DIABETIC FOOT EXAM due on 01/29/2023 BP CONTROLLED (<130/80) due on 01/29/2023 URINE ALBUMIN:CREATININE RATIO due on 07/15/2023 HBA1C due on 07/18/2023 DILATED RETINAL EXAM due on 10/10/2023 LDL CHOLESTEROL due on 01/16/2024 SERUM CREATININE due on 01/16/2024 HEMOGLOBIN/HEMATOCRIT due on 01/16/2024 ANNUAL PCP TEAM CHRONIC DISEASE VISIT due on 01/29/2024 DTAP,TDAP,TD(2 - Td or Tdap) due on 06/18/2025 INFLUENZA Completed DEPRESSION ASSESSMENT Completed PNEUMOCOCCAL: 65+ Completed ADVANCE DIRECTIVE DISCUSSION Discontinued ASSESSMENT/PLAN: 1. Blood pressure check - ICD9: V81.1, ICD10: Z01.30 - BP in normal range - follow-up with Dr. Henry as recommended Connie Podlogar, DIGITAL IMAGING TECHNICIAN.NEWSPAPER VENDOR Prescription instructions reviewed with patient as applicable. Patient advised if symptoms do not improve or if symptoms worsen sooner, to contact their primary care physician. Potential red flag symptoms discussed with the patient. Reviewed appropriate action plan to take if red flag symptoms occur. Patient agreeable to treatment plan. I spent a total of 20 minutes on the date of the service which included preparing to see the patient, [id number] patient care, completing clinical documentation, obtaining and/or reviewing separately obtained history, performing a medically appropriate examination, counseling and educating the patient/family/caregiver, and ordering medications, tests, or procedures.[facility]05-17-2023 NoteHNO ID: [id number] Author: Gilberto Hernandez MD Service: ? Author Type: Physician Type: Progress Notes Filed: 01/28/2023 12:43 PM Note Text: Patient presents with: tick bite: Bottom of right leg x 2 days HPI: Skin Lesion: Location: right taylor Duration: 2 days Pruritis/Pain: pruritic Change: no Drainage/blister/pustule/ulceration: red bump with dark center. No drainage with squeezing. No fever, malaise, myalgia Treatment: alcohol pad MEDICATIONS: lisinopril (ZESTRIL) 10 mg tabletTake 1 tablet by mouth once daily.Disp: 90 tabletRfl: 0 LORazepam (ATIVAN) 0.5 mgTake 1 tablet by mouth once daily as needed for up to 90 days.Disp: 90 tabletRfl: 1 Cholecalciferol, Vitamin D3, 50 mcg (2,000 unit) capTake 1 capsule by mouth once daily.Disp: Rfl: vit A,C,U-Expy-Hmqnvd (PRESERVISION AREDS) 2,148 mcg-113 mg-45 mg-17.4mg tabTake 2 tablets by mouth once daily.Disp: Rfl: blood sugar diagnostic ([employer] ULTRA TEST) test stripTEST BLOOD SUGAR 2 (TWO) TIMES DAILYDisp: 200 StripRfl: 3 ALLERGIES: ALLERGIES Allergen Reactions Bactrim [Sulfametho* Hives Ceclor [Cefaclor] Hives Cipro [Other] Hives Darvocet-N 100 [Pro* GI Upset Keflex [Cephalexin] Lipitor [Atorvastat* Myalgia Leg cramps/discomfort Penicillins Zithromax [Azithrom* VITALS: BP 160/90 Pulse 72 Temp 36.5 ?C (97.7 ?F) Resp 21 Wt 70.5 kg (155 lb 6.4 oz) SpO2 99% BMI 30.35 kg/m? Last 6 Encounter BP Readings: Date: BP: 01/28/2023 152/88 12/10/2022 120/80 10/23/2022 129/74 09/16/2022 130/76 09/15/2022 136/84 07/16/2022 130/80 PE: Pleasant, in no acute distress. SKIN: 5mm erythematous papule right lower taylor which is tender to palpation. There is a <1mm dark center which was removed with 18g syringe needle. Dressed with an adhesive bandage. ASSESSMENT/PLAN: 1. Papule of skin - ICD9: 709.8, ICD10: R23.8 (primary diagnosis) Small splinter/thorn vs scab from insect bite. No observed tick so no indication for prophylaxis. Follow up with worsening signs of infection. 2. Hypertension, essential - ICD9: 401.9, ICD10: I10 Nurse BP check later this week. Gilberto Hernandez, [facility]05-17-2023 History of Present illness Narrative* Gilberto Hernandez MD - 01/28/2023 12:06 PM EDT Patient presents with: tick bite: Bottom of right leg x 2 days HPI: Skin Lesion: Location: right taylor Duration: 2 days Pruritis/Pain: pruritic Change: no Drainage/blister/pustule/ulceration: red bump with dark center. No drainage with squeezing. No fever, malaise, myalgia Treatment: alcohol pad MEDICATIONS: lisinopril (ZESTRIL) 10 mg tablet^Take 1 tablet by mouth once daily.^Disp: 90 tablet^Rfl: 0 LORazepam (ATIVAN) 0.5 mg^Take 1 tablet by mouth once daily as needed for up to 90 days.^Disp: 90 tablet^Rfl: 1 Cholecalciferol, Vitamin D3, 50 mcg (2,000 unit) cap^Take 1 capsule by mouth once daily.^Disp: ^Rfl: vit A,C,Z-Wrfl-Jmyggm (PRESERVISION AREDS) 2,148 mcg-113 mg-45 mg-17.4mg tab^Take 2 tablets by mouth once daily.^Disp: ^Rfl: blood sugar diagnostic ([employer]ET[employer]CH ULTRA TEST) test strip^TEST BLOOD SUGAR 2 (TWO) TIMES DAILY^Disp: 200 Strip^Rfl: 3 ALLERGIES: ALLERGIES Allergen Reactions Bactrim [Sulfametho* Hives Ceclor [Cefaclor] Hives Cipro [Other] Hives Darvocet-N 100 [Pro* GI Upset Keflex [Cephalexin] Lipitor [Atorvastat* Myalgia Leg cramps/discomfort Penicillins Zithromax [Azithrom* VITALS: BP 160/90 Pulse 72 Temp 36.5 C (97.7 F) Resp 21 Wt 70.5 kg (155 lb 6.4 oz) SpO2 99% BMI30.35 kg/m Last 6 Encounter BP Readings: Date: BP: 01/28/2023 152/88 12/10/2022 120/80 10/23/2022 129/74 09/16/2022 130/76 09/15/2022 136/84 07/16/2022 130/80 PE: Pleasant, in no acute distress. SKIN: 5mm erythematous papule right lower taylor which is tender to palpation. There is a <1mm dark center which was removed with 18g syringe needle. Dressed with an adhesive bandage. ASSESSMENT/PLAN: 1. Papule of skin - ICD9: 709.8, ICD10: R23.8 (primary diagnosis) Small splinter/thorn vs scab from insect bite. No observed tick so no indication for prophylaxis. Follow up with worsening signs of infection. 2. Hypertension, essential - ICD9: 401.9, ICD10: I10 Nurse BP check later this week. Gilberto Hernandez MD [facility] History of Past illness Narrative* Problem Noted Date Resolved Date Type 2 diabetes mellitus wit h stage 3a chronic kidney disease, without long-term current use of insulin 07/16/202011/2020 Unspecified essential hypertension 07/12/2020 documented as of this encounter (statuses as of 01/28/2023) [facility]05-16-2023 NoteHNO ID: [id number] Author: Peng Cage PT Service: ? Author Type: Physical Therapist Type: Progress Notes Filed: 01/27/2023 6:11 PM Note Text: Episode Visit Count: 2 Therapist That Will Accept/Oversee The Plan Of Care: Peng Cage Start of Care Date: 01/22/23 Onset Date: 10/25/22 Plan of Care Certification Date: 01/22/23 Next Certification Due Date: 02/26/23 Patient Identified by Name and Date of : Yes REHABILITATION AND SPORTS THERAPY PHYSICAL THERAPY TREATMENT NOTE ASSESSMENT: Vivi Werner tolerated the session with no issues. She demonstrated good tolerance to therapeutic exercises. The patient will continue to benefit from ongoing skilled physical therapy to progress toward set goals. PLAN FOR NEXT VISIT: R hip strengthening to support the R SIJ SUBJECTIVE: Patient Reason for Visit: The pain feels the same as before. Not less frequent and not less intense. Feels like the exercise can be ruled out possibly. Pain: Pain Pain Level: 0 Pain Location: Buttocks - Right OBJECTIVE MEASURES WITH LEVEL OF FUNCTION: HS tightness WNL Visible more effort to perform SLR in supine on the R side than the L TREATMENT: Therapeutic Exercise: 1: *Supine SLR 2 x 10 reps 2: *Sidelying hip ER x 10 3: *Sidelying hip ER GTB 2 x 10 reps 4: Glute bridge x 10 5: Glute bridge with strap (To target glute max and remove overactivity of the HS) 6: Sidelying hip abd 2 x 5 reps Skilled Intervention: Patient was educated in proper exercise technique and purpose for exercises. Correct performance of therapeutic exercises was facilitated with verbal and visual cuing. Billing Therapeutic Exercise Treatment Minutes: 40 Total Treatment Time Minutes (timed/untimed): 40 Peng Cage [facility]05-16-2023 History of Present illness Narrative* Peng Cage, PT - 01/27/2023 5:24 PM EDT Episode Visit Count: 2 Therapist That Will Accept/Oversee The Plan Of Care: Peng Cage Start of Care Date: 01/22/23 Onset Date: 10/25/22 Plan of Care Certification Date: 01/22/23 Next Certification Due Date: 02/26/23 Patient Identified by Name and Date of : Yes REHABILITATION AND SPORTS THERAPY PHYSICAL THERAPY TREATMENT NOTE ASSESSMENT: Viviguillermina Werner tolerated the session with no issues. She demonstrated good tolerance to therapeutic exercises. The patient will continue to benefit from ongoing skilled physical therapy to progress toward set goals. PLAN FOR NEXT VISIT: R hip strengthening to support the R SIJ SUBJECTIVE: Patient Reason for Visit: The pain feels the same as before. Not less frequent and not less intense. Feels like the exercise can be ruled out possibly. Pain: Pain Pain Level: 0 Pain Location: Buttocks - Right OBJECTIVE MEASURES WITH LEVEL OF FUNCTION: HS tightness WNL Visible more effort to perform SLR in supine on the R side than the L TREATMENT: Therapeutic Exercise: 1: *Supine SLR 2 x 10 reps 2: *Sidelying hip ER x 10 3: *Sidelying hip ER GTB 2 x 10 reps 4: Glute bridge x 10 5: Glute bridge with strap (To target glute max and remove overactivity of the HS) 6: Sidelying hip abd 2 x 5 reps Skilled Intervention: Patient was educated in proper exercise technique and purpose for exercises. Correct performance of therapeutic exercises was facilitated with verbal and visual cuing. Billing Therapeutic Exercise Treatment Minutes: 40 Total Treatment Time Minutes (timed/untimed): 40 Peng Cage PT documented [facility]23 NoteHNO ID: [id number] Author: Peng Cage PT Service: ? Author Type: Physical Therapist Type: Progress Notes Filed: 01/22/2023 3:05 PM Note Text: Episode Visit Count: 1 Therapist That Will Accept/Oversee The Plan Of Care: Peng Cage Start of Care Date: 01/22/23 Onset Date: 10/25/22 Plan of Care Certification Date: 01/22/23 Next Certification Due Date: 02/26/23 Patient Identified by Name and Date of : Yes REHABILITATION AND SPORTS THERAPY PHYSICAL THERAPY EVALUATION PLAN OF CARE: Assessment: Vivi Werner presents with chief complaint of R buttock and occasional posterior leg pain that interferes with sitting . She presents with impairments in flexibility, independence in exercise, strength, and symptom management. PROMIS? (Patient-Reported Outcomes Measurement Information System) scores were reviewed and physical function domain identified as a rehabilitation concern. Prognosis for therapy is Good due to: current objective clinical presentation . Pain with stretching, palpation and activation of the R piriformis. Negative SLR on the R/ She will benefit from skilled therapy services to meet the goals established for this plan of care as noted below. Goals for Episode of Care: created on 01/22/23 through 03/05/23 [place] in home exercise program. Perform sitting without pain. Increased strength of R ER to 5/5 via MMT for improved piriformis strength and decreased pain Improve flexibility of the R piriformis for decreased pain Patient Goals: Get rid of the pain Planned Interventions, Frequency, and Duration: Current Frequency: 1x/week Duration: 4 weeks Total Number of Visits Planned: 4 Planned Treatment Interventions: Therapeutic exercise (28267), Neuromuscular re-education (05063), Manual therapy (52069), Therapeutic activities (80992), Self-correction management (28008), Patient/Family/Caregiver Education PLAN FOR NEXT VISIT: Assess reaction to piriformis stretching. If stretching does not help with symptoms then trial strengthening the piriformis Patient demonstrates good understanding of plan of care and treatment. The above goals and plan of care were discussed and agreed upon by patient/family. SUBJECTIVE: Vivi Werner is a 77 year old female seen today for The moment she sits she gets a pain in the butt down to the lower posterior thigh. Not painful in the back. Better once moving. Hurts in the morning. Sitting down can cause pain where the edge of the seat is. Can decrease pain with an hour of activity. Hurts when walking up inclines, prolonged sitting, and comes and goes. Patient Goals: Get rid of the pain Functional Limitations: sitting Prior Level of Function: Independent without limitations Intake Information: Prescription present Previous Treatment: Ice , Heat Falls Interview: Fall without injury in the last year Red Flags Vertebral Fracture Clinical Reasoning: No identified risk factors Abdominal Aortic Aneurysm Clinical Reasoning: No identified risk factors. Pain: Pain Pain Level: 2 (6/10 when driving) Pain Location: Buttocks - Right PROMIS Scales Higher is Better 01/20/2023 01/08/2023 06/30/2022 Phys Func - Score - 43 (mild dysfunction) 43 (mild dysfunction) Phys Func - Percentile - 24 % 24 % Self-Eff Symptom - Score 55 (Average) - - Self-Eff Symptom - Percentile 69 % - - T-scores: mean of general population = 50. 5 points is clinically meaningfully difference Percentiles provide an indication of how the patient's score ranks in relation to the general population. Higher percentile rankings indicate better function/quality of life. 50th percentile is the average of the general population and indicates half of respondents had a worse score. OBJECTIVE MEASURES WITH LEVEL OF FUNCTION: Lumbar Spine AROM Lumbar Flexion: Normal Lumbar Extension: Normal Lumbar R Side-Bend: Normal Lumbar L Side-Bend: Normal Lumbar R Rotation: Normal (Some tenderness in the R buttock region) Lumbar L Rotation: Normal LE PROM Tested?: Yes LE Flexibility Flexibility: Piriformis Flexibility R Piriformis Flexibility: Tight LE Strength R LE Strength: Grossly 5/5 L LE Strength: Grossly 5/5 R Hip ABduction: 4-/5 (No pain) R Hip External Rotation: 4/5 L Hip External Rotation: 4/5 Gait Gait Observation: WNL Education: Education Learning Preferences: Demonstration, Explanation, Performance, Printed Materials Barriers: None Learning/educational needs: Home exercise program, Plan of Care Education Provided: Yes, see treatment interventions for education provided Education Provided To: Patient Education Mode/Type: Demonstration, Explanation/Discussion, Literature/Printed Materials, Performance Response to Education/Teach Back: States/Identifies, Return Demonstration TREATMENT: PT Treatment Interventions: Therapeutic Exercise Evaluation Therapeutic Exercise: 1: Discussed therapy goals, exa (more content not included)...[facility]05-11-2023 History of Present illness Narrative* Peng Cage, PT - 01/22/2023 2:01 PM EDT Episode Visit Count: 1 Therapist That Will Accept/Oversee The Plan Of Care: FauziaPeng Start of Care Date: 01/22/23 Onset Date: 10/25/22 Plan of Care Certification Date: 01/22/23 Next Certification Due Date: 02/26/23 Patient Identified by Name and Date of : Yes REHABILITATION AND SPORTS THERAPY PHYSICAL THERAPY EVALUATION PLAN OF CARE: Assessment: Vivi Werner presents with chief complaint of R buttock and occasional posterior leg pain that interferes with sitting . She presents with impairments in flexibility, independence in exercise, strength, and symptom management. PROMIS (Patient-Reported Outcomes Measurement Information System) scores were reviewed and physical function domain identified as a rehabilitation concern. Prognosis for therapy is Good due to: current objective clinical presentation . Pain with stretching, palpation and activation of the R piriformis. Negative SLR on the R/ She will benefit from skilled therapy services to meet the goals established for this plan of care as noted below. Goals for Episode of Care: created on 01/22/23 through 03/05/23 [place] in home exercise program. Perform sitting without pain. Increased strength of R ER to 5/5 via MMT for improved piriformis strength and decreased pain Improve flexibility of the R piriformis for decreased pain Patient Goals: Get rid of the pain Planned Interventions, Frequency, and Duration: Current Frequency: 1x/week Duration: 4 weeks Total Number of Visits Planned: 4 Planned Treatment Interventions: Therapeutic exercise (10195), Neuromuscular re- education (28776), Manual therapy (37803), Therapeutic activities (02983), Self- correction management (20860), Patient/Family/Caregiver Education PLAN FOR NEXT VISIT: Assess reaction to piriformis stretching. If stretching does not help with symptoms then trial strengthening the piriformis Patient demonstrates good understanding of plan of care and treatment. The above goals and plan of care were discussed and agreed upon by patient/family. SUBJECTIVE: Vivi Werner is a 77 year old female seen today for The moment she sits she gets a pain in the butt down to the lower posterior thigh. Not painful in the back. Better once moving. Hurts in the morning. Sitting down can cause pain where the edge of the seat is. Can decrease pain with an hour of activity. Hurts when walking up inclines, prolonged sitting, and comes and goes. Patient Goals: Get rid of the pain Functional Limitations: sitting Prior Level of Function: Independent without limitations Intake Information: Prescription present Previous Treatment: Ice , Heat Falls Interview: Fall without injury in the last year Red Flags Vertebral Fracture Clinical Reasoning: No identified risk factors Abdominal Aortic Aneurysm Clinical Reasoning: No identified risk factors. Pain: Pain Pain Level: 2 (6/10 when driving) Pain Location: Buttocks - Right PROMIS Scales Higher is Better 01/20/2023 01/08/2023 06/30/2022 Phys Func - Score - 43 (mild dysfunction) 43 (mild dysfunction) Phys Func - Percentile - 24 % 24 % Self-Eff Symptom - Score 55 (Average) - - Self-Eff Symptom - Percentile 69 % - - T-scores: mean of general population = 50. 5 points is clinically meaningfully difference Percentiles provide an indication of how the patient's score ranks in relation to the general population. Higher percentile rankings indicate better function/quality of life. 50th percentile is the average of the general population and indicates half of respondents had a worse score. OBJECTIVE MEASURES WITH LEVEL OF FUNCTION: Lumbar Spine AROM Lumbar Flexion: Normal Lumbar Extension: Normal Lumbar R Side-Bend: Normal Lumbar L Side-Bend: Normal Lumbar R Rotation: Normal (Some tenderness in the R buttock region) Lumbar L Rotation: Normal LE PROM Tested?: Yes LE Flexibility Flexibility: Piriformis Flexibility R Piriformis Flexibility: Tight LE Strength R LE Strength: Grossly 5/5 L LE Strength: Grossly 5/5 R Hip ABduction: 4-/5 (No pain) R Hip External Rotation: 4/5 L Hip External Rotation: 4/5 Gait Gait Observation: WNL Education: Education Learning Preferences: Demonstration, Explanation, Performance, Printed Materials Barriers: None Learning/educational needs: Home exercise program, Plan of Care Education Provided: Yes, see treatment interventions for education provided Education Provided To: Patient Education Mode/Type: Demonstration, Explanation/Discussion, Literature/Printed Materials, Performance Response to Education/Teach Back: States/Identifies, Return Demonstration TREATMENT: PT Treatment Interventions: Therapeutic Exercise Evaluation Therapeutic Exercise: 1: Discussed therapy goals, exam findings, purpose of the HEP and handout was provided 2: Supine piriformis stretch x 30 sec 3: Seated piriformis stretch 2 x 30 sec Skilled Intervention: Patient was educated in proper exercise technique and purpose for exercises. Skilled judgment was provided in selection of appropriate interventions. Provided written instruction for home exercise program to facilitate proper performance and compliance. Correct performance of therapeutic exercises was facilitated with verbal and visual cuing. Billing * Evaluation Low Complexity: 1 Unit Therapeutic Exercise Treatment Minutes: 20 Total Treatment Time Minutes (timed/untimed): 46 Peng Cage PT [facility] History of Past illness Narrative* Problem Noted Date Resolved Date Type 2 diabetes mellitus wit h stage 3a chronic kidney disease, without long-term current use of insulin 07/16/20200 11/2020 Unspecified essential hypertension 07/12/2020 documented as of this encounter (statuses as of 01/23/2023) [facility]05-[facility] Miscellaneous Notes* Telephone Encounter - Veronica Shaver LPN - 01/19/2023 10:11 AM EDT Calli--12/10/22 Nov--nothing scheduled Last refill--11/05/22 90 with 0 refills Last labs--01/15/23 * Telephone Encounter - Connie Martínez - 01/19/2023 9:31 AM EDT Patient phones requesting refills as follows: Requested Prescriptions Pending Prescriptions Disp Refills lisinopril (ZESTRIL) 10 mg tablet 90 tablet 0 Sig: Take 1 tablet by mouth once daily. Please review and advise. Connie Martínez documented in this encounterFair[facility]05-08-[facility]23 History of Past illness Narrative* Problem Noted Date Resolved Date Type 2 diabetes mellitus wit h stage 3a chronic kidney disease, without long-term current use of insulin 07/16/202011/2020 Unspecified essential hypertension 07/12/2020 documented as of this encounter (statuses as of 01/19/2023) [facility] NoteHNO ID: [id number] Author: Sameer Andrade, DO Service: ? Author Type: Physician Type: Progress Notes Filed: 01/09/2023 2:45 PM Note Text: Vivi Werner is a 77 year old female who follows up today for procedure follow up. She had a left S1 TFESI done in July 2022. She reports symptoms HAVE improved since last visit. About 80% reduction in pain on the left side. Today she is reporting that she is having very similar pain in the right side, pain is in the low/buttock and do not radiate down the leg.These symptoms have been present for 3 month(s). The onset of symptoms was progressive. Patient states the pain is intermittent and mild.Patient describes the pain as aching. On a scale of 0-10, the pain today is 3. On a bad day, the pain is 7. The patient states the pain is exacerbated by sitting or after doing work. Does not bother her while she works on her property. Patient notes, to date, that the pain is reduced by Tylenol. Pain Ratio: back 100% leg 0% She has been managing the pain with OTC tylenol and some lidocaine patches. Tylenol helps a lot, but does not get rid of her pain. ALLERGIES Allergen Reactions Bactrim [Sulfametho* Hives Ceclor [Cefaclor] Hives Cipro [Other] Hives Darvocet-N 100 [Pro* GI Upset Keflex [Cephalexin] Lipitor [Atorvastat* Myalgia Leg cramps/discomfort Penicillins Zithromax [Azithrom* PAST MEDICAL HISTORY Diagnosis Date Advance care planning 01/29/2022 rich Rosa Benign neoplasm of colon 11/12/2005 Bulging lumbar disc Diabetes (HCC) Diverticulosis of colon (without mention of hemorrhage) Internal hemorrhoids without mention of complication 11/12/2005 Other disorder of muscle, ligament, and fascia left leg Other psoriasis Personal history of colonic polyps Pure hypercholesterolemia Sciatica Spinal stenosis of lumbar region Unspecified essential hypertension PAST SURGICAL HISTORY Procedure Laterality Date ARTHROSCOPY KNEE DIAGNOSTIC W/WO SYNOVIAL BX SPX 2002 Arthroscopy, knee, right ARTHRP KNE CONDYLEANDPLATU MEDIALANDLAT COMPARTMENTS 12-18-04 Knee replacement, total right COLONOSCOPY 12/2014 COLONOSCOPY FLX DX W/COLLJ SPEC WHEN PFRMD 01/01/10 COLSC FLX W/RMVL OF TUMOR POLYP LESION SNARE TQ 11/12/05 EGD 2017 EGD at [facility]- negative, stopped omeprazole PAST SURGICAL HISTORY OF 1994 BLADDER SUSPENSION PAST SURGICAL HISTORY OF 1991 JAW SURGERY PAST SURGICAL HISTORY OF carpal tunnel, bilateral FAMILY HISTORY Problem Relation Age of Onset Diabetes Father Social History Tobacco Use Smoking status: Former Years: 4.00 Types: Cigarettes Quit date: 01/24/1971 Years since quittin.9 Smokeless tobacco: Never Tobacco comments: Pt smoked one pack a week x 4 years Substance Use Topics Alcohol use: Yes Comment: Occassional Drug use: No REVIEW OF SYSTEMS GENERAL: No weight loss, malaise or fevers Denies new fevers, chills, unintended weight loss, night sweats, muscle weakness, sensation changes including the saddle, also denies new bowel and bladder changes or incontinence. Current Outpatient Medications Medication Sig LORazepam (ATIVAN) 0.5 mg Take 1 tablet by mouth once daily as needed for up to 90 days. lisinopril (ZESTRIL, PRINIVIL) 10 mg tablet Take 1 tablet by mouth once daily. Cholecalciferol, Vitamin D3, 50 mcg (2,000 unit) cap Take 1 capsule by mouth once daily. vit A,C,O-Tnia-Uceupy (PRESERVISION AREDS) 2,148 mcg-113 mg-45 mg-17.4mg tab Take 2 tablets by mouth once daily. blood sugar diagnostic ([employer] ULTRA TEST) test strip TEST BLOOD SUGAR 2 (TWO) TIMES DAILY Current Facility-Administered Medications Medication Dose Route Frequency perflutren lipid microspheres 1.3 mL in NaCl (PF) 0.9% 10 mL injection (DEFINITY) INTRAVENOUS DIRECTED PRN sodium chloride 0.9 % (flush) 10 mL (BD POSIFLUSH) 10 mL INTRAVENOUS DIRECTED PRN Facility-Administered Medications Ordered in Other Visits Medication Dose Route Frequency lidocaine (PF) 10 mg/mL (1 %) 1-2 mg injection (XYLOCAINE) 0.1-0.2 mL INTRADERMAL PRN NaCl 0.9% iv infusion 30 mL/hr INTRAVENOUS CONTINUOUS IMAGING REVIEWED: There is moderate lumbar stenosis at L4-5 and L5-S1 PE: General: NAD, pleasant, affect is non dysphoric Cardiovascular: No edema, No cyanosis, peripheral pulses are palpable in bilateral lower limbs, good chest excursion, no wheezing Neurological: Sensation intact in bilateral upper and lower limbs, strength 5/5 bilateral upper and lower limbs, DTR 2/4 bilateral biceps, triceps, wrist extensors,achillies, patella, and medial hamstrings Musculoskeletal: tenderness to palpation of the right gluteal muscles, no TTP of the lumbar paraspinal muscles, Lumbar and cervical ROM intact in all directions Negative hip scour / stinchfield bilaterally. Negative Ganslensens, PSIS tenderness. Impression: PLAN: 1) Imaging Studies: None 2) Therapy/Rehabilitation: Referral to (more content not included)...[facility]04-28-2023 History of Present illness Narrative* Sameer Andrade, - 01/09/2023 1:40 PM EDT Vivi Werner is a 77 year old female who follows up today for procedure follow up. She had a left S1 TFESI done in July 2022. She reports symptoms HAVE improved since last visit. About 80% reduction in pain on the left side. Today she is reporting that she is having very similar pain in the right side, pain is in the low/buttock and do not radiate down the leg.These symptoms have been present for 3 month(s). The onset of symptoms was progressive. Patient states the pain is intermittent and mild.Patient describes the pain as aching. On a scale of 0-10, the pain today is 3. On a bad day, the pain is 7. The patient states the pain is exacerbatedby sitting or after doing work. Does not bother her while she works on her property. Patient notes,to date, that the pain is reduced by Tylenol. Pain Ratio: back 100% leg 0% She has been managing the pain with OTC tylenol and some lidocaine patches. Tylenol helps a lot, but does not get rid of her pain. ALLERGIES Allergen Reactions Bactrim [Sulfametho* Hives Ceclor [Cefaclor] Hives Cipro [Other] Hives Darvocet-N 100 [Pro* GI Upset Keflex [Cephalexin] Lipitor [Atorvastat* Myalgia Leg cramps/discomfort Penicillins Zithromax [Azithrom* PAST MEDICAL HISTORY Diagnosis Date Advance care planning 01/29/2022 daughter Shelley Benign neoplasm of colon 11/12/2005 Bulging lumbar disc Diabetes (HCC) Diverticulosis of colon (without mention of hemorrhage) Internal hemorrhoids without mention of complication 11/12/2005 Other disorder of muscle, ligament, and fascia left leg Other psoriasis Personal history of colonic polyps Pure hypercholesterolemia Sciatica Spinal stenosis of lumbar region Unspecified essential hypertension PAST SURGICAL HISTORY Procedure Laterality Date ARTHROSCOPY KNEE DIAGNOSTIC W/WO SYNOVIAL BX SPX 2002 Arthroscopy, knee, right ARTHRP KNE CONDYLE&PLATU MEDIAL&LAT COMPARTMENTS 12-18-04 Knee replacement, total right COLONOSCOPY 12/2014 COLONOSCOPY FLX DX W/COLLJ SPEC WHEN PFRMD 01/01/10 COLSC FLX W/RMVL OF TUMOR POLYP LESION SNARE TQ 11/12/05 EGD 2017 EGD at [facility]- negative, stopped omeprazole PAST SURGICAL HISTORY OF 1994 BLADDER SUSPENSION PAST SURGICAL HISTORY OF 1991 JAW SURGERY PAST SURGICAL HISTORY OF carpal tunnel, bilateral FAMILY HISTORY Problem Relation Age of Onset Diabetes Father Social History Tobacco Use Smoking status: Former Years: 4.00 Types: Cigarettes Quit date: 01/24/1971 Years since quittin.9 Smokeless tobacco: Never Tobacco comments: Pt smoked one pack a week x 4 years Substance Use Topics Alcohol use: Yes Comment: Occassional Drug use: No REVIEW OF SYSTEMS GENERAL: No weight loss, malaise or fevers Denies new fevers, chills, unintended weight loss, night sweats, muscle weakness, sensation changesincluding the saddle, also denies new bowel and bladder changes or incontinence. Current Outpatient Medications Medication Sig LORazepam (ATIVAN) 0.5 mg Take 1 tablet by mouth once daily as needed for up to 90 days. lisinopril (ZESTRIL, PRINIVIL) 10 mg tablet Take 1 tablet by mouth once daily. Cholecalciferol, Vitamin D3, 50 mcg (2,000 unit) cap Take 1 capsule by mouth once daily. vit A,C,B-Ijoh-Orzzlp (PRESERVISION AREDS) 2,148 mcg-113 mg-45 mg-17.4mg tab Take 2 tablets by mouth once daily. blood sugar diagnostic (ONETOUCH ULTRA TEST) test strip TEST BLOOD SUGAR 2 (TWO) TIMES DAILY Current Facility-Administered Medications Medication Dose Route Frequency perflutren lipid microspheres 1.3 mL in NaCl (PF) 0.9% 10 mL injection (DEFINITY) INTRAVENOUS DIRECTED PRN sodium chloride 0.9 % (flush) 10 mL (BD POSIFLUSH) 10 mL INTRAVENOUS DIRECTED PRN Facility-Administered Medications Ordered in Other Visits Medication Dose Route Frequency lidocaine (PF) 10 mg/mL (1 %) 1-2 mg injection (XYLOCAINE) 0.1-0.2 mL INTRADERMAL PRN NaCl 0.9% iv infusion 30 mL/hr INTRAVENOUS CONTINUOUS IMAGING REVIEWED: There is moderate lumbar stenosis at L4-5 and L5-S1 PE: General: NAD, pleasant, affect is non dysphoric Cardiovascular: No edema, No cyanosis, peripheral pulses are palpable in bilateral lower limbs, good chest excursion, no wheezing Neurological: Sensation intact in bilateral upper and lower limbs, strength 5/5 bilateral upper andlower limbs, DTR 2/4 bilateral biceps, triceps, wrist extensors,achillies, patella, and medial hamstrings Musculoskeletal: tenderness to palpation of the right gluteal muscles, no TTP of the lumbar paraspinal muscles, Lumbar and cervical ROM intact in all directions Negative hip scour / stinchfield bilaterally. Negative Ganslensens, PSIS tenderness. Impression: PLAN: 1) Imaging Studies: None 2) Therapy/Rehabilitation: Referral to PT 3) Pharmacological Management: Continue Tylenol as needed for pain 4) Spine/Surgical Interventions: none 5) Consultations: none 6) Follow -up: 6-8 weeks to see progress of PT 7) Future treatment considerations: MRI of the pelvis to assess for possible right gluteal strain /tear / tendinosis. Right S1 TFESI vs SIJ on the right/ Ishan Joseph DO PGY-5 Medical Spine Fellow I examined the patient and discussed case, diagnostics and treatment plan with Ishan Joseph DO. whoinitially evaluated the patient. I agree with treatment plan and recommendations. At this time patient's right-sided lower buttock pain appears likely related to gluteal strain or tendinopathy. No significant radicular symptoms. No exam findings to suggest underlying radiculopathy. As above in the future we could consider interventional procedures, however, at this time no clearindication for these interventions. Sameer Andrade DO [facility] History of Past illness Narrative* Problem Noted Date Resolved Date Type 2 diabetes mellitus wit h stage 3a chronic kidney disease, without long-term current use of insulin 07/16/202011/2020 Unspecified essential hypertension 07/12/2020 documented as of this encounter (statuses as of 01/09/2023) [facility]04-27[facility] History of Past illness Narrative* Problem Noted Date Resolved Date Type 2 diabetes mellitus wit h stage 3a chronic kidney disease, without long-term current use of insulin 07/16/202011/2020 Unspecified essential hypertension 07/12/2020 documented as of this encounter (statuses as of 01/08/2023) [facility]03-29-[facility]23 NoteHNO ID: [id number] Author: Farhat Henry DO Service: ? Author Type: Physician Type: Progress Notes Filed: 12/10/2022 2:56 PM Note Text: Patient presents with: F/U 3 Month HPI: Vivi Werner is a 77 year old female who presents to the office today for review of health conditions. Concerns today: Overall she is feeling well. Arthritis seems to be stable and managed by taking more frequent breaks in between her work that she is doing around the house and outside BLOOD PRESSURE seems to be stable Anxiety, situational triggered, overall stable, denies any CP or dyspnea or dizziness/LH or edema. Ms. Werner has past history of diabetes. Since our last visit she denies excessive thirst or increased frequency of urination, chest pain or dyspnea , new or unusual visual symptoms, and low sugar/hypoglycemic reactions. Depression- no. Follows a diabetic diet some of the time. She is compliant with medication(s) and is tolerating med(s) without any side effects. She reports checking her glucose on a once a day schedule with sugars in the <200 range. Patient's last HgA1C was Hemoglobin A1C (%) Date Value 07/15/2022 6.2 01/28/2022 6.5 05/22/2021 6.6 01/10/2021 6.4 ) Last Ophthalmology exam was within the past 12 months Ms. Werner reports history of hyperlipidemia. Current therapy includes diet and exercise. Denies side effects of muscle weakness or achiness. Her most recent lipid panels are reviewed. Cholesterol, Total (mg/dL) Date Value 07/15/2022 276 05/22/2021 282 HDL Cholesterol (mg/dL) Date Value 07/15/2022 52 05/22/2021 60 LDL Cholesterol (mg/dL) Date Value 07/15/2022 186 05/22/2021 194 Triglyceride (mg/dL) Date Value 07/15/2022 191 05/22/2021 142 Ms. Werner indicates a history of hypertension and states that she is feeling well and denies any symptoms referable to elevated blood pressure. Specifically denies headache, chest pain, palpitations, dyspnea, and peripheral edema. Patient denies any side effects of her medication(s) and is compliant with their regimen. Last 3 Encounter BP Readings: Date: BP: 12/10/2022 120/80 10/23/2022 129/74 09/16/2022 130/76 She watches her diet for sodium, low fat and low cholesterol some of the time. She does not check BP's generally. Vivi likes to exercise by walking. PAST MEDICAL HISTORY Diagnosis Date Advance care planning 01/29/2022 rich Rosa Benign neoplasm of colon 11/12/2005 Bulging lumbar disc Diabetes (HCC) Diverticulosis of colon (without mention of hemorrhage) Internal hemorrhoids without mention of complication 11/12/2005 Other disorder of muscle, ligament, and fascia left leg Other psoriasis Personal history of colonic polyps Pure hypercholesterolemia Sciatica Spinal stenosis of lumbar region Unspecified essential hypertension PAST SURGICAL HISTORY Procedure Laterality Date ARTHROSCOPY KNEE DIAGNOSTIC W/WO SYNOVIAL BX SPX 2002 Arthroscopy, knee, right ARTHRP KNE CONDYLEANDPLATU MEDIALANDLAT COMPARTMENTS 12-18-04 Knee replacement, total right COLONOSCOPY 12/2014 COLONOSCOPY FLX DX W/COLLJ SPEC WHEN PFRMD 01/01/10 COLSC FLX W/RMVL OF TUMOR POLYP LESION SNARE TQ 11/12/05 EGD 2016 EGD at [facility]- negative, stopped omeprazole PAST SURGICAL HISTORY OF 1994 BLADDER SUSPENSION PAST SURGICAL HISTORY OF 1991 JAW SURGERY PAST SURGICAL HISTORY OF carpal tunnel, bilateral Social History Tobacco Use Smoking status: Former Years: 4.00 Types: Cigarettes Quit date: 01/24/1971 Years since quittin.9 Smokeless tobacco: Never Tobacco comments: Pt smoked one pack a week x 4 years Substance Use Topics Alcohol use: Yes Comment: Occassional Drug use: No FAMILY HISTORY Problem Relation Age of Onset Diabetes Father Allergies: ALLERGIES Allergen Reactions Bactrim [Sulfametho* Hives Ceclor [Cefaclor] Hives Cipro [Other] Hives Darvocet-N 100 [Pro* GI Upset Keflex [Cephalexin] Lipitor [Atorvastat* Myalgia Leg cramps/discomfort Penicillins Zithromax [Azithrom* Current Meds: lisinopril (ZESTRIL, PRINIVIL) 10 mg tabletTake 1 tablet by mouth once daily.Disp: 90 tabletRfl: 0 Cholecalciferol, Vitamin D3, (VITAMIN D-3) 50 mcg (2,000 unit) capTake 1 capsule by mouth once daily.Disp: Rfl: vit A,C,K-Krzc-Tjohpr (PRESERVISION AREDS) 2,148 mcg-113 mg-45 mg-17.4mg tabTake 2 tablets by mouth once daily.Disp: Rfl: blood sugar diagnostic (ONETOUCH ULTRA TEST) test stripTEST BLOOD SUGAR 2 (TWO) TIMES DAILYDisp: 200 StripRfl: 3 LORazepam (ATIVAN) 0.5 mgTake 1 tablet by mouth once daily as needed for up to 90 days.Disp: 90 tabletRfl: 1 Review of Systems: The remainder of the review of systems is negative. PE: 12/10/22 1212 BP: 120/80 Pulse: 64 Resp: 16 Temp: 36.2 ?C (97.1 ?F) TempSrc: Right Tympanic Weight: 69.4 kg (153 lb) Gen: AANDO, NAD, non-toxic appearing, Pleasant, cooperative HEENT: NT/AC, PERRLA, (more content not included)...[facility] 12-10-2022 History of Present illness Narrative* Farhat Henry, DO - 12/10/2022 2:51 PM EDT Patient presents with: F/U 3 Month HPI: Vivi Werner is a 77 year old female who presents to the office today for review of health conditions. Concerns today: Overall she is feeling well. Arthritis seems to be stable and managed by taking more frequent breaks in between her work that she is doing around the house and outside BLOOD PRESSURE seems to be stable Anxiety, situational triggered, overall stable, denies any CP or dyspnea or dizziness/LH or edema. Ms. Werner has past history of diabetes. Since our last visit she denies excessive thirst or increased frequency of urination, chest pain or dyspnea , new or unusual visual symptoms, and low sugar/hypoglycemic reactions. Depression- no. Follows a diabetic diet some of the time. She is compliant with medication(s) and is tolerating med(s) without any side effects. She reports checking her glucose on a once a day schedule with sugars in the <200 range. Patient's last HgA1C was Hemoglobin A1C (%) Date Value 07/15/2022 6.2 01/28/2022 6.5 05/22/2021 6.6 01/10/2021 6.4 ) Last Ophthalmology exam was within the past 12 months Ms. Werner reports history of hyperlipidemia. Current therapy includes diet and exercise. Denies side effects of muscle weakness or achiness. Her most recent lipid panels are reviewed. Cholesterol, Total (mg/dL) Date Value 07/15/2022 276 05/22/2021 282 HDL Cholesterol (mg/dL) Date Value 07/15/2022 52 05/22/2021 60 LDL Cholesterol (mg/dL) Date Value 07/15/2022 186 05/22/2021 194 Triglyceride (mg/dL) Date Value 07/15/2022 191 05/22/2021 142 Ms. Werner indicates a history of hypertension and states that she is feeling well and denies any symptoms referable to elevated blood pressure. Specifically denies headache, chest pain, palpitations, dyspnea, and peripheral edema. Patient denies any side effects of her medication(s) and is compliant with their regimen. Last 3 Encounter BP Readings: Date: BP: 12/10/2022 120/80 10/23/2022 129/74 09/16/2022 130/76 She watches her diet for sodium, low fat and low cholesterol some of the time. She does not check BP's generally. Vivi likes to exercise by walking. PAST MEDICAL HISTORY Diagnosis Date Advance care planning 01/29/2022 daughter Shelley Benign neoplasm of colon 11/12/2005 Bulging lumbar disc Diabetes (HCC) Diverticulosis of colon (without mention of hemorrhage) Internal hemorrhoids without mention of complication 11/12/2005 Other disorder of muscle, ligament, and fascia left leg Other psoriasis Personal history of colonic polyps Pure hypercholesterolemia Sciatica Spinal stenosis of lumbar region Unspecified essential hypertension PAST SURGICAL HISTORY Procedure Laterality Date ARTHROSCOPY KNEE DIAGNOSTIC W/WO SYNOVIAL BX SPX 2002 Arthroscopy, knee, right ARTHRP KNE CONDYLE&PLATU MEDIAL&LAT COMPARTMENTS 12-18-04 Knee replacement, total right COLONOSCOPY 12/2014 COLONOSCOPY FLX DX W/COLLJ SPEC WHEN PFRMD 01/01/10 COLSC FLX W/RMVL OF TUMOR POLYP LESION SNARE TQ 11/12/05 EGD 2017 EGD at [facility]- negative, stopped omeprazole PAST SURGICAL HISTORY OF 1994 BLADDER SUSPENSION PAST SURGICAL HISTORY OF 1991 JAW SURGERY PAST SURGICAL HISTORY OF carpal tunnel, bilateral Social History Tobacco Use Smoking status: Former Years: 4.00 Types: Cigarettes Quit date: 01/24/1971 Years since quittin.9 Smokeless tobacco: Never Tobacco comments: Pt smoked one pack a week x 4 years Substance Use Topics Alcohol use: Yes Comment: Occassional Drug use: No FAMILY HISTORY Problem Relation Age of Onset Diabetes Father Allergies: ALLERGIES Allergen Reactions Bactrim [Sulfametho* Hives Ceclor [Cefaclor] Hives Cipro [Other] Hives Darvocet-N 100 [Pro* GI Upset Keflex [Cephalexin] Lipitor [Atorvastat* Myalgia Leg cramps/discomfort Penicillins Zithromax [Azithrom* Current Meds: lisinopril (ZESTRIL, PRINIVIL) 10 mg tablet^Take 1 tablet by mouth once daily.^Disp: 90 tablet^Rfl:0 Cholecalciferol, Vitamin D3, (VITAMIN D-3) 50 mcg (2,000 unit) cap^Take 1 capsule by mouth once daily.^Disp: ^Rfl: vit A,C,C-Jmjo-Wzzslx (PRESERVISION AREDS) 2,148 mcg-113 mg-45 mg-17.4mg tab^Take 2 tablets by mouth once daily.^Disp: ^Rfl: blood sugar diagnostic (ONETOUCH ULTRA TEST) test strip^TEST BLOOD SUGAR 2 (TWO) TIMES DAILY^Disp: 200 Strip^Rfl: 3 LORazepam (ATIVAN) 0.5 mg^Take 1 tablet by mouth once daily as needed for up to 90 days.^Disp: 90 tablet^Rfl: 1 Review of Systems: The remainder of the review of systems is negative. PE: 12/10/22 1212 BP: 120/80 Pulse: 64 Resp: 16 Temp: 36.2 C (97.1 F) TempSrc: Right Tympanic Weight: 69.4 kg (153 lb) Gen: A&O, NAD, non-toxic appearing, Pleasant, cooperative HEENT: NT/AC, PERRLA, wearing glasses., EOMIs intact b/l, nares clear and patent b/l, pharynx without erythema, exudate or lesions. Uvula midline. MMM, EACs without erythema or debris. TMs pearly dobbs with intact landmarks b/l. Neck: supple, No cervical LAD, no thyromegaly, no carotid bruits CV: RRR, normal S1 and S2, no murmurs, no gallops, no rubs, Pulses 2+ and symmetric in UE and LE b/l Lungs: normal respiratory effort, CTA b/l, no wheezing or rhonchi or rales Abd: soft, obese, NT, ND, +BS, no hepatosplenomegaly MS: FROM all 4 extremities Neuro: CN II-XII intact b/l Arthritis changes Skin: warm, dry, intact, No rashes or lesions on exposed skin. Foot exam: Monofilament wnl on right and left feet. ASSESSMENT/PLAN: 1. Type 2 diabetes mellitus without complication, without long-term current use of insulin (HCC) - ICD9: 250.00, ICD10: E11.9 (primary diagnosis) - Controlled - Continue current medications - Blood glucose monitoring on a once daily schedule - Counseled on healthy diet and regular exercise - HGB A1C - VITAMIN B12 BLOOD 2. Situational anxiety - ICD9: 300.09, ICD10: F41.8 rx refilled, stable - LORAZEPAM 0.5 MG TABLET 3. Stage 3a chronic kidney disease (HCC) - ICD9: 585.3, ICD10: N18.31 - eGFR: Stable - Counseled on avoiding regular use of NSAIDs, adequate hydration, potential risk of IV dye - Recommend maintaining A1c < 7% 4. Hypertension, essential - ICD9: 401.9, ICD10: I10 - good control - Continue current medication(s) - Encouraged dietary sodium restriction/DASH diet - Recommended regular aerobic exercise. - Recommend home blood pressure monitoring, to bring results in on next visit - Goal of BP <130/80 5. Pure hypercholesterolemia - ICD9: 272.0, ICD10: E78.00 stable - LIPID PANEL BASIC 6. Myalgia - ICD9: 729.1, ICD10: M79.10 stable - COMP METABOLIC PANEL - CBC + DIFF - MAGNESIUM BLD 7. Vitamin D deficiency - ICD9: 268.9, ICD10: E55.9 Continue supplement - VITAMIN D 25 HYDROXY Farhat Henry DO To ER if develops chest pain, shortness of breath, or severe worsening of symptoms. Discussed risks, benefits, alternatives, and potential side effects of medications. Patient expressed understanding and agreed with the plan. Farhat Henry DO [address] [place] [address] documented [facility]03[facility] Instructions* Patient Instructions* Farhat Henry DO - 12/10/2022 1:09 PM EDT Shingrix at the pharmacy in 2 weeks Today getting the Prevnar 20 pneumonia vaccine documented in this [facility] History of Past illness Narrative* Problem Noted Date Resolved Date Type 2 diabetes mellitus wit h stage 3a chronic kidney disease, without long-term current use of insulin 07/16/202011/2020 Unspecified essential hypertension 07/12/2020 documented as of this encounter (statuses as of 12/10/2022) [facility]03[facility] Miscellaneous Notes* Telephone Encounter - Shelly Trujillo RN - 11/25/2022 10:51 AM EDT Patient states she has been having right-sided pain just above her waist that radiates into her buttocks. Started approximately September 2022 in the same location as the pain she had experienced on her left side. Pain is intermittent and stabbing. Better with Tylenol, lidocaine patches, heat, and walking. Worsewith moving from a seated to a standing position. Denies red flag symptoms. Encouraged patient to incorporate gentle stretching/exercises. Patient scheduled for office evaluation. Last office visit: 07/04/22 MRI: 05/07/22 Shelly Trujillo RN * Telephone Encounter - Leta Terry - 11/21/2022 2:50 PM EST Patient having right side back pain at the tailbone. Was seen toward end of last year for left sidewhich is doing well but was told to call back if any issues. Calling for advice. documented in this encounterFair[facility]03-[facility]23 History of Past illness Narrative* Problem Noted Date Resolved Date Type 2 diabetes mellitus wit h stage 3a chronic kidney disease, without long-term current use of insulin 07/16/202011/2020 Unspecified essential hypertension 07/12/2020 documented as of this encounter (statuses as of 11/25/2022) [facility] Miscellaneous Notes* Telephone Encounter - Linda Varner LPN - 11/05/2022 12:40 PM EST Phoned patient and aware replacement rx sent to pharmacy. * Telephone Encounter - Farhat Henry DO - 11/05/2022 12:11 PM EST Please inform patient of rx sent in as below Farhat Henry DO The following approved medication requests have been transmitted electronically. Requested Prescriptions Signed Prescriptions Disp Refills lisinopril (ZESTRIL, PRINIVIL) 10 mg tablet 90 tablet 0 Sig: Take 1 tablet by mouth once daily. Authorizing Provider: FARHAT HENRY DO * Telephone Encounter - Ayan Jensen RN - 11/05/2022 11:43 AM EST Patient called back and is aware quinapril was recalled. States she is ok with a substitute, whatever pcp thinks she can take instead. Asking pcp to send new Rx to [facility]. Please phone patient to let her know what medication is sent. * Telephone Encounter - Ayan Jensen RN - 11/05/2022 11:30 AM EST Patient phoned back to let pcp know she is going to check with [facility] and [facility] and let pcp know ifthey have the medication. * Telephone Encounter - Kenisha García RN - 11/05/2022 11:13 AM EST Called and spoke with Pharmacist at [facility] states that no one has quinapril. [facility] states that they have lisinopril and ramipril. Please review and advise, Kenisha García RN * Telephone Encounter - Kenisha García RN - 11/05/2022 11:06 AM EST Patient calls about medication. Tried to explain to patient that quinapril is on on backorder and that [facility] may not have prescription. Patient very upset and states why has no one told me this. Apologized and offered to call [facility] to see if they have medication. Patient states never mind I will call pharmacy and see fi they have medication. Patient states that she does not want to switch medication but only has a few more doses left. Kenisha García RN * Telephone Encounter - Ayan Jensen RN - 11/05/2022 10:41 AM EST [facility] Antonina phoned to report quinapril and accupril, all strengths, are on back order. They will put Rx on hold and ship to patient when becomes available. Does not know when will become available. Reference # [id number] * Telephone Encounter - Linda Varner LPN - 11/05/2022 10:07 AM EST Patient calling upset her mail away pharmacy will not process her quinapril rx. She is out of medication and asking for rx to be sent to [facility]. Patient said she just can not deal with the problems with the mail away. Pending rx to file to local pharmacy. Please notify patient whenrx is sent. Please advise Patient has been identified by name and date of : Patient phones for refill(s): Requested Prescriptions Pending Prescriptions Disp Refills quinapril (ACCUPRIL) 10 mg tablet 90 tablet 3 Sig: Take 1 tablet by mouth once daily. Date of last office visit in primary care: 07/16/2022, has appt 12/10/2022 Last 2 Encounter Wt Readings: Date: Wt: 10/23/2022 68.5 kg (151 lb) 09/16/2022 68.5 kg (151 lb) Previous labs/tests for medication: Blood Pressure: BUN (mg/dL) Date Value 07/15/2022 19 05/22/2021 19 Sodium (mmol/L) Date Value 07/15/2022 142 05/22/2021 140 Last 1 Encounter BP Readings: Date: BP: 10/23/2022 129/74 Please advise. Thank you. Linda Varner LPN documented in this encounterFairfield [facility] Center02-22-2023 History of Past illness Narrative* Problem Noted Date Resolved Date Type 2 diabetes mellitus wit h stage 3a chronic kidney disease, without long-term current use of insulin 07/16/202011/2020 Unspecified essential hypertension 07/12/2020 documented as of this encounter (statuses as of 11/05/2022) [facility]02-16-2023 History of Past illness Narrative* Problem Noted Date Resolved Date Type 2 diabetes mellitus wit h stage 3a chronic kidney disease, without long-term current use of insulin 07/16/202011/2020 Unspecified essential hypertension 07/12/2020 documented as of this encounter (statuses as of 10/30/2022) [facility]02-15-2023 Miscellaneous Notes* Telephone Encounter - Noa Varghese APRN.CNP - 10/29/2022 6:32 PM EST The following approved medication requests have been transmitted electronically. Requested Prescriptions Signed Prescriptions Disp Refills LORazepam (ATIVAN) 0.5 mg 30 tablet 1 Sig: Take 1 tablet by mouth once daily as needed for up to 30 days. Authorizing Provider: NOA VARGHESE APRN.CNP PDMP website checked and validated. All prescriptions have been APPROPRIATELY filled. No suspiciousactivity was identified. 10/29/2022 by Noa Varghese CNP. * Telephone Encounter - Tomeka Arguelles RN - 10/29/2022 12:42 PM EST Patient calls to check on status of prescription request. Patient reports she is out of medication and wants to know MAXIMO how long she has to wait for this to be taken care of. Tomeka Arguelles RN * Telephone Encounter - Jennyfer Berman LPN - 10/28/2022 9:22 AM EST Pt calls to report that since she changed insurance lorazepam has become Tier 2. Rx that went to [facility] was $80 and she cannot afford that. Pt reports on the rx it states take 2 tabs daily and she only needs it once a day. Pt is asking for a 30 day rx to be sent to [facility]. Pt has an appt 12/10/22. Patient has been identified by name and date of : Yes Requested Prescriptions Pending Prescriptions Disp Refills LORazepam (ATIVAN) 0.5 mg 30 tablet 1 Sig: Take 1 tablet by mouth once daily for 60 days. RX INSTRUCTIONS: Patient aware RX will be sent to pharmacy. No need to notify patient. Jennyfer Berman LPN documented in this encounterFair[facility] Miscellaneous Notes* Telephone Encounter - Tomeka Arguelles RN - 10/21/2022 9:41 AM EST Patient calls to further discuss prescription refills and is distraught that we received faxes three times and never reached out to her to let her know that we don't accept them. Explained procedure and patient became more distraught. Patient is requesting that prescription be filled today or tomorrow or she will be coming into the office to discuss. Patient also asked for [facility] to be contacted at . Called number but was connected to claim a free [employer] Card and phone was disconnected. Tomeka Arguelles RN * Telephone Encounter - Linda Varner LPN - 10/21/2022 9:17 AM EST Patient has been identified by name and date of : Patient phones for refill(s): Requested Prescriptions Pending Prescriptions Disp Refills quinapril (ACCUPRIL) 10 mg tablet 90 tablet 3 Sig: Take 1 tablet by mouth once daily. LORazepam (ATIVAN) 0.5 mg 180 tablet 1 Sig: Take 1 tablet by mouth twice daily as needed for up to 30 days. Date of last office visit in primary care: 07/16/2022, has appt 11/14/2022 Last 2 Encounter Wt Readings: Date: Wt: 09/16/2022 68.5 kg (151 lb) 09/15/2022 68.9 kg (152 lb) Previous labs/tests for medication: Blood Pressure: BUN (mg/dL) Date Value 07/15/2022 19 05/22/2021 19 Sodium (mmol/L) Date Value 07/15/2022 142 05/22/2021 140 Last 1 Encounter BP Readings: Date: BP: 09/16/2022 130/76 Please advise. Thank you. Linda Varner LPN documented in this encounterFair[facility] Center[facility] History of Past illness Narrative* Problem Noted Date Resolved Date Type 2 diabetes mellitus wit h stage 3a chronic kidney disease, without long-term current use of insulin 07/16/20200 11/2020 Unspecified essential hypertension 07/12/2020 documented as of this encounter (statuses as of 10/21/2022) [facility]-02[facility]23 Miscellaneous Notes* Telephone Encounter - Sofia Varner RN - 10/16/2022 11:48 AM EST Patient requesting refill of her kenalog cream to apply under her breasts. Script pended. Please call pt with an update if PCP agreeable to send. REFILL REQUEST Patient has been identified by name and date of : Yes Patient phones for refill(s): Requested Prescriptions Pending Prescriptions Disp Refills triamcinolone acetonide (KENALOG) 0.1 % cream 15 g 0 Sig: Apply 1 application to affected area twice daily for 14 days. Apply to affected area. Location:area under breasts Date of last office visit in primary care: 09/16/22 Last 2 Encounter Wt Readings: Date: Wt: 09/16/2022 68.5 kg (151 lb) 09/15/2022 68.9 kg (152 lb) Thank you. Sofia Varner RN documented in this encounterFairfield [facility] Center[facility] History of Past illness Narrative* Problem Noted Date Resolved Date Type 2 diabetes mellitus wit h stage 3a chronic kidney disease, without long-term current use of insulin 07/16/20200 11/2020 Unspecified essential hypertension 07/12/2020 documented as of this encounter (statuses as of 10/16/2022) [facility]-01-2023 Miscellaneous Notes* Telephone Encounter - Emily Sheth RN - 10/15/2022 11:05 AM EST Patient left message on nurse voicemail with questions regarding Vitamin E in her multivitamin and her bowel prep. Requesting return phone call. Call to patient. Discussed with patient holding multivitamin in preparation of colonoscopy (90 mg Vitamin E in multivitamin) Patient aware prescription for bowel prep sent to [facility] on [facility] in [place]. Patient verbalized understanding to all information/instructions shared with her. Thankful for assistanceand follow-up. Aware to call with any further questions or concerns. documented in this encounterFairfield Medical Center02-01-[facility] History of Past illness Narrative* Problem Noted Date Resolved Date Type 2 diabetes mellitus wit h stage 3a chronic kidney disease, without long-term current use of insulin 07/16/202011/2020 Unspecified essential hypertension 07/12/2020 documented as of this encounter (statuses as of 10/15/2022) [facility] History of Past illness Narrative* Problem Noted Date Resolved Date Type 2 diabetes mellitus wit h stage 3a chronic kidney disease, without long-term current use of insulin 07/16/202011/2020 Unspecified essential hypertension 07/12/2020 documented as of this encounter (statuses as of 09/18/2022) [facility] History of Past illness Narrative* Problem Noted Date Resolved Date Type 2 diabetes mellitus wit h stage 3a chronic kidney disease, without long-term current use of insulin 07/16/202011/2020 Unspecified essential hypertension 07/12/2020 documented as of this encounter (statuses as of 09/18/2022) [facility]-03[facility] Instructions* Patient Instructions* Dominic Harkins APRN.NEWSPAPER VENDOR - 09/16/2022 1:51 PM EST 1. Continue Probiotic 2. Continue colace 3. Miralax as needed for constipation if no BM in 3 days 4. Start magnesium glycinate 420mg daily Constipation Constipation can be an unpleasant topic to talk about. Most people have experienced constipation atsome point in their life. Though typically not serious, constipation can be both painful and frustrating. What is constipation? Constipation occurs when bowel movements become difficult or less frequent than normal. The frequency or time between bowel movements ranges widely from person to person. Some people have bowel movements several times a day while others only one to two times a week. Going longer than three days without a bowel movement is too long. After three days, the stool becomes harder and more difficult to pass. What causes constipation? Constipation is most commonly caused by inadequate fiber in the diet or a disruption of the regulardiet or routine. Chronic constipation may be due to a poor diet, dehydration, certain medications (such as antidepressants, strong pain medications), stress, or the pressure of other activities that force you to ignore the urge to empty the bowel. Various medical conditions can also cause or aggravate constipation. Some of the more common medical conditions that cause constipation include endocrine problems, such as decreased function of the thyroid gland or diabetes. Colorectal cancer is another medical condition that can cause constipationbut it usually also accompanied by other symptoms including blood in the stool and weight loss. Common causes of constipation include the following: A diet low in fiber Not drinking enough water Lack of exercise Travel or another change in routine Eating large amounts of milk or cheese Stress or resisting the urge to have a bowel movement Medications strong pain medicines such as narcotics antidepressants antacids containing calcium or aluminum such as TUMS iron pills allergy medications such as antihistamines certain blood pressure medicines psychiatric medications herbal supplements Irritable bowel syndrome (IBS) Neurologic disorders including spinal cord injury and multiple sclerosis (MS) Slow transit of the colon How is constipation evaluated? Most people do not need extensive testing to evaluate constipation. Only a small number of patientswith constipation have a serious underlying medical problem (such as poor function of the thyroid gland, diabetes, or colorectal cancer). If you have constipation that has persisted for more than two weeks, you should see a doctor to determine if you need further evaluation. For a patient who has colorectal cancer, early detection and treatment may be life-saving. Standard evaluation for constipation includes performing blood tests and examining the colon by colonoscopy, particularly for patients older than 50 years.. Other tests include colonic transit studies (time it takes for stools to move through the colon) and anal manometry (measures pressure and muscle function in the rectum and anus). Most patients with serious constipation, and without any obvious illness to explain their symptoms,suffer from one of two problems: Colonic inertia (also called lazy colon): a condition in which the colon contracts poorly and retains stool. This can be determined by colon transit studies. Obstructed defecation: a condition in which the colon contracts normally, but the patient is unableto expel stool from the rectum. This condition can be confirmed by a test called anal manometry. How can I prevent constipation? Eat a well-balanced diet with plenty of fiber. Good sources of fiber are fruits, vegetables, legumes, and whole-grain breads and cereals. Fiber and water help the colon pass stool. Most of the fiber in fruits is found in the skins, such as in apples. Fruits with seeds you can eat, like strawberries, have the most fiber. Bran is a great source of fiber: eat bran cereal or add bran cereal to other foods, like soup and yogurt. Drink eight 8-ounce glasses of water a day. (Note: Milk can cause constipation in some people.) Liquids that contain caffeine, such as coffee and soft drinks, have a dehydrating effect and may need to be avoided until your bowel habits return to normal. Exercise regularly. Move your bowels when you feel the urge. How is constipation treated? Drink two to four extra glasses of water a day. Try warm liquids, especially in the morning. Add fruits and vegetables to your diet. Eat prunes and/or bran cereal. Add supplemental fiber to your diet (there are several types, such as Metamucil, Citrucel, and Benefiber). If needed, use a very mild stool softener or laxative (such as colace [docusate] or Milk of Magnesia). Do not use laxatives for more than two weeks without calling your health care provider, as laxative overuse can aggravate your symptoms. When should I call my health care provider? Call your health care provider if: Constipation is a new problem for you. You have blood in your stool. You are losing weight unintentionally. You have severe pain with bowel movements. Your constipation has lasted more than three weeks. Where can I learn more? National Digestive Diseases Information Clearinghouse2 Information [place], [place] [phone] www.digestive.niddk.nih.gov email: References: National Digestive Diseases Information Clearinghouse. Constipation. digestive.niddk.nih.gov Accessed June 18, 2012. [employer]. Understanding Constipation. www.gastro.org. Accessed June 18, 2012. Copyright 5660-5737 [facility]. All rights reserved This information is provided by the [facility] and is not intended to replace the medical advice of your doctor or health care provider. Please consult your health care provider for advice about a specific medical condition. For additional health information, please contact the Center for [place] [facility] Information at the [facility] or toll-free extension [phone]. If you prefer, you may visit [email or web address] or [email or web address]. This document was last reviewed on: 2012 index #[id number] documented in this encounterFairfield Medical Center01-03-2023 History of Present illness Narrative* Dominic Harkins APRN.MAKENZIE - 09/16/2022 1:35 PM EST Chief Complaint Patient presents with: Follow Up: Constipation HPI Vivi Werner is a 77 year old female who presents here today for Above Complaints.. Patient presents for urgent care follow up for constipation. Patient was directed previously to start magnesium and colace with as needed miralax. Patient originally got the wrong kind of magnesium. Patient reports that she has been taking the colace and now has the correct type of magnesium as directed by Dr. Henry. Patient reports that prior to the start of constipation she began taking a calcium supplement. Patient reports water intake of 60 oz daily and adequate fiber intake via her diet. Past medical history, appointments, medications, allergies reviewed. Previous Medical History PAST MEDICAL HISTORY Diagnosis Date Advance care planning 01/29/2022 rich Rosa Benign neoplasm of colon 11/12/2005 Bulging lumbar disc Diabetes (HCC) Diverticulosis of colon (without mention of hemorrhage) Internal hemorrhoids without mention of complication 11/12/2005 Other disorder of muscle, ligament, and fascia left leg Other psoriasis Personal history of colonic polyps Pure hypercholesterolemia Sciatica Spinal stenosis of lumbar region Unspecified essential hypertension Previous Surgical History PAST SURGICAL HISTORY Procedure Laterality Date ARTHROSCOPY KNEE DIAGNOSTIC W/WO SYNOVIAL BX SPX 2002 Arthroscopy, knee, right ARTHRP KNE CONDYLE&PLATU MEDIAL&LAT COMPARTMENTS 12-18-04 Knee replacement, total right COLONOSCOPY 12/2014 COLONOSCOPY FLX DX W/COLLJ SPEC WHEN PFRMD 01/01/10 COLSC FLX W/RMVL OF TUMOR POLYP LESION SNARE TQ 11/12/05 EGD 2017 EGD at [facility]- negative, stopped omeprazole PAST SURGICAL HISTORY OF 1994 BLADDER SUSPENSION PAST SURGICAL HISTORY OF 1991 JAW SURGERY PAST SURGICAL HISTORY OF carpal tunnel, bilateral Family History FAMILY HISTORY Problem Relation Age of Onset Diabetes Father Patient Allergies ALLERGIES Allergen Reactions Bactrim [Sulfametho* Hives Ceclor [Cefaclor] Hives Cipro [Other] Hives Darvocet-N 100 [Pro* GI Upset Keflex [Cephalexin] Lipitor [Atorvastat* Myalgia Leg cramps/discomfort Penicillins Zithromax [Azithrom* Current Medications Current Outpatient Medications on File Prior to Visit Medication Sig quinapril (ACCUPRIL) 10 mg tablet Take 1 tablet by mouth once daily. clobetasol (TEMOVATE) 0.05 % ointment Apply to affected area twice daily. blood sugar diagnostic (VortalTOUCH ULTRA TEST) test strip TEST BLOOD SUGAR 2 (TWO) TIMES DAILY Current Facility-Administered Medications on File Prior to Visit Medication perflutren lipid microspheres 1.3 mL in NaCl (PF) 0.9% 10 mL injection (DEFINITY) sodium chloride 0.9 % (flush) 10 mL (BD POSIFLUSH) Social History Social History Tobacco Use Smoking status: Former Years: 4.00 Types: Cigarettes Quit date: 01/24/1971 Years since quittin.6 Smokeless tobacco: Never Tobacco comments: Pt smoked one pack a week x 4 years Substance Use Topics Alcohol use: Yes Comment: Occassional Drug use: No Review of Symptoms REVIEW OF SYSTEMS SEE HPI EXAM: BP 130/76 Pulse 93 Resp 16 Wt 68.5 kg (151 lb) BMI 29.49 kg/m General Appearance: Well appearing, alert, in no acute distress, well-hydrated, well nourished.. Abdomen: Normal abdominal exam, Abdomen soft, non-tender. Bowel sounds normal. No masses, organomegaly. Health Maintenance List SHINGRIX VACCINE(1 of 2) Never done BONE DENSITY Never done COVID-19 VACCINE(5 - Booster for Moderna series) due on 02/25/2022 DILATED RETINAL EXAM due on 07/23/2022 DEPRESSION ASSESSMENT due on 09/14/2022 HBA1C due on 01/12/2023 DIABETIC FOOT EXAM due on 01/29/2023 BP CONTROLLED (<130/80) due on 01/29/2023 URINE ALBUMIN:CREATININE RATIO due on 07/15/2023 LDL CHOLESTEROL due on 07/15/2023 SERUM CREATININE due on 07/15/2023 HEMOGLOBIN/HEMATOCRIT due on 07/15/2023 ANNUAL PCP TEAM CHRONIC DISEASE VISIT due on 07/16/2023 DTAP,TDAP,TD(2 - Td or Tdap) due on 06/18/2025 INFLUENZA Completed PNEUMOCOCCAL: 65+ Completed ADVANCE DIRECTIVE DISCUSSION Discontinued ASSESSMENT/PLAN: 1. Acute constipation - ICD9: 564.00, ICD10: K59.00 (primary diagnosis) -Magnesium Glycinate 420mg daily -Continue Probiotic -Continue colace -Miralax as needed for constipation if no BM in 3 days - CONSULT TO NUTRITION 2. Screening for colon cancer - ICD9: V76.51, ICD10: Z12.11 - CONSULT TO GASTROENTEROLOGY Dominic Harkins APRN.CNP documented in this encounterFairfield Medical Center01-02-2023 History of Present illness Narrative* Shannon Stark APRN.CNP - 09/15/2022 3:53 PM EST This note was created using NoteWriter. Subjective Vivi Werner is a 77 year old female. 77 year old female with PMH HTN, DM presents with complaints of constipation. Acute onset 3 days ago. Denies narcotics. Denies flatus, citing she has NOT passed gas. LBM 3 days ago. Denies N/V Of note patient has been seen by Dr. Henry for the same in the past. She was seen on 07/21/22 States she was referred to have a colonoscopy Scared She did attempt Miralax today. The history is provided by the patient. No school speech language pathologist was used. Constipation This is a recurrent problem. The current episode started more than 2 days ago. Associated symptoms include flatus. Pertinent negatives include no abdominal pain and no dysuria. There is No fiber in the patient's diet. She Does not exercise regularly. There has Not been adequate water intake. Treatments tried: Miralax. Her past medical history is significant for endocrine disease. Her past medicalhistory does not include metabolic disease, irritable bowel syndrome, neurologic disease or neuromuscular disease. PAST MEDICAL HISTORY Diagnosis Date Advance care planning 01/29/2022 daughter Shelley Benign neoplasm of colon 11/12/2005 Bulging lumbar disc Diabetes (HCC) Diverticulosis of colon (without mention of hemorrhage) Internal hemorrhoids without mention of complication 11/12/2005 Other disorder of muscle, ligament, and fascia left leg Other psoriasis Personal history of colonic polyps Pure hypercholesterolemia Sciatica Spinal stenosis of lumbar region Unspecified essential hypertension PAST SURGICAL HISTORY Procedure Laterality Date ARTHROSCOPY KNEE DIAGNOSTIC W/WO SYNOVIAL BX SPX 2002 Arthroscopy, knee, right ARTHRP KNE CONDYLE&PLATU MEDIAL&LAT COMPARTMENTS 12-18-04 Knee replacement, total right COLONOSCOPY 12/2014 COLONOSCOPY FLX DX W/COLLJ SPEC WHEN PFRMD 01/01/10 COLSC FLX W/RMVL OF TUMOR POLYP LESION SNARE TQ 11/12/05 EGD 2017 EGD at [facility]- negative, stopped omeprazole PAST SURGICAL HISTORY OF 1994 BLADDER SUSPENSION PAST SURGICAL HISTORY OF 1991 JAW SURGERY PAST SURGICAL HISTORY OF carpal tunnel, bilateral ALLERGIES Bactrim [Sulfamethoxazole-Trimethoprim], Ceclor [Cefaclor], Cipro [Other], Darvocet-N 100[Propoxyphene N-Acetaminophen], Keflex [Cephalexin], Lipitor [Atorvastatin], Penicillins, and Zithromax [Azithromycin] MEDICATIONS quinapril (ACCUPRIL) 10 mg tablet^Take 1 tablet by mouth once daily.^Disp: 90 tablet^Rfl: 3 clobetasol (TEMOVATE) 0.05 % ointment^Apply to affected area twice daily.^Disp: 30 g^Rfl: 2 blood sugar diagnostic (ONETOUCH ULTRA TEST) test strip^TEST BLOOD SUGAR 2 (TWO) TIMES DAILY^Disp: 200 Strip^Rfl: 3 FAMILY HISTORY Problem Relation Age of Onset Diabetes Father Social History Tobacco Use Smoking status: Former Years: 4.00 Types: Cigarettes Quit date: 01/24/1971 Years since quittin.6 Smokeless tobacco: Never Tobacco comments: Pt smoked one pack a week x 4 years Substance Use Topics Alcohol use: Yes Comment: Occassional Drug use: No Review of Systems Constitutional: Negative for activity change, appetite change, chills, fatigue and fever. Eyes: Negative for pain, discharge, redness and itching. Respiratory: Negative for apnea, cough, choking and chest tightness. Cardiovascular: Negative for chest pain, palpitations and leg swelling. Gastrointestinal: Positive for constipation and flatus. Negative for abdominal pain. Genitourinary: Negative for dysuria. Musculoskeletal: Negative for arthralgias, back pain and gait problem. Skin: Negative for color change, pallor, rash and wound. Allergic/Immunologic: Negative for environmental allergies, food allergies and immunocompromised state. Hematological: Negative for adenopathy. Does not bruise/bleed easily. Psychiatric/Behavioral: Negative for agitation and behavioral problems. Objective BP 136/84 Pulse 110 Temp 36.6 C (97.9 F) Resp 16 Wt 68.9 kg (152 lb) SpO2 96% BMI 29.69kg/m Physical Exam Vitals and nursing note reviewed. Constitutional: General: She is not in acute distress. Appearance: Normal appearance. She is normal weight. She is not ill-appearing, toxic-appearing or diaphoretic. HENT: Head: Normocephalic and atraumatic. Right Ear: Ear canal and external ear normal. Left Ear: Ear canal and external ear normal. Nose: Nose normal. No congestion or rhinorrhea. Mouth/Throat: Mouth: Mucous membranes are moist. Pharynx: No oropharyngeal exudate or posterior oropharyngeal erythema. Eyes: General: Right eye: No discharge. Left eye: No discharge. Extraocular Movements: Extraocular movements intact. Conjunctiva/sclera: Conjunctivae normal. Pupils: Pupils are equal, round, and reactive to light. Cardiovascular: Rate and Rhythm: Normal rate and regular rhythm. Pulses: Normal pulses. Heart sounds: Normal heart sounds. No murmur heard. No friction rub. Pulmonary: Effort: Pulmonary effort is normal. No respiratory distress. Breath sounds: Normal breath sounds. No stridor. No wheezing, rhonchi or rales. Chest: Chest wall: No tenderness. Abdominal: General: Abdomen is flat. There is no distension. Palpations: Abdomen is soft. There is no mass. Tenderness: There is no abdominal tenderness. There is no right CVA tenderness, left CVA tenderness, guarding or rebound. Hernia: No hernia is present. Musculoskeletal: General: No swelling, tenderness, deformity or signs of injury. Normal range of motion. Cervical back: Normal range of motion and neck supple. No rigidity. Right lower leg: No edema. Left lower leg: No edema. Lymphadenopathy: Cervical: No cervical adenopathy. Skin: General: Skin is warm and dry. Capillary Refill: Capillary refill takes less than 2 seconds. Coloration: Skin is not jaundiced or pale. Findings: No bruising, erythema, lesion or rash. Neurological: General: No focal deficit present. Mental Status: She is alert and oriented to person, place, and time. Cranial Nerves: No cranial nerve deficit. Sensory: No sensory deficit. Motor: No weakness. Coordination: Coordination normal. Gait: Gait normal. Psychiatric: Mood and Affect: Mood normal. Behavior: Behavior normal. Thought Content: Thought content normal. Judgment: Judgment normal. Assessment and Plan ASSESSMENT/PLAN: 1. Constipation, unspecified constipation type - ICD9: 564.00, ICD10: K59.00 X 3 days History of same in past Has been seen by Dr. Henry in July She utilized a regimen prescribed by Dr. Henry (brings in the regimen) She states that she only tried a small dosage of Miralax She has not scheduled a colonoscopy as of yet No red flags +flatus Patient will restart the bowel regimen prescribed by DR. Henry She will call tomorrow for colonoscopy. Shannon Satrk APRN.CNP documented in this encounterFair[facility] Center12-17-2022 Miscellaneous Notes* Telephone Encounter - Carli Barbosa Ma - 08/30/2022 8:32 AM EST Pt informed, verbalized understanding. Pt asking if it would be okay to take papaya as a supplement with her kidney disease? Also asking what she can take for cramping that the mirlax causes? Crali Barbosa Ma * Telephone Encounter - Farhat Henry DO - 08/29/2022 4:40 PM EST I am not aware if papaya will help. Can continue Miralax 1/2-1 capful a day to help prevent the constipation Farhat Henry DO * Telephone Encounter - Kenisha García RN - 08/29/2022 12:20 PM EST Patient calls and states that she has been having problems with constipation x 1 month. Patient finally started taking miralax which helped. Patient took it 2 days ago and she had a bowel movement this morning. Patient has heard that papaya enzymes help with abdominal pain due to constipation and taking Miralax. Patient asking if this would be ok for her take? Please review and advise, Kenisha García RN documented in this encounterFairfield [facility] Center12-08-2022 Miscellaneous Notes* Telephone Encounter - Kristyn Farrar LPN - 08/21/2022 1:12 PM EST Patient phones requesting refills as follows: Requested Prescriptions Pending Prescriptions Disp Refills nystatin (MYCOSTATIN) cream 30 g 1 Sig: Apply to affected area twice daily for 14 days. Under breasts as needed for rash Please review and advise. Kristyn Farrar LPN * Telephone Encounter - Maribel Bell RN - 08/21/2022 12:22 PM EST Pt called in asking about medication. Updated pharmacy that Pt would like medication sent to. Please let Pt know once medication sent. * Telephone Encounter - Farhat Henry DO - 08/20/2022 10:21 PM EST What pharmacy is this? Okay to fill rx as below but don't know where to send to Farhat Henry DO * Telephone Encounter - Antoinette Vregara LPN - 08/19/2022 8:09 AM EST Images from the original note were not included. Vivi Werner Wstr Famp My Chart Rx Pool I m out of town and need the breast rash medication. You prescribed this a Before, it I actually ran out and am out of town. Can you send to [facility]. [phone] Thank you documented in this encounterFairfield Medical Center12-08-2022 History of Past illness Narrative* Problem Noted Date Resolved Date Type 2 diabetes mellitus wit h stage 3a chronic kidney disease, without long-term current use of insulin 07/16/202011/2020 Unspecified essential hypertension 07/12/2020 documented as of this encounter (statuses as of 08/21/2022) [facility] of Past illness Narrative* Problem Noted Date Resolved Date Type 2 diabetes mellitus wit h stage 3a chronic kidney disease, without long-term current use of insulin 07/16/202011/2020 Unspecified essential hypertension 07/12/2020 documented as of this encounter (statuses as of 08/19/2022) [facility] Miscellaneous Notes* Telephone Encounter - Farhat Henry DO - 08/05/2022 4:39 PM EST PDMP website checked and validated. All prescriptions have been APPROPRIATELY filled. No suspiciousactivity was identified. 08/05/2022 by Farhat Henry DO * Telephone Encounter - KEVIN Ngo - 08/05/2022 1:55 PM EST CALLI 07/16/22 with JG Appointment scheduled 11/14/2022 Please advise. Thank you. KEVIN Ngo * Telephone Encounter - Jackie Gaston - 08/05/2022 1:29 PM EST Patient has been identified by name and date of : Yes Requested Prescriptions Pending Prescriptions Disp Refills LORazepam (ATIVAN) 0.5 mg 60 tablet 1 Sig: Take 1 tablet by mouth twice daily as needed for up to 30 days. RX INSTRUCTIONS: Patient aware RX will be sent to pharmacy. No need to notify patient. Jackie Gaston documented in this encounterFairfield Medical Center11-22-2022 History of Past illness Narrative* Problem Noted Date Resolved Date Type 2 diabetes mellitus wit h stage 3a chronic kidney disease, without long-term current use of insulin 07/16/20200 11/2020 Unspecified essential hypertension 07/12/2020 documented as of this encounter (statuses as of 08/05/2022) [facility] Miscellaneous Notes* Telephone Encounter - Rosita Marquis - 07/28/2022 12:44 PM EST Vivi is calling to check on status of request * Telephone Encounter - Kristyn Farrar LPN - 07/28/2022 8:43 AM EST Patient phones requesting refills as follows: Requested Prescriptions Pending Prescriptions Disp Refills quinapril (ACCUPRIL) 10 mg tablet 90 tablet 3 Sig: Take 1 tablet by mouth once daily. CALLI-07/16/22 Labs-07/15/22 NOV-11/14/22 med filled 07/17/21 Please review and advise. Kristyn Farrar LPN documented in this encounterFairfield Medical Center11-02-2022 History of Present illness Narrative* Farhat Henry, DO - 07/16/2022 7:55 PM EDT CC: Vivi Werner is a 77 year old female who presents to the office for follow up HPI: Low back pain, left and right side, sometimes down legs in a sharp shooting/burning discomfort, no new bowel or bladder changes, no weakness or recent falls. Hx of arthritis. Had xrays and MRI lumbarspine which showed arthritis and degenerative changes- will be having upcoming spine injections with Dr. Andrade in [place] for this pain and looking forward to improvements in her pain control. CKD stage 3, taking quinapril medication and tolerating well for renal protection. Still avoiding all NSAIDs Constipation, chronic, use of prunes and prune juice, no blood in stool Interested in colonoscopy screening PAST MEDICAL HISTORY Diagnosis Date Advance care planning 01/29/2022 rich Rosa Benign neoplasm of colon 11/12/2005 Bulging lumbar disc Diabetes (HCC) Diverticulosis of colon (without mention of hemorrhage) Internal hemorrhoids without mention of complication 11/12/2005 Other disorder of muscle, ligament, and fascia left leg Other psoriasis Personal history of colonic polyps Pure hypercholesterolemia Sciatica Spinal stenosis of lumbar region Unspecified essential hypertension PAST SURGICAL HISTORY Procedure Laterality Date ARTHROSCOPY KNEE DIAGNOSTIC W/WO SYNOVIAL BX SPX 2002 Arthroscopy, knee, right ARTHRP KNE CONDYLE&PLATU MEDIAL&LAT COMPARTMENTS 12-18-04 Knee replacement, total right COLONOSCOPY 12/2014 COLONOSCOPY FLX DX W/COLLJ SPEC WHEN PFRMD 01/01/10 COLSC FLX W/RMVL OF TUMOR POLYP LESION SNARE TQ 11/12/05 EGD 2017 EGD at [facility]- negative, stopped omeprazole PAST SURGICAL HISTORY OF 1994 BLADDER SUSPENSION PAST SURGICAL HISTORY OF 1991 JAW SURGERY PAST SURGICAL HISTORY OF carpal tunnel, bilateral Current Outpatient Medications Medication Sig clobetasol (TEMOVATE) 0.05 % ointment Apply to affected area twice daily. quinapril (ACCUPRIL) 10 mg tablet Take 1 tablet by mouth once daily. blood sugar diagnostic ([employer] ULTRA TEST) test strip TEST BLOOD SUGAR 2 (TWO) TIMES DAILY Current Facility-Administered Medications Medication Dose Route Frequency perflutren lipid microspheres 1.3 mL in NaCl (PF) 0.9% 10 mL injection (DEFINITY) INTRAVENOUS DIRECTED PRN sodium chloride 0.9 % (flush) 10 mL (BD POSIFLUSH) 10 mL INTRAVENOUS DIRECTED PRN ALLERGIES Allergen Reactions Bactrim [Sulfametho* Hives Ceclor [Cefaclor] Hives Cipro [Other] Hives Darvocet-N 100 [Pro* GI Upset Keflex [Cephalexin] Lipitor [Atorvastat* Myalgia Leg cramps/discomfort Penicillins Zithromax [Azithrom* Social History Tobacco Use Smoking status: Former Years: 4.00 Types: Cigarettes Quit date: 01/24/1971 Years since quittin.5 Smokeless tobacco: Never Tobacco comments: Pt smoked one pack a week x 4 years Substance Use Topics Alcohol use: Yes Comment: Occassional Drug use: No ROS: See HPI PE: BP 130/80 Pulse 80 Temp (Src) 97.8 (Right Tympanic) Resp 16 Wt 154 lb (69.9kg) Gen: A&OX3, NAD, non-toxic appearing HEENT: PERRLA, EOMs intact b/l, nares without drainage, pharynx without erythema, exudate, lesions,or drainage. Uvula midline. Neck: No LAD, no thyromegaly, no meningismus. CV: RRR, no murmur Lungs: CTA b/l, no wheezing Skin: No rashes, lesions, or wounds on exposed skin. No edema, normal pulses Reduced ROM lumbar spine ASSESSMENT/PLAN: 1. Stage 3a chronic kidney disease (HCC) - ICD9: 585.3, ICD10: N18.31 (primary diagnosis) - eGFR: Stable - Counseled on avoiding regular use of NSAIDs, adequate hydration, potential risk of IV dye 2. Screening for colon cancer - ICD9: V76.51, ICD10: Z12.11 - CONSULT TO GENERAL SURGERY 3. Type 2 diabetes mellitus without complication, without long-term current use of insulin (HCC) - ICD9: 250.00, ICD10: E11.9 Controlled. - Continue current medications 4. Hypertension, essential - ICD9: 401.9, ICD10: I10 - good control - Continue current medication(s) - Encouraged dietary sodium restriction/DASH diet - Recommended regular aerobic exercise. - Recommend home blood pressure monitoring, to bring results in on next visit - Discussed need and benefit for weight loss. - Goal of BP <130/80 5. Pure hypercholesterolemia - ICD9: 272.0, ICD10: E78.00 stable 6. Chronic bilateral low back pain with left-sided sciatica - ICD9: 724.2, 724.3, 338.29, ICD10: M54.42, G89.29 Chronic low back pain - Ice for localized tenderness - Warm moist heat for 20 min three times a day 7. Spinal stenosis of lumbar region with neurogenic claudication - ICD9: 724.03, ICD10: M48.062 - f/u with pain mgmt 8. Chronic constipation - ICD9: 564.00, ICD10: K59.09 Need for stool softeners and continued use of probiotic Farhat Henry DO Return if no improvement. Follow up with Farhat Henry DO. To ER if develops chest pain, shortness of breath Discussed risks, benefits, alternatives, and potential side effects of medications. Patient/Guardian expressed understanding and agreed with the plan. See patient instructions. Farhat Henry DO [address] [place] [address] documented in this encounterFairfield Medical Center11-02-2022 Miscellaneous Notes* Telephone Encounter - Racehl Ziegler MA - 07/16/2022 4:12 PM EDT Spoke to patient and advised her not to get the new covid or shingles vaccines until 2 weeks after her cortizone injection per Dr. Andrade. Rachel Ziegler MA * Telephone Encounter - [facility] Food Service Worker - 07/16/2022 4:03 PM EDT Patient is requesting to speak with MARTA pertaining to below message, medication question Patient would like to know if she can receive the Shingle shot Patient is requesting call because she is in her PCP office and he would like to give her the shot call back [phone] * Telephone Encounter - Rachel Ziegler MA - 07/16/2022 3:46 PM EDT Spoke with patient and she will accept the 07/21 date. Went over all vitamins and supplements that need to be stopped tomorrow. This was ok'd by Dr. Andrade. Sent message to [facility] schedulers. Rachel Ziegler MA * Telephone Encounter - Belinda Dietrich - 07/16/2022 3:22 PM EDT Patient calling in returning MA call. Ph. [phone] * Telephone Encounter - Rachel Ziegler MA - 07/16/2022 3:09 PM EDT Let voicemail message for patient regarding moving her injection up to Saturday 07/21. I asked patientto return my call so we could go over the particulars. Rachel Ziegler MA documented in this encounterFairfield Medical Center11-02-2022 Evaluation note* Diagnosis Stage 3a chronic kidney disease (HCC)- Primary Screening for colon cancer Special screening for malignant neoplasms, colon Type 2 diabetes mellitus without complication, without long-term current use of insulin (HCC) Hypertension, essential Unspecified essential hypertension Pure hypercholesterolemia Chronic bilateral low back pain with left-sided sciatica Spinal stenosis of lumbar region with neurogenic claudication Spinal stenosis, lumbar region, with neurogenic claudication Chronic constipation Unspecified constipation Lumbosacral neuritis Thoracic or lumbosacral neuritis or radiculitis, unspecified documented in this encounter [facility] History of Past illness Narrative* Problem Noted Date Resolved Date Type 2 diabetes mellitus wit h stage 3a chronic kidney disease, without long-term current use of insulin 07/16/2020/0 11/2020 Unspecified essential hypertension 07/12/2020 documented as of this encounter (statuses as of 07/16/2022) [facility] of Past illness Narrative* Problem Noted Date Resolved Date Type 2 diabetes mellitus wit h stage 3a chronic kidney disease, without long-term current use of insulin 07/16/20200 11/2020 Unspecified essential hypertension 07/12/2020 documented as of this encounter (statuses as of 07/16/2022) [facility] of Past illness Narrative* Problem Noted Date Resolved Date Type 2 diabetes mellitus wit h stage 3a chronic kidney disease, without long-term current use of insulin 07/16/20200 11/2020 Unspecified essential hypertension 07/12/2020 documented as of this encounter (statuses as of 07/17/2022) [facility] Miscellaneous Notes* Telephone Encounter - Trupti Harman RN - 07/15/2022 2:40 PM EDT Called and spoke with patient; patient requested to be placed on cancellation list for injection. She does not want to go to a different provider. Trupti Harman RN * Telephone Encounter - Belinda Dietrich - 07/15/2022 1:25 PM EDT Patient is calling in to see if she can get a sooner surgery date. Ph. [phone] documented in this encounterFairfield Medical Center11-01-2022 History of Past illness Narrative* Problem Noted Date Resolved Date Type 2 diabetes mellitus wit h stage 3a chronic kidney disease, without long-term current use of insulin 07/16/20200 11/2020 Unspecified essential hypertension 07/12/2020 documented as of this encounter (statuses as of 07/15/2022) [facility] of Past illness Narrative* Problem Noted Date Resolved Date Type 2 diabetes mellitus wit h stage 3a chronic kidney disease, without long-term current use of insulin 07/16/20200 11/2020 Unspecified essential hypertension 07/12/2020 documented as of this encounter (statuses as of 07/14/2022) [facility] History of Present illness Narrative* Noa Varghese, DIGITAL IMAGING TECHNICIAN.NEWSPAPER VENDOR - 07/11/2022 2:35 PM EDT Chief Complaint Patient presents with: Arm Pain: Left arm x 2 weeks. Pain started in shoulder and has traveled to elbow. Pain worse in evenings. Neck Pain: Left side HPI Vivi Werner is a 77 year old female who presents here today for Above Complaints. Today: Left shoulder and upper arm pain intermittently for about 2 months. In the past 2 weeks has worsened and is spreading down to her mid-forearm. Is a deep pain. Ice has helped somewhat. Head has not been helpful. Causing trouble sleeping d/t positioning. Neck pain that just started today that she feels is due to her sleeping. Takes Tylenol 1000mg typically twice daily. Past medical history, appointments, medications, allergies reviewed. Previous Medical History PAST MEDICAL HISTORY Diagnosis Date Advance care planning 01/29/2022 daughter Shelley Benign neoplasm of colon 11/12/2005 Bulging lumbar disc Diabetes (HCC) Diverticulosis of colon (without mention of hemorrhage) Internal hemorrhoids without mention of complication 11/12/2005 Other disorder of muscle, ligament, and fascia left leg Other psoriasis Personal history of colonic polyps Pure hypercholesterolemia Sciatica Spinal stenosis of lumbar region Unspecified essential hypertension Previous Surgical History PAST SURGICAL HISTORY Procedure Laterality Date ARTHROSCOPY KNEE DIAGNOSTIC W/WO SYNOVIAL BX SPX 2002 Arthroscopy, knee, right ARTHRP KNE CONDYLE&PLATU MEDIAL&LAT COMPARTMENTS 12-18-04 Knee replacement, total right COLONOSCOPY 12/2014 COLONOSCOPY FLX DX W/COLLJ SPEC WHEN PFRMD 01/01/10 COLSC FLX W/RMVL OF TUMOR POLYP LESION SNARE TQ 11/12/05 EGD 2017 EGD at [facility]- negative, stopped omeprazole PAST SURGICAL HISTORY OF 1994 BLADDER SUSPENSION PAST SURGICAL HISTORY OF 1991 JAW SURGERY PAST SURGICAL HISTORY OF carpal tunnel, bilateral Family History FAMILY HISTORY Problem Relation Age of Onset Diabetes Father Patient Allergies ALLERGIES Allergen Reactions Bactrim [Sulfametho* Hives Ceclor [Cefaclor] Hives Cipro [Other] Hives Darvocet-N 100 [Pro* GI Upset Keflex [Cephalexin] Lipitor [Atorvastat* Myalgia Leg cramps/discomfort Penicillins Zithromax [Azithrom* Current Medications Current Outpatient Medications on File Prior to Visit Medication Sig clobetasol (TEMOVATE) 0.05 % ointment Apply to affected area twice daily. blood sugar diagnostic ([employer] ULTRA TEST) test strip TEST BLOOD SUGAR 2 (TWO) TIMES DAILY quinapril (ACCUPRIL) 10 mg tablet Take 1 tablet by mouth once daily. hydrOXYzine HCl (ATARAX) 25 mg tablet Take 1 tablet by mouth every 6 hours as needed for itching/rash. Current Facility-Administered Medications on File Prior to Visit Medication perflutren lipid microspheres 1.3 mL in NaCl (PF) 0.9% 10 mL injection (DEFINITY) sodium chloride 0.9 % (flush) 10 mL (BD POSIFLUSH) Social History Social History Tobacco Use Smoking status: Former Years: 4.00 Types: Cigarettes Quit date: 01/24/1971 Years since quittin.4 Smokeless tobacco: Never Tobacco comments: Pt smoked one pack a week x 4 years Substance Use Topics Alcohol use: Yes Comment: Occassional Drug use: No Review of Symptoms REVIEW OF SYSTEMS See HPI, otherwise negative EXAM: BP 138/78 (BP Site: Left Arm, BP Position: Sitting, BP Cuff Size: Regular Adult) Pulse 72 Resp 16 Wt 69.6 kg (153 lb 6.4 oz) SpO2 97% BMI 29.96 kg/m General Appearance: Well appearing, alert, in no acute distress, well-hydrated, well nourished.. Lungs: Lungs clear to auscultation. No wheezing, rhonchi, rales.. Heart: RRR without murmur, gallop, or rubs. No ectopy. Musculoskeletal: decreased ROM to left shoulder, positive lift off test, unable to lift arm to level shoulder or above. Generalized tenderness to palpation. Health Maintenance List SHINGRIX VACCINE(1 of 2) Never done BONE DENSITY Never done DEPRESSION ASSESSMENT Never done COVID-19 VACCINE(5 - Booster for Moderna series) due on 02/25/2022 INFLUENZA(1) due on 05/15/2022 URINE ALBUMIN:CREATININE RATIO due on 05/22/2022 DILATED RETINAL EXAM due on 07/23/2022 HBA1C due on 07/31/2022 LDL CHOLESTEROL due on 01/28/2023 SERUM CREATININE due on 01/28/2023 HEMOGLOBIN/HEMATOCRIT due on 01/28/2023 DIABETIC FOOT EXAM due on 01/29/2023 ANNUAL PCP TEAM CHRONIC DISEASE VISIT due on 06/21/2023 BP CONTROLLED (<130/80) due on 06/21/2023 DTAP,TDAP,TD(2 - Td or Tdap) due on 06/18/2025 PNEUMOCOCCAL: 65+ Completed ADVANCE DIRECTIVE DISCUSSION Discontinued Data reviewed Previous records, office notes, OARRS report PDMP website checked and validated. All prescriptions have been APPROPRIATELY filled. No suspiciousactivity was identified. 07/11/2022 by Noa Varghese CNP. ASSESSMENT/PLAN: 1. Chronic left shoulder pain - ICD9: 719.41, 338.29, ICD10: M25.512, G89.29 (primary diagnosis) Complete xray of shoulder. Tramadol prn, not to take Tylenol at the same time. Voltaren gel. Consider PT and/or orthopedic consult in the future if necessary. - XR SHOULDER LIMITED 2V AP/TRUE AP LEFT - TRAMADOL 50 MG TABLET - DICLOFENAC 1 % TOPICAL GEL 2. Type 2 diabetes mellitus without complication, without long-term current use of insulin (HCC) - ICD9: 250.00, ICD10: E11.9 - CBC - COMP METABOLIC PANEL - HGB A1C - ALBUMIN/CREAT RATIO RND UR 3. Stage 3a chronic kidney disease (HCC) - ICD9: 585.3, ICD10: N18.31 - CBC - COMP METABOLIC PANEL - HGB A1C 4. Pure hypercholesterolemia - ICD9: 272.0, ICD10: E78.00 - LIPID PANEL BASIC 5. Hypertension, essential - ICD9: 401.9, ICD10: I10 - fair control - Recommended regular aerobic exercise. - Recommend home blood pressure monitoring, to bring results in on next visit - Goal of BP <130/80 - CBC - COMP METABOLIC PANEL 6. Encounter for immunization - ICD9: V03.89, ICD10: Z23 - INFLUENZA SEASONAL QUADRIVALENT HIGH DOSE AGE 65+ Noa Varghese APRN.NEWSPAPER VENDOR documented in this encounterFairfield Medical Center10-21-2022 Miscellaneous Notes* Telephone Encounter - Sylvain Muller - 07/04/2022 11:36 AM EDT Patient scheduled for a procedure on 09/01/22 in the [facility] [place]. Pt instructed that a food mobile driver must remain present during the entire procedure. -is patient on home oxygen therapy No - nothing to eat after midnight before the procedure - may have clear liquids on day of procedure up until 2 hours prior to procedure - to take all routine medications for heart, hypertension and seizures can be taken with a small amount of water up to 2 hours prior to procedure. - discontinue anti-inflammatory medications Aspirin and Vitamins 5 days prior to procedure: will stop ASA, NSAIDS, vitamins and supplements 5 days prior - no pain medication 6 hours prior to procedure. * Is patient diabetic? Yes Is patient currently taking Coumadin, Pletal, Plavix, Rheopro, Ticlid, Lovenox, Heparin, or any other blood thinners? REVIEWED BY PROVIDER: , no Is patient allergic to Latex, shellfish, seafood, iodine, contrast dye, steroids or local anesthetics? No Does patient have a history of pacemaker or internal defibrillator, or seizure disorder?No Pt verbalized understanding of above instructions: Yes Printed instructions handed to patient: No IOC[employer] message sent with instructions:Yes documented in this encounterFairfield Medical Center10-12-2022 Miscellaneous Notes* Telephone Encounter - Cleopatra Morrison LPN - 06/25/2022 10:57 AM EDT Pt called back today and states very upset that prescription requested below has not been sent to her pharmacy yet. Pt states she requested this 7 days ago. This prescription is not on her med list because she was getting it thru Dr. Loco, Dermatology and she no longer sees him. Pt is in pain and needs for her hands. Please review and approve medication below. Please advise pt when this has been sent. IF there is any problem please call pt and leave a detailed message. Cleopatra Morrison LPN * Telephone Encounter - Soha Soni MA - 06/25/2022 9:23 AM EDT Medication confirmed and pended. Pharmacy verified. Soha Soni MA * Telephone Encounter - Edita Martinez Ma - 06/24/2022 10:04 AM EDT Please review other phone call as well. Edita Martinez Ma * Telephone Encounter - Edita Martinez Ma - 06/20/2022 9:44 AM EDT Sent mychart message to pt. Asked her what dosing she's taking if has had previously. Also notifiedher of response from PCP regarding okay to receive Bivalent Covid vaccine. Wait on pt response, load Rx to correct pharmacy. Watch for mychart message. Edita Martinez Ma * Telephone Encounter - Farhat Henry DO - 06/20/2022 7:54 AM EDT Yes, okay for refills of clobetasol (please load the correct rx she is using) Please call her and let her know okay to get the bivalent covid 19 vaccine Farhat Henry DO * Telephone Encounter - Carli Barbosa Ma - 06/19/2022 4:24 PM EDT Images from the original note were not included. Please see pt mychart message documented in this encounterFairfield Medical Center10-12-2022 Miscellaneous Notes* Telephone Encounter - Cleopatra Morrison LPN - 06/25/2022 10:54 AM EDT c * Telephone Encounter - Carli Barbosa Ma - 06/16/2022 1:36 PM EDT Left message for patient to return call. See JG note below. Carli Barbosa Ma * Telephone Encounter - Farhat Henry DO - 06/16/2022 12:57 PM EDT I am sorry, I am not sure about this phone call for the patient. I didn't enroll her in any clinical trials Farhat Henry DO * Telephone Encounter - Ayan Jensen RN - 06/16/2022 11:11 AM EDT Patient reports she received a call from someone in [place], that wants her to be a part of a clinical trial for kidney disease. Patient does not know why they called her, and asking pcp if this is legitimate? Please advise patient. documented in this encounterFairfield Medical Center10-12-2022 History of Past illness Narrative* Problem Noted Date Resolved Date Type 2 diabetes mellitus wit h stage 3a chronic kidney disease, without long-term current use of insulin 07/16/202011/2020 Unspecified essential hypertension 07/12/2020 documented as of this encounter (statuses as of 06/25/2022) [facility] of Present illness Narrative* Opal Peng MD - 06/21/2022 10:24 AM EDT Chief Complaint Patient presents with: left leg numbness: Has appt with sterilization specialist next month and wanting to rule out other possibilities prior to visit HPI Vivi Werner is a 77 year old female who presents here today for Above Complaints.. Patient of Dr. Henry's in today for complaint of left leg numbness. Eavluated in January for acute lower back pain with sciatica with following HPI: Low back pain, left and right side, sometimes down legs in a sharp shooting/burning discomfort, no new bowel or bladder changes, no weakness or recent falls. Hx of arthritis. Not interested in spine injections. PCP recommended ice/heat, xrays and referred to [facility]. Xray not completed. Has appointment with Dr. Andrade next month as she is not interested in surgery. Today, she is here because she has numbness and pain down her left leg since January and wanted to makesure she doesn't have PAD. States that her symptoms have not changed at all. Admits to left leg feeling cold on her calf at night. Denies new fall/injury, loss of bowel/bladder control, saddle anesthesia, weakness in her legs, claudication, dusky extremities. MRI of lumbar spine obtained by Dr. Sunny Stinson on 05/07 shows: Circumferential bulge with broad based posterior herniation at L1-2, L3-4, L4-5, L5-S1 causing sever bilateral neural foraminal and central canal stenosis. Circumferential bulge with broad based posterior herniation and cranial migration and an acc\[place] annual lily at L2-3 causing sever bilateral neural foraminal central canal stenosis. Past medical history, appointments, medications, allergies reviewed. Previous Medical History PAST MEDICAL HISTORY Diagnosis Date Advance care planning 01/29/2022 daughter Shelley Benign neoplasm of colon 11/12/2005 Diabetes (HCC) Diverticulosis of colon (without mention of hemorrhage) Internal hemorrhoids without mention of complication 11/12/2005 Other disorder of muscle, ligament, and fascia left leg Other psoriasis Personal history of colonic polyps Pure hypercholesterolemia Sciatica Unspecified essential hypertension Previous Surgical History PAST SURGICAL HISTORY Procedure Laterality Date ARTHROSCOPY KNEE DIAGNOSTIC W/WO SYNOVIAL BX SPX 2002 Arthroscopy, knee, right ARTHRP KNE CONDYLE&PLATU MEDIAL&LAT COMPARTMENTS 12-18-04 Knee replacement, total right COLONOSCOPY 12/2014 COLONOSCOPY FLX DX W/COLLJ SPEC WHEN PFRMD 01/01/10 COLSC FLX W/RMVL OF TUMOR POLYP LESION SNARE TQ 11/12/05 EGD 2017 EGD at [facility]- negative, stopped omeprazole PAST SURGICAL HISTORY OF 1994 BLADDER SUSPENSION PAST SURGICAL HISTORY OF 1991 JAW SURGERY PAST SURGICAL HISTORY OF carpal tunnel, bilateral Family History FAMILY HISTORY Problem Relation Age of Onset Diabetes Father Patient Allergies ALLERGIES Allergen Reactions Bactrim [Sulfametho* Hives Ceclor [Cefaclor] Hives Cipro [Other] Hives Darvocet-N 100 [Pro* GI Upset Keflex [Cephalexin] Lipitor [Atorvastat* Myalgia Leg cramps/discomfort Penicillins Zithromax [Azithrom* Current Medications Current Outpatient Medications on File Prior to Visit Medication Sig quinapril (ACCUPRIL) 10 mg tablet Take 1 tablet by mouth once daily. hydrOXYzine HCl (ATARAX) 25 mg tablet Take 1 tablet by mouth every 6 hours as needed for itching/rash. blood sugar diagnostic (VortalTOUCH ULTRA TEST) test strip TEST BLOOD SUGAR 2 (TWO) TIMES DAILY Current Facility-Administered Medications on File Prior to Visit Medication perflutren lipid microspheres 1.3 mL in NaCl (PF) 0.9% 10 mL injection (DEFINITY) sodium chloride 0.9 % (flush) 10 mL (BD POSIFLUSH) Social History Social History Tobacco Use Smoking status: Former Years: 4.00 Types: Cigarettes Quit date: 01/24/1971 Years since quittin.4 Smokeless tobacco: Never Tobacco comments: Pt smoked one pack a week x 4 years Substance Use Topics Alcohol use: Yes Comment: Occassional Drug use: No Review of Symptoms REVIEW OF SYSTEMS See HPI EXAM: BP 126/72 Pulse 73 Resp 16 Wt 69.9 kg (154 lb) SpO2 95% BMI 30.08 kg/m General Appearance: Well appearing, alert, in no acute distress, well-hydrated, well nourished.. Skin: Skin color, texture, turgor normal, no suspicious rashes or lesions. Back:no pain to palpation of vertebrae, good flexion and extension, good range of motion, reflexes are 2+ and symmetric, motor and sensory appear to be normal, no evidence of scoliosis. Positive for TTP over right lumbar paraspinal muscles. Peripheral Pulses: Normal, Pulses: popliteal=4/4, dorsalis pedis=4/4, posterior tibial=4/4. Health Maintenance List SHINGRIX VACCINE(1 of 2) Never done BONE DENSITY Never done DEPRESSION ASSESSMENT Never done COVID-19 VACCINE(5 - Booster for Moderna series) due on 02/25/2022 INFLUENZA(1) due on 05/15/2022 URINE ALBUMIN:CREATININE RATIO due on 05/22/2022 DILATED RETINAL EXAM due on 07/23/2022 HBA1C due on 07/31/2022 LDL CHOLESTEROL due on 01/28/2023 SERUM CREATININE due on 01/28/2023 HEMOGLOBIN/HEMATOCRIT due on 01/28/2023 DIABETIC FOOT EXAM due on 01/29/2023 BP CONTROLLED (<130/80) due on 01/29/2023 ANNUAL PCP TEAM CHRONIC DISEASE VISIT due on 04/10/2023 DTAP,TDAP,TD(2 - Td or Tdap) due on 06/18/2025 PNEUMOCOCCAL: 65+ Completed ADVANCE DIRECTIVE DISCUSSION Discontinued ASSESSMENT/PLAN: 1. Chronic bilateral low back pain with left-sided sciatica - ICD9: 724.2, 724.3, 338.29, ICD10: M54.42, G89.29 (primary diagnosis) Symptoms consistent with herniated disc - Ice for localized tenderness - Warm moist heat for 20 min three times a day - Tylenol OTC for patient unable to tolerate NSAIDs. - Given exercises for home. - Patient given instructions intermittent rest, back care exercise program, weight loss, improved posture, proper lifting techniques, and intermittent use of heat - f/u with pain management. Reassured patient no signs of PAD on exam. 2. Bulging lumbar disc - ICD9: 722.52, ICD10: M51.36 See above 3. Spinal stenosis of lumbar region with neurogenic claudication - ICD9: 724.03, ICD10: M48.062 See above. Opal Peng MD documented [facility] History of Past illness Narrative* Problem Noted Date Resolved Date Type 2 diabetes mellitus wit h stage 3a chronic kidney disease, without long-term current use of insulin 07/16/202011/2020 Unspecified essential hypertension 07/12/2020 documented as of this encounter (statuses as of 06/21/2022) [facility] Miscellaneous Notes* Telephone Encounter - Carli Barbosa Ma - 06/19/2022 4:23 PM EDT Message turned into TE per ANDREW Barbosa Ma documented in this encounterFairfield [facility]10-06-2022 History of Past illness Narrative* Problem Noted Date Resolved Date Type 2 diabetes mellitus wit h stage 3a chronic kidney disease, without long-term current use of insulin 07/16/202011/2020 Unspecified essential hypertension 07/12/2020 documented as of this encounter (statuses as of 06/19/2022) [facility] of Past illness Narrative* Problem Noted Date Resolved Date Type 2 diabetes mellitus wit h stage 3a chronic kidney disease, without long-term current use of insulin 07/16/202011/2020 Unspecified essential hypertension 07/12/2020 documented as of this encounter (statuses as of 03/14/2022) [facility] Miscellaneous Notes* Telephone Encounter - Chon Heard Ma - 03/05/2022 8:26 AM EDT Patient notified, verbalized understanding. Chon Heard Ma * Telephone Encounter - Farhat Henry DO - 03/04/2022 5:12 PM EDT The following approved medication requests have been transmitted electronically. Signed Prescriptions Disp Refills nystatin (MYCOSTATIN) cream 30 g 1 Sig: Apply to affected area twice daily for 14 days. Under breasts as needed for rash Authorizing Provider: FARHAT HENRY DO * Telephone Encounter - Silvia Marquis - 03/04/2022 8:48 AM EDT Patient is calling in today regarding having a rash under her breasts; she thinks it is just from the heat and would like a prescription for cream to be called in. [facility] in [place]. Please contact patient when this is sent to pharmacy at [phone]. Silvia Marquis documented in this encounterFair[facility] Center06-22-2022 History of Past illness Narrative* Problem Noted Date Resolved Date Type 2 diabetes mellitus wit h stage 3a chronic kidney disease, without long-term current use of insulin 07/16/202011/2020 Unspecified essential hypertension 07/12/2020 documented as of this encounter (statuses as of 03/05/2022) [facility] of Past illness Narrative* Problem Noted Date Resolved Date Type 2 diabetes mellitus wit h stage 3a chronic kidney disease, without long-term current use of insulin 07/16/202011/2020 Unspecified essential hypertension 07/12/2020 documented as of this encounter (statuses as of 02/18/2022) [facility] Miscellaneous Notes* Telephone Encounter - Carol Hutton RN - 02/07/2022 10:13 PM EDT Reason for call: Headache on Medrol Dosepak day 2 Outcome: Home care advice reviewed with patient, patient verbalizes understanding. When offered to triage elevated blood sugar, patient declined. Instructed to call back with any new or worsening symptoms, patient agreeable. Reason for Disposition [1] Headache AND [2] has not taken pain medications Answer Assessment - Initial Assessment Questions 1. LOCATION: Directly on the top of the head, a little bit on the right side 2. ONSET: About 45 minutes ago 3. PATTERN: Constant 4. SEVERITY: 2/10 mild pain 5. RECURRENT SYMPTOM: This is the first time I have ever experienced a headache like this, at least in a very long time 6. CAUSE: My blood sugar shot up to 252 with the steroid, so maybe that is making my head hurt? 7. MIGRAINE: denies 8. HEAD INJURY:denies 9. OTHER SYMPTOMS: denies 10. : N/A Protocols used: [id number] documented in this encounterFair[facility] Center05-26-2022 Miscellaneous Notes* Telephone Encounter - Maribel Bell RN - 02/06/2022 11:04 AM EDT Pt called and is notified of providers message and instructions. Pt voices understanding. Maribel Bell RN * Telephone Encounter - Noa Varghese APRN.CNP - 02/06/2022 10:51 AM EDT Her A1C is well controlled at this point. I'll send in a Medrol dose pack, which is only a 6 day course of steroids, so should not affect her blood sugars significantly. Please have her check her blood sugars on a daily basis during this course. Noa Varghese APRN.MAKENZIE * Telephone Encounter - Cleopatra Morrison LPN - 02/06/2022 10:45 AM EDT Pt calls back to update you on her poison jayna Medication Hydroxyzine prescribed is not working. Pt is willing to take the prednisone. Please call prescription in for her . Poison Jayna is spreading andis all over her body. Please advise. Cleopatra Morrison LPN documented in this encounterFair[facility] Center05-26-2022 History of Past illness Narrative* Problem Noted Date Resolved Date Type 2 diabetes mellitus wit h stage 3a chronic kidney disease, without long-term current use of insulin 07/16/20200 11/2020 Unspecified essential hypertension 07/12/2020 documented as of this encounter (statuses as of 02/06/2022) [facility] Miscellaneous Notes* Telephone Encounter - Gloria Pena LPN - 02/04/2022 3:03 PM EDT Images from the original note were not included. Prior authorization approved Payer: [facility] [phone] Approval Details Authorized from September 14, 2021 to September 13, 2022 * Telephone Encounter - Gloria Pena LPN - 02/04/2022 2:52 PM EDT Electronic PA completed for hydroxzine. documented in this encounterFairfield Medical Center05-24-2022 Miscellaneous Notes* Telephone Encounter - Farhat Henry DO - 02/04/2022 10:48 AM EDT The following approved medication requests have been transmitted electronically. Signed Prescriptions Disp Refills hydrOXYzine HCl (ATARAX) 25 mg tablet 28 tablet 1 Sig: Take 1 tablet by mouth every 6 hours as needed for itching/rash. Authorizing Provider: FARHAT HENRY DO * Telephone Encounter - Soha Soni MA - 02/04/2022 10:00 AM EDT Patient denies Prednisone medication d/t cause of increasing BS but is interested in Hydroxyzine. [facility]acy: [facility]. Soha Soni MA * Telephone Encounter - Farhat Henry DO - 02/04/2022 9:56 AM EDT Yes, okay for her to take up to 25 mg of Benadryl every 6-8 hours as needed for itching. Also can consider use of prednisone orally or Hydroxyzine for the itching. I can send rx if interested. Farhat Henry DO * Telephone Encounter - Marlene Rasheed LPN - 02/04/2022 9:23 AM EDT Pt called in very frustrated that she has not heard back from pcp regarding her question from yesterday. Pt told that pcp was out of the office yesterday afternoon. Pt states she has a simple question that needs answered now. Pt states she may just take the benadryl & whatever happens happens. Pt told she could be seen by a provider or could be seen in UC if desired, pt refused. Marlene Rasheed LPN * Telephone Encounter - Jennyfer Berman LPN - 02/03/2022 9:33 AM EDT Pt calls to report she has a bad case of poison jayna. Pt reports she has it on her arms, breasts, and legs. Pt reports she has used the cream that dr provided but that does not help with the itching. Pt reports she has had a bad couple of nights because of the itching. Pt is asking if she can take abenadryl with her medical hx. Pt reports poison jayna is spreading and she needs relief from the itching. Please review and advise. Jennyfer Berman LPN documented in this encounterFair[facility]05-24-2022 History of Past illness Narrative* Problem Noted Date Resolved Date Type 2 diabetes mellitus wit h stage 3a chronic kidney disease, without long-term current use of insulin 07/16/202011/2020 Unspecified essential hypertension 07/12/2020 documented as of this encounter (statuses as of 02/04/2022) [facility] Past illness Narrative* Problem Noted Date Resolved Date Type 2 diabetes mellitus wit h stage 3a chronic kidney disease, without long-term current use of insulin 07/16/202011/2020 Unspecified essential hypertension 07/12/2020 documented as of this encounter (statuses as of 02/04/2022) [facility] History of Present illness Narrative* Farhat Henry DO - 01/29/2022 9:18 PM EDT Patient presents with: Follow Up HPI: Vivi Werner is a 76 year old female who presents to the office today for review of health conditions. Concerns today: Admits to having occasional shortness of breath and heart racing/palpitations. Mostly when she has been working outside for a while. Not daily symptoms. No associated syncope or LH or SNYDER or chest pain. Heart rate up to 140 one episode. Resolved with resting a few minutes. Low back pain, left and right side, sometimes down legs in a sharp shooting/burning discomfort, no new bowel or bladder changes, no weakness or recent falls. Hx of arthritis. Not interested in spine injections. Ms. Werner has past history of diabetes. Since our last visit she denies excessive thirst or increased frequency of urination, chest pain or dyspnea , new or unusual visual symptoms and low sugar/hypoglycemic reactions. Depression- no. Follows a diabetic diet some of the time. She is compliant with medication(s) and is tolerating med(s) without any side effects. She reports checking her glucose on a once a day schedule with sugars in the fasting <150 range. Patient's last HgA1C was Hemoglobin A1C (%) Date Value 01/28/2022 6.5 05/22/2021 6.6 01/10/2021 6.4 ) Last Ophthalmology exam was within the past 12 months Ms. Werner reports history of hyperlipidemia. Current therapy includes diet and exercise. Denies side effects of muscle weakness or achiness. Her most recent lipid panels are reviewed. Cholesterol, Total (mg/dL) Date Value 01/28/2022 262 05/22/2021 282 HDL Cholesterol (mg/dL) Date Value 01/28/2022 50 05/22/2021 60 LDL Cholesterol (mg/dL) Date Value 01/28/2022 171 05/22/2021 194 Triglyceride (mg/dL) Date Value 01/28/2022 203 05/22/2021 142 Ms. Werner indicates a history of hypertension and states that she is feeling well and denies any symptoms referable to elevated blood pressure. Specifically denies headache, chest pain, palpitations, dyspnea and peripheral edema. Patient denies any side effects of her medication(s) and is compliant with their regimen. Last 3 Encounter BP Readings: Date: BP: 01/29/2022 124/80 08/02/2021 124/78 07/31/2021 122/66 She watches her diet for sodium, low fat and low cholesterol some of the time. She does not check BP's generally. Vivi likes to exercise by walking. PAST MEDICAL HISTORY Diagnosis Date Benign neoplasm of colon 11/12/05 Diabetes (HCC) Diverticulosis of colon (without mention of hemorrhage) Internal hemorrhoids without mention of complication 11/12/05 Other disorder of muscle, ligament, and fascia left leg Other psoriasis Personal history of colonic polyps Pure hypercholesterolemia Sciatica Unspecified essential hypertension PAST SURGICAL HISTORY Procedure Laterality Date ARTHROSCOPY KNEE DIAGNOSTIC W/WO SYNOVIAL BX SPX 2002 Arthroscopy, knee, right ARTHRP KNE CONDYLE&PLATU MEDIAL&LAT COMPARTMENTS 12-18-04 Knee replacement, total right COLONOSCOPY 12/2014 COLONOSCOPY FLX DX W/COLLJ SPEC WHEN PFRMD 01/01/10 COLSC FLX W/RMVL OF TUMOR POLYP LESION SNARE TQ 11/12/05 EGD 2017 EGD at [facility]- negative, stopped omeprazole PAST SURGICAL HISTORY OF 1994 BLADDER SUSPENSION PAST SURGICAL HISTORY OF 1991 JAW SURGERY PAST SURGICAL HISTORY OF carpal tunnel, bilateral Social History Tobacco Use Smoking status: Former Smoker Years: 4.00 Types: Cigarettes Quit date: 01/24/1971 Years since quittin.0 Smokeless tobacco: Never Used Tobacco comment: Pt smoked one pack a week x 4 years Substance Use Topics Alcohol use: Yes Comment: Occassional Drug use: No FAMILY HISTORY Problem Relation Age of Onset Diabetes Father Allergies: ALLERGIES Allergen Reactions Bactrim [Sulfametho* Hives Ceclor [Cefaclor] Hives Cipro [Other] Hives Darvocet-N 100 [Pro* GI Upset Keflex [Cephalexin] Lipitor [Atorvastat* Myalgia Leg cramps/discomfort Penicillins Zithromax [Azithrom* Current Meds: quinapril (ACCUPRIL) 10 mg tablet Take 1 tablet by mouth once daily. LORazepam (ATIVAN) 0.5 mg Take 1 tablet by mouth twice daily as needed for up to 30 days. blood sugar diagnostic (VortalTOUCH ULTRA TEST) test strip TEST BLOOD SUGAR 2 (TWO) TIMES DAILY Review of Systems: The remainder of the review of systems is negative. PE: 01/29/22 1313 BP: 124/80 Pulse: 64 Resp: 16 Temp: 36.1 C (97 F) TempSrc: Right Tympanic Weight: 72.1 kg (159 lb) Gen: A&O, NAD, non-toxic appearing, Pleasant, cooperative HEENT: NT/AC, PERRLA, EOMs intact b/l, patient with mask on due to covid 19 risk Neck: supple, No cervical LAD, no thyromegaly, no carotid bruits CV: RRR, normal S1 and S2, no murmurs, no gallops, no rubs, Pulses 2+ and symmetric in UE and LE b/l Lungs: normal respiratory effort, CTA b/l, no wheezing or rhonchi or rales Abd: soft, NT, ND, +BS, no hepatosplenomegaly MS: FROM all 4 extremities Neuro: CN II-XII intact b/l, strength 5/5 b/l UE and LE, DTRs 2/4 UE and LE, sensation intact. + b/l lumbar paraspinal muscle tension and SI joint and gluteal discomfort No edema Skin: warm, dry, intact, No rashes or lesions on exposed skin. Foot exam: Monofilament wnl on right and left feet. ASSESSMENT/PLAN: 1. Type 2 diabetes mellitus without complication, without long-term current use of insulin (HCC) - ICD9: 250.00, ICD10: E11.9 (primary diagnosis) Controlled. - Continue current medications - CONSULT TO PODIATRY 2. Situational anxiety - ICD9: 300.09, ICD10: F41.8 - rx refilled, chronic, stable - LORAZEPAM 0.5 MG TABLET 3. SOB (shortness of breath) - ICD9: 786.05, ICD10: R06.02 - ECG today in office NSR without any concerns. Need for echo and likely stress testing as d/w her today - ECG COMPLETE - ECHO - PERFLUTREN LIPID MICROSPHERES 1.1 MG/ML INJECTION IN NS 10 ML - SODIUM CHLORIDE 0.9 % (FLUSH) INJECTION SYRINGE 4. Palpitations - ICD9: 785.1, ICD10: R00.2 - see above - ECG COMPLETE - ECHO - PERFLUTREN LIPID MICROSPHERES 1.1 MG/ML INJECTION IN NS 10 ML - SODIUM CHLORIDE 0.9 % (FLUSH) INJECTION SYRINGE 5. Acute bilateral low back pain with bilateral sciatica - ICD9: 724.2, 724.3, ICD10: M54.42, M54.41 Sciatica - Ice for localized tenderness - Warm moist heat for 20 min three times a day - Xrays- see orders - [facility] - XR LUMBAR GENERAL 3V AP/LAT/L5-S1 6. Stage 3a chronic kidney disease (HCC) - ICD9: 585.3, ICD10: N18.31 - stable, improved slightly Farhat Henry DO To ER if develops chest pain, shortness of breath, or severe worsening of symptoms. Discussed risks, benefits, alternatives, and potential side effects of medications. Patient expressed understanding and agreed with the plan. Farhat Henry DO [address] [place] [address] documented in this encounterFair[facility]05-18-2022 History of Past illness Narrative* Problem Noted Date Resolved Date Type 2 diabetes mellitus wit h stage 3a chronic kidney disease, without long-term current use of insulin 07/16/202011/2020 Unspecified essential hypertension 07/12/2020 documented as of this encounter (statuses as of 01/30/2022) [facility] Miscellaneous Notes* Telephone Encounter - Edita Martinez Ma - 12/10/2021 1:54 PM EDT Pt requested [employer] message be sent to her regarding labs. This has been done and closed. Edita Martinez Ma * Telephone Encounter - Carli Barbosa Ma - 12/04/2021 1:12 PM EDT Detailed VM left with patient Carli Barbosa Ma * Telephone Encounter - Farhat Henry DO - 12/04/2021 12:44 PM EDT Yes, please inform patient that fasting labs and urinalysis are ordered Farhat Henry DO * Telephone Encounter - Terri Marquis - 12/04/2021 11:00 AM EDT Patient called to cancel 12/04 appointment with Dora Sutherland for med review. Patient states there is no need to come in since I have a refill of Lorazaam . Patient has been scheduled with Dr. Henry on 01/29. Patient asking if Dr. Henry is wanting her to obtain a lab draw prior to that office visit. Please advise and post message on MyChart per patient. documented in this encounterFairfield [facility] Center03-29-2022 History of Past illness Narrative* Problem Noted Date Resolved Date Type 2 diabetes mellitus wit h stage 3a chronic kidney disease, without long-term current use of insulin 07/16/202011/2020 Unspecified essential hypertension 07/12/2020 documented as of this encounter (statuses as of 12/10/2021) [facility] Miscellaneous Notes* Telephone Encounter - Elio Freire - 05/08/2021 11:07 AM EDT Patient called yesterday requesting colonoscopy appointment. Scheduled appointment with Maribel Hart, Open access questions not needed at this time. Thank you Elio Freire * Telephone Encounter - Farhat Henry DO - 05/08/2021 8:30 AM EDT Noted Farhat Henry DO * Telephone Encounter - Cindy Morrison LPN - 05/08/2021 7:51 AM EDT Phone call placed update colonscopy smart set patient declined screening questions, will complete on scheduled appointment 05/27/2021. Cindy Morrison LPN documented in this encounterFairfield [facility] Center11-02-2020 History of Past illness Narrative* Problem Noted Date Resolved Date Type 2 diabetes mellitus wit h stage 3a chronic kidney disease, without long-term current use of insulin 07/16/20200 11/2020 Unspecified essential hypertension 07/12/2020 documented as of this encounter (statuses as of 02/08/2022) [address]02-2020 History of Past illness Narrative* Problem Noted Date Resolved Date Type 2 diabetes mellitus wit h stage 3a chronic kidney disease, without long-term current use of insulin 07/16/20200 11/2020 Unspecified essential hypertension 07/12/2020 documented as of this encounter (statuses as of 07/04/2022) [address]02-2020 History of Past illness Narrative* Problem Noted Date Resolved Date Type 2 diabetes mellitus wit h stage 3a chronic kidney disease, without long-term current use of insulin 07/16/202011/2020 Unspecified essential hypertension 07/12/2020 documented as of this encounter (statuses as of 07/29/2022) [address]02-2020 History of Past illness Narrative* Problem Noted Date Resolved Date Type 2 diabetes mellitus wit h stage 3a chronic kidney disease, without long-term current use of insulin 07/16/20200 11/2020 Unspecified essential hypertension 07/12/2020 documented as of this encounter (statuses as of 09/18/2022) [address]-2020 History of Past illness Narrative* Problem Noted Date Resolved Date Type 2 diabetes mellitus wit h stage 3a chronic kidney disease, without long-term current use of insulin 07/16/20200 11/2020 Unspecified essential hypertension 07/12/2020 documented as of this encounter (statuses as of 01/28/2023) [address]-2020 History of Past illness Narrative* Problem Noted Date Resolved Date Type 2 diabetes mellitus wit h stage 3a chronic kidney disease, without long-term current use of insulin 07/16/20200 11/2020 Unspecified essential hypertension 07/12/2020 documented as of this encounter (statuses as of 02/09/2023) [address]-2020 History of Past illness Narrative* Problem Noted Date Diagnosed Date Resolved Date Type 2 diabetes mellitus wit h stage 3a chronic kidney disease, without long-term current use of insulin 07/16/2020 05/17/2021 Unspecified essential hypertension 07/12/2020 documented as of this encounter (statuses as of 03/24/2023) [address]-2020 History of Past illness Narrative* Problem Noted Date Diagnosed Date Resolved Date Type 2 diabetes mellitus wit h stage 3a chronic kidney disease, without long-term current use of insulin 07/16/2020 05/17/2021 Unspecified essential hypertension 07/12/2020 documented as of this encounter (statuses as of 11/05/2023) [address]-2020 History of Past illness Narrative* Problem Noted Date Diagnosed Date Resolved Date Type 2 diabetes mellitus wit h stage 3a chronic kidney disease, without long-term current use of insulin 07/16/2020 05/17/2021 Unspecified essential hypertension 07/12/2020 documented as of this encounter (statuses as of 11/05/2023) [address]-2020 History of Past illness Narrative* Problem Noted Date Diagnosed Date Resolved Date Type 2 diabetes mellitus wit h stage 3a chronic kidney disease, without long-term current use of insulin 07/16/2020 05/17/2021 Unspecified essential hypertension 07/12/2020 documented as of this encounter (statuses as of 11/05/2023) [address]-2020 History of Past illness Narrative* Problem Noted Date Diagnosed Date Resolved Date Type 2 diabetes mellitus wit h stage 3a chronic kidney disease, without long-term current use of insulin 07/16/2020 05/17/2021 Unspecified essential hypertension 07/12/2020 documented as of this encounter (statuses as of 11/08/2023) [address]-2020 History of Past illness Narrative* Problem Noted Date Diagnosed Date Resolved Date Type 2 diabetes mellitus wit h stage 3a chronic kidney disease, without long-term current use of insulin 07/16/2020 05/17/2021 Unspecified essential hypertension 07/12/2020 documented as of this encounter (statuses as of 11/11/2023) [address]-2020 History of Past illness Narrative* Problem Noted Date Diagnosed Date Resolved Date Type 2 diabetes mellitus wit h stage 3a chronic kidney disease, without long-term current use of insulin 07/16/2020 05/17/2021 Unspecified essential hypertension 07/12/2020 documented as of this encounter (statuses as of 11/19/2023) [facility] Type 2 diabetes mellitus without complication, without long-term current use of insulin (HCC)- Primary Pure hypercholesterolemia Stage 3a chronic kidney disease (HCC) Encounter for hepatitis C screening test for low risk patient [facility] Type 2 diabetes mellitus without complication, without long-term current use of insulin (HCC)- Primary Situational anxiety Other anxiety states SOB (shortness of breath) Shortness of breath Palpitations Acute bilateral low back pain with bilateral sciatica Stage 3a chronic kidney disease (HCC) [facility] Diagnosis Poison jayna dermatitis- Primary Contact dermatitis and other eczema due to plants (except food) [facility] Diagnosis Poison jayna dermatitis- Primary Contact dermatitis and other eczema due to plants (except food) [facility] Diagnosis Chronic bilateral low back pain with left-sided sciatica- Primary Bulging lumbar disc Displacement of lumbar intervertebral disc without myelopathy Spinal stenosis of lumbar region with neurogenic claudication Spinal stenosis, lumbar region, with neurogenic claudication [facility] Diagnosis Lumbosacral neuritis- Primary Thoracic or lumbosacral neuritis or radiculitis, unspecified Lumbosacral neuritis Thoracic or lumbosacral neuritis or radiculitis, unspecified [facility] Diagnosis Chronic left shoulder pain- Primary Pain in joint, shoulder region Type 2 diabetes mellitus without complication, without long-term current use of insulin (HCC) Stage 3a chronic kidney disease (HCC) Pure hypercholesterolemia Hypertension, essential Unspecified essential hypertension Encounter for immunization Need for other specified prophylactic vaccination against single bacterial disease Lumbosacral neuritis Thoracic or lumbosacral neuritis or radiculitis, unspecified [facility] Diagnosis Situational anxiety Other anxiety states [facility] Diagnosis Constipation, unspecified constipation type- Primary [facility] Diagnosis Acute constipation- Primary Unspecified constipation Screening for colon cancer Special screening for malignant neoplasms, colon Type 2 diabetes mellitus without complication, without long-term current use of insulin ([facility]) [facility] Diagnosis Contact dermatitis due to plant Contact dermatitis and other eczema due to plants (except food) [facility] Diagnosis Situational anxiety Other anxiety states [facility] Diagnosis Situational anxiety Other anxiety states [facility] Diagnosis Type 2 diabetes mellitus without complication, without long-term current use of insulin (HCC)- Primary Situational anxiety Other anxiety states Stage 3a chronic kidney disease (HCC) Hypertension, essential Unspecified essential hypertension Pure hypercholesterolemia Myalgia Mylagia and myositis, unspecified Vitamin D deficiency Unspecified vitamin D deficiency [facility] Diagnosis Lumbosacral neuritis- Primary Thoracic or lumbosacral neuritis or radiculitis, unspecified Degeneration of lumbar or lumbosacral intervertebral disc Right buttock pain Mylagia and myositis, unspecified [facility] Diagnosis Lumbosacral neuritis Thoracic or lumbosacral neuritis or radiculitis, unspecified Degeneration of lumbar or lumbosacral intervertebral disc Right buttock pain Mylagia and myositis, unspecified [facility] Diagnosis Right buttock pain- Primary Mylagia and myositis, unspecified Lumbosacral neuritis Thoracic or lumbosacral neuritis or radiculitis, unspecified Degeneration of lumbar or lumbosacral intervertebral disc [facility] Diagnosis Papule of skin- Primary Hypertension, essential Unspecified essential hypertension [facility] Diagnosis Poison jayna dermatitis- Primary Contact dermatitis and other eczema due to plants (except food) documented [facility] Diagnosis Acute cystitis with hematuria- Primary Acute cystitis [facility] Diagnosis Right buttock pain- Primary Mylagia and myositis, unspecified Lumbosacral neuritis Thoracic or lumbosacral neuritis or radiculitis, unspecified Degeneration of lumbar or lumbosacral intervertebral disc [facility] Diagnosis Contact dermatitis due to plant Contact dermatitis and other eczema due to plants (except food) [facility] Diagnosis Right buttock pain- Primary Mylagia and myositis, unspecified Lumbosacral neuritis Thoracic or lumbosacral neuritis or radiculitis, unspecified Degeneration of lumbar or lumbosacral intervertebral disc [facility] Diagnosis Right buttock pain- Primary Mylagia and myositis, unspecified Lumbosacral neuritis Thoracic or lumbosacral neuritis or radiculitis, unspecified Degeneration of lumbar or lumbosacral intervertebral disc [facility] Diagnosis Bronchitis- Primary Bronchitis, not specified as acute or chronic [facility] Diagnosis Hypertension, essential- Primary Unspecified essential hypertension Contact dermatitis due to plant Contact dermatitis and other eczema due to plants (except food) Situational anxiety Other anxiety states Need for shingles vaccine Need for prophylactic vaccination and inoculation against other viral diseases Type 2 diabetes mellitus with stage 3a chronic kidney disease, without long-term current use of insulin (HCC) Spinal stenosis of lumbar region with neurogenic claudication Spinal stenosis, lumbar region, with neurogenic claudication Pure hypercholesterolemia Vitamin D deficiency Unspecified vitamin D deficiency [facility] Diagnosis Pain- Primary Generalized pain [facility] Diagnosis Controlled type 2 diabetes mellitus without complication, without long-term current use of insulin (HCC)- Primary [facility] Diagnosis Muscle tightness- Primary Unspecified disorder of muscle, ligament, and fascia [facility] Diagnosis Controlled type 2 diabetes mellitus without complication, without long-term current use of insulin (HCC)- Primary Right hip pain Pain in joint, pelvic region and thigh Gluteal pain Mylagia and myositis, unspecified Secondary renal hyperparathyroidism (HCC) Secondary hyperparathyroidism (of renal origin) Pure hypercholesterolemia Spinal stenosis of lumbar region with neurogenic claudication Spinal stenosis, lumbar region, with neurogenic claudication Hypertension, essential Unspecified essential hypertension Vitamin D deficiency Unspecified vitamin D deficiency Dyslipidemia Other and unspecified hyperlipidemia Stage 3a chronic kidney disease (HCC) [facility]* Diagnosis Lumbar spondylosis- Primary Lumbosacral spondylosis without myelopathy Spinal stenosis, lumbar region, without neurogenic claudication Lumbar radiculopathy Thoracic or lumbosacral neuritis or radiculitis, unspecified [facility] Diagnosis Lumbar spondylosis- Primary Lumbosacral spondylosis without myelopathy Spinal stenosis, lumbar region, without neurogenic claudication Lumbar radiculopathy Thoracic or lumbosacral neuritis or radiculitis, unspecified Anxiety due to invasive procedure [facility]* Diagnosis Hypertension, essential- Primary Unspecified essential hypertension Spinal stenosis of lumbar region with neurogenic claudication Spinal stenosis, lumbar region, with neurogenic claudication Lumbosacral neuritis Thoracic or lumbosacral neuritis or radiculitis, unspecified Chronic bilateral low back pain with left-sided sciatica Situational anxiety Other anxiety states Secondary renal hyperparathyroidism (HCC) Secondary hyperparathyroidism (of renal origin) Type 2 diabetes mellitus with stage 3a chronic kidney disease, without long-term current use of insulin (HCC) Stage 3a chronic kidney disease (HCC) [facility] Diagnosis Hypertension, essential Unspecified essential hypertension documented in this encounter [facility] for referral (narrative)* Diagnostic Procedure Only (Routine) - Pending Review Specialty Diagnoses / Procedures Referred By Liza t Referred To Contact XR IMAGING Diagnoses Acute bilateral low back pain with bilateral sciatica Procedures XR LUMBAR GENERAL 3V AP/LAT/L5-S1 RADEX SPINE LUMBOSACRAL 2/3 VIEWS Farhat Henry DO [address] [place] [address] Xr Imaging Referral ID Status Reason Start Date Expiration Date Visits Requested Visits Authorized [id number] Pending Review Auto-Generat ed Referral 01/29/2022 02/28/2023 1 1 * Consult, Test, Treat (Routine) - Authorized Specialty Diagnoses / Procedures Referred By Contac t Referred To Contact Podiatry Diagnoses Type 2 diabetes mellitus without complication, without long-term current use of insulin (HCC) Procedures CONSULT TO PODIATRY OFFICE/OUTPATIENT NEW [facility] MDM 60-74 MINUTES Farhat Henry DO [address] [place] [address] Referral ID Status Reason Start Date Expiration Date Visits Requested Visits Authorized [id number] Authorized PCP Requested Referral 01/29/2022 01/29/2023 1 1 * Consult, Test, Treat (Routine) - Authorized Specialty Diagnoses / Procedures Referred By Contac t Referred To Contact [facility] [place] Diagnoses Acute bilateral low back pain with bilateral sciatica Procedures CONSULT TO [facility] OFFICE/OUTPATIENT NEW HIGH MDM 60-74 MINUTES Farhat Henry DO [address] [place] [address] Referral ID Status Reason Start Date Expiration Date Visits Requested Visits Authorized [id number] Authorized PCP Requested Referral 01/29/2022 01/29/2023 1 1 * Outpatient Procedure (Routine) - Authorized Specialty Diagnoses / Procedures Referred By [place] t Referred To Contact [facility] [place] Diagnoses SOB (shortness of breath) Palpitations Procedures ECHO ECHO TTHRC R-T 2D W/WOM-MODE COMPL SPEC&COLR D Farhat Henry DO [address] [place] [address] [facility] [place] [address] [place] [address] Referral ID Status Reason Start Date Expiration Date Visits Requested Visits Authorized [id number] Authorized Auto-Generat ed Referral 01/29/2022 01/29/2023 1 1 * Outpatient Procedure (Routine) - Closed Specialty Diagnoses / Procedures Referred By Contac t Referred To Contact [facility] Diagnoses SOB (shortness of breath) Palpitations Procedures ECG COMPLETE ECG ROUTINE ECG W/LEAST 12 LDS W/I&R Farhat Henry DO [address] [place] [address] [facility] [place] [address] [place] [address] Referral ID Status Reason Start Date Expiration Date V isits Requested Visits Authorized [id number] Closed Auto-Generate d Referral 01/29/2022 01/29/2023 1 1 [facility] for referral (narrative)* - Authorized Specialty Diagnoses / Procedures Referred By Contac t Referred To Contact Diagnoses Lumbosacral neuritis Degeneration of lumbar or lumbosacral intervertebral disc Right buttock pain Procedures CONSULT [place] [address] [place] [address] Referral ID Status Reason Start Date Expiration Date V isits Requested Visits Authorized [id number] Authorized 01/09/2023 04/09/2023 99 99 [facility] for referral (narrative)* Diagnostic Procedure Only (Routine) - Authorized Specialty Diagnoses / Procedures Referred By Contac t Referred To Contact XR IMAGING Diagnoses Pain Procedures XR HIP GENERAL 3V PELV/AP/LAT RIGHT RADEX HIP UNILATERAL WITH PELVIS 2-3 VIEWS Brianne Vidales DO [address] [place] [address] [place] [address] Referral ID Status Reason Start Date Expiration Date Visits Requested Visits Authorized [id number] Authorized Auto-Generat ed Referral 08/25/2024 1 1 [facility] Summary Purpose Family History No Family History Records FoundNo Family History Records FoundNo Family History Records FoundNo Family History Records FoundNo Family History Records Found Advance Directives No Advanced Directives Records FoundNo Advanced Directives Records FoundNo Advanced Directives Records FoundNo Advanced Directives Records FoundNo Advanced Directives Records Found Reason for Referral Specialty Diagnoses / Procedures Referred By Contac t Referred To Contact Diagnoses Poison jayna dermatitis Farhat Henry, DO [address] [place] [address] Referral ID Status Reason Start Date Expiration Date V isits Requested Visits Authorized [id number] Authorized 09/14/2021 09/13/2022 1 1 Specialty Diagnoses / Procedures Referred By Contac t Referred To Contact Diagnoses Chronic left shoulder pain Noa Varghese APRN.[employer] [address] [place] [address] Referral ID Status Reason Start Date Expiration Date Visits Re quested Visits Authorized [id number] Denied 1 1 Specialty Diagnoses / Procedures Referred By Contac t Referred To Contact XR IMAGING Diagnoses Chronic left shoulder pain Procedures XR SHOULDER LIMITED 2V AP/TRUE AP LEFT RADEX SHOULDER COMPLETE MINIMUM 2 VIEWS Noa Varghese, DIGITAL IMAGING TECHNICIAN.[employer]SP[employer] [address] [place] [address] Xr Imaging Referral ID Status Reason Start Date Expiration Date Visits Requested Visits Authorized [id number] Pending Review Auto-Generat ed Referral 08/10/2023 1 1 Specialty Diagnoses / Procedures Referred By Contac t Referred To Contact General Surgery Diagnoses Screening for colon cancer Procedures CONSULT TO GENERAL SURGERY OFFICE/OUTPATIENT [facility] 60-74 MINUTES Farhat Henry DO [address] [place] [id number] Referral ID Status Reason Start Date Expiration Date Visits Requested Visits Authorized [id number] Authorized PCP Requested Referral 07/16/2022 07/16/2023 1 1 Specialty Diagnoses / Procedures Referred By Contac t Referred To Contact Nutrition Diagnoses Type 2 diabetes mellitus without complication, without long-term current use of insulin (HCC) Procedures CONSULT TO NUTRITION THERAPY OFFICE/OUTPATIENT [facility] 60-74 MINUTES Dominic Harkins APRN.[employer] V[employer]OR [address] [place] [address] Referral ID Status Reason Start Date Expiration Date Visits Requested Visits Authorized [id number] Authorized PCP Requested Referral 09/16/2022 09/16/2023 1 1 Specialty Diagnoses / Procedures Referred By Contac t Referred To Contact Gastroenterology Diagnoses Screening for colon cancer Procedures CONSULT TO GASTROENTEROLOGY OFFICE/OUTPATIENT [facility] 60-74 MINUTES Dominic Harkins APRN.[employer] V[employer]OR [address] [place] [address] Juan Banerjee MD [address] [place] [address] Referral ID Status Reason Start Date Expiration Date Visits Requested Visits Authorized [id number] Authorized PCP Requested Referral 09/16/2022 09/16/2023 1 1 Specialty Diagnoses / Procedures Referred By Contac t Referred To Contact [facility] Diagnoses Lumbosacral neuritis Degeneration of lumbar or lumbosacral intervertebral disc Right buttock pain Procedures PT REHAB FOLLOW UP ORDER THERAPEUTIC EXERCISES RE, EA 15 MIN. Peng Cage, PT [address] [place] [address] [facility] [address] [address] Referral ID Status Reason Start Date Expiration Date Visits Requested Visits Authorized [id number] Pending Review PCP Requested Referral Auto-Generate d Referral 01/22/2023 04/22/2023 1 1 Specialty Diagnoses / Procedures Referred By Contac t Referred To Contact [facility] Diagnoses Right buttock pain Lumbosacral neuritis Degeneration of lumbar or lumbosacral intervertebral disc Procedures PT REHAB FOLLOW UP ORDER THERAPEUTIC EXERCISES RE, EA 15 MIN. Peng Cage, PT [address] [place] [address] [address] Referral ID Status Reason Start Date Expiration Date Visits Requested Visits Authorized [id number] Pending Review PCP Requested Referral Auto-Generate d Referral 03/23/2023 06/21/2023 1 1 Specialty Diagnoses / Procedures Referred By Contac t Referred To Contact [facility] Diagnoses Right hip pain Gluteal pain Procedures CONSULT TO PHYSICAL THERAPY PHYSICAL THERAPY EVALUATION HIGH COMPLEX 45 MINS Farhat Henry, DO [address] [place] [address] [facility] [address] [address] Referral ID Status Reason Start Date Expiration Date Visits Requested Visits Authorized [id number] Authorized PCP Requested Referral Auto-Generate d Referral 08/21/2023 08/20/2024 99 99 Specialty Diagnoses / Procedures Referred By Contac t Referred To Contact Pain Management Diagnoses Spinal stenosis of lumbar region with neurogenic claudication Lumbosacral neuritis Chronic bilateral low back pain with left-sided sciatica Procedures CONSULT TO PAIN MGT OFFICE/OUTPATIENT [facility] 60 MINUTES Farhat Henry, DO [address] [place] [address] Referral ID Status Reason Start Date Expiration Date Visits Requested Visits Authorized [id number] Authorized PCP Requested Referral 11/18/2023 11/17/2024 1 1 Additional Source Comments INFORMATION SOURCE (unrecogn ized section and content) DATE CREATED AUTHOR AUTHOR'S ORGANIZ ATION 05/10/2022 [facility] dical Specialist DATE CREATED AUTHOR AUTHOR'S ORGANIZ ATION 09/24/2023 [facility] DATE CREATED AUTHOR AUTHOR'S ORGANIZ ATION 11/13/2023 [facility]ical [facility] DATE CREATED AUTHOR AUTHOR'S ORGANIZ ATION 11/19/2023 [facility] Source Comments (unrecognize d section and content) In the event this informatio n is protected by the Federal Confidentiality of Alcohol and Drug Abuse Patient Records regulations: The Federal rules restrict any use of the information to criminally investigate or prosecute any alcohol or drug abuse patient.[facility] the event this information is protected by the Federal Confidentiality of Alcohol and Drug Abuse Patient Records regulations: The Federal rules restrict any use of the information to criminally investigate or prosecute any alcohol or drug abuse patient.[facility] the event this information is protected by the Federal Confidentiality of Alcohol and Drug Abuse Patient Records regulations: The Federal rules restrict any use of the information to criminally investigate or prosecute any alcohol or drug abuse patient.[facility] the event this information is protected by the Federal Confidentiality of Alcohol and Drug Abuse Patient Records regulations: The Federal rules restrict any use of the information to criminally investigate or prosecute any alcohol or drug abuse patient.[facility] the event this information is protected by the Federal Confidentiality of Alcohol and Drug Abuse Patient Records regulations: The Federal rules restrict any use of the information to criminally investigate or prosecute any alcohol or drug abuse patient.[facility] Center[facility] the event this information is protected by the Federal Confidentiality of Alcohol and Drug Abuse Patient Records regulations: The Federal rules restrict any use of the information to criminally investigate or prosecute any alcohol or drug abuse patient.[facility] CenterIn the event this information is protected by the Federal Confidentiality of Alcohol and Drug Abuse Patient Records regulations: The Federal rules restrict any use of the information to criminally investigate or prosecute any alcohol or drug abuse patient.[facility] CenterIn the event this information is protected by the Federal Confidentiality of Alcohol and Drug Abuse Patient Records regulations: The Federal rules restrict any use of the information to criminally investigate or prosecute any alcohol or drug abuse patient.[facility] CenterIn the event this information is protected by the Federal Confidentiality of Alcohol and Drug Abuse Patient Records regulations: The Federal rules restrict any use of the information to criminally investigate or prosecute any alcohol or drug abuse patient.[facility] CenterIn the event this information is protected by the Federal Confidentiality of Alcohol and Drug Abuse Patient Records regulations: The Federal rules restrict any use of the information to criminally investigate or prosecute any alcohol or drug abuse patient.[facility] CenterIn the event this information is protected by the Federal Confidentiality of Alcohol and Drug Abuse Patient Records regulations: The Federal rules restrict any use of the information to criminally investigate or prosecute any alcohol or drug abuse patient.[facility] CenterIn the event this information is protected by the Federal Confidentiality of Alcohol and Drug Abuse Patient Records regulations: The Federal rules restrict any use of the information to criminally investigate or prosecute any alcohol or drug abuse patient.[facility] CenterIn the event this information is protected by the Federal Confidentiality of Alcohol and Drug Abuse Patient Records regulations: The Federal rules restrict any use of the information to criminally investigate or prosecute any alcohol or drug abuse patient.[facility] CenterIn the event this information is protected by the Federal Confidentiality of Alcohol and Drug Abuse Patient Records regulations: The Federal rules restrict any use of the information to criminally investigate or prosecute any alcohol or drug abuse patient.[facility] CenterIn the event this information is protected by the Federal Confidentiality of Alcohol and Drug Abuse Patient Records regulations: The Federal rules restrict any use of the information to criminally investigate or prosecute any alcohol or drug abuse patient.[facility] CenterIn the event this information is protected by the Federal Confidentiality of Alcohol and Drug Abuse Patient Records regulations: The Federal rules restrict any use of the information to criminally investigate or prosecute any alcohol or drug abuse patient.[facility] CenterIn the event this information is protected by the Federal Confidentiality of Alcohol and Drug Abuse Patient Records regulations: The Federal rules restrict any use of the information to criminally investigate or prosecute any alcohol or drug abuse patient.[facility] CenterIn the event this information is protected by the Federal Confidentiality of Alcohol and Drug Abuse Patient Records regulations: The Federal rules restrict any use of the information to criminally investigate or prosecute any alcohol or drug abuse patient.[facility] CenterIn the event this information is protected by the Federal Confidentiality of Alcohol and Drug Abuse Patient Records regulations: The Federal rules restrict any use of the information to criminally investigate or prosecute any alcohol or drug abuse patient.[facility] CenterIn the event this information is protected by the Federal Confidentiality of Alcohol and Drug Abuse Patient Records regulations: The Federal rules restrict any use of the information to criminally investigate or prosecute any alcohol or drug abuse patient.[facility] CenterIn the event this information is protected by the Federal Confidentiality of Alcohol and Drug Abuse Patient Records regulations: The Federal rules restrict any use of the information to criminally investigate or prosecute any alcohol or drug abuse patient.[facility] CenterIn the event this information is protected by the Federal Confidentiality of Alcohol and Drug Abuse Patient Records regulations: The Federal rules restrict any use of the information to criminally investigate or prosecute any alcohol or drug abuse patient.[facility] CenterIn the event this information is protected by the Federal Confidentiality of Alcohol and Drug Abuse Patient Records regulations: The Federal rules restrict any use of the information to criminally investigate or prosecute any alcohol or drug abuse patient.[facility] CenterIn the event this information is protected by the Federal Confidentiality of Alcohol and Drug Abuse Patient Records regulations: The Federal rules restrict any use of the information to criminally investigate or prosecute any alcohol or drug abuse patient.[facility] CenterIn the event this information is protected by the Federal Confidentiality of Alcohol and Drug Abuse Patient Records regulations: The Federal rules restrict any use of the information to criminally investigate or prosecute any alcohol or drug abuse patient.[facility] CenterIn the event this information is protected by the Federal Confidentiality of Alcohol and Drug Abuse Patient Records regulations: The Federal rules restrict any use of the information to criminally investigate or prosecute any alcohol or drug abuse patient.[facility] CenterIn the event this information is protected by the Federal Confidentiality of Alcohol and Drug Abuse Patient Records regulations: The Federal rules restrict any use of the information to criminally investigate or prosecute any alcohol or drug abuse patient.[facility] CenterIn the event this information is protected by the Federal Confidentiality of Alcohol and Drug Abuse Patient Records regulations: The Federal rules restrict any use of the information to criminally investigate or prosecute any alcohol or drug abuse patient.[facility] CenterIn the event this information is protected by the Federal Confidentiality of Alcohol and Drug Abuse Patient Records regulations: The Federal rules restrict any use of the information to criminally investigate or prosecute any alcohol or drug abuse patient.[facility] CenterIn the event this information is protected by the Federal Confidentiality of Alcohol and Drug Abuse Patient Records regulations: The Federal rules restrict any use of the information to criminally investigate or prosecute any alcohol or drug abuse patient.[facility] CenterIn the event this information is protected by the Federal Confidentiality of Alcohol and Drug Abuse Patient Records regulations: The Federal rules restrict any use of the information to criminally investigate or prosecute any alcohol or drug abuse patient.[facility] CenterIn the event this information is protected by the Federal Confidentiality of Alcohol and Drug Abuse Patient Records regulations: The Federal rules restrict any use of the information to criminally investigate or prosecute any alcohol or drug abuse patient.[facility] CenterIn the event this information is protected by the Federal Confidentiality of Alcohol and Drug Abuse Patient Records regulations: The Federal rules restrict any use of the information to criminally investigate or prosecute any alcohol or drug abuse patient.[facility] CenterIn the event this information is protected by the Federal Confidentiality of Alcohol and Drug Abuse Patient Records regulations: The Federal rules restrict any use of the information to criminally investigate or prosecute any alcohol or drug abuse patient.[facility] CenterIn the event this information is protected by the Federal Confidentiality of Alcohol and Drug Abuse Patient Records regulations: The Federal rules restrict any use of the information to criminally investigate or prosecute any alcohol or drug abuse patient.[facility] CenterIn the event this information is protected by the Federal Confidentiality of Alcohol and Drug Abuse Patient Records regulations: The Federal rules restrict any use of the information to criminally investigate or prosecute any alcohol or drug abuse patient.[facility] CenterIn the event this information is protected by the Federal Confidentiality of Alcohol and Drug Abuse Patient Records regulations: The Federal rules restrict any use of the information to criminally investigate or prosecute any alcohol or drug abuse patient.[facility] CenterIn the event this information is protected by the Federal Confidentiality of Alcohol and Drug Abuse Patient Records regulations: The Federal rules restrict any use of the information to criminally investigate or prosecute any alcohol or drug abuse patient.[facility] CenterIn the event this information is protected by the Federal Confidentiality of Alcohol and Drug Abuse Patient Records regulations: The Federal rules restrict any use of the information to criminally investigate or prosecute any alcohol or drug abuse patient.[facility] CenterIn the event this information is protected by the Federal Confidentiality of Alcohol and Drug Abuse Patient Records regulations: The Federal rules restrict any use of the information to criminally investigate or prosecute any alcohol or drug abuse patient.[facility] CenterIn the event this information is protected by the Federal Confidentiality of Alcohol and Drug Abuse Patient Records regulations: The Federal rules restrict any use of the information to criminally investigate or prosecute any alcohol or drug abuse patient.[facility] CenterIn the event this information is protected by the Federal Confidentiality of Alcohol and Drug Abuse Patient Records regulations: The Federal rules restrict any use of the information to criminally investigate or prosecute any alcohol or drug abuse patient.[facility] CenterIn the event this information is protected by the Federal Confidentiality of Alcohol and Drug Abuse Patient Records regulations: The Federal rules restrict any use of the information to criminally investigate or prosecute any alcohol or drug abuse patient.[facility] CenterIn the event this information is protected by the Federal Confidentiality of Alcohol and Drug Abuse Patient Records regulations: The Federal rules restrict any use of the information to criminally investigate or prosecute any alcohol or drug abuse patient.[facility] CenterIn the event this information is protected by the Federal Confidentiality of Alcohol and Drug Abuse Patient Records regulations: The Federal rules restrict any use of the information to criminally investigate or prosecute any alcohol or drug abuse patient.[facility] CenterIn the event this information is protected by the Federal Confidentiality of Alcohol and Drug Abuse Patient Records regulations: The Federal rules restrict any use of the information to criminally investigate or prosecute any alcohol or drug abuse patient.[facility] CenterIn the event this information is protected by the Federal Confidentiality of Alcohol and Drug Abuse Patient Records regulations: The Federal rules restrict any use of the information to criminally investigate or prosecute any alcohol or drug abuse patient.[facility] CenterIn the event this information is protected by the Federal Confidentiality of Alcohol and Drug Abuse Patient Records regulations: The Federal rules restrict any use of the information to criminally investigate or prosecute any alcohol or drug abuse patient.[facility] CenterIn the event this information is protected by the Federal Confidentiality of Alcohol and Drug Abuse Patient Records regulations: The Federal rules restrict any use of the information to criminally investigate or prosecute any alcohol or drug abuse patient.[facility] CenterIn the event this information is protected by the Federal Confidentiality of Alcohol and Drug Abuse Patient Records regulations: The Federal rules restrict any use of the information to criminally investigate or prosecute any alcohol or drug abuse patient.[facility] CenterIn the event this information is protected by the Federal Confidentiality of Alcohol and Drug Abuse Patient Records regulations: The Federal rules restrict any use of the information to criminally investigate or prosecute any alcohol or drug abuse patient.[facility] CenterIn the event this information is protected by the Federal Confidentiality of Alcohol and Drug Abuse Patient Records regulations: The Federal rules restrict any use of the information to criminally investigate or prosecute any alcohol or drug abuse patient.[facility] CenterIn the event this information is protected by the Federal Confidentiality of Alcohol and Drug Abuse Patient Records regulations: The Federal rules restrict any use of the information to criminally investigate or prosecute any alcohol or drug abuse patient.[facility] CenterIn the event this information is protected by the Federal Confidentiality of Alcohol and Drug Abuse Patient Records regulations: The Federal rules restrict any use of the information to criminally investigate or prosecute any alcohol or drug abuse patient.[facility] CenterIn the event this information is protected by the Federal Confidentiality of Alcohol and Drug Abuse Patient Records regulations: The Federal rules restrict any use of the information to criminally investigate or prosecute any alcohol or drug abuse patient.[facility] CenterIn the event this information is protected by the Federal Confidentiality of Alcohol and Drug Abuse Patient Records regulations: The Federal rules restrict any use of the information to criminally investigate or prosecute any alcohol or drug abuse patient.[facility] CenterIn the event this information is protected by the Federal Confidentiality of Alcohol and Drug Abuse Patient Records regulations: The Federal rules restrict any use of the information to criminally investigate or prosecute any alcohol or drug abuse patient.[facility] CenterIn the event this information is protected by the Federal Confidentiality of Alcohol and Drug Abuse Patient Records regulations: The Federal rules restrict any use of the information to criminally investigate or prosecute any alcohol or drug abuse patient.[facility] CenterIn the event this information is protected by the Federal Confidentiality of Alcohol and Drug Abuse Patient Records regulations: The Federal rules restrict any use of the information to criminally investigate or prosecute any alcohol or drug abuse patient.[facility] CenterIn the event this information is protected by the Federal Confidentiality of Alcohol and Drug Abuse Patient Records regulations: The Federal rules restrict any use of the information to criminally investigate or prosecute any alcohol or drug abuse patient.[facility] CenterIn the event this information is protected by the Federal Confidentiality of Alcohol and Drug Abuse Patient Records regulations: The Federal rules restrict any use of the information to criminally investigate or prosecute any alcohol or drug abuse patient.[facility] CenterIn the event this information is protected by the Federal Confidentiality of Alcohol and Drug Abuse Patient Records regulations: The Federal rules restrict any use of the information to criminally investigate or prosecute any alcohol or drug abuse patient.[facility] CenterIn the event this information is protected by the Federal Confidentiality of Alcohol and Drug Abuse Patient Records regulations: The Federal rules restrict any use of the information to criminally investigate or prosecute any alcohol or drug abuse patient.[facility] CenterIn the event this information is protected by the Federal Confidentiality of Alcohol and Drug Abuse Patient Records regulations: The Federal rules restrict any use of the information to criminally investigate or prosecute any alcohol or drug abuse patient.[facility] CenterIn the event this information is protected by the Federal Confidentiality of Alcohol and Drug Abuse Patient Records regulations: The Federal rules restrict any use of the information to criminally investigate or prosecute any alcohol or drug abuse patient.[facility] CenterIn the event this information is protected by the Federal Confidentiality of Alcohol and Drug Abuse Patient Records regulations: The Federal rules restrict any use of the information to criminally investigate or prosecute any alcohol or drug abuse patient.[facility] CenterIn the event this information is protected by the Federal Confidentiality of Alcohol and Drug Abuse Patient Records regulations: The Federal rules restrict any use of the information to criminally investigate or prosecute any alcohol or drug abuse patient.[facility] CenterIn the event this information is protected by the Federal Confidentiality of Alcohol and Drug Abuse Patient Records regulations: The Federal rules restrict any use of the information to criminally investigate or prosecute any alcohol or drug abuse patient.[facility] CenterIn the event this information is protected by the Federal Confidentiality of Alcohol and Drug Abuse Patient Records regulations: The Federal rules restrict any use of the information to criminally investigate or prosecute any alcohol or drug abuse patient.[facility] CenterIn the event this information is protected by the Federal Confidentiality of Alcohol and Drug Abuse Patient Records regulations: The Federal rules restrict any use of the information to criminally investigate or prosecute any alcohol or drug abuse patient.[facility] CenterIn the event this information is protected by the Federal Confidentiality of Alcohol and Drug Abuse Patient Records regulations: The Federal rules restrict any use of the information to criminally investigate or prosecute any alcohol or drug abuse patient.[facility] CenterIn the event this information is protected by the Federal Confidentiality of Alcohol and Drug Abuse Patient Records regulations: The Federal rules restrict any use of the information to criminally investigate or prosecute any alcohol or drug abuse patient.[facility] Reason for Visit (unrecogniz ed section and content) Reason Comments Follow Up Reason Comments poison jayna Reason Comments Insurance Authorization Reason Comments Requesting medication Reason Comments Headache on medrol dose jonny High Blood Sugar Reason Comments Appointment Reason Comments Medication Request rash under breasts Reason Comments Opened In Error Reason Comments left leg numbness Has appt with sterilization specialist next month and wanting to rule out other possibilities prior to visit Reason Comments Schedule Injection Reason Comments Arm Pain Left arm x 2 weeks. Pain started in shoulder and has traveled to elbow. Pain worse in evenings. Neck Pain Left side Reason Comments Schedule Surgery Reason Comments Patient Update Reason Comments Follow Up Reason Onset Date Comments Refill Request 07/26/2022 Reason Onset Date Comments Refill Request 08/05/2022 Reason Comments Refill Request Reason Comments Constipation x 3 days, seen Dr. Luz lucero 07/21 for same issue Reason Comments Follow Up Constipation Reason Onset Date Comments Refill Request 10/16/2022 Reason Onset Date Comments Refill Request 10/21/2022 Reason Onset Date Comments Refill Request 10/28/2022 Reason Comments Medication Problem Reason Comments Back Pain Reason Comments F/U 3 Month Reason Comments Low Back Pain States a low back pa in that radiates down the right hip and leg for 3 months. /10 pain Hip Pain Leg Pain Reason Onset Date Comments Refill Request 01/19/2023 Reason Comments PT Eval Specialty Diagnoses / Procedures Referred By Contac t Referred To Contact Diagnoses Lumbosacral neuritis Degeneration of lumbar or lumbosacral intervertebral disc Right buttock pain Procedures CONSULT [place] [address] [place] [address] Referral ID Status Reason Start Date Expiration Date V isits Requested Visits Authorized [id number] Authorized 01/09/2023 04/09/2023 99 99 Reason Comments Physical Therapy Specialty Diagnoses / Procedures Referred By Contac t Referred To Contact PHYSICAL THERAPY Diagnoses Lumbosacral neuritis Degeneration of lumbar or lumbosacral intervertebral disc Right buttock pain Procedures CONSULT [place] [address] [place] [address] Pt [facility] [address] [place] [address] Reason Comments tick bite Bottom of right leg x 2 days Reason Comments Rash X 8 days Reason Comments Medication issue Reason Comments Numbness Reason Comments Results Reason Comments PT Progress Note Specialty Diagnoses / Procedures Referred By Contac t Referred To Contact PHYSICAL THERAPY Diagnoses Lumbosacral neuritis Degeneration of lumbar or lumbosacral intervertebral disc Right buttock pain Procedures CONSULT [place] [address] [place] [address] Pt [facility] [address] [place] [address] Reason Onset Date Comments Refill Request 02/27/2023 Refill Request 03/28/2023 Reason Comments PT Progress Note Specialty Diagnoses / Procedures Referred By Contac t Referred To Contact Physical Therapy / PHYSICAL THERAPY Diagnoses Lumbosacral neuritis Degeneration of lumbar or lumbosacral intervertebral disc Right buttock pain Procedures CONSULT [place] [address] [place] [address] Peng Cage, PT [address] [place] [address] Referral ID Status Reason Start Date Expiration Date V isits Requested Visits Authorized [id number] Authorized 09/14/2022 09/13/2023 99 99 Reason Comments Chest Congestion X 3 weeks Reason Comments Follow Up Reason Comments Medication Question Reason Onset Date Comments Refill Request 07/27/2023 Reason Comments Question Reason Comments Wellness Muscle tightness Reason Comments F/U 3 Month Reason Comments Follow Up Back Pain Lower Reason Comments Injection Questions Reason Comments Follow Up Discuss RFA instead of Ablasion Back Pain Lower Reason Comments ER Dr wants to speak to pcp Reason Comments ER F/U BP Reason Comments Med Change Request Care Teams (unrecognized sec tion and content) Assistant Boiler Operator Relationship Specialty Start Date End Date Farhat Henry, DO [address] [place] [address] PCP - General Family Practice 07/13/19 Assistant Boiler Operator Relationship Specialty Start Date End Date Farhat Henry, DO [address] [place] [address] PCP - General Family Practice 07/13/19 Assistant Boiler Operator Relationship Specialty Start Date End Date Farhat Henry, DO [address] [place] [address] PCP - General Family Practice 07/13/19 Assistant Boiler Operator Relationship Specialty Start Date End Date Farhat Henry, DO [address] [place] [address] PCP - General Family Practice 07/13/19 Assistant Boiler Operator Relationship Specialty Start Date End Date Farhat Henry, DO [address] [place] [address] PCP - General Family Practice 07/13/19 Assistant Boiler Operator Relationship Specialty Start Date End Date Farhat Henry, DO [address] [place] [address] PCP - General Family Practice 07/13/19 Assistant Boiler Operator Relationship Specialty Start Date End Date Farhat Henry, DO [address] [place] [address] PCP - General Family Practice 07/13/19 Assistant Boiler Operator Relationship Specialty Start Date End Date Farhat Henry, DO [address] [place] [address] PCP - General Family Practice 07/13/19 Assistant Boiler Operator Relationship Specialty Start Date End Date Farhat Henry, DO [address] [place] [address] PCP - General Family Medicine 07/13/19 Assistant Boiler Operator Relationship Specialty Start Date End Date Farhat Henry, DO [address] [place] [address] PCP - General Family Medicine 07/13/19 Assistant Boiler Operator Relationship Specialty Start Date End Date Farhat Henry, DO [address] [place] [address] PCP - General Family Medicine 07/13/19 Assistant Boiler Operator Relationship Specialty Start Date End Date Farhat Henry, DO [address] [place] [address] PCP - General Family Medicine 07/13/19 Assistant Boiler Operator Relationship Specialty Start Date End Date Farhat Henry, DO [address] [place] [address] PCP - General Family Medicine 07/13/19 Assistant Boiler Operator Relationship Specialty Start Date End Date Farhat Henry, DO [address] [place] [address] PCP - General Family Medicine 07/13/19 Assistant Boiler Operator Relationship Specialty Start Date End Date Farhat Henry, DO [address] [place] [address] PCP - General Family Medicine 07/13/19 Assistant Boiler Operator Relationship Specialty Start Date End Date Farhat Henry, DO [address] [place] [address] PCP - General Family Medicine 07/13/19 Assistant Boiler Operator Relationship Specialty Start Date End Date Farhat Henry, DO [address] [place] [address] PCP - General Family Medicine 07/13/19 Assistant Boiler Operator Relationship Specialty Start Date End Date Farhat Henry, DO [address] [place] [address] PCP - General Family Medicine 07/13/19 Assistant Boiler Operator Relationship Specialty Start Date End Date Farhat Henry, DO [address] [place] [address] PCP - General Family Medicine 07/13/19 Assistant Boiler Operator Relationship Specialty Start Date End Date Farhat Henry, DO [address] [place] [address] PCP - General Family Medicine 07/13/19 Assistant Boiler Operator Relationship Specialty Start Date End Date Farhat Henry, DO [address] [place] [address] PCP - General Family Medicine 07/13/19 Assistant Boiler Operator Relationship Specialty Start Date End Date Farhat Henry, DO [address] [place] [address] PCP - General Family Medicine 07/13/19 Assistant Boiler Operator Relationship Specialty Start Date End Date Farhat Henry, DO [address] [place] [address] PCP - General Family Medicine 07/13/19 Assistant Boiler Operator Relationship Specialty Start Date End Date Farhat Henry, DO [address] [place] [address] PCP - General Family Medicine 07/13/19 Assistant Boiler Operator Relationship Specialty Start Date End Date Farhat Henry, DO [address] [place] [address] PCP - General Family Medicine 07/13/19 Assistant Boiler Operator Relationship Specialty Start Date End Date Farhat Henry, DO [address] [place] [address] PCP - General Family Medicine 07/13/19 Assistant Boiler Operator Relationship Specialty Start Date End Date Farhat Henry, DO [address] [place] [address] PCP - General Family Medicine 07/13/19 Assistant Boiler Operator Relationship Specialty Start Date End Date Farhat Henry DO [address] [place] [address] PCP - General Family Medicine 07/13/19 Assistant Boiler Operator Relationship Specialty Start Date End Date Farhat Henry DO [address] [facility] [place] [place] [address] PCP - General Family Medicine 07/13/19 Assistant Boiler Operator Relationship Specialty Start Date End Date Farhat Henry DO [address] [place] [address] PCP - General Family Medicine 07/13/19 Assistant Boiler Operator Relationship Specialty Start Date End Date Farhat Henry DO [address] [place] [address] PCP - General Family Medicine 07/13/19 Assistant Boiler Operator Relationship Specialty Start Date End Date Farhat Henry DO [address] [place] [address] PCP - General Family Medicine 07/13/19 Assistant Boiler Operator Relationship Specialty Start Date End Date Farhat Henry DO [address] [place] [address] PCP - General Family Medicine 07/13/19 Assistant Boiler Operator Relationship Specialty Start Date End Date Farhat Henry DO [address] [place] [address] PCP - General Family Medicine 07/13/19 Assistant Boiler Operator Relationship Specialty Start Date End Date Farhat Henry DO [address] [place] [address] PCP - General Family Medicine 07/13/19 Assistant Boiler Operator Relationship Specialty Start Date End Date Farhat Henry DO [address] [place] [address] PCP - General Family Medicine 07/13/19 Assistant Boiler Operator Relationship Specialty Start Date End Date Farhat Henry DO [address] [place] [address] PCP - General Family Medicine 07/13/19 Assistant Boiler Operator Relationship Specialty Start Date End Date Farhat Henry DO [address] [place] [address] PCP - General Family Medicine 07/13/19 Assistant Boiler Operator Relationship Specialty Start Date End Date Farhat Henry DO [address] [place] [address] PCP - General Family Medicine 07/13/19 Assistant Boiler Operator Relationship Specialty Start Date End Date Farhat Henry DO [address] [place] [address] PCP - General Family Medicine 07/13/19 Assistant Boiler Operator Relationship Specialty Start Date End Date Farhat Henry DO [address] [place] [address] PCP - General Family Medicine 07/13/19 Assistant Boiler Operator Relationship Specialty Start Date End Date Farhat Henry DO [address] [place] [address] PCP - General Family Medicine 07/13/19 Assistant Boiler Operator Relationship Specialty Start Date End Date Farhat Henry DO [address] [place] [address] PCP - General Family Medicine 07/13/19 Assistant Boiler Operator Relationship Specialty Start Date End Date Farhat Henry DO [address] [place] [address] PCP - General Family Medicine 07/13/19 Assistant Boiler Operator Relationship Specialty Start Date End Date Farhat Henry DO [address] [place] [address] PCP - General Family Medicine 07/13/19 Assistant Boiler Operator Relationship Specialty Start Date End Date Farhat Henry DO [address] [place] [address] PCP - General Family Medicine 07/13/19 Assistant Boiler Operator Relationship Specialty Start Date End Date Farhat Henry DO [address] [place] [address] PCP - General Family Medicine 07/13/19 Assistant Boiler Operator Relationship Specialty Start Date End Date Farhat Henry DO [address] [place] [address] PCP - General Family Medicine 07/13/19 Assistant Boiler Operator Relationship Specialty Start Date End Date Farhat Henry DO [address] [place] [address] PCP - General Family Medicine 07/13/19 Assistant Boiler Operator Relationship Specialty Start Date End Date Farhat Henry DO [address] [place] [address] PCP - General Family Medicine 07/13/19 Assistant Boiler Operator Relationship Specialty Start Date End Date Farhat Henry DO [address] [place] [address] PCP - General Family Medicine 07/13/19 FOR RECORDS PERTAINING TO PATIENTS WHO ARE OR HAVE BEEN ENROLLED IN A CHEMICAL DEPENDENCY/SUBSTANCEABUSE PROGRAM, SOME INFORMATION MAY BE OMITTED. This clinical summary was aggregated from multiple sources. Caution should be exercised in using it in the provision of clinical care. This summary normalizes information from multiple sources, and as a consequence, information in this document may materially change the coding, format and clinical context of patient data. In addition, data may be omitted in some cases. CLINICAL DECISIONS SHOULD BE BASED ON THE PRIMARY CLINICAL RECORDS. [employer] [facility]. provides no warranty or guarantee of the accuracy or completeness of information in this document.
--- NOTE | 2023-11-22 15:35 | EKG12_ITS ---
Test Reason : Blood Pressure : / mmHG Vent. Rate : 068 BPM Atrial Rate : 068 BPM P-R Int : 136 ms QRS Dur : 072 ms QT Int : 388 ms P-R-T Axes : 030 -06 012 degrees QTc Int : 412 ms Normal sinus rhythm Confirmed by Pelon Ortiz ([id number]), subeditor RANJAN NUNES ([id number]) on 11/24/2023 7:14:11 AM Referred By: Confirmed By:Pelon Ortiz
--- NOTE | 2023-11-22 15:40 | EDS_ITS ---
HPI History of Present Illness Chief Complaint: Hypertension Informant: patient Narrative Narrative: Patient presents secondary to recurrent hypertension. She was seen in the ER last week with hypertension. She did improve with some Ativan. She followed up with her primary care physician who increased her lisinopril from 10 mg once a day to 15 mg twice a day. Her blood pressures been in the 130s systolic with this change, however yesterday and today noted pressures in the 170s to 240s systolic. She complains of a headache. It does appear the patient is also prescribed Ativan to help with anxiety. When I asked her if she is been taking this she denies that she has a prescription for it. [facility] Medical History Anxiety Bulging lumbar disc Chest pain, unspecified Diabetes mellitus Diverticulosis of colon Hypertension Meralgia paraesthetica Pure hypercholesterolemia Stage III chronic kidney disease Vertigo Home Medications coenzyme Q10 30 mg capsule (CoQ-10) 30 mg PO DAILY 05/08/21 [History Last Taken Unknown] vit C 250 mg-vit E 90 mg-zinc 40 mg-copper 1 [id number] capsule (PreserVision AREDS-2) 1 tab PO BID 05/08/21 [History Last Taken Unknown] lisinopril 10 mg tablet 10 mg PO DAILY 11/10/23 [History Last Taken Unknown] lorazepam 0.5 mg tablet 0.5 mg PO DAILY PRN anxiety 11/10/23 [History Last Taken Unknown] triamcinolone acetonide 0.025 % topical cream 1 applic topical DAILY PRN rash 11/10/23 [History Last Taken Unknown] cholecalciferol (vitamin D3) 25 mcg (1,000 unit) tablet (Vitamin D3) 2,000 unit PO DAILY 11/16/23 [History Last Taken Unknown] Allergy/AdvReac Type Severity Reaction Status Date / Time azithromycin [From Zithromax] Allergy Anaphylaxis Verified 11/22/23 15:10 cephalexin [From Keflex] Allergy Anaphylaxis Verified 11/22/23 15:10 Penicillins Allergy Anaphylaxis Verified 11/22/23 15:10 cefaclor [From Ceclor] AdvReac Severe Hives Verified 11/22/23 15:10 ciprofloxacin [From Cipro] AdvReac Severe Hives Verified 11/22/23 15:10 sulfamethoxazole AdvReac Severe Hives Verified 11/22/23 15:10 [From Bactrim] trimethoprim [From Bactrim] AdvReac Severe Hives Verified 11/22/23 15:10 acetaminophen AdvReac Intermediate Abd Verified 11/22/23 15:10 [From Darvocet-N 100] cramps/diarrhea atorvastatin [From Lipitor] AdvReac Intermediate Myalgia Verified 11/22/23 15:10 propoxyphene AdvReac Intermediate Abd Verified 11/22/23 15:10 [From Darvocet-N 100] cramps/diarrhea Family History Father Diabetes Surgical History History of bladder suspension procedure History of mandibular surgery History of total knee replacement (TKR) Social History Smoking Status: Former smoker alcohol intake: current alcohol intake frequency: holidays/special occasions only substance use type: does not use ROS ROS ED Constitutional Constitutional ED: Denies chills or fever(s) Eyes Eyes: Denies discharge from eye(s) ENT ENT ED: Denies discharge from eye(s), rhinorrhea or sore throat Cardiovascular Cardiovascular: Denies chest pain or palpitations Respiratory/Chest Respiratory/Chest: Denies cough or dyspnea Gastrointestinal Gastrointestinal: Denies abdominal pain, nausea or vomiting Genitourinary Genitourinary ED: Denies dysuria Musculoskeletal Musculoskeletal: Denies back pain or extremity pain Integumentary Denies Abrasions or rash Neurologic Neurologic: Reports headache(s); Denies weakness Psychiatric Psychiatric: Reports anxiety; Denies depression Allergic/Immunologic Allergic/Immunologic ED: Denies lip swelling or urticaria EXAM Physical Exam Const Vital Signs: 11/22/23 15:10 11/22/23 15:45 Temperature 97 F L Temperature Source Temporal Pulse Rate 81 Respiratory Rate 18 Respiratory Effort Normal Respiratory Pattern Normal Blood Pressure 137/73 H Blood Pressure Mean 94 Pulse Ox 96 Positive well nourished and well developed General Appearance ED: well developed HEENT Reports moist mucous membranes Eyes EOMs intact bilaterally Chest Wall inspection of chest normal and palpation of chest normal Resp normal respiratory effort and clear to auscultation bilaterally Cardio regular rate and regular rhythm GI non-tender Palpation: soft Extremity normal to inspection Neuro oriented x3 and no sensory deficits noted Motor Exam: strength 5/5 throughout Psych Mood & Affect: anxious Skin no rashes or lesions noted MDM MDM MDM Narrative Medical decision making narrative: Patient was on underwriting intern. EKG obtained to evaluate for cardiac arrhythmia/ischemia. IV line initiated. Labwork obtained to evaluate for leukocytosis, anemia, and electrolyte derangement. Given the patient's blood pressure values at home with her headache I will obtain a head CT to rule out bleed. History & Record Review Discussion w/independent historian: Patient Lab Data Attestation: I reviewed the patient's lab results. Labs: Laboratory Results - last 24 hr 11/22/23 15:49 WBC 4.3 L RBC 4.13 L Hgb 12.9 Hct 39.8 MCV 96.4 MCH 31.2 MCHC 32.4 RDW Std Deviation 45.5 H RDW Coeff of Jah 12.8 Plt Count 197 MPV 9.9 Immature Gran % (Auto) 0.200 Neut % (Auto) 45.4 L Lymph % (Auto) 44.2 H [place] % (Auto) 7.8 Eos % (Auto) 1.9 Baso % (Auto) 0.5 Absolute Neuts (auto) 1.9 L Absolute Lymphs (auto) 1.88 Nucleated RBC % 0 Sodium 143 Potassium 4.2 Chloride 107 Carbon Dioxide 28.0 Anion Gap 8 BUN 21 H Creatinine 1.32 H Estim Creat Clear Calc 29.62 Est GFR (MDRD) Af Amer 50 L Est GFR (MDRD) Non-Af 41 L BUN/Creatinine Ratio 15.9 Glucose 145 H Calcium 9.3 Troponin I High Sens 6 Radiography Diagnostic Testing: Clinical Impression(s) from Imaging Studies Brain CT 11/22/23 15:34 IMPRESSION: Mild atrophy and periventricular white matter ischemic change. No acute bleed. If concern for acute infarct MRI recommended Electronically Signed: Sunny Quintero MD at 16:30 EDT , EKG Initial EKG: Attestation: I personally reviewed and interpreted this EKG as follows: Interpretation: Sinus Rhythm (Sinus at 68 with no acute ischemia.) Treatment and Re-Evaluation :: CBC was white count of 4.3 with a hemoglobin of 12.9. Chemistry studies reveal a BUN of 21 and a creatinine 1.32. This is consistent with her prior values. Glucose is 145. Troponin is normal at 6. EKG is sinus rhythm with no acute ischemia. CT scan of the head reveals no evidence of acute bleed. Patient been ordered Tylenol for headache, but she refused. Although she initially told me she is not taking Ativan, when I showed her her prescription for lorazepam 0.5 mg she does state that she is taking this twice a day. Patient has had 3 blood pressures documented while here. 137/73, 148/77, 135/73. I advised the patient at this time I see no significant abnormalities with her workup and her blood pressure is appropriate for me here. She will be discharged home. I did recommend she take her monitor with her to ensure it is calibrated correctly and she states they did do that her last doctor's visit. Discharge Plan Triage Chief Complaint: Hypertension ED Provider: Rosita Augustine Dx/Rx/DC Orders Clinical Impression: Hypertension Instructions: ED High Blood Pressure Hypertension Prescriptions: No Action coenzyme Q10 [CoQ-10] 30 mg Capsule 30 mg PO DAILY PreserVision AREDS-2 250-90-40-1 mg Capsule 1 tab PO BID cholecalciferol (vitamin D3) [Vitamin D3] 25 mcg (1,000 unit) tablet 2,000 unit PO DAILY lisinopril 10 mg tablet 10 mg PO DAILY Patient Comments: Take 1 tablet by mouth once daily. triamcinolone acetonide 0.025 % cream 1 applic TOPICAL DAILY PRN (Reason: rash) Patient Comments: Apply to affected area two times a day. As needed for rash lorazepam 0.5 mg tablet 0.5 mg PO DAILY PRN (Reason: anxiety) Patient Comments: Take 1 tablet by mouth once daily as needed for up to 90 days. Primary Care Provider: Farhat Henry Referrals: Farhat Henry DO [Primary Care Provider] - 1 Week Disposition Disposition: Home, Self Care
[2023-11-22 15:58] LABS: Absolute Lymphocyte Count 1.88 X10^3/uL (0.83-4.51); Absolute Neutrophil Count 1.9 X10^3/uL (2.0-7.7); Basophil# 0.02 X10^3/uL; Basophil% 0.5 % (0-1); Eosinophil# 0.08 X10^3/uL; Eosinophils% 1.9 % (0-5); Hematocrit 39.8 % (37-47); Hemoglobin 12.9 g/dL (12.0-15.0); Lymphocyte # 1.88 X10^3/ul (0.83-4.51); Lymphocyte % 44.2 % (19-41); Mean Corp Hgb Conc 32.4 g/dL (32-36); Mean Corpuscular Hgb 31.2 pg (27.0-32.0); Mean Corpuscular Volume 96.4 fL (81-99); Mean Platelet Vol. 9.9 fl (6.2-12.0); Monocyte# 0.33 X10^3/uL; Monocyte% 7.8 % (0-10); NRBC Flagged by Analyzer 0 % (0-5); Neutrophil # 1.93 X10^3/uL (2.7-7.7); Neutrophil % 45.4 % (47-70); Platelet Count 197 K/mm3 (150-450); RBC Distribution Width CV 12.8 % (11.6-14.6); RBC Distribution Width SD 45.5 fl (35.1-43.9); Red Blood Count 4.13 M/mm3 (4.2-5.4); White Blood Count 4.3 K/mm3 (4.4-11.0)
[2023-11-22 16:18] LABS: Anion Gap 8 (5-15); BUN 21 mg/dL (7-18); BUN/Creat Ratio 15.9 RATIO (10-20); Calcium,Total 9.3 mg/dL (8.5-10.1); Chloride 107 mmol/L (98-107); Creatinine, Serum 1.32 mg/dL (0.55-1.02); EST Glomerular Filtration Rate 41 mL/min (>60); Est Glom Filt Rate - Afr Amer 50 mL/min (>60); Estimated Creatinine Clearance 29.62 ml/min; Glucose 145 mg/dL (74-106); Potassium 4.2 mmol/L (3.5-5.1); Sodium Level 143 mmol/L (136-145); Troponin-I HS 6 pg/mL (3.0-54.0)
[2023-11-22] MEDS: Acetaminophen 500 MG Tablet 1000 MG PO (17:12)
[2023-11-22 17:13] VITALS: BP 129/85; PULSE 70; RESP 24; TEMP 36.4; O2SAT 96
== END 2023-11-22 17:21 | disposition home or self-care (01) ==
PROVIDERS: Emergency Provider Emergency Medicine; PCP Student in an Organized Health Care Education/Training Program; Visit Provider Emergency Medicine
DX: I12.9 Hypertensive chronic kidney disease with stage 1 through stage 4 chronic kidney disease, or unspecified chronic kidney disease (principal); E11.22 Type 2 diabetes mellitus with diabetic chronic kidney disease; N18.30 Chronic kidney disease, stage 3 unspecified; Z87.891 Personal history of nicotine dependence; Z79.899 Other long term (current) drug therapy; Z96.659 Presence of unspecified artificial knee joint
CPT/HCPCS: 70450; 80048; 84484; 85025; 93005; 99284

== ENCOUNTER → 2024-01-13 | Outpatient (CLI) | payer MEDICARE, OTHER, SELFPAY ==
--- NOTE | 2024-01-13 13:46 | ECHOD_ITS ---
Reason For Study: Chest pain Procedure This was a 2D Doppler, Color Flow transthoracic echocardiogram. Exam performed in department. Left Ventricle Normal LV size. Left ventricular systolic function is normal. The estimated ejection fraction is 60 %. Stage 1 diastolic dysfunction. No regional wall motion abnormalities noted. Right Ventricle Normal RV size. Normal systolic function. Atria Normal left atrium. Normal right atrium. Mitral Valve Normal mitral valve. Tricuspid Valve Normal tricuspid valve. Mild (1+) tricuspid valve insufficiency. Pulmonary artery systolic pressure is 30 mmHg. Aortic Valve Normal aortic valve. Pulmonic Valve Normal pulmonic valve. Great Vessels Normal aortic root. The pulmonary artery is normal size. Normal inferior vena cava. Pericardium/Pleural No pericardial effusion. MMode/2D Measurements & Calculations LVIDd: 3.7 cm IVSd: 1.4 cm Ao root diam: 3.0 cm LVIDs: 1.9 cm LVPWd: 1.1 cm RVDd: 2.9 cm FS: 47.4 % LAV(MOD-bp): 30.3 ml LVAd ap4: 20.5 cm2 LVAd ap2: 22.3 cm2 LAV(MOD-bp) Indexed: 18.2 ml/m2 LVLd ap4: 6.6 cm LVLd ap2: 6.8 cm LAV(MOD-sp2): 28.8 ml EDV(MOD-sp4): 52.0 ml EDV(MOD-sp2): 63.5 ml LAV(MOD-sp4): 29.5 ml EDV(sp4-el): 54.2 ml EDV(sp2-el): 62.0 ml LVAs ap4: 9.7 cm2 LVAs ap2: 12.5 cm2 LVLs ap4: 5.4 cm LVLs ap2: 5.7 cm ESV(MOD-sp4): 16.4 ml ESV(MOD-sp2): 23.6 ml ESV(sp4-el): 15.0 ml ESV(sp2-el): 23.3 ml EF(MOD-sp4): 68.5 % EF(MOD-sp2): 62.8 % EF(sp4-el): 72.3 % SV(MOD-sp4): 35.7 ml SV(MOD-sp2): 39.8 ml SV(sp4-el): 39.2 ml LA dimension(2D): 3.1 cm LA A4 area: 13.9 cm2 RA A4 area: 12.2 cm2 TAPSE: 1.8 cm Time Measurements MV dec time: 0.21 sec Doppler Measurements & Calculations MV E max watson: 87.3 cm/sec Lat Peak E' Watson: 6.5 cm/sec Med Peak E' Watson: 5.9 cm/sec MV A max watson: 116.5 cm/sec E/E' lat: 13.3 E/E' med: 14.9 MV E/A: 0.75 MV dec slope: 407.8 cm/sec2 Ao V2 max: 149.7 cm/sec LV V1 max: 104.1 cm/sec Ao max P.0 mmHg LV V1 max P.3 mmHg Ao V2 mean: 101.4 cm/sec LV V1 mean P.7 mmHg Ao mean P.7 mmHg LV V1 mean: 77.1 cm/sec Ao V2 VTI: 31.7 cm LV V1 VTI: 22.9 cm AV (velocity ratio): 0.72 PA V2 max: 77.1 cm/sec TR max watson: 254.0 cm/sec TR max P.8 mmHg ECHO/Echo Complete Interpretation Summary Normal LV size. Left ventricular systolic function is normal. The estimated ejection fraction is 60 %. Stage 1 diastolic dysfunction. Structurally normal valves. Ordering Physician: Fuad Kearney Referring Physician: Farhat Henry Performed By: Sarah Santos RDCS
== END | disposition home or self-care (01) ==
LOC: CVS 13:42
PROVIDERS: PCP Student in an Organized Health Care Education/Training Program; Referring Provider Internal Medicine Cardiovascular Disease; Visit Provider Internal Medicine Cardiovascular Disease
DX: R07.9 Chest pain, unspecified (principal)
CPT/HCPCS: 93306

== ENCOUNTER 2025-05-25 12:11 | Emergency (ER) | payer MEDICARE, OTHER, SELFPAY ==
[2025-05-25 12:12] VITALS: BP 154/74; PULSE 65; RESP 16; TEMP 36.4; O2SAT 98; BMI 30.9
--- NOTE | 2025-05-25 12:52 | EX.ED.DYSGE1 ---
HPI History of Present Illness Chief Complaint: Dizziness Narrative Narrative: Patient is an 80-year-old female presenting to the emergency department for an episode of dizziness. Patient has a past medical history of diabetes, CKD, vertigo, hypertension. She states that she was busy this morning trying to release her butterflies when she forgot to eat. States that she was sitting on her back patio when she looked up from the ground and developed dizziness. States it felt the same as prior episodes of vertigo. Lasted for about 45 minutes and by the time the squad arrived the symptoms had resolved. She denies any recent head trauma or falls. Denies any chest pain, shortness of breath, palpitations. She felt nauseous during the episode but had no vomiting. Denies any abdominal pain. Denies any speech difficulty, numbness or weakness in her arms or legs. States that she has no symptoms at time of evaluation. No medications were given prior to arrival. [facility] Medical History Pure hypercholesterolemia Diverticulosis of colon Bulging lumbar disc Hypertension Anxiety Chest pain, unspecified Stage III chronic kidney disease Vertigo Meralgia paraesthetica Diabetes mellitus Home Medications ?Medication ?Instructions ?Recorded ?Last Taken ?Type coenzyme Q10 30 mg capsule (CoQ-10) 30 mg PO DAILY 05/08/21 Unknown History vit C 250 mg-vit E 90 mg-zinc 40 1 tab PO BID 05/08/21 Unknown History mg-copper 1 [id number] capsule (PreserVision AREDS-2) cholecalciferol (vitamin D3) 25 2,000 unit PO DAILY 11/16/23 Unknown History mcg (1,000 unit) tablet (Vitamin D3) amlodipine 5 mg tablet 5 mg PO DAILY PRN elevated blood 02/10/25 Unknown History pressure ezetimibe 10 mg tablet 10 mg PO QDAY 02/10/25 Unknown History lisinopril 10 mg tablet 10 mg PO BID 02/10/25 Unknown History sertraline 25 mg tablet 25 mg PO QPM depressive disorder 02/10/25 Unknown History Allergy/AdvReac Type Severity Reaction Status Date / Time azithromycin (From Zithromax) Allergy Anaphylaxis Verified 05/25/25 12:12 cephalexin (From Keflex) Allergy Anaphylaxis Verified 05/25/25 12:12 Penicillins Allergy Anaphylaxis Verified 05/25/25 12:12 cefaclor (From Ceclor) AdvReac Severe Hives Verified 05/25/25 12:12 ciprofloxacin (From Cipro) AdvReac Severe Hives Verified 05/25/25 12:12 sulfamethoxazole (From AdvReac Severe Hives Verified 05/25/25 12:12 Bactrim) trimethoprim (From Bactrim) AdvReac Severe Hives Verified 05/25/25 12:12 atorvastatin (From Lipitor) AdvReac Intermediate Myalgia Verified 05/25/25 12:12 propoxyphene (From AdvReac Intermediate Abd Verified 05/25/25 12:12 Darvocet-N 100) cramps/diarrhea Family History Father Diabetes Surgical History History of mandibular surgery History of bladder suspension procedure History of total knee replacement (TKR) Social History Smoking Status: Former smoker alcohol intake: current alcohol intake frequency: holidays/special occasions only substance use type: does not use ROS ROS ED ROS Narrative see HPI EXAM Physical Exam Narrative Exam Narrative: Vital signs: Reviewed General: Alert and oriented x 3. No acute distress HEENT: Head is normocephalic and atraumatic, sinuses nontender, pupils equal round and reactive. Nares are patent. Oropharynx and throat exams normal. Neck: Supple without lymphadenopathy nontender Cardiovascular: Regular rate and rhythm, no murmurs. No rubs or gallops. Normal S1 and S2 Respiratory: Clear to auscultation bilaterally. No wheezes, rales, rhonchi Abdominal: Soft and nontender. Normal bowel sounds. No guarding or rebound. Nonsurgical abdomen Extremities: No tenderness. No bruising. Normal range of motion. Normal sensation. Skin: No rash or redness. Neurological: Cranial nerves II through XII are grossly intact. Normal strength and sensation. Normal cerebellar function The rest of the physical exam is unremarkable Const Vital Signs: 05/25/25 12:12 05/25/25 13:36 Temperature 97.6 F L Temperature Source Temporal Pulse Rate 65 66 Respiratory Rate 16 20 H Blood Pressure 154/74 H 135/100 H Blood Pressure Mean 100 111 Pulse Ox 98 96 Oxygen Delivery Method Room Air Room Air NIHSS NIHSS Initial: 1a Level of Consciousness: 0 1b LOC Questions (Score 2 if aphasic/stupor): 0 1c LOC Commands (Only score 1st attempt): 0 2 Best Gaze (If aphasic, use reflexive mvmts.): 0 3 Visual: 0 4 Facial Palsy: 0 5 Motor Arm Right (UN = amputation/fusion): 0 5 Motor Arm Left: 0 6 Motor Leg Right: 0 6 Motor Leg Left: 0 7 Limb ataxia (Only + if out of proportion): 0 8 Sensory (Aphasia/stupor=0 or 1, coma=2): 0 9 Best Language: 0 10 Dysarthria (mute, coma=2, intubated=UN): 0 11 Extinction and Inattention (only scored if +): 0 Total Score: 0 MDM MDM MDM Narrative Medical decision making narrative: Patient is a 80-year-old female presenting to the emergency department for an episode of dizziness that lasted about 45 minutes. Patient was seen and examined. Vitals are stable. Patient resting bed comfortably no acute distress. Patient is asymptomatic at time of evaluation. States this felt like her prior vertigo. EKG with normal sinus rhythm. No ischemic changes. No dysrhythmia. Given no CP, SOB, palpitation and negative EKG I do not think this is ACS. Do not think troponin are indicated at this time. Labs were obtained to evaluate for anemia or electrolyte abnormality. CBC with chronic leukopenia of 3.8. Hemoglobin of 12.2. BMP with glucose of 119. BUN slightly elevated at 23 which is chronic. No other significant abnormalities. Patient was able to ambulate to the bathroom without difficulty. No further episodes of dizziness while here. Given the symptoms were transient I do not think this is intracranial in nature including posterior cerebellar stroke. I discussed the negative workup with the patient and at bedside. I recommended that she eat breakfast before exerting herself outside. Recommended that she return if she feels any recurrent dizziness, lightheadedness, SOB, CP, palpitations or abd pain. Patient discharged from the Emergency Department. I do not feel that the patient's evaluation reveals any acute reason for admission at this time. I instructed them to either follow-up with their primary care physician or promptly return to the Emergency Department for reevaluation should symptoms worsen or new symptoms develop. I explained what symptoms would indicate the need to return to the emergency department. Shared decision making was used. The patient voiced understanding of the treatment plan and is agreeable with it. Clinical impression Dizziness History & Record Review Discussion w/independent historian: Patient Lab Data Attestation: I reviewed the patient's lab results. Labs: Laboratory Results - last 24 hr 05/25/25 05/25/25 13:00 13:42 WBC 3.8 L RBC 3.79 L Hgb 12.2 Hct 37.0 MCV 97.6 MCH 32.2 H MCHC 33.0 RDW Std Deviation 43.2 RDW Coeff of Jah 12.0 Plt Count 220 MPV 9.8 Immature Gran % (Auto) 0.300 Neut % (Auto) 46.5 L Lymph % (Auto) 40.8 Callahan % (Auto) 8.7 Eos % (Auto) 2.9 Baso % (Auto) 0.8 Absolute Neuts (auto) 1.8 L Absolute Lymphs (auto) 1.55 Nucleated RBC % 0 Sodium 141 Potassium 4.4 Chloride 106 Carbon Dioxide 22.6 Anion Gap 12 BUN 23 H Creatinine 1.18 Estim Creat Clear Calc 32.48 L Est GFR (MDRD) Non-Af 46 L BUN/Creatinine Ratio 19.7 Glucose 119 H Calcium 9.3 POC Glucose 110 H Discharge Plan Triage Chief Complaint: Dizziness ED Provider: Marta Madera Dx/Rx/DC Orders Clinical Impression: Dizziness Instructions: ED Dizziness, Uncertain Cause Prescriptions: No Action amlodipine 5 mg tablet 5 mg PO DAILY PRN (Reason: elevated blood pressure) lisinopril 10 mg tablet 10 mg PO BID ezetimibe 10 mg tablet 10 mg PO QDAY sertraline 25 mg tablet 25 mg PO QPM coenzyme Q10 [CoQ-10] 30 mg Capsule 30 mg PO DAILY PreserVision AREDS-2 250-90-40-1 mg Capsule 1 tab PO BID cholecalciferol (vitamin D3) [Vitamin D3] 25 mcg (1,000 unit) tablet 2,000 unit PO DAILY Primary Care Provider: Farhat Henry Referrals: Farhat Henry DO [Primary Care Provider] - 2 Days Activity Restrictions/Additional Instructions: Your evaluation in the Emergency Department did not reveal any acute reason for admission. However, I want to emphasize that you may be early in the course of a disease process or illness even if it is not present. For this reason you should follow-up within 24 hours for reevaluation with either your primary care physician or if necessary back here in the Emergency Department. You should return to the Emergency Department immediately if your symptoms worsen or new symptoms develop. Print Language: Icelandic Disposition Disposition: Home, Self Care
[2025-05-25 13:11] LABS: Hematocrit 37.0 % (37-47); Hemoglobin 12.2 g/dL (12.0-15.0); Immature Granulocytes Count 0.010 X10^3/uL (0.0-0.0); Mean Corp Hgb Conc 33.0 g/dL (32-36); Mean Corpuscular Volume 97.6 fL (81-99); Mean Platelet Vol. 9.8 fl (6.2-12.0); NRBC Flagged by Analyzer 0 % (0-5); Platelet Count 220 K/mm3 (150-450); RBC Distribution Width CV 12.0 % (11.6-14.6); RBC Distribution Width SD 43.2 fl (35.1-43.9); Red Blood Count 3.79 M/mm3 (4.2-5.4); White Blood Count 3.8 K/mm3 (4.4-11.0)
[2025-05-25 13:36] VITALS: BP 135/100; PULSE 66; RESP 20; O2SAT 96
[2025-05-25 14:07] LABS: Anion Gap 12 (5-15); BUN 23 mg/dL (4-19); BUN/Creat Ratio 19.7 RATIO (10-20); Calcium,Total 9.3 mg/dL (7.6-11.0); Carbon Dioxide 22.6 mmol/L (21.0-32.0); Chloride 106 mmol/L (98-108); Estimated Creatinine Clearance 32.48 ml/min (50-250); Glucose 119 mg/dL (70-99); Potassium 4.4 mmol/L (3.3-5.1)
[2025-05-25 14:48] VITALS: BP 152/68; PULSE 67; RESP 17; TEMP 36.7; O2SAT 98
== END 2025-05-25 14:50 | disposition home or self-care (01) ==
PROVIDERS: Emergency Provider Student in an Organized Health Care Education/Training Program; PCP Student in an Organized Health Care Education/Training Program; Visit Provider Student in an Organized Health Care Education/Training Program
DX: R42 Dizziness and giddiness (principal); E11.22 Type 2 diabetes mellitus with diabetic chronic kidney disease; N18.30 Chronic kidney disease, stage 3 unspecified; Z87.891 Personal history of nicotine dependence; E78.00 Pure hypercholesterolemia, unspecified; D72.819 Decreased white blood cell count, unspecified; I12.9 Hypertensive chronic kidney disease with stage 1 through stage 4 chronic kidney disease, or unspecified chronic kidney disease
CPT/HCPCS: 80048; 82962; 85025; 93005; 99285; A4216